=== PATIENT | female | born 1955 | race Caucasian/White ===

== ENCOUNTER 2020-04-08 16:00 | Outpatient (RCR) | payer OTHER, SELFPAY | END 2020-04-08 16:49 | disposition other institution (70) | LOC: HO.PT 16:00 | PROVIDERS: PCP Internal Medicine Medical Oncology; Visit Provider Neurological Surgery | DX: M54.2 Cervicalgia (principal) | CPT/HCPCS: 97110 ==

== ENCOUNTER 2020-05-18 08:42 | Outpatient (REF) | payer OTHER, SELFPAY ==
--- NOTE | 2020-05-18 | MR_ITS ---
EXAMINATION: MR CERVICAL SPINE WITHOUT CONTRAST CLINICAL INFORMATION: Neck pain. COMPARISON: MRI dated 03/03/2014. TECHNIQUE: MRI of the cervical spine was obtained using routine sequences without contrast. FINDINGS: VERTEBRAL BODIES AND PARASPINAL SOFT TISSUES: The patient is status post previous anterior cervical discectomy and fusion with hardware instrumentation at the C4-C5 level. An interbody prosthesis and solid arthrodesis are delineated at C5-C6. There is a mild anterior subluxation at C7-T1 with moderate to severe facet degeneration and mild edema in the articular processes. There is a mild rightward curvature of the cervical spine. The imaged portions of the lungs are grossly clear. CERVICOMEDULLARY JUNCTION AND VISUALIZED POSTERIOR FOSSA: The craniovertebral junction and imaged portions of the brain parenchyma appear normal. No cord signal abnormality or syrinx is seen. SPINAL LEVELS: C2-C3: Slightly increased mild posterior disc bulge without central canal stenosis. Patent foramina. C3-C4: Mildly worsened broad-based, shallow disc-osteophyte complex without central canal stenosis. Severe right-sided facet arthropathy, as on prior imaging with significant right foraminal encroachment. C4-C5: Solid anterior interbody fusion changes with hardware instrumentation. No central canal stenosis or foraminal narrowing. Ankylosis of the left articular pillar, new compared to the prior study. C5-C6: Prior anterior cervical fusion hardware now removed with bulky uncovertebral joint spurring on the right side and moderate right foraminal encroachment. No central canal stenosis. C6-C7: Prior anterior cervical fusion hardware removed with a solid arthrodesis. No central canal stenosis. Very mild right foraminal narrowing. C7-T1: Worsened mild anterolisthesis and unroofing of the disc without central canal stenosis. Mild annular bulge. Significantly progressed facet arthropathy, worse on the right side with mild marrow edema and mild edema in the deep posterior paraspinal soft tissues. Severe right foraminal encroachment and milder left foraminal narrowing. MR/MR cervical spine wo con IMPRESSION: Status post previous anterior cervical discectomy and fusion with hardware instrumentation at C4-C5. Prior fusion changes at C5-C6 with removal of hardware and moderate right foraminal narrowing. Solid arthrodesis at C6-C7. Mildly increased posterior disc bulges at C2-C3 and C3-C4. Stable severe right facet arthropathy and significant right foraminal encroachment at the C3-C4 level. Worsened mild anterolisthesis at C7-T1 with significantly progressed facet degeneration and severe right foraminal narrowing. Mild reactive edema in the articular processes and deep posterior paraspinal soft tissues.
== END 2020-05-18 08:43 | disposition home or self-care (01) ==
LOC: HO.MRI 08:42
PROVIDERS: PCP Internal Medicine Medical Oncology; Visit Provider Neurological Surgery
DX: M54.2 Cervicalgia (principal)
CPT/HCPCS: 72141

== ENCOUNTER 2020-09-02 11:31 | Outpatient (REF) | payer OTHER, SELFPAY | END 2020-09-02 11:32 | disposition home or self-care (01) | LOC: HO.LAB 11:31 | PROVIDERS: Visit Provider Internal Medicine | DX: Z20.822 Contact with and (suspected) exposure to COVID-19 (principal) | CPT/HCPCS: 36415; C9803; U0003; U0005 ==

== ENCOUNTER 2020-09-10 08:26 | Outpatient (REF) | payer OTHER, SELFPAY ==
[2020-09-10 08:56] LABS: MANUAL DIFF FLAG NO
[2020-09-10 09:04] LABS: Basophils Percent Auto 0.4 % (0-2); Eosinophils Absolute Auto 0.1 X10*3/uL (0.0-0.4); Hematocrit 34.8 % (37-47); Hemoglobin 11.2 g/dl (12.0-16.0); Imm Gran Abs Auto 0.03 X10*3/uL (0.00-0.03); Imm Gran Pct Auto 0.4 % (0.0-0.4); Lymphocytes Absolute Auto 1.7 X10*3/uL (1.2-4.9); Lymphocytes Percent Auto 23.2 % (20-40); Mean Corpuscular HGB Conc 32.2 g/dl (31.0-35.0); Mean Corpuscular Hemoglobin 30.7 pg (27.0-33.0); Mean Corpuscular Volume 95.3 fL (80-98); Mean Platelet Volume 10.3 fL (9.4-12.3); Monocytes Absolute Auto 0.4 X10*3/uL (0.1-1.2); Neutrophils Absolute Auto 4.9 X10*3/uL (2.0-8.3); Platelet Count 279 X10*3/uL (160-400); Red Blood Count 3.65 X10*6/uL (4.20-5.50); White Blood Count 7.2 X10*3/uL (4.8-10.8)
[2020-09-10 09:11] LABS: INTERNATIONAL NORM RATIO 1.1 (0.9-1.1); Prothrombin Time 12.8 SEC (10.8-13.0)
[2020-09-10 09:12] LABS: Partial Thromboplastin Time 33.7 SEC (24.1-38.0)
[2020-09-10 10:01] LABS: Alanine Aminotransferase 17 U/L (0-31); Albumin Level 3.9 g/dL (3.5-5.0); Alkaline Phosphatase 102 U/L (39-117); Anion Gap 12 (12-20); Aspartate Amino Transferase 18 U/L (5-31); Bilirubin Total 0.3 mg/dL (0.0-1.0); Blood Urea Nitrogen 10 mg/dL (9-16); Calcium 8.9 mg/dL (8.4-10.2); Carbon Dioxide 27 mmol/L (22-29); Chloride 105 mmol/L (96-108); Estimated Glomerular Filt Rate 59; Glucose Random 129 mg/dL (60-115); Potassium 4.3 mmol/L (3.3-5.1); Sodium 140 mmol/L (135-145); Total Protein 6.3 g/dL (6.5-8.0)
== END 2020-09-10 08:27 | disposition home or self-care (01) ==
LOC: HO.LAB 08:26
PROVIDERS: PCP Internal Medicine Medical Oncology; Visit Provider Internal Medicine Medical Oncology
DX: Z01.818 Encounter for other preprocedural examination (principal); M50.30 Other cervical disc degeneration, unspecified cervical region
CPT/HCPCS: 36415; 80053; 85025; 85610; 85730

== ENCOUNTER 2020-11-13 10:10 | Outpatient (REF) | payer OTHER, SELFPAY ==
[2020-11-13 10:46] LABS: MANUAL DIFF FLAG NO
[2020-11-13 10:51] LABS: Basophils Percent Auto 0.4 % (0-2); Eosinophils Absolute Auto 0.1 X10*3/uL (0.0-0.4); Eosinophils Percent Auto 1.8 % (0-4); Hemoglobin 12.9 g/dl (12.0-16.0); Imm Gran Abs Auto 0.01 X10*3/uL (0.00-0.03); Imm Gran Pct Auto 0.2 % (0.0-0.4); Lymphocytes Absolute Auto 1.6 X10*3/uL (1.2-4.9); Lymphocytes Percent Auto 32.1 % (20-40); Mean Corpuscular HGB Conc 32.3 g/dl (31.0-35.0); Mean Corpuscular Hemoglobin 29.6 pg (27.0-33.0); Mean Corpuscular Volume 91.7 fL (80-98); Mean Platelet Volume 10.3 fL (9.4-12.3); Monocytes Absolute Auto 0.3 X10*3/uL (0.1-1.2); Monocytes Percent Auto 6.7 % (2-11); Neutrophils Percent Auto 58.8 % (45-73); Platelet Count 311 X10*3/uL (160-400); Red Blood Count 4.36 X10*6/uL (4.20-5.50); Red Cell Distribution Width 12.8 % (11.0-16.0); White Blood Count 5.1 X10*3/uL (4.8-10.8)
[2020-11-13 11:13] LABS: Alanine Aminotransferase 12 U/L (0-31); Albumin Level 4.2 g/dL (3.5-5.0); Alkaline Phosphatase 121 U/L (39-117); Anion Gap 12 (12-20); Aspartate Amino Transferase 16 U/L (5-31); Bilirubin Total 0.4 mg/dL (0.0-1.0); Blood Urea Nitrogen 9 mg/dL (9-16); Calcium 9.6 mg/dL (8.4-10.2); Carbon Dioxide 27 mmol/L (22-29); Chloride 107 mmol/L (96-108); Cholesterol 175 mg/dL; Estimated Glomerular Filt Rate 57; Glucose Fasting 126 mg/dL (60-99); HDL Cholesterol 46 mg/dL; LDL Cholesterol Calculated 97 mg/dl; Potassium 4.1 mmol/L (3.3-5.1); Sodium 142 mmol/L (135-145); Total Protein 6.7 g/dL (6.5-8.0); Triglycerides 164 mg/dL
== END 2020-11-13 10:11 | disposition home or self-care (01) ==
LOC: HO.LAB 10:10
PROVIDERS: PCP Internal Medicine Medical Oncology; Visit Provider Internal Medicine Medical Oncology
DX: E78.2 Mixed hyperlipidemia (principal); F51.01 Primary insomnia; G25.0 Essential tremor; K21.9 Gastro-esophageal reflux disease without esophagitis
CPT/HCPCS: 36415; 80053; 80061; 85025

== ENCOUNTER 2021-09-21 14:52 | Outpatient (REF) | payer OTHER, SELFPAY ==
[2021-09-21 14:59] LABS: Appearance Urine CLEAR; Color Urine YELLOW; Glucose Urine UA NEG (NEG); Leukocyte Esterase Urine 1+ (NEG); Nitrite Urine NEG (NEG); Urine Blood 3+ (NEG); Urine Ketones NEG (NEG); Urine Protein NEG (NEG-TRACE)
[2021-09-21 15:14] LABS: Squamous Epithelial Cell Urine TRACE /LPF
[2021-09-21 15:15] LABS: Mucus Urine TRACE /LPF; Renal Epithelial Cells Urine TRACE /LPF; WBC Clumps Urine NOTED
== END 2021-09-21 14:53 | disposition home or self-care (01) ==
LOC: HO.LNP 14:52
PROVIDERS: Visit Provider Internal Medicine Medical Oncology
DX: R31.9 Hematuria, unspecified (principal)
CPT/HCPCS: 81001; 87086

== ENCOUNTER 2021-11-15 14:52 | Outpatient (REF) | payer OTHER, SELFPAY ==
[2021-11-15 15:07] LABS: MANUAL DIFF FLAG NO
[2021-11-15 16:11] LABS: Basophils Percent Auto 0.5 % (0-2); Eosinophils Absolute Auto 0.2 X10*3/uL (0.0-0.4); Eosinophils Percent Auto 2.3 % (0-4); Hematocrit 36.8 % (37.0-47.0); Hemoglobin 12.1 g/dl (12.0-16.0); Imm Gran Abs Auto 0.02 X10*3/uL (0.00-0.03); Imm Gran Pct Auto 0.3 % (0.0-0.4); Lymphocytes Absolute Auto 1.9 X10*3/uL (1.2-4.9); Lymphocytes Percent Auto 28.5 % (20-40); Mean Corpuscular HGB Conc 32.9 g/dl (31.0-35.0); Mean Corpuscular Hemoglobin 30.2 pg (27.0-33.0); Mean Corpuscular Volume 91.8 fL (80.0-98.0); Mean Platelet Volume 9.9 fL (9.4-12.3); Monocytes Absolute Auto 0.4 X10*3/uL (0.1-1.2); Monocytes Percent Auto 6.4 % (2-11); Platelet Count 317 X10*3/uL (160-400); Red Blood Count 4.01 X10*6/uL (4.20-5.50); Red Cell Distribution Width 13.3 % (11.0-16.0); White Blood Count 6.5 X10*3/uL (4.8-10.8)
[2021-11-15 16:32] LABS: Alanine Aminotransferase 13 U/L (0-31); Albumin Level 4.2 g/dL (3.5-5.0); Alkaline Phosphatase 100 U/L (39-117); Anion Gap 14 (12-20); Aspartate Amino Transferase 19 U/L (5-31); Bilirubin Total 0.3 mg/dL (0.0-1.0); Blood Urea Nitrogen 13 mg/dL (9-16); Calcium 9.4 mg/dL (8.4-10.2); Carbon Dioxide 24 mmol/L (22-29); Chloride 106 mmol/L (96-108); Cholesterol 206 mg/dL; Estimated Glomerular Filt Rate 57; Glucose Fasting 108 mg/dL (60-99); HDL Cholesterol 50 mg/dL; LDL Cholesterol Calculated 110 mg/dl; Potassium 4.8 mmol/L (3.3-5.1); Sodium 139 mmol/L (135-145); Total Protein 6.8 g/dL (6.5-8.0); Triglycerides 233 mg/dL
[2021-11-15 16:54] LABS: Free T4 (Free Thyroxine) 1.11 ng/dL (0.71-1.85); Thyroid Stimulating Hormone 0.76 uIU/mL (0.32-4.0)
== END 2021-11-15 14:53 | disposition home or self-care (01) ==
LOC: HO.LAB 14:52
PROVIDERS: PCP Internal Medicine Medical Oncology; Visit Provider Internal Medicine Medical Oncology
DX: E78.2 Mixed hyperlipidemia (principal); E66.9 Obesity, unspecified
CPT/HCPCS: 36415; 80053; 80061; 84439; 84443; 85025

== ENCOUNTER 2022-07-19 15:40 | Outpatient (REF) | payer OTHER, SELFPAY ==
[2022-07-19 15:50] LABS: MANUAL DIFF FLAG NO
[2022-07-19 16:03] LABS: Basophils Percent Auto 0.6 % (0-2); Eosinophils Absolute Auto 0.2 X10*3/uL (0.0-0.4); Eosinophils Percent Auto 2.5 % (0-4); Hematocrit 36.6 % (37.0-47.0); Hemoglobin 12.2 g/dl (12.0-16.0); Imm Gran Abs Auto 0.02 X10*3/uL (0.00-0.03); Imm Gran Pct Auto 0.3 % (0.0-0.4); Lymphocytes Absolute Auto 2.3 X10*3/uL (1.2-4.9); Lymphocytes Percent Auto 35.4 % (20-40); Mean Corpuscular HGB Conc 33.3 g/dl (31.0-35.0); Mean Corpuscular Volume 92.9 fL (80.0-98.0); Mean Platelet Volume 9.4 fL (9.4-12.3); Monocytes Absolute Auto 0.5 X10*3/uL (0.1-1.2); Monocytes Percent Auto 7.6 % (2-11); Neutrophils Absolute Auto 3.4 x10*3/uL (2.0-8.3); Neutrophils Percent Auto 53.6 % (45-73); Platelet Count 299 X10*3/uL (160-400); Red Blood Count 3.94 X10*6/uL (4.20-5.50); Red Cell Distribution Width 12.7 % (11.0-16.0); White Blood Count 6.4 X10*3/uL (4.8-10.8)
[2022-07-19 16:28] LABS: Alanine Aminotransferase 12 U/L (0-31); Alkaline Phosphatase 107 U/L (39-117); Anion Gap 15 (12-20); Aspartate Amino Transferase 12 U/L (5-31); Bilirubin Total 0.2 mg/dL (0.0-1.0); Blood Urea Nitrogen 9 mg/dL (9-16); Calcium 9.4 mg/dL (8.4-10.2); Carbon Dioxide 25 mmol/L (22-29); Chloride 107 mmol/L (96-108); Cholesterol 227 mg/dL; Estimated Glomerular Filt Rate 50; Glucose Random 102 mg/dL (60-115); HDL Cholesterol 50 mg/dL; LDL Cholesterol Calculated 142 mg/dl; Potassium 4.4 mmol/L (3.3-5.1); Sodium 143 mmol/L (135-145); Total Protein 6.6 g/dL (6.5-8.0); Triglycerides 175 mg/dL
[2022-07-19 16:50] LABS: T4 Thyroxine 9.6 ug/dL (4.5-12.0); Thyroid Stimulating Hormone 0.42 uIU/mL (0.32-4.0)
== END 2022-07-19 15:41 | disposition home or self-care (01) ==
LOC: HO.LAB 15:40
PROVIDERS: PCP Internal Medicine Medical Oncology; Visit Provider Internal Medicine Medical Oncology
DX: E78.2 Mixed hyperlipidemia (principal); E03.9 Hypothyroidism, unspecified; G25.0 Essential tremor; M50.30 Other cervical disc degeneration, unspecified cervical region; E66.9 Obesity, unspecified
CPT/HCPCS: 36415; 80053; 80061; 84436; 84443; 84550; 85025

== ENCOUNTER 2022-08-08 12:11 | Outpatient (REF) | payer OTHER, SELFPAY ==
[2022-08-08 13:42] LABS: Erythrocyte Sedimentation Rate 27 MM/HR (0-20)
[2022-08-08 13:45] LABS: Folate 8.2 ng/mL (> or = 4.0); Thyroid Stimulating Hormone 1.79 uIU/mL (0.32-4.0); Vitamin B12 203 pg/mL (200-900)
[2022-08-11 21:23] LABS: Aldolase 4.2 U/L (<=8.1)
== END 2022-08-08 12:12 | disposition home or self-care (01) ==
LOC: HO.LAB 12:11
PROVIDERS: PCP Internal Medicine Medical Oncology; Visit Provider Psychiatry & Neurology Neurology
DX: G72.9 Myopathy, unspecified (principal)
CPT/HCPCS: 36415; 82085; 82550; 82607; 82746; 84443; 85652

== ENCOUNTER 2022-08-31 07:16 | Outpatient (REF) | payer OTHER, SELFPAY ==
--- NOTE | ~2022-08-31 | MR_ITS ---
EXAMINATION: MRI OF THE BRAIN WITHOUT CONTRAST CLINICAL INFORMATION: Cerebellar ataxia. COMPARISON: MRI scan of the brain 02/13/2014. TECHNIQUE: MRI of the brain was obtained using routine sequences without contrast. FINDINGS: No diffusion abnormalities are identified to suggest an acute or subacute infarct. No mass effect or midline shift is seen. There is mild commensurate prominence of ventricles and sulci. There are sequelae of a lacunar infarct in the right caudate head with mild ex-vacuo dilatation of the anterior horn of the right lateral ventricle. There is also chronic infarct in the anterior right basal ganglia. These are new findings compared to prior imaging. There are a few scattered foci of hyperintense T2 and FLAIR signal in the periventricular and subcortical white matter, which are most consistent with mild chronic microvascular ischemic changes. No extra-axial fluid collections are seen. The brainstem and cerebellum are normal. No pathologic magnetic susceptibility artifact is identified on the gradient refocused acquisition. The craniovertebral junction, marrow signal, and midline structures are normal. There are now sequelae of an ACDF at C3-C4. The major intracranial flow-voids at the level of the [place] are preserved. The dural venous sinus flow-voids are maintained. There have been bilateral lens extractions. There is persistent fluid in the bilateral mastoid air cells, more prominent on the right. There is now polypoid mucoperiosteal thickening in the left maxillary sinus and there are mucoperiosteal changes in the bilateral ethmoid and right maxillary sinuses, new compared to prior imaging. MR/MR head/brain wo con IMPRESSION: 1. There are no acute bleeds or territorial infarcts. No masses are demonstrated. 2. There are chronic microvascular ischemic changes and there are chronic lacunar infarcts on the right. There is diffuse volume loss.
== END 2022-08-31 07:17 | disposition home or self-care (01) ==
LOC: HO.MRI 07:16
PROVIDERS: PCP Internal Medicine Medical Oncology; Visit Provider Psychiatry & Neurology Neurology
DX: G11.9 Hereditary ataxia, unspecified (principal)
CPT/HCPCS: 70551

== ENCOUNTER 2022-10-24 11:26 | Outpatient (REF) | payer OTHER, SELFPAY ==
[2022-10-24 13:01] LABS: Appearance Urine Cloudy; Color Urine Dark Yellow; Glucose Urine UA Negative (Negative); Leukocyte Esterase Urine Small (1+) (Negative); Nitrite Urine Negative (Negative); Specific Gravity - Urine >= 1.030 (1.005-1.025); UMIC TRIGGER UA YES; Urine Blood Negative (Negative); Urine Ketones Trace mg/dL (Negative); Urine Protein Trace mg/dL (Neg-Trace)
[2022-10-24 13:11] LABS: Bacteria Urine None Seen (None Seen); Calcium Oxalate Crystals Urine Present; WBC Urine 21-50 /HPF (0-5)
== END 2022-10-24 11:27 | disposition home or self-care (01) ==
LOC: HO.LAB 11:26
PROVIDERS: PCP Internal Medicine Medical Oncology; Visit Provider Internal Medicine Medical Oncology
DX: R31.9 Hematuria, unspecified (principal)
CPT/HCPCS: 81001; 81003; 87086

== ENCOUNTER 2023-07-24 17:06 | Outpatient (REF) | payer OTHER, SELFPAY | END 2023-07-24 17:07 | disposition home or self-care (01) | LOC: HO.LNP 17:06 | PROVIDERS: Visit Provider Internal Medicine Medical Oncology | DX: H66.90 Otitis media, unspecified, unspecified ear (principal) | CPT/HCPCS: 87070; 87205 ==

== ENCOUNTER 2023-08-08 10:14 | Outpatient (REF) | payer OTHER, SELFPAY ==
[2023-08-08 10:25] LABS: MANUAL DIFF FLAG NO
[2023-08-08 10:41] LABS: Basophils Percent Auto 0.4 % (0-2); Eosinophils Absolute Auto 0.2 X10*3/uL (0.0-0.4); Eosinophils Percent Auto 2.3 % (0-4); Hematocrit 38.4 % (37.0-47.0); Hemoglobin 12.4 g/dl (12.0-16.0); Imm Gran Abs Auto 0.02 X10*3/uL (0.00-0.03); Imm Gran Pct Auto 0.3 % (0.0-0.4); Mean Corpuscular HGB Conc 32.3 g/dl (31.0-35.0); Mean Corpuscular Hemoglobin 29.2 pg (27.0-33.0); Mean Corpuscular Volume 90.6 fL (80.0-98.0); Mean Platelet Volume 9.4 fL (9.4-12.3); Monocytes Absolute Auto 0.5 X10*3/uL (0.1-1.2); Monocytes Percent Auto 5.8 % (2-11); Neutrophils Absolute Auto 5.1 x10*3/uL (2.0-8.3); Neutrophils Percent Auto 65.2 % (45-73); Platelet Count 275 X10*3/uL (160-400); Red Blood Count 4.24 X10*6/uL (4.20-5.50); Red Cell Distribution Width 13.5 % (11.0-16.0); White Blood Count 7.7 X10*3/uL (4.8-10.8)
[2023-08-08 12:31] LABS: Alanine Aminotransferase 17 U/L (0-31); Albumin Level 3.9 g/dL (3.5-5.0); Alkaline Phosphatase 115 U/L (39-117); Anion Gap 12 (12-20); Aspartate Amino Transferase 18 U/L (5-31); Bilirubin Total 0.3 mg/dL (0.0-1.0); Blood Urea Nitrogen 9 mg/dL (9-16); Calcium 9.3 mg/dL (8.4-10.2); Carbon Dioxide 27 mmol/L (22-29); Chloride 106 mmol/L (96-108); Cholesterol 188 mg/dL (<200); Estimated Glomerular Filt Rate 57; Glucose Random 95 mg/dL (60-115); HDL Cholesterol 60 mg/dL (>40); LDL Cholesterol Calculated 90 mg/dL (<100); Potassium 3.9 mmol/L (3.3-5.1); Sodium 141 mmol/L (135-145); Total Protein 7.1 g/dL (6.5-8.0); Triglycerides 190 mg/dL (<150)
[2023-08-08 12:33] LABS: Free T4 (Free Thyroxine) 1.01 ng/dL (0.71-1.85); Thyroid Stimulating Hormone 0.51 uIU/mL (0.32-4.0)
== END 2023-08-08 10:15 | disposition home or self-care (01) ==
LOC: HO.LAB 10:14
PROVIDERS: PCP Internal Medicine Medical Oncology; Visit Provider Internal Medicine Medical Oncology
DX: Z00.00 Encounter for general adult medical examination without abnormal findings (principal); E78.2 Mixed hyperlipidemia; E03.9 Hypothyroidism, unspecified; K21.9 Gastro-esophageal reflux disease without esophagitis; E66.9 Obesity, unspecified
CPT/HCPCS: 36415; 80053; 80061; 84439; 84443; 85025

== ENCOUNTER 2023-12-21 12:44 | Day surgery (SDC) | payer MEDICARE, MEDICAID, SELFPAY ==
[2023-12-21 12:56] VITALS: BP 145/65; PULSE 78; RESP 18; TEMP 36.1; O2SAT 97; BMI 26.8
--- NOTE | 2023-12-21 13:29 | P.CONAN_ITS ---
HPI - Anesthesia Eval Consult details Narrative: 68 yo female patient for EGD [facility] Past Medical History Medical History Tardive dyskinesia SOB (shortness of breath) COPD (chronic obstructive pulmonary disease) Asthma Thoracic stomach hernia Hiatal hernia ADHD Hyperlipemia Anxiety Panic attack Bipolar 1 disorder Osteoarthritis Depression Hemorrhoid Tubular adenoma Brooks esophagus Diverticulosis Family History Family history of problems with anesthesia: No Surgical History Surgical History Total knee replacement status History of total right hip replacement H/O Spinal surgery Hx of colonoscopy Hx of esophagogastroduodenoscopy History of Problems with Anesthesia: No Social History Social History Patient Tobacco Use Status: Current someday Tobacco user Tobacco use type: Cigarette Date Education Initiated: 12/21/23 Use of substances other than those prescribed or required for medical reasons: No Are you DNR?: No Advance Directives: No Advance Directives Information Provided: Yes Meds Allergies Allergy/AdvReac Type Severity Reaction Status Date / Time NSAIDS (Non-Steroidal Allergy Intermediate BLOODY Verified 12/21/23 14:20 Anti-Inflamma STOOL [NSAIDS (NON-STEROIDAL ANTI-INFLAMMA] diclofenac [From VOLTAREN] Allergy Unknown GI BLEED Verified 12/21/23 14:20 anti- inflamatory medication Allergy Unknown Unknown Uncoded 12/21/23 14:20 Home Medications ?Medication ?Instructions ?Recorded ?Confirmed ?Last Taken ?Type aripiprazole 5 mg tablet 5 mg PO QAM 12/20/23 12/21/23 Unknown History atorvastatin 40 mg tablet 40 mg PO DAILY 12/20/23 12/21/23 Unknown History citalopram 40 mg tablet 40 mg PO DAILY 12/20/23 12/21/23 Unknown History dextroamphetamine-amphetamine ER 1 cap PO BID 12/20/23 12/21/23 Unknown History 30 mg 24hr capsule,extend release ergocalciferol (vitamin D2) 1,250 1,250 mcg PO QMONTH 12/20/23 12/21/23 Unknown History mcg (50,000 unit) capsule levothyroxine 75 mcg tablet 75 mcg PO DAILY 12/20/23 12/21/23 Unknown History umeclidinium 62.5 mcg-vilanterol 1 ea inhalation DAILY 12/20/23 12/21/23 Unknown History 25 mcg/actuation powdr for inhalation (Anoro Ellipta) zolpidem 10 mg tablet 10 mg PO BEDTIME PRN Sleep 12/20/23 12/21/23 Unknown History amantadine HCl 100 mg capsule 100 mg PO TID 12/21/23 12/21/23 Unknown History clonazepam 0.5 mg tablet 0.5 mg PO DAILY 12/21/23 12/21/23 Unknown History dextroamphetamine-amphetamine ER 1 cap PO QAM 12/21/23 12/21/23 Unknown History 30 mg 24hr capsule,extend release Exam Height,Weight and Vital Signs: Height 6 ft Weight 89.721 kg Last Vital Signs Temp 96.9 F 12/21/23 12:56 Pulse 78 12/21/23 12:56 Resp 18 12/21/23 12:56 BP 145/65 H 12/21/23 12:56 Pulse Ox 97 12/21/23 12:56 O2 Del Method Room Air 12/21/23 12:56 Airway Mallampati Class: II TM Dist: >3cm Neck ROM: Full Denture: Upper and Lower Heart: RRR Lungs: CTAB Assessment and Plan Assessment Anesthesia Assessment: Anesthesia Plan Discussed and Chart Reviewed Final Anesthetic Review Family History of Problems with Anesthesia: No History of Problems with Anesthesia: No NPO: Yes ASA Class: III Final Preanesthetic Review: No Changes in Pt Med Stat, Meds/Allgs Chart Reviewed, Consent Obtained/Reviewed and Anes Risks/Benef Reviewed Patient Risk: Intermediate Procedure Risk: Low Assessment/Block/Sedation in SS: Assess/Block/Sedation-SS Anesthetic Plan Anesthetic Plan: GA (While talking to PRODUCTION ENGINEER TRACK, patient mentions that Barium swallow 3 days ago had to be stopped because barium was going into her lungs. Results not available in chart but decision made to administer GA with intubation ) Disposition: Standard PACU
[2023-12-21] MEDS: Lactated Ringers 1,000 ML 100 ML IVCONT (13:30)
--- NOTE | 2023-12-21 14:33 | P.BOP_ITS ---
Brief Operative Note Date of Service: 12/21/23 Pre-op diagnosis: Hiatal hernia Post-op diagnosis: other (Same) Procedure: EGD Surgeon: Campos Hand MD Anesthesia: GETA Was an Correctional Program Specialist used for this Procedure?: No Estimated blood loss (mL): 0 Pathology: none sent Condition: stable Disposition: PACU
[2023-12-21 14:36] VITALS: BP 130/54; PULSE 62; RESP 16; TEMP 36.3; O2SAT 96
[2023-12-21 14:40] VITALS: BP 119/43; PULSE 64; RESP 16; O2SAT 96
[2023-12-21 14:45] VITALS: BP 116/54; PULSE 63; RESP 16; O2SAT 96
[2023-12-21 14:50] VITALS: BP 119/54; PULSE 62; RESP 16; O2SAT 95
[2023-12-21 15:04] VITALS: BP 109/53; PULSE 63; RESP 16; TEMP 36.1; O2SAT 97
--- NOTE | 2023-12-21 16:53 | OP_ITS ---
DATE OF SERVICE: 12/21/2023 SURGEON: Campos Hand MD INDICATIONS: The patient presents for evaluation of a paraesophageal hiatal hernia and gastroesophageal reflux. Full consent has been obtained from her for this, including risks of bleeding and perforation. PREOPERATIVE DIAGNOSIS: Hiatal hernia with paraesophageal component. POSTOPERATIVE DIAGNOSIS: Hiatal hernia with paraesophageal component. PROCEDURE PERFORMED: Esophagogastroduodenoscopy. ESTIMATED BLOOD LOSS: COMPLICATIONS: ANESTHESIA: General anesthesia was used rather than monitored anesthesia care as the anesthesiologist were concerned about aspiration given the patient's report of a recent barium swallow describing that during her x-ray. ASSISTANTS: SPECIMENS: DESCRIPTION OF PROCEDURE: The patient was kept in the supine position. The Olympus video gastroscope was passed in the posterior oropharynx and upper esophagus under direct vision. The scope was passed slowly to the distal esophagus. The gastroesophageal junction was seen at between 30 and 32 cm. There was some evidence of minimal fibrosis and scarring in relation to a previous reflux and stricture, but there was no sign of any obstruction and the scope easily entered the stomach. There was a large hiatal hernia pouch. The mucosa in all of this area appeared very normal. The scope was advanced to the pylorus, although advancement was somewhat difficult due to looping of the scope in relation to the large hernia. However, I was able to cannulate the duodenum to the descending portion. The duodenum including the bulb appeared normal without mass or ulceration. The scope was withdrawn back in the stomach. The antrum and body appeared normal. There was good peristalsis. The scope was retroflexed, visualizing the proximal stomach carefully, which appeared normal, without any sign of mass or ulceration. The scope was straightened. Again, the gastric mucosa within the large hiatal hernia appeared normal. The scope was withdrawn back to the esophagus. There was no evidence of any inflammation, Brooks's esophagus, nor stricture. The scope was withdrawn through the remainder of the esophagus, which appeared normal. The scope was withdrawn from the patient. She tolerated the procedure well and was returned to the recovery area in stable condition. IMPRESSION: Large hiatal hernia with paraesophageal component. PLAN: The patient will continue her regimen of omeprazole. She reports that she has been swallowing without difficulty, although does get full early in the meal. She will follow up with Dr. Moon in regard to the upcoming repair of the paraesophageal hernia. I did review with her that she will be due for her next screening colonoscopy in 2024 presuming things are stable from a medical standpoint. I did advise her to keep in touch with me as needed otherwise. This has been discussed with her . MD ARIANNE Brito/RASHEL / [phone] MTDD
--- NOTE | 2023-12-22 07:41 | PC.NURSE ---
24hr update documented on paper.
== END 2023-12-21 15:39 | disposition home or self-care (01) ==
PROVIDERS: PCP Internal Medicine Medical Oncology; Visit Provider Internal Medicine
PROC: 0DJ08ZZ Inspection of Upper Intestinal Tract, Via Natural or Artificial Opening Endoscopic (ICD-10-PCS; CPT 43235; principal; 2023-12-21 13:50)
DX: K22.2 Esophageal obstruction (principal); K44.9 Diaphragmatic hernia without obstruction or gangrene; K21.9 Gastro-esophageal reflux disease without esophagitis; Z87.19 Personal history of other diseases of the digestive system; J45.909 Unspecified asthma, uncomplicated; E78.5 Hyperlipidemia, unspecified; F17.210 Nicotine dependence, cigarettes, uncomplicated
CPT/HCPCS: 43235; J0330; J2704; J3010

== ENCOUNTER 2024-03-04 11:50 | Outpatient (REF) | payer MEDICARE, MEDICAID, SELFPAY ==
[2024-03-04 14:03] LABS: Leukocytes Stool Qualitative NEGATIVE (NEGATIVE)
== END 2024-03-04 11:51 | disposition home or self-care (01) ==
LOC: HO.LNP 11:50
PROVIDERS: Visit Provider Internal Medicine
DX: K52.9 Noninfective gastroenteritis and colitis, unspecified (principal)
CPT/HCPCS: 87177; 87209; 87329; 89055

== ENCOUNTER 2024-03-08 12:17 | Outpatient (REF) | payer MEDICARE, MEDICAID, SELFPAY | END 2024-03-08 12:18 | disposition home or self-care (01) | LOC: HO.LNP 12:17 | PROVIDERS: Visit Provider Internal Medicine | DX: Z13.89 Encounter for screening for other disorder (principal) ==

== ENCOUNTER 2024-03-12 11:39 | Outpatient (REF) | payer MEDICARE, MEDICAID, SELFPAY | END 2024-03-12 11:40 | disposition home or self-care (01) | LOC: HO.LAB 11:39 | PROVIDERS: PCP Internal Medicine Medical Oncology; Visit Provider Internal Medicine Medical Oncology | DX: Z13.89 Encounter for screening for other disorder (principal) ==

== ENCOUNTER 2024-03-14 09:10 | Outpatient (REF) | payer MEDICARE, MEDICAID, SELFPAY ==
[2024-03-14 10:06] LABS: CDiff Gene PCR NEGATIVE (Negative)
[2024-03-14 11:28] LABS: Adenovirus F 40/41 Not Detected (Not Detect.); Astrovirus Not Detected (Not Detect.); Campylobacter Not Detected (Not Detect.); Cryptosporidium Not Detected (Not Detect.); Cyclospora cayetanensis Not Detected (Not Detect.); E. coli EAEC Not Detected (Not Detect.); E. coli EPEC Not Detected (Not Detect.); E. coli ETEC Not Detected (Not Detect.); E. coli STEC Not Detected (Not Detect.); Entamoeba histolytica Not Detected (Not Detect.); Giardia lamblia Not Detected (Not Detect.); Norovirus GI/GII Not Detected (Not Detect.); Plesiomonas shigelloides Not Detected (Not Detect.); Rotavirus A Not Detected (Not Detect.); Salmonella Not Detected (Not Detect.); Sapovirus Not Detected (Not Detect.); Shigella sp./EIEC Not Detected (Not Detect.); Vibrio Not Detected (Not Detect.); Vibrio Cholerae Not Detected (Not Detect.); Yersinia enterocolitica Not Detected (Not Detect.)
== END 2024-03-14 09:11 | disposition home or self-care (01) ==
LOC: HO.LNP 09:10
PROVIDERS: Visit Provider Internal Medicine Medical Oncology
DX: Z13.89 Encounter for screening for other disorder (principal)
CPT/HCPCS: 87493; 87507

== ENCOUNTER 2024-03-14 16:10 | Emergency (ER) | payer OTHER, MEDICARE, MEDICAID, SELFPAY ==
--- NOTE | ~2024-03-14 | CT_ITS ---
EXAMINATION: CT brain and CT cervical spine without IV contrast. CLINICAL INDICATION: Neck pain. History of multiple spinal fusions. COMPARISON: MRI brain 08/31/2022. MRI cervical spine 05/19/2020. TECHNIQUE: 5 mm thin axial and reformatted 2 mm thin sagittal and coronal images of brain were obtained. Subsequently axial 3 mm thin and reformatted 2 mm thin sagittal and coronal images of cervical spine were obtained. DLP 1132. This CT examination was performed using dose optimization technique as appropriate, variously including the following: Automated exposure control Adjustment of MA and/or KV according to patient size(this includes techniques or standardized protocols for targeted exams where dose is matched to indication/reason for exam; extremities or head. Use of iterative reconstruction techniques. FINDINGS: There is no acute intra-axial, extra-axial bleed, masses or midline shift. There is no acute infarction in evolution. There is no edema. The horan to white matter differentiation is maintained normal. The lateral ventricles are symmetrical in size and configuration without enlargement. Bone windows reveal no calvarial abnormality. There is no scalp soft tissue abnormality. Bilateral paranasal sinuses are well-aerated. There is mild mucoperiosteal thickening right inferior mastoid sinus. The left mastoid sinuses clear. Cervical spine: There is maintained cervical lordosis. There is grade 1 anterolisthesis C7 over T1 with degenerative disc changes C7-T1 disc level. There is anterior C3 and C4 disc fusion with bone graft stabilizing ventral plate and screws. Also visualizes bone grafts at C4-5, C5-6 and C6-7 disc level for fusion. There is diffuse anterior longitudinal ligament ossification. The craniovertebral junction and the C1-C2 alignment is normal. Mild degenerative spurring is seen at the C1-C2 disc level. Mild facet joint arthropathy seen in the right at C2-3, C3-4 and left C4-5. The prevertebral soft tissues are normal. CT/CT cervical spine wo IV con IMPRESSION: No acute intracranial process seen Multilevel disc fusion from C3-4 through C6 S1 disc levels as described above. There is grade 1 anterolisthesis C7 over T1 with degenerative disc changes at the C7-T1 disc level and minimal ventral spondylosis. No acute fracture, dislocation or lytic process seen. Electronically signed by: Cristiano Desir MD 03/14/2024 05:51 PM EDT
[2024-03-14 16:28] VITALS: BP 160/84; PULSE 71; O2SAT 97
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
[2024-03-14 18:15] VITALS: BP 151/55; PULSE 74; RESP 18; TEMP 36.9; O2SAT 96; BMI 27.2
[2024-03-14] MEDS: Diphenoxylate/Atrop 2.5/0.025 TABLET 1 TAB PO (18:27)
[2024-03-14] MEDS: Acetaminophen 325 MG TABLET 975 MG PO (18:27)
--- NOTE | 2024-03-14 18:35 | PC.NURSE ---
Sen Robb MD removed pt.'s c-collar for pt. to ambulate to the restroom.
[2024-03-14 19:22] VITALS: BP 151/55; PULSE 74; RESP 18; TEMP 36.9; O2SAT 96
== END 2024-03-14 19:22 | disposition home or self-care (01) ==
PROVIDERS: Emergency Provider Emergency Medicine; PCP Internal Medicine Medical Oncology
DX: S13.4XXA Sprain of ligaments of cervical spine, initial encounter (principal); M54.2 Cervicalgia; R51.9 Headache, unspecified; R19.7 Diarrhea, unspecified; V44.5XXA Car driver injured in collision with heavy transport vehicle or bus in traffic accident, initial encounter; Y93.89 Activity, other specified; Y92.481 Parking lot as the place of occurrence of the external cause; Y99.8 Other external cause status; Z79.899 Other long term (current) drug therapy
CPT/HCPCS: 70450; 72125; 87493; 87507; 99284

== ENCOUNTER 2024-03-20 09:36 | Outpatient (REF) | payer MEDICARE, MEDICAID, SELFPAY ==
[2024-03-20 10:37] LABS: Basophils Percent Auto 0.7 % (0-2); Eosinophils Absolute Auto 0.1 X10*3/uL (0.0-0.4); Eosinophils Percent Auto 2.4 % (0-4); Hemoglobin 12.2 g/dl (12.0-16.0); Imm Gran Abs Auto 0.02 X10*3/uL (0.00-0.03); Imm Gran Pct Auto 0.4 % (0.0-0.4); Lymphocytes Absolute Auto 1.5 X10*3/uL (1.2-4.9); Lymphocytes Percent Auto 26.8 % (20-40); MANUAL DIFF FLAG NO; Mean Corpuscular HGB Conc 32.1 g/dl (31.0-35.0); Mean Corpuscular Hemoglobin 30.1 pg (27.0-33.0); Mean Corpuscular Volume 93.8 fL (80.0-98.0); Mean Platelet Volume 9.9 fL (9.4-12.3); Monocytes Absolute Auto 0.4 X10*3/uL (0.1-1.2); Monocytes Percent Auto 7.3 % (2-11); Neutrophils Absolute Auto 3.4 x10*3/uL (2.0-8.3); Neutrophils Percent Auto 62.4 % (45-73); Platelet Count 313 X10*3/uL (160-400); Red Blood Count 4.05 X10*6/uL (4.20-5.50); Red Cell Distribution Width 13.4 % (11.0-16.0); White Blood Count 5.5 X10*3/uL (4.8-10.8)
[2024-03-20 11:17] LABS: Alanine Aminotransferase 9 U/L (0-31); Alkaline Phosphatase 108 U/L (39-117); Anion Gap 10 (12-20); Aspartate Amino Transferase 14 U/L (5-31); Bilirubin Direct 0.1 mg/dL (0.0-0.5); Bilirubin Total 0.3 mg/dL (0.0-1.0); Blood Urea Nitrogen 11 mg/dL (9-16); C Reactive Protein 0.12 mg/dL (< or = 0.50); Calcium 9.6 mg/dL (8.4-10.2); Carbon Dioxide 29 mmol/L (22-29); Chloride 107 mmol/L (96-108); Estimated Glomerular Filt Rate 50; Glucose Random 97 mg/dL (60-115); Potassium 4.4 mmol/L (3.3-5.1); Sodium 142 mmol/L (135-145); Total Protein 6.8 g/dL (6.5-8.0)
[2024-03-20 11:33] LABS: TSH reflex Free T4 0.82 uIU/mL (0.32-4.0)
[2024-03-20 11:38] LABS: Erythrocyte Sedimentation Rate 17 MM/HR (0-20)
== END 2024-03-20 09:37 | disposition home or self-care (01) ==
LOC: HO.LAB 09:36
PROVIDERS: PCP Internal Medicine Medical Oncology; Visit Provider Internal Medicine
DX: K52.9 Noninfective gastroenteritis and colitis, unspecified (principal)
CPT/HCPCS: 36415; 80048; 80076; 84443; 85025; 85652; 86140

== ENCOUNTER 2024-03-21 09:30 | Outpatient (REF) | payer MEDICARE, MEDICAID, SELFPAY ==
[2024-03-21 10:30] LABS: CDiff Gene PCR NEGATIVE (Negative)
[2024-03-21 11:40] LABS: Leukocytes Stool Qualitative NEGATIVE (NEGATIVE)
[2024-03-21 12:37] LABS: Adenovirus F 40/41 Not Detected (Not Detect.); Astrovirus Not Detected (Not Detect.); Campylobacter Not Detected (Not Detect.); Cryptosporidium Not Detected (Not Detect.); Cyclospora cayetanensis Not Detected (Not Detect.); E. coli EAEC Not Detected (Not Detect.); E. coli EPEC Not Detected (Not Detect.); E. coli ETEC Not Detected (Not Detect.); E. coli STEC Not Detected (Not Detect.); Entamoeba histolytica Not Detected (Not Detect.); Giardia lamblia Not Detected (Not Detect.); Norovirus GI/GII Not Detected (Not Detect.); Plesiomonas shigelloides Not Detected (Not Detect.); Rotavirus A Not Detected (Not Detect.); Salmonella Not Detected (Not Detect.); Sapovirus Not Detected (Not Detect.); Shigella sp./EIEC Not Detected (Not Detect.); Vibrio Not Detected (Not Detect.); Vibrio Cholerae Not Detected (Not Detect.); Yersinia enterocolitica Not Detected (Not Detect.)
[2024-03-28 21:52] LABS: Calprotectin, Fecal 52 mcg/g
== END 2024-03-21 09:31 | disposition home or self-care (01) ==
LOC: HO.LNP 09:30
PROVIDERS: Visit Provider Internal Medicine
DX: K52.9 Noninfective gastroenteritis and colitis, unspecified (principal)
CPT/HCPCS: 83993; 87493; 87507; 89055

== ENCOUNTER 2024-04-04 08:25 | Outpatient (REF) | payer MEDICARE, MEDICAID, SELFPAY ==
[2024-04-05 10:29] LABS: Immunoglobulin A 148 mg/dL (70-320)
[2024-04-05 20:03] LABS: Gliadin Deamidated IgA Ab 15.4 U/mL; Gliadin Deamidated IgG Ab <1.0 U/mL; Transglutaminase Ab IgG <1.0 U/mL; Transglutaminase IgA <1.0 U/mL
[2024-04-09 22:33] LABS: Endomysial IgA Antibody Negative (Negative)
== END 2024-04-04 08:26 | disposition home or self-care (01) ==
LOC: HO.LAB 08:25
PROVIDERS: Internal Medicine; PCP Internal Medicine Medical Oncology; Visit Provider Internal Medicine Medical Oncology
DX: K52.9 Noninfective gastroenteritis and colitis, unspecified (principal)
CPT/HCPCS: 36415; 82784; 86231; 86258; 86364

== ENCOUNTER 2024-04-29 10:34 | Day surgery (SDC) | payer MEDICARE, MEDICAID, SELFPAY ==
[2024-04-25 14:24] VITALS: BMI 25.4
--- NOTE | 2024-04-26 08:58 | HO.ANESPROP2 ---
Documented by User: Monica Ordoñez NP 04/26/24 13:28 HPI - Anesthesia Eval Consult details Narrative: 68yo F for Colonoscopy s/p EGD 12/2023 with GA-ETT 7 (Barium swallow 3 days prior had to be stopped because barium was going into her lungs. Results not available in chart but decision made to administer GA with intubation) s/p paraesophageal hernia repair 12/2023 at [facility] Active Problems Active Problems: All Active Problems Mucoid diarrhea (Acute) Past Medical History Medical History Tardive dyskinesia SOB (shortness of breath) COPD (chronic obstructive pulmonary disease) Asthma Thoracic stomach hernia Hiatal hernia ADHD Hyperlipemia Anxiety Panic attack Bipolar 1 disorder Osteoarthritis Depression Hemorrhoid Tubular adenoma Brooks esophagus Diverticulosis Family History Family history of problems with anesthesia: No Surgical History Surgical History Total knee replacement status History of total right hip replacement H/O Spinal surgery Hx of colonoscopy Hx of esophagogastroduodenoscopy History of Problems with Anesthesia: No Social History Social History (Updated 04/25/24 @ 14:25 by Amberly Mejia RN) Household Members: Spouse Are you a primary managed care analyst to a significant other at home: No Do you presently have visiting nurse or other home services: No Patient Tobacco Use Status: Current everyday Tobacco user Tobacco use type: Cigarette Smoked in Last 30 Days: Yes Patient Interested in Nicotine Replacement: No Substance Use Frequency: Occasionally Have you been hit, kicked, punched, or otherwise hurt by someone within the past year? If so, by whom?: No Are you DNR?: No Advance Directives: No Advance Directives Information Provided: Yes Recently lost weight without trying: No Nutrition Risks: No Nutritional Risk Meds Allergies Allergy/AdvReac Type Severity Reaction Status Date / Time diclofenac [From VOLTAREN] Allergy Intermediate GI BLEED Verified 04/29/24 11:54 NSAIDS (Non-Steroidal Allergy Intermediate BLOODY Verified 04/29/24 11:54 Anti-Inflamma STOOL [NSAIDS (NON-STEROIDAL ANTI-INFLAMMA] Home Medications ?Medication ?Instructions ?Recorded ?Confirmed ?Last Taken ?Type aripiprazole 5 mg tablet 5 mg PO QAM 12/20/23 04/25/24 Unknown History atorvastatin 40 mg tablet 40 mg PO DAILY 12/20/23 04/25/24 Unknown History citalopram 40 mg tablet 40 mg PO DAILY 12/20/23 04/25/24 Unknown History dextroamphetamine-amphetamine ER 1 cap PO BID 12/20/23 04/25/24 Unknown History 30 mg 24hr capsule,extend release ergocalciferol (vitamin D2) 1,250 1,250 mcg PO QMONTH 12/20/23 04/25/24 Unknown History mcg (50,000 unit) capsule levothyroxine 75 mcg tablet 75 mcg PO DAILY 12/20/23 04/25/24 Unknown History umeclidinium 62.5 mcg-vilanterol 1 ea inhalation DAILY 12/20/23 04/25/24 Unknown History 25 mcg/actuation powdr for inhalation (Anoro Ellipta) zolpidem 10 mg tablet 10 mg PO BEDTIME PRN Sleep 12/20/23 04/25/24 Unknown History amantadine HCl 100 mg capsule 100 mg PO TID 12/21/23 04/25/24 Unknown History clonazepam 0.5 mg tablet 0.5 mg PO DAILY 12/21/23 04/25/24 Unknown History dextroamphetamine-amphetamine ER 1 cap PO QAM 12/21/23 04/25/24 Unknown History 30 mg 24hr capsule,extend release Exam Height,Weight and Vital Signs: Height 6 ft 1 in Weight 87.317 kg Pertinent Lab Results Pertinent Lab Results: Laboratory Tests 03/20/24 03/20/24 09:46 09:56 WBC 5.5 Hgb 12.2 Hct 38.0 Plt Count 313 Sodium 142 Potassium 4.4 Chloride 107 Carbon Dioxide 29 BUN 11 Creatinine 1.10 Assessment and Plan Assessment Anesthesia Assessment: Chart Reviewed Final Anesthetic Review Family History of Problems with Anesthesia: No History of Problems with Anesthesia: No Documented by User: Patel Cloud MD 04/29/24 13:20 HPI - Anesthesia Eval Consult details Narrative: 68yo F for Colonoscopy and EGD. s/p EGD 12/2023 with GA-ETT 7 (Barium swallow 3 days prior had to be stopped because barium was going into her lungs. Results not available in chart but decision made to administer GA with intubation) s/p paraesophageal hernia repair 12/2023 at [facility] Past Medical History Medical History Tardive dyskinesia SOB (shortness of breath) COPD (chronic obstructive pulmonary disease) Asthma Thoracic stomach hernia Hiatal hernia ADHD Hyperlipemia Anxiety Panic attack Bipolar 1 disorder Osteoarthritis Depression Hemorrhoid Tubular adenoma Brooks esophagus Diverticulosis Surgical History Surgical History Total knee replacement status History of total right hip replacement H/O Spinal surgery Hx of colonoscopy Hx of esophagogastroduodenoscopy Social History Social History (Updated 04/25/24 @ 14:25 by Amberly Mejia RN) Household Members: Spouse Are you a primary managed care analyst to a significant other at home: No Do you presently have visiting nurse or other home services: No Patient Tobacco Use Status: Current everyday Tobacco user Tobacco use type: Cigarette Smoked in Last 30 Days: Yes Patient Interested in Nicotine Replacement: No Substance Use Frequency: Occasionally Have you been hit, kicked, punched, or otherwise hurt by someone within the past year? If so, by whom?: No Are you DNR?: No Advance Directives: No Advance Directives Information Provided: Yes Recently lost weight without trying: No Nutrition Risks: No Nutritional Risk Meds Allergies Allergy/AdvReac Type Severity Reaction Status Date / Time diclofenac [From VOLTAREN] Allergy Intermediate GI BLEED Verified 04/29/24 11:54 NSAIDS (Non-Steroidal Allergy Intermediate BLOODY Verified 04/29/24 11:54 Anti-Inflamma STOOL [NSAIDS (NON-STEROIDAL ANTI-INFLAMMA] Home Medications ?Medication ?Instructions ?Recorded ?Confirmed ?Last Taken ?Type aripiprazole 5 mg tablet 5 mg PO QAM 12/20/23 04/25/24 Unknown History atorvastatin 40 mg tablet 40 mg PO DAILY 12/20/23 04/25/24 Unknown History citalopram 40 mg tablet 40 mg PO DAILY 12/20/23 04/25/24 Unknown History dextroamphetamine-amphetamine ER 1 cap PO BID 12/20/23 04/25/24 Unknown History 30 mg 24hr capsule,extend release ergocalciferol (vitamin D2) 1,250 1,250 mcg PO QMONTH 12/20/23 04/25/24 Unknown History mcg (50,000 unit) capsule levothyroxine 75 mcg tablet 75 mcg PO DAILY 12/20/23 04/25/24 Unknown History umeclidinium 62.5 mcg-vilanterol 1 ea inhalation DAILY 12/20/23 04/25/24 Unknown History 25 mcg/actuation powdr for inhalation (Anoro Ellipta) zolpidem 10 mg tablet 10 mg PO BEDTIME PRN Sleep 12/20/23 04/25/24 Unknown History amantadine HCl 100 mg capsule 100 mg PO TID 12/21/23 04/25/24 Unknown History clonazepam 0.5 mg tablet 0.5 mg PO DAILY 12/21/23 04/25/24 Unknown History dextroamphetamine-amphetamine ER 1 cap PO QAM 12/21/23 04/25/24 Unknown History 30 mg 24hr capsule,extend release Exam Airway Mallampati Class: II TM Dist: <=3cm Neck ROM: Full Denture: Upper and Lower Heart: ok Lungs: ok Assessment and Plan Assessment Anesthesia Assessment: Anesthesia Plan Discussed Final Anesthetic Review NPO: Yes ASA Class: III Final Preanesthetic Review: No Changes in Pt Med Stat, Meds/Allgs Chart Reviewed, Consent Obtained/Reviewed and Anes Risks/Benef Reviewed Patient Risk: High Procedure Risk: Intermediate Anesthetic Plan Anesthetic Plan: Agree w/ Assess. and Plan and TIVA Disposition: Standard PACU
[2024-04-29 11:50] VITALS: BMI 25.1
[2024-04-29] MEDS: Lactated Ringers 1,000 ML 100 ML IVCONT (11:55)
[2024-04-29 12:24] VITALS: BP 113/64; PULSE 66; RESP 18; TEMP 36.7; O2SAT 97
--- NOTE | 2024-04-29 14:27 | P.BOP_ITS ---
Brief Operative Note Date of Service: 04/29/24 Pre-op diagnosis: Diarrhea Post-op diagnosis: other (Gastric retention, Colon polyps, R/O celiac disease, R/O microscopic colitis) Procedure: EGD with bx, Colonoscopy to the cecum and TI with bx, and hot snare polypectomy x 3 Surgeon: Campos Hand MD Anesthesia: MAC Was an Mobile Paint Specialist used for this Procedure?: No Estimated blood loss (mL): 2.0 Pathology: other (A. Descending duodenum B. Polyp at 30cm C. Cecal polyp D. Terminal ileum E. Ascending colon F. Ascending colon polyp G. Descending colon) Condition: stable Disposition: PACU
[2024-04-29 14:29] VITALS: BP 149/61; PULSE 62; RESP 16; TEMP 36.1; O2SAT 98
[2024-04-29 14:34] VITALS: BP 146/56; PULSE 59; RESP 17; O2SAT 98
[2024-04-29 14:39] VITALS: BP 143/57; PULSE 58; RESP 17; O2SAT 99
[2024-04-29 14:44] VITALS: BP 143/52; PULSE 63; RESP 16; O2SAT 100
[2024-04-29 15:00] VITALS: BP 150/54; PULSE 66; RESP 17; TEMP 36.1; O2SAT 97
--- NOTE | 2024-04-30 08:58 | OP_ITS ---
DATE OF SERVICE: 04/29/2024 SURGEON: Campos Hand MD INDICATIONS: The patient presents for evaluation of diarrhea and abnormal laboratories regarding celiac disease. Full consent has been obtained from her for both procedures, including risks of bleeding and perforation. PREOPERATIVE DIAGNOSIS: POSTOPERATIVE DIAGNOSIS: PROCEDURE PERFORMED: Esophagogastroduodenoscopy with biopsies, and colonoscopy to cecum and terminal ileum with biopsies and hot snare polypectomy x 3. ESTIMATED BLOOD LOSS: COMPLICATIONS: ANESTHESIA: Monitored anesthesia care initially, but then converted to general anesthesia due to thefinding of gastric retention with old food ASSISTANTS: SPECIMENS: PREOPERATIVE DIAGNOSES: Diarrhea and abnormal laboratories for celiac disease. POSTOPERATIVE DIAGNOSES: Diarrhea, abnormal laboratories for celiac disease, gastric retention, rule out celiac disease, gastroesophageal reflux, colon polyps, rule out microscopic colitis, diverticulosis, and internal hemorrhoids. DESCRIPTION OF PROCEDURE: The patient was placed in the left lateral decubitus position. The Olympus video gastroscope was passed in the posterior oropharynx and upper esophagus under direct vision. The gastroesophageal junction appeared at 39 cm. There was some irregularity and some small erosions consistent with reflux. There was no stricture, ulceration, nor mass. The scope entered the stomach. At that point, there was a large amount of retained gastric contents noted. The scope was removed from the patient and the procedure was converted to General Anesthesia with ET intubation. The scope was then rentered into the patient and advanced into the stomach. The scope easily passed the retained food to the pylorus. It was much easier to navigate to the pylorus this time than prior to her recent surgery as there was no looping of the scope. The duodenum was cannulated to the descending portion. The duodenum including the bulb appeared normal without mass or ulceration. Biopsies were obtained from the 2nd and 3rd portions of duodenum. The scope was withdrawn back to the stomach. The gastric antrum appeared normal, but peristalsis was subjectively diminished. The scope was retroflexed, but I could not really see much in the proximal stomach due to the retained old food. There was no mass. The scope was straightened and withdrawn back to the esophagus. The esophageal mucosa proximal to the EG junction appeared normal. The scope was withdrawn from the patient. She was turned around for the colonoscopy. The digital rectal exam revealed no abnormalities. The Olympus video pediatric colonoscope was then entered into the rectum and advanced to the cecum. Advancement to the cecum was somewhat difficult due to the prep and probably some adhesions. Once in the cecum, however, I did identify cecal pouch with appendiceal orifice and a normal-appearing ileocecal valve. The terminal ileum was cannulated and appeared normal. Biopsies were obtained. The scope was withdrawn back in the colon. In the cecal pouch, was an approximately 12 mm polyp, which was removed by hot snare polypectomy and recovered by suction. The polypectomy site appeared clean, without any sign of residual polyp nor bleeding. The scope was then slowly withdrawn assessing all mucosal surfaces carefully. Preparation was somewhat limited with some residual stool, but the great majority was irrigated and suctioned away allowing for a good prep. The ascending colon had an approximately 8 mm polyp, which was removed by hot snare polypectomy and recovered by suction. The polypectomy site appeared clean, without any sign of residual polyp nor bleeding. At 30 cm, was an approximately 1.2 cm polyp, which was removed by hot snare polypectomy and then recovered by withdrawing it on the tip of the scope. The scope was advanced back to the polypectomy site, which appeared clean, without any sign of residual polyp nor bleeding. I did not visualize any other polyps, colitis, nor angiodysplasias. I did obtain biopsies in the ascending and descending colon to rule out microscopic colitis. There was a mild amount of sigmoid diverticulosis. In the rectum, scope was retroflexed, visualizing internal hemorrhoids, but no other pathology. The rectal mucosa appeared normal. The scope was straightened and withdrawn from the patient. She tolerated both procedures well and was returned to the recovery area in stable condition. IMPRESSION: 1. Colon polyps. 2. Rule out microscopic colitis. 3. Diverticulosis. 4. Internal hemorrhoids. 5. Gastric retention. 6. Rule out celiac disease. 7. Gastroesophageal reflux. PLAN: The results of all the biopsies will be checked. I would recommend a repeat colonoscopy within 3 years. She was advised not to use any aspirin and NSAIDs for at least 2 weeks. She was advised to continue daily omeprazole. She was advised to continue Imodium at least once or twice a day for the diarrhea, which has been helping her. I shall schedule her for an outpatient nuclear medicine gastric emptying study given the findings of the gastric retention. Of note, she has not had solid food for about 48 hours as she did a liquid diet yesterday. She was advised to try to not eat for at least several hours before bedtime and be sure to try to elevate the head of her bed to prevent nighttime vomiting or aspiration of stomach contents. I will be in touch with her to set up an appointment, but she was advised to call me sooner as needed. MD ARIANNE Brito/RASHEL / [phone] MTDD
== END 2024-04-29 15:10 | disposition home or self-care (01) ==
PROVIDERS: PCP Internal Medicine Medical Oncology; Visit Provider Internal Medicine
PROC: 0DJD8ZZ Inspection of Lower Intestinal Tract, Via Natural or Artificial Opening Endoscopic (ICD-10-PCS; CPT 45378; principal; 2024-04-29 12:30)
DX: Z12.11 Encounter for screening for malignant neoplasm of colon (principal); Z86.0101 Personal history of adenomatous and serrated colon polyps; D12.0 Benign neoplasm of cecum; D12.2 Benign neoplasm of ascending colon; D12.5 Benign neoplasm of sigmoid colon; K57.30 Diverticulosis of large intestine without perforation or abscess without bleeding; K64.8 Other hemorrhoids; K21.9 Gastro-esophageal reflux disease without esophagitis; K52.9 Noninfective gastroenteritis and colitis, unspecified; K31.84 Gastroparesis; J45.909 Unspecified asthma, uncomplicated; E78.5 Hyperlipidemia, unspecified; E03.9 Hypothyroidism, unspecified; F31.9 Bipolar disorder, unspecified; F41.9 Anxiety disorder, unspecified; Z79.51 Long term (current) use of inhaled steroids; Z79.899 Other long term (current) drug therapy; Z87.891 Personal history of nicotine dependence; Z98.890 Other specified postprocedural states
CPT/HCPCS: 45385; 45380; 43239; 88305; 88313; J1596; J2003; J2405; J2704; J3010

== ENCOUNTER 2024-06-03 07:37 | Outpatient (RCR) | payer OTHER, MEDICARE, MEDICAID, SELFPAY | END 2024-07-05 15:46 | disposition home or self-care (01) | LOC: HO.PT 07:37 | PROVIDERS: PCP Internal Medicine Medical Oncology; Visit Provider Internal Medicine Medical Oncology | DX: M54.2 Cervicalgia (principal) | CPT/HCPCS: 97110; 97140; 97161 ==

== ENCOUNTER → 2024-06-19 08:00 | Outpatient (BNV) | payer OTHER, MEDICARE, MEDICAID, SELFPAY | PROVIDERS: PCP Internal Medicine Medical Oncology; Visit Provider Radiology Diagnostic Radiology | DX: R14.0 Abdominal distension (gaseous) (principal) | CPT/HCPCS: 78264 ==

== ENCOUNTER → 2024-06-19 08:07 | Outpatient (REF) | payer OTHER, MEDICARE, MEDICAID, SELFPAY ==
--- NOTE | ~2024-06-19 | NM_ITS ---
EXAMINATION: VT RADIONUCLIDE SOLID FOOD GASTRIC EMPTYING 4-HOUR STUDY CLINICAL INFORMATION: Bloated stomach to 6 months getting worse. Thoracic stomach hernia. COMPARISON: None TECHNIQUE: A standard meal consisting of 4 oz of Egg Beaters brand tagged with 0.918 microcuries Tc-99m Sulfur Colloid, 8 oz water and 2 slices of toast with jelly was administered orally to the patient. Images were obtained using a dual head gamma camera in the anterior and posterior projections over of the stomach immediately post ingestion and at hourly intervals up to 4 hours post ingestion. The anterior and posterior counts at each time interval were averaged using the geometric mean and expressed as percentage of the immediate post ingestion counts. FINDINGS: There is good visualization of activity in the stomach immediately post ingestion. As the study progresses, there is good clearance of activity from the stomach and visualization of progressively increasing small bowel activity. By the end of the study, there is almost no retention noted in the stomach. Retention in the stomach at each time interval was: 1 hour 93% (normal 37%-90%) 2 hours 80% (normal 30%-60%) 3 hours 72% 4 hours 42% (normal 0%-10%) VT/VT gastric emptying study IMPRESSION: Abnormal 4-hour solid food gastric emptying study with approximately 40% of food retained by 220 minutes. For solid meal, rapid gastric emptying is less than 30% at 60 minutes. Delayed gastric emptying criteria is more than 60% remaining at 120 minutes or more than 10% at 240 minutes. The 4-hour value is the best discriminator of a normal or abnormal result). Gastric emptying study grading per JNMT Consensus Recommendations in 2008 (https://tech.snmjournals.org/content/36/1/44) Grade 1 (mild retention): 11-20% at 4h Grade 2 (moderate retention): 21-35% at 4h Grade 3 (severe retention): 36-50% at 4h Grade 4 (very severe retention): >50% retention at 4h Electronically signed by: Cristiano Desir MD 06/20/2024 07:18 AM [facility]
--- OUTSIDE RECORDS SUMMARY | 2024-06-19 08:14 | XMS_ITS ---
Author Organization Campos Quezada III, MD Address [address] [place] [address] Care Team Providers Care Hunter Trapper Name Role Phone Campos Quezada Primary Care Provider Allergies Allergen (clinical drug ingredient) Drug/Non Drug [...] day Active Vitamin D (Ergocalciferol) 1.25 MG (01003 UT) TAKE 1 CAPSULE BY MOUTH ONCE [...] Date Provider Diagnosis Campos Quezada III, MD [address] [place] [address] [place] [address] 05/13/2024 Campos Quezada Chronic diarrhea of unknown [...] She continues under the care of a timber poisoner whohas done a colonoscopy in the near [...] day Vitamin D (Ergocalciferol) 1 .25 MG (55926 UT) TAKE 1 CAPSULE BY MOUTH ONCE [...] Follow up on chronic diarrhea Provider Name:Campos Quezada, 07/15/2024 11:00:00 AM, [address] [place] [address] [address], [place], [address], Provider Name:Campos Quezada, 05/14/2025 11:00:00 AM, [address] [place] [address] [address], [facility], [address], Progress Notes * [place] RIBERAOB:1955 (68 yo F)Acc No.[id number]:05/13/2024 Progress Notes Patient:?Sally RIBERA Provider:?Campos Quezada MD :1955???Age:68 Y???Sex:Female D ate:05/13/2024 Address: [id number] Subjective: * Chief Complaints: * ???Annual Exam * HPI: ???Depression Screening:?PHQ-9?Little interest or pleasure in doing things?Not at all ?Feeling down, depressed, or hopeless?Not at all ?Trouble falling or staying asleep, or sleeping too much?Not at all ?Feeling tired or having little energy?More than half the days ?Poor appetite or overeating?Not at all ?Feeling bad about yourself or that you are a failure, or have let yourself or your family down?Not at all ?Trouble concentrating on things, such as reading the newspaper or watching television?Not at all ?Moving or speaking so slowly that other people could have noticed; or the opposite, being so fidgety or restless that you have been moving around a lot more than usual?Not at all ?Thoughts that you would be better off or of hurting yourself in some way?Not at all ?Total Score?2 ?Interpretation?Minimal Depression ???COVID-19 Screening:?Questions?Have you experienced fever, chills, cough, sore throat, shortness of breath, difficulty breathing, muscle aches, loss of taste or smell??No ?Have you been exposed to the virus within the last 10 days??No ?Have you travelled internationally in the last 10 days??No ?Have you been exposed to COVID-19 in the past??Yes ???Fall Risk Screening:?Fall History?Have you had any falls with injury in the past year??No ?Have you had two or more falls in the past year??No ?Fall Risk Assessment:?No falls in the past year ???SDOH Questions:?SDOH Questions?In the past year have you been worried about losing your housing??No ?In the past year have you or any family members you live with been unable to get any of the following when it was really needed? Check all that apply:?Decline to answer ???:?The patient, a 68-year-old female, has been dealing with chronic diarrhea. She has been taking Ammonium and eliceo to manage the symptoms. She had a colonoscopy done, which revealed a couple of polyps but no cancer. However, the timber poisoner found old food in her system, which [...] mother, who is almost 98 years old. * ROS:?General/Constitutional:?pain?Neck, left shoulder, lumbar spine.?Chills?denies.?Fatigue?admits.?Fever?denies.?ENT:?Decreased hearing?denies.?Respiratory:?Cough?non-productive.?Cardiovascular:?Chest pain with exertion?denies.?Dyspnea on exertion?denies.?Shortness of breath?denies.?Gastrointestinal:?Constipation?denies.?Decreased appetite?denies.?Diarrhea?chronic several times a day.?Heartburn?denies.?Nausea?denies.?Rectal bleeding?denies.?Vomiting?denies.?Hematology:?bruising?denies.?petechiae?denies.?Swollen glands?none have been noted.?Genitourinary:?Frequent urination?at night.?Musculoskeletal:?Muscle aches?denies.?Painful joints?denies.?Sciatica?denies.?Weakness?denies.?Skin:?Itching?denies.?Rash?denies.?Skin lesion(s)?denies.?Neurologic:?Difficulty speaking?denies.?Dizziness?denies.?Headache?denies.?Low back pain?denies.?Psychiatric:?Depressed mood?denies.? * Medical History:? * Surgical History:?Hysterecto my, Total with bilateral salpingo-oophorectomy, , dysfunctional uterine bleeding [id number] and C6-C7 anterior disectomy and fusion by Dr. Michael lEliott 07/2004right hip arthroplasty 02/2012colonoscopy, [facility], tubular adenoma of sigmoid 2002colonoscopy, [facility], Dr. Hand, tubular adenoma at 30 cm 2006EGD, Dr. Hand, gastritis 2009colonoscopy, Dr. Hand, tubular adenomatous (3) 2014neck fusion 05/2018Neck Fusion [facility] nterior Cervical Discectomy Anterior Arthrodesis C3-4 [id number] knee replacement 2023-02No history * Hospitalization/Major Diagno stic Procedure:?neck fusion 05/2018No history * Family History:?Father: dece ased, Cancer, diagnosed with Cancer.?Mother: alive.? She is an adopted child. Melanoma. * Social History:?Tobacco Use:?Tobacco Control (Standard)?Tobacco use:?Current every day smoker ?Additional Findings: Tobacco user?Light cigarette smoker (1-9 cigs/day) ???Drugs/Alcohol:?Drugs?Have you used drugs other than those for medical reasons in the past 12 months??No ???Drug/Alcohol:?AUDIT-C (Standard)?Did you have a drink containing alcohol in the past year??No ?Points?0 ?Interpretation?Negative ???She is on SSI disability. Her mental health's through Dr. Ramachandran at [facility]. Smoking - The patient reported smoking about 3 cigarettes a day. * Medications:?TakingDiphenoxy late-Atropine 2.5-0.025 MG Tablet 1 tablet as needed [...] a day Vitamin D (Ergocalciferol) 1.25 MG (56315 UT) Capsule TAKE 1 CAPSULE BY MOUTH [...] day Taking Vitamin D (Ergocalciferol) 1.25 MG (67409 UT) Capsule TAKE 1 CAPSULE BY MOUTH [...] reviewed and reconciled with the patient * Allergies:?Voltaren: stomach upset - Side EffectsCorticosteroidsno[Allergies Verified] Objective: * Vitals:?Ht: 72, Wt:191, BMI: 25.9, BP:139/82, HR:73, Temp:96.9, Wt-k.64. * ???Past Orders: ???Lab:Pathology (Order Date - 04/29/2024) (Collection Date & [...] & Time - 04/04/2024 08:39 AM)?ValueReference Range?Immunoglobulin [id number] - mg/dL ???Lab:Transglutaminase Ab IgG (Order [...] ?E. coli STECNot DetectedNot Detect. -?E. coli B069Ouq applicable Not Detect. -?Shigella sp./EIECNot DetectedNot Detect. - ?CryptosporidiumNot DetectedNot Detect. -?Cyclospora cayetanensis Not DetectedNot Detect. -?Entamoeba histolyticaNot DetectedNot Detect. - ?Giardia lambliaNot DetectedNot Detect. -?Adenovirus F 40/41Not DetectedNot Detect. -?AstrovirusNot DetectedNot Detect. - ?Norovirus GI/GIINot DetectedNot Detect. -?Rotavirus ANot Detected Not Detect. -?SapovirusNot DetectedNot Detect. - ???Lab:Leukocytes Stool Qualitative (Order Date - 03/04/2024) (Collection Date & Time - 1:00 AM)?ValueReference Range?Leukocytes Stool QualitativeNEGATIVENEGATIVE - ???Lab:Giardia Ag Stool EIA (Order Date - 03/04/2024) (Collection Date & Time - 03/04/2024 11:00 AM)?ValueReference Range?Giardia Ag Stool EIASEE NOTE- ???Lab:Ova and Parasite (Order Date - 03/04/2024) (Collection Date & Time - 03/04/2024 11:00 AM)?ValueReference Range?Ova and ParasiteSEE NOTE - * Examination: ???General Examination: ?GENERAL APPEARANCE:?pleasant, well nourished, well developed, in no acute distress, calm and relaxed, overweight, woman.?HEAD:?atraumatic, normocephalic.?EYES:?eomi, perrla, anicteric, conjugate.?EARS:?normal.?NOSE:?septum intact.?ORAL CAVITY:?normal, unremarkable.?NECK/THYROID:?no jugular venous distention, no carotid bruit, thyroid normal.?LYMPH NODES:?no enlarged lymph nodes,spleen normal.?SKIN:?no suspicious lesions, anicteric.?HEART:?no clicks, gallops, murmurs, or rubs, regular rhythm, S1, S2 normal, no s3, or vascular bruits.?LUNGS:?, diminished breath sounds throughout, no wheezes, rales, rhonchi, good air movement.?BREASTS:?, no dimpling, no discharge, no drainage, no masses palpable bilaterally, nontender, symmetrical.?ABDOMEN:?bowel sounds normal, no ascites, no organomegaly, no mass.?RECTAL EXAM:?not examined.?MUSCULOSKELETAL:?Diminished range of? motion left shoulder and neck and lumbar spine,.?PERIPHERAL PULSES:?normal.?NEUROLOGIC:?alert and oriented, cranial nerves 2-12 grossly intact, deep tendon reflexes 2+ symmetrical, motor strength normal upper and lower extremities, sensory exam intact.?PSYCH:?alert, oriented.? Assessment: * Assessment: 1.?Chronic diarrhea of unkno wn origin - K52.9 (Primary)???Notes :Her gliaden T body level was 15. A reflex test was negative. She continues under the care of a timber poisoner whohas done a colonoscopy in the near future.Because of the diarrhea is still unclear.? An infectious and today he has not been found.? She admits to 3 loose stools a day.? This is controlled with Imodium.???2.?Mixed hyperlipidemia - E78.2???Notes :The lipids are currently stable. No change in her medications was made. I recommended aggressive weight loss and healthy low animal fat diet.???3.?Acquired hypothyroidism - E03.9???Notes :Her thyroid function tests are stable. She was continued on the current dose.???4.?Former smoker - Z87.891???Notes :We discussed a plan to prevent relapse in times of stress or illness.???5.?Primary insomnia - F51.01???Notes :We discussed sleep hygiene today. She will continue her current therapy and no additional medication was given.???6.?Idiopathic chronic gout 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 tophus - M1A.0710???Notes :There is no pain today from gout in any location. She will be observed carefully for this problem and call me once if it recurs.???7.?Unspecified rotator cuff tear or rupture of left shoulder, not specified as traumatic - M75.102???Notes :She continues to have pain with range of motion and sees Dr. Hamilton for this problem. He received physical therapy and a sling.???8.?Degenerative disc disease, cervical - M50.30???Notes :She is going to have another injection and see the neurosurgeon in the near future.???9.?Essential tremor - G25.0???Notes :She will call the office with the name of the new medication given to her for her tremor by her psychiatrist.???10.?GERD without esophagitis - K21.9???Notes :Her esophageall reflux symptoms are well controlled medication. No change in her regimentoday.???11.?Overweight - E66.3???Notes :Her body mass index is 25.9.? She is slightly overweight.? We discussed ways of avoiding weight gain during the winter holidays.??? Plan: * Treatment: 2.?Others? Continue Levothyroxine Sodium Tablet, 75 MCG, 1 tablet in the morning on an empty stomach, Orally, Once a day;?Continue Diphenoxylate-Atropine Tablet, 2.5-0.025 MG, 1 tablet as needed, Orally, Four times a day if needed for diarrhea;?Continue Atorvastatin Calcium Tablet, 40 MG, TAKE 1 TABLET BY MOUTH EVERY DAY FOR 90 DAYS, Orally, Once a day;?Continue Adderall XR Capsule Extended Release 24 Hour, 30 MG, 1 capsule in the morning, Orally, Once a day;?Continue Abilify Tablet, 5 MG, 1 tablet, Orally, Once a day;?Continue Zolpidem Tartrate Tablet, 10 MG, 1 tablet at bedtime, Orally, Once a day;?Continue Citalopram Hydrobromide Tablet, 40 MG, 1 tablet, Orally, Once a day;?Continue Vitamin D (Ergocalciferol) Capsule, 1.25 MG (52377 UT), TAKE 1 CAPSULE BY MOUTH ONCE A MONTH, Orally, once a month;?Continue Benztropine Mesylate Tablet, 0.5 MG, Oral;?Continue hydrOXYzine Pamoate Capsule, 25 MG, Oral;?Continue Trelegy Ellipta Aerosol Powder Breath Activated, 100-62.5-25 MCG/ACT, Inhalation.?? * Labs:? * ?Lab: URINE DIP STICK (C ollection Date & Time - 05/13/2024) ? Value Reference Range ?SG 1.025 1.005 - 1.025 * ?pH 5.0 5.0 - 9.0 * ?JOAQUIN Negative Negative - * ?NIT Negative Negative - * ?PRO 15 Negative - Trac e * ?GLU Negative Negative - * ?KET Negative Negative - * ?UBG 0.2 0.1 - 1.8 * ?MIKO Negative 0.2 - 1.3 * ?BLD Negative Negative - * ?Menstrating No * Procedure Codes:?27685 URINE -NO MICRO * Preventive Medicine:? ??Counseling:?Care goal follow-up plan:?Counseling for abnormal BMI given?Yes ?Above Normal BMI Follow-up?Dietary management education, guidance, and counseling, Dietary needs education ?Smoking/Tobacco Use?Patient counseled on the dangers of tobacco use and urged to quit.?05/13/2024 ?Patient Lifestyle Goals?Patient wants to quit ?Treatment Goals?Cut down by 1 cigarette a week, Set a quit date ?Barriers?Stress ?Self-Management Plan?Make a plan to cut down number of cigarettes over time and set a date to work towards quitting * Follow Up:?September 05 (Reaso n: Follow up on chronic diarrhea) * Images: * Sign off status: Completed true * Provider:?Campos Quezada MD Date:?07/2023 Generated for Mariposa reynolds/Aron/Charlinesmitting on:?06/19/2024 08:14 AM EST History and Physical Notes * HPI [...] Fall Risk Assessment:: No falls in the COVID-19 Screening Questions Have you had any new onset fever, chills, cough, congestion, sore throat, shortness of breath, muscle aches?: No Have you been exposed to the virus with n the last 10 days?: No Have you travelled internationally in last 10 days?: No Have you been [...]
--- OUTSIDE RECORDS SUMMARY | 2024-06-19 08:14 | XMS_ITS ---
Author Organization Campos Quezada III, MD Address [address] [place] [address] Care Team Providers Care Frozen Pie Maker Name Role Phone Campos Quezada Primary Care Provider Medications Medication SIG (Take, Route, Frequency, Duration) Notes Start Date End Date Status Levothyroxine Sodium 75 MCG 1 tablet in the morning on an empty stomach Orally Once a day for 90 days 04/18/2024 Active Social History Sex Assigned At : Social History Observation Description Sex Assigned At Female Encounters Encounter Location Date Provider Diagnosis Campos Quezada III, MD [address] [place] [address] [place] [address] 04/18/2024 Campos Quezada Plan Of Treatment Medication Medication Name Sig Start Date Stop Date Notes Levothyroxine Sodium 75 MCG 1 tablet in the morning on an empty stomach Orally Once a day for 90 days 04/18/2024 Next Appt Details Provider Name:Campos Quezada, 07/15/2024 11:00:00 AM, [address] [place] [address] [place], [address], Provider Name:Campos Quezada, 05/14/2025 11:00:00 AM, [address] [place] [address] [place], [address], Progress Notes * [place] RIBERAOB:1955 (68 yo F)Acc No.[id number]:04/18/2024 Patient:?TOUGAS, Sally :1955???Age:68 Y???Sex:Female Address:[address] [place], [place] [address], [place], [address] * Refills? Start Levothyroxine Sodium Tablet, 75 MCG, Orally, 90 Tablet, 1 tablet in the morning on an empty stomach, Once a day, 90 days, Refills=3 * true * Date:? Generated for Mariposa reynolds/Aron/eTransmitting on:?06/19/2024 08:14 AM EST
--- OUTSIDE RECORDS SUMMARY | 2024-06-19 08:15 | XMS_ITS ---
Author Organization [facility] Address [address] [place] [address] Care Team Providers Care Hand Method Lasting Machine Operator Name Role Phone Pilar MCDERMOTT, Campos Primary Care Provider Unavailab Campos Navarro Unavailable [phone] REASON FOR VISIT Needs gastric emptying study PROBLEMS Problem Type ICD Code Onset Dates Problem Status W/U Status Risk SNOMED Code Notes Problem Retained food in stomach (K31.89) Active confirmed Encounters Encounter Location Date Provider Diagnosis [facility] [address] [place] [address] 05/01/2024 Campos Hand Retained food in stomach K31.89 ASSESSMENTS Encounter Date Diagnosis Assessment Notes Treatment Notes Treatment Clinical Notes 05/01/2024 Retained food in stomach (ICD-10 - K31.89) PLAN OF TREATMENT Pending Test Test Name Order Date NUC GASTRIC ANTRUM EMPTYING 05/01/2024 Next Appt Details Provider Name:Campos Hand , 09/05/2024 10:00:00 AM, [address], [address], [place], [address],
--- OUTSIDE RECORDS SUMMARY | 2024-06-19 08:15 | XMS_ITS | Patient Health Record ---
Author Organization Campos Quezada III, MD Address [address] [place] [address] Care Team Providers [place] [employer] Name Role Phone Campos Quezada Primary Care Provider Allergies Allergen (clinical drug ingredient) Drug/Non Drug Allergy documented on EMR Reaction Allergy Type Onset Date Status corticosteroid and/or corticosteroid derivative (FN) Corticosteroids Unknown Drug Allergy Active Voltaren stomach upset Drug Allergy Act angela Results Component Value Reference Range Notes Ear Culture Reviewed date:08/09/2023 01:56:36 PM Interpretation: Performing Lab:[facility], [address] [place] [phone] Notes/Report: Ear Culture Report - external Previously reported gram negative paco was found to be part of mixed skin raisa. Consult microbiology within 7 days if more definitive studies are clinically indicated. Ear Culture 1+ Mixed skin raisa Previously reported gram negative paco was found to be part of mixed skin raisa. Consult microbiology within 7 days if more definitive studies are clinically indicated. O:GNR Gram negative paco Ear Culture Quant Previously reported gram negative paco was found to be part of mixed skin raisa. Consult microbiology within 7 days if more definitive studies are clinically indicated. Ear Culture 1+ Previously reported gram negative paco was found to be part of mixed skin raisa. Consult microbiology within 7 days if more definitive studies are clinically indicated. URINE DIP STICK Reviewed date:05/13/2024 10:33:04 AM Interpretation: Performing Lab: Notes/Report: SG 1.025 1.005 - 1.025 pH 5.0 5.0 - 9.0 JOAQUIN Negative Negative - NIT Negative Negative - PRO 15 Negative - Trace GLU Negative Negative - KET Negative Negative - UBG 0.2 0.1 - 1.8 MIKO Negative 0.2 - 1.3 BLD Negative Negative - Menstrating No Gram stain Reviewed date:08/09/2023 01:56:36 PM Interpretation: Performing Lab:[facility], [address] [place] [phone] Notes/Report: Gram stain Gram stain results: Gram stain 1+ polys Gram stain 2+ epithelial cells Gram stain No organisms seen Complete Blood Count Auto Di ff Reviewed date:08/09/2023 01:56:36 PM Interpretation: Performing Lab:[facility], [address] [place] [phone] Notes/Report: White Blood Count 7.7 4.8-10.8 X10*3/uL Red Blood Count 4.24 4.20-5.50 X10*6/uL Hemoglobin 12.4 12.0-16.0 g/dl Hematocrit 38.4 37.0-47.0 % Mean Corpuscular Volume 90.6 80.0-98.0 fL Mean Corpuscular Hemoglobin 29.2 27.0-33.0 pg Mean Corpuscular HGB Conc 32.3 31.0-35.0 g/dl Red Cell Distribution Width 13.5 11.0-16.0 % Platelet Count 275 160-400 X10*3/uL Mean Platelet Volume 9.4 9.4-12.3 fL Neutrophils Percent Auto 65.2 45-73 % Imm Gran Pct Auto 0.3 0.0-0.4 % Lymphocytes Percent Auto 26.0 20-40 % Monocytes Percent Auto 5.8 2-11 % Eosinophils Percent Auto 2.3 0-4 % Basophils Percent Auto 0.4 0-2 % NRBC Pct Auto 0.0 0.0-0.2 /100WBC Neutrophils Absolute Auto 5.1 2.0-8.3 x10*3/u L Imm Gran Abs Auto 0.02 0.00-0.03 X10*3/uL Lymphocytes Absolute Auto 2.0 1.2-4.9 X10*3/u L Monocytes Absolute Auto 0.5 0.1-1.2 X10*3/uL Eosinophils Absolute Auto 0.2 0.0-0.4 X10*3/u L Basophils Absolute Auto 0.0 0.0-0.2 X10*3/uL NRBC Abs Auto 0.000 0.0-0.012 X10*3/uL Comprehensive Met. Panel Reviewed date:08/09/2023 01:56:36 PM Interpretation: Performing Lab:[facility], [address] [place] [phone] Notes/Report: Sodium 141 135-145 mmol/L Potassium 3.9 3.3-5.1 mmol/L Chloride 106 96-108 mmol/L Carbon Dioxide 27 22-29 mmol/L Anion Gap 12 12-20 Blood Urea Nitrogen 9 9-16 mg/dL Creatinine 0.98 0.5-1.4 mg/dL Estimated Glomerular Filt Rate 57 NOTE: For -[place] individuals, multiply the result by 1.210. Chronic Kidney Disease: Estimated GFR < 60 mL/min/1.73m2 Severe Kidney Disease: Estimated GFR < 15 mL/min/1.73m2 Glucose Random 95 60-115 mg/dL Calcium 9.3 8.4-10.2 mg/dL Bilirubin Total 0.3 0.0-1.0 mg/dL Aspartate Amino Transferase 18 5-31 U/L Alanine Aminotransferase 17 0-31 U/L Total Protein 7.1 6.5-8.0 g/dL Albumin Level 3.9 3.5-5.0 g/dL Alkaline Phosphatase 115 39-117 U/L Lipid Panel Reviewed date:08/09/2023 01:56:36 PM Interpretation: Performing Lab:[facility], [address] [place] [phone] Notes/Report: Triglycerides 190 <150 mg/dL Desirable Triglyceride: less than 150 mg/dL Borderline High Triglyceride 150-199 mg/dL High Triglyceride: 200-499 mg/dL Very High Triglyceride: greater than or equal to 5OO mg/dL Cholesterol 188 <200 mg/dL Desirable Cholesterol: less than 200 mg/dL Borderline High Cholesterol: 200-239 mg/dL High Cholesterol: greater than 239 mg/dL LDL Cholesterol Calculated 90 <100 mg/dL Desirable LDL: less than 100 mg/dL Near Optimal/Above Optimal LDL: 110-129 mg/dL Borderline High LDL: 130-159 mg/dL High LDL: 160-189 mg/dL Very High LDL: greater than or equal to 190 mg/dL HDL Cholesterol 60 >40 mg/dL Desirable HDL: greater than 40 mg/dL Note: This HDL assay may give artificially low results in patients with liver disease. Free T4 (Free Thyroxine) Reviewed date:08/09/2023 01:56:36 PM Interpretation: Performing Lab:[address] [phone] Notes/Report: Free T4 (Free Thyroxine) 1.01 0.71-1.85 ng/dL Thyroid Stimulating Hormone Reviewed date:08/09/2023 01:56:36 PM Interpretation: Performing Lab:[facility], [address] [place] [phone] Notes/Report: Thyroid Stimulating Hormone 0.51 0.32-4.0 uIU/mL TSH 3rd Generation ([facility]) Leukocytes Stool Qualitative Reviewed date:03/06/2024 06:30:35 AM Interpretation: Performing Lab:[address] [address] Notes/Report: Leukocytes Stool Qualitative NEGATIVE NEGATIVE Giardia Ag Stool EIA Reviewed date:03/21/2024 05:52:08 AM Interpretation: Performing Lab:[facility], [address] [place] [phone] Notes/Report: Giardia Ag Stool EIA SEE NOTE GIARDIA AG, EIA, STOOL Micro Number: [id number] Test Status: Final Specimen Source: Stool Specimen Quality: Adequate Giardia Result 1: Not Detected Reference Range: Not Detected NOTE: Due to intermittent shedding, one negative sample does not necessarily rule out the presence of a parasitic infection. THIS TEST WAS PERFORMED AT: [facility] [address] [address] MATTHEW RUSSELL MD Ova and Parasite Reviewed date:03/21/2024 05:52:08 AM Interpretation: Performing Lab:[address] [phone] Notes/Report: Ova and Parasite SEE NOTE OVA AND PARASITES, CONC AND PERM SMEAR Micro Number: [id number] Test Status: Final Specimen Source: Stool Specimen Quality: Adequate CONCENTRATION 1: No ova or parasites seen TRICHROME 1: No ova or parasites seen Routine Ova and Parasite exam may not detect some parasites that occasionally cause diarrheal illness. Cryptosporidium Antigen and/or Cyclospora Isospora Exam may be ordered to detect these parasites. For additional information, please refer to https://education.WangYou/faq/FAQ 203 (This link is being provided for informational/ educational purposes only.) THIS TEST WAS PERFORMED AT: [facility] [address] [place] [phone] MATTHEW RUSSELL MD CDiff Gene PCR Reviewed date:03/21/2024 05:52:08 AM Interpretation: Performing Lab:[facility], [address] [place] [phone] Notes/Report: CDiff Gene PCR NEGATIVE Negative If C. difficile strongly suspected despite one negative test, a second test may be sent vs. empiric treatment for C. difficile infection. GI Panel Reviewed date:03/21/2024 05:52:08 AM Interpretation: Performing Lab:[facility], [address] [place] [phone] Notes/Report: Campylobacter Not Detected Not Detect. Plesiomonas shigelloides Not Detected Not Detect. Salmonella Not Detected Not Detect. Vibrio Not Detected Not Detect. Vibrio Cholerae Not Detected Not Detect. Yersinia enterocolitica Not Detected Not Detect. E. coli EAEC Not Detected Not Detect. E. coli EPEC Not Detected Not Detect. E. coli ETEC Not Detected Not Detect. E. coli STEC Not Detected Not Detect. E. coli O157 Not applicable Not Detect. E. coli containing the O157 antigen are a subset of Shiga-like toxin-producing E. coli (STEC). Shigella sp./EIEC Not Detected Not Detect. Cryptosporidium Not Detected Not Detect. Cyclospora cayetanensis Not Detected Not Detect. Entamoeba histolytica Not Detected Not Detect. Giardia lamblia Not Detected Not Detect. Adenovirus F 40/41 Not Detected Not Detect. Astrovirus Not Detected Not Detect. Norovirus GI/GII Not Detected Not Detect. Rotavirus A Not Detected Not Detect. Sapovirus Not Detected Not Detect. All results must be correlated with clinical findings. Negative results do not exclude the possibility of gastrointestinal infection and should not be used as the sole basis for diagnosis, treatment, or other management decisions. Virus, bacteria, and parasite nucleic acid may persist in vivo independently of organism viability. Additionally, some organisms may be carried symptomatically. Detection of organism targets does not imply that the corresponding organisms are infectious or are the causative agents for clinical symptoms. There is a risk of false negative values due to the presence of sequence variants in the gene targets of the assay, amplification inhibitors in specimens, or inadequate numbers of organisms for amplification. The identification of several diarrheagenic E. coli pathotypes has historically relied upon phenotypic characteristics. This panel targets genetic determinants characteristic of most pathogenic strains, but may not detect all strains having phenotypic characteristics of a pathotype. The performance of this test has not been established for monitoring treatment of infection with any of the panel organisms. This assay is performed by Multiplexed PCR, utilizing the Play4test Array. Immunoglobulin A Reviewed date:04/15/2024 05:39:45 AM Interpretation: Performing Lab:[address] [phone] Notes/Report: Immunoglobulin A 148 70-320 mg/dL THIS TEST WAS PERFORMED AT: [facility] [address] [place] [phone] MATTHEW RUSSELL MD Transglutaminase Ab IgG Reviewed date:04/15/2024 05:39:45 AM Interpretation: Performing Lab:[address] [phone] Notes/Report: Transglutaminase Ab IgG <1.0 Value Interpretation ----- <15.0 Antibody not detected > or = 15.0 Antibody detected THIS TEST WAS PERFORMED AT: [facility] [address] [place] [phone] MATTHEW RUSSELL MD Transglutaminase IgA Reviewed date:04/15/2024 05:39:45 AM Interpretation: Performing Lab:[address] [phone] Notes/Report: Transglutaminase IgA <1.0 Value Interpretation ----- <15.0 Antibody not detected > or = 15.0 Antibody detected THIS TEST WAS PERFORMED AT: [facility] [address] [place] [phone] MATTHEW RUSSELL MD Gliadin Ab Panel Reviewed date:04/15/2024 05:39:45 AM Interpretation: Performing Lab:[facility], [address] [place] [phone] Notes/Report: Gliadin Deamidated IgA Ab 15.4 Value Interpretation ----- <15.0 Antibody not detected > or = 15.0 Antibody detected Gliadin Deamidated IgG Ab <1.0 Value Interpretation ----- <15.0 Antibody not detected > or = 15.0 Antibody detected THIS TEST WAS PERFORMED AT: [facility] [address] [place] [phone] MATTHEW RUSSELL MD Endomysial IgA rflx Titer Reviewed date:04/15/2024 05:39:45 AM Interpretation: Performing Lab:[facility], [address] [place] [phone] Notes/Report: Endomysial IgA Antibody Negative Negative THIS TEST WAS PERFORMED AT: [facility]/[address] [address] JIMMIE YEAGER MD,PHD Endomysial Titer TNP Pathology Reviewed date:05/06/2024 07:50:01 AM Interpretation: Performing Lab:[facility], [address] [place] [phone] Notes/Report: Name: YariSally Age/Sex: 68/F : 1955 Unit#: [id number] Attend Dr: Campos Hand MD Re04/29/24 Status: [facility] Location: [facility] Disch: SPEC : [id number] RECD: 04/29/24 STATUS: TAE FONSECA NUM: [id number] WINNIE: 04/29/24-[address] [facility] [address]: Campos Hand MD ENTERED: 04/29/24 SP TYPE: Surgical OTHR DR: Campos Quezada MD ORDERED: HE Stain/, Gross Micro L4/7, Special st. 2, AB/PAS Diagnosis A. Duodenum, descending, biopsy: Duodenal mucosa within normal limits; negative for celiac disease. B. Colon, 30 cm, polypectomy: Tubular adenoma; negative for high-grade dysplasia or carcinoma. C. Cecum, polypectomy: Tubular adenoma; negative for high-grade dysplasia or carcinoma. D. Terminal ileum, biopsy: Terminal ileal mucosa within normal limits. E. Colon, ascending, biopsy: Colonic mucosa within normal limits; negative for microscopic colitis. F. Colon, ascending, polypectomies: Fragments of sessile serrated lesion/polyp with thermal artifact. G. Colon, descending, biopsy: Colonic mucosa within normal limits; negative for microscopic colitis. Clinical History Pre-Op Dx: Diarrhea Post-Op Dx: Gastric retention, diverticulosis, hemorrhoids, colon polyps Microscopic Description A-G. Microscopic sections examined. No metaplastic changes are seen, supported by AB/PAS stains (A) Material Received A. Descending duodenum, r/o celiac disease B. Polyp at 30 cm C. Cecal polyp D. Terminal ileum bx's E. Ascending colon bx's, r/o microscopic colitis F. Ascending colon polyps G. Descending colon bx's, r/o microscopic colitis CONTINUED ON NEXT PAGE Name: Sally Greenberg Age/Sex: 68/F : 1955 Unit#: [id number] Attend Dr: Campos Hand MD Re04/29/24 Status: [facility] Location: [facility] Disch: SPEC : [id number] RECD: 04/29/24-1447 STATUS: TAE FONSECA NUM: [id number] WINNIE: 04/29/24-[address] [facility] [address]: Campos Hand MD ENTERED: 04/29/24-7463 SP TYPE: Surgical OTHR DR: Campos Quezada MD ORDERED: HE Stain/, Gross Micro L4/7, Special st. 2, AB/PAS Gross Description Received in seven parts. Part A: Received in formalin labeled ?descending duodenum? are multiple hung and hung-pink irregular tissue fragments ranging from minute to 0.25 cm, submitted in toto in a cassette labeled A. Part B: Received in formalin labeled ?polyp at 30 cm? is a 0.7 x 0.6 x 0.5 cm velvety, congested and hemorrhagic hung-red polypoid portion of tissue, bisected and entirely submitted in a cassette labeled B. Part C: Received in formalin labeled ?cecal polyp? are 2 hung and hung-pink irregular and papular tissue fragments measuring 0.15 and 0.4 cm, submitted in toto in a cassette labeled C. Part D: Received in formalin labeled ?terminal ileum biopsies? are 2 hung-pink irregular tissue fragments each measuring 0.25 cm, submitted in toto in a cassette labeled D. Part E: Received in formalin labeled ?ascending colon bx's, rule out microscopic colitis? are 5 pale, hung and hung-pink irregular tissue fragments ranging from minute to 0.2 cm, submitted in toto in a cassette labeled E. Part F: Received in formalin labeled ?ascending colon polyps are 5 hung-white irregular tissue fragments ranging from minute to 0.15 cm, submitted in toto a cassette labeled F. Part G: Received in formalin labeled ?descending colon bx's, rule out microscopic colitis? are 4 hung irregular tissue fragments ranging from 0.15-0.25 cm, submitted in toto in a cassette labeled G. CEDS Special studies ordered and performed: AB/PAS stains on A Copies To: Campos Quezada MD [address] [place] [address], [address] [place] [address] Campos Hand MD [facility] [address] [place] [address] [address] [place] [address] CONTINUED ON NEXT PAGE Name: Sally Greenberg Age/Sex: 68/F : 1955 Unit#: [id number] Attend Dr: Campos Hand MD Re04/29/24 Status: [facility] Location: [facility] Disch: SPEC : [id number] RECD: 04/29/24-3224 STATUS: TAE FONSECA NUM: [id number] WINNIE: 04/29/24-[address] [facility] [address]: Campos Hand MD ENTERED: 04/29/24-8472 SP TYPE: Surgical OTHR DR: Campos Quezada MD ORDERED: HE Stain/21, Gross Micro L4/7, Special st. 2, AB/PAS Signed (signature on file) Knedall Grajeda MD 05/01/24 1644 END OF REPORT Reason For Referral Reason Evaluate and Treat Diagnosis 1 Ear infection (H66.9 0) Diagnosis 2 Ear pain, left (H92. 02) Diagnosis 3 Hearing loss in left ear (H91.92) Referral Organization Campos Quezada III, MD Referring Provider First Name Campos Referring Provider Last Name Pilar Referring Provider Speciality Internal M edicine Referred Provider LIEN CHANG Referred Provider Specialty Otolaryngolo gy Referral Priority Routine Referral Appointment Date 08/02/2023 Medications Medication SIG (Take, Route, Frequency, Duration) Notes Start Date End Date Status Citalopram Hydrobromide 40 MG 1 tablet Orally Once a day Active Vitamin D (Ergocalciferol) 1.25 MG (25609 UT) TAKE 1 CAPSULE BY MOUTH ONCE A MONTH Orally once a month Active Benztropine Mesylate 0.5 MG Oral Active hydrOXYzine Pamoate 25 MG Oral Active Levothyroxine Sodium 75 MCG 1 tablet in the morning on an empty stomach Orally Once a day 04/18/2024 Active Trelegy Ellipta 100-62.5-25 MCG/ACT Inhalation Active Diphenoxylate-Atropine 2.5-0.025 MG 1 tablet as [...] mor akilah Orally Once a day Active Abilify 5 MG 1 tablet Orally Once a day Active Zolpidem Tartrate 10 MG 1 tablet at bedt gustavo Orally Once a day Active Immunizations Vaccine Route Administration Date Status Comme nts COVID PFIZER Unknown 10/02/2020 Administered COVID PFIZER Unknown 09/09/2020 Administered COVID PFIZER Unknown 03/05/2021 Administered SHINGRIX Unknown 03/02/2018 Administered Influenza, quad Unknown 03/05/2021 Administered Influenza no Preserv 3 and > Unknown 02/28/2017 Administered Influenza no Preserv 3 and > Unknown 03/11/2016 Administered PCV20 Unknown 05/08/2022 Administered Influenza, quad Unknown 04/03/2023 Administered Influenza no Preserv 3 and > IM Intramuscular 04/15/2024 Administered Social History Tobacco Use: Social History Observation [...] ast year? No Points 0 Interpretation Negative Problems Problem Type SNOMED Code ICD Code Onset Dates Problem Status W/U Status Risk Notes Problem 9469065 Former smoker (Z87.891) Active confirmed We discussed a plan to prevent relapse in times of stress or illness. Problem 037118855 Overweight (E66.3) Active confirmed Her body mass index is 25.9. She is slightly overweight. We discussed ways of avoiding weight gain during the winter holidays. Problem 046897956218869 Obesity (BMI 30.0-34.9) (E66.9) Active confirmed Her weight has been stable. We made a plan to lose weight at a rate of 1/2 pound per week through a diet restricted in fat calories and ssodium combined with regular physical activity. Problem 255163722 Mixed hyperlipidemia (E78.2) Active confirmed The lipids are currently stable. No change in her medications was made. I recommended aggressive weight loss and healthy low animal fat diet. Problem 2405335 Primary insomnia (F51.01) Active confirmed We discussed sleep hygiene today. She will continue her current therapy and no additional medication was given. Problem 439205610 Essential tremor (G25.0) Active confirmed She will call the office with the name of the new medication given to her for her tremor by her psychiatrist. Problem [id number] Unspecified rotator cuff tear or rupture of left shoulder, not specified as traumatic (M75.102) Active confirmed She continues t o have pain with range of motion and sees Dr. Hamilton for this problem. He received physical therapy and a sling. Problem 943205836 GERD without esophagitis (K21.9) Active confirmed Her esophageall reflux symptoms are well controlled medication. No change in her regimentoday. Problem 607550499 Acquired hypothyroidism (E03.9) Active confirmed Her thyroid function tests are stable. She was continued on the current dose. Problem 17078492 Degenerative disc disease, cervical (M50.30) Active confirmed She is going to have another injection and see the neurosurgeon in the near future. Problem 92286629 Tobacco dependence (F17.200) Active confirmed She smokes only 2 cigarettes a day. We discussed smoking cessationn in detail today. Problem 37191036 Hiatal hernia (K44.9) Active confirmed She has occasional symptoms of esophageal reflux and epigastric discomfort, some of which may be due to this. She will continue on her current regimen. Problem Transient ischemic attack (649122497) TIA (transient ischemic attack) (G45.9) Active confirmed She has had no neurological symptoms lately. Problem 189799261 Adenomatous polyp of colon, unspecified part of colon (D12.6) Active confirmed She will be due for her next colonoscopy in 2020. She sees Dr. Campos Hand at [facility], gastroenterology , for this problem. Problem 030951625 Attention deficit disorder (ADD) in adult (F98.8) Active confirmed She is doing very well with the Adderall and is conducting all of the activities of daily life without impairment. No change in her regimen seems indicated. Problem 37191371 Degenerative disc disease, lumbar (M51.36) Active confirmed Her pain tod ay is mild and controlled with npat-eec-[id number] medication. She was advised to lose weight and avoid heavy lifting. 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 She will be observed carefully for this problem and call me once if it recurs. Problem 793527908584503 Primary osteoarthritis of left knee (M17.12) Active confirmed She has a history of meniscus surgery in this day and it has improved. She has a history of hip replacement as well. Problem 084684875 Adopted person (Z02.82) Active confirmed She gives a history of being adopted as a child and her family history is unknown. She does not believe she has a twin. Problem 48622002 Chronic diarrhea of unknown origin (K52.9) Active confirmed Her gliaden T body level was 15. A reflex test was negative. She continues under the care of a gastroenterologi st rosenberg done a colonoscopy in the near future.Because of the diarrhea is still unclear. An infectious and today he has not been found. She admits to 3 loose stools a day. This is controlled with Imodium. Vital Signs Heart Rate 73 /min 05/13/2024 Temperature 96.9 degrees Fahrenheit 05/13/2024 Blood pressure diastolic 82 mm Hg 05/13/2024 Height 72 in 05/13/2024 Blood pressure systolic 139 mm Hg 05/13/2024 Weight 191 lbs 05/13/2024 BMI 25.9 kg/m2 05/13/2024 Encounters Encounter Location Date Provider Diagnosis Campos Quezada III, MD [address] [place] [address] [place] [address] 07/24/2023 Campos Quezada Ear infection H66.90 ; Impacted cerumen of left ear H61.22 ; Attention deficit disorder (ADD) in adult F98.8 ; Idiopathic chronic gout 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 tophus M1A.0710 ; Unspecified rotator cuff tear or rupture of left shoulder, not specified as traumatic M75.102 ; Mixed hyperlipidemia E78.2 ; Essential tremor G25.0 ; Primary insomnia F51.01 ; Acquired hypothyroidism E03.9 ; Primary osteoarthritis of left knee M17.12 and Tobacco dependence F17.200 Campos Quezada III, MD [address] [place] [address] [place] [address] 08/01/2023 Campos Quezada Former smoker Z87.89 1 ; Ear infection H66.90 ; Obesity (BMI 30.0-34.9) E66.9 ; Acquired hypothyroidism E03.9 ; Primary insomnia F51.01 and Essential tremor G25.0 Campos Quezada III, MD [address] [place] [address] [place] [address] 08/09/2023 Campos Quezada Mixed hyperlipidemia E78.2 ; Acquired hypothyroidism E03.9 ; Obesity (BMI 30.0-34.9) E66.9 ; Attention deficit disorder (ADD) in adult F98.8 ; Idiopathic chronic gout 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 tophus M1A.0710 ; Adenomatous polyp of colon, unspecified part of colon D12.6 ; Essential tremor G25.0 and Primary insomnia F51.01 Campos Quezada III, MD [address] [place] [address] [place] [address] 03/05/2024 Campos Quezada Chronic diarrhea of unknown origin K52.9 ; Idiopathic chronic gout 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 tophus M1A.0710 ; Unspecified rotator cuff tear or rupture of left shoulder, not specified as traumatic M75.102 ; Mixed hyperlipidemia E78.2 ; GERD without esophagitis K21.9 ; Primary osteoarthritis of left knee M17.12 ; Essential tremor G25.0 ; Tobacco dependence F17.200 and Overweight E66.3 Campos Quezada III, MD [address] [place] [address] [place] [address] 04/15/2024 Campos Quezada Encounter for immunization Z23 ; Acquired hypothyroidism E03.9 ; Chronic diarrhea of unknown origin K52.9 ; Mixed hyperlipidemia E78.2 ; Former smoker Z87.891 ; Idiopathic chronic gout 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 tophus M1A.0710 ; Attention deficit disorder (ADD) in adult F98.8 ; Unspecified rotator cuff tear or rupture of left shoulder, not specified as traumatic M75.102 ; Degenerative disc disease, cervical M50.30 and Overweight E66.3 Campos Quezada III, MD [address] [place] [address] [place] [address] 05/13/2024 Campos Quezada Chronic diarrhea of unknown [...] GERD without esophagitis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
--- OUTSIDE RECORDS SUMMARY | 2024-06-19 08:15 | XMS_ITS ---
Author Organization Campos Quezada III, MD Address [address] [facility] [place] [address] Care Team Providers Care Instructional Aide Name Role Phone Campos Quezada Primary Care Provider [phone] REASON FOR VISIT Rx Refill Social History Sex Assigned At : Social History Observation Description Sex Assigned At Female Encounters Encounter Location Date Provider Diagnosis Campos Quezada III, MD [address] [place] [address] [place] [address] 04/18/2024 Campos Quezada Plan Of Treatment Next Appt Details Provider Name:Campos Quezada, 07/15/2024 11:00:00 AM, [address] [place] [address] [place], [address], Provider Name:Campos Quezada, 05/14/2025 11:00:00 AM, [address] [place] [address] [place], [address], Progress Notes * Anum RIBERAeDOB:1955 (68 yo F)Acc No.[id number]:04/18/2024 Patient:?CORYTIMOTHYSally :1955???Age:68 Y???Sex:Female Address:[address] [place], [address] * true * Date:? Generated for Printi ng/Fajovanyg/eTransmitting on:?06/19/2024 08:14 AM EST
--- OUTSIDE RECORDS SUMMARY | 2024-06-19 08:15 | XMS_ITS ---
Author Organization [facility] Address [address] [place] [address] Care Team Providers Care Paper Cutter Name Role Phone Pilar MCDERMOTT, Campos Primary Care Provider Unavailab Campos Navarro Unavailable [phone] REASON FOR VISIT bloating and Encounters Encounter Location Date Provider Diagnosis [facility] [address] [place] [address] Drive [address] [place] [address] 06/06/2024 Campos Hand PLAN OF TREATMENT Next Appt Details Provider Name:Campos Hand , 09/05/2024 10:00:00 AM, [address] [facility], [address], [place], [address],
--- OUTSIDE RECORDS SUMMARY | 2024-06-19 08:15 | XMS_ITS | Patient Health Record ---
Author Organization [facility] Address [address] [place] [address] Care Team Providers Care Director Name Role Phone Campos Quezada MD Primary Care Provider Unavailab Imelda Gonzalez Unavailable [phone] Reason For Referral No Information Medications Medication SIG (Take, Route, Fr equency, Duration) Notes Start Date End Date Status Adderall Active Abilify 5 MG 1 tablet Orally Once a day for 30 day(s) Active Atorvastatin Calcium Active Adderall 30 MG 1 tablet Orally Once a day Active Adderall 10 MG 1 tablet Orally Twice a day Active Ambien Active Levothyroxine Sodium Active Atorvastatin Calcium Active CeleXA Active Abilify 5 MG 1 tablet Orally Once a day for 30 day(s) Active Ambien 10 MG 1 tablet at bedtime as needed Orally Once a day Active CeleXA Active Levothyroxine Sodium Active Social History Tobacco Use: Social History Observation Description Date Details (start date - stop date) Former Smoker NA - NA Tobacco Use/Smoking Question Answer Notes Are you a: former smoker Additional Findings: Tobacco Non-User Current no n-smoker Alcohol Screen Question Answer Notes Did you have a drink containing alcohol in the p ast year? No Points 0 Interpretation Negative Tobacco use other than smoking: Question Answer Notes Are you an other tobacco user? No Problems Problem Type SNOMED Code ICD Code Onset Dates Problem Status W/U Status Risk Notes Problem Acquired hammer toe of right foot (9517595828767 105) Other hammer toe(s) (acquired), right foot (M20.41) Active confirmed Problem Acquired hammer toe of left foot (0289557097482 103) Other hammer toe(s) (acquired), left foot (M20.42) Active confirmed Plan Of Treatment No Information Insurance Providers Payer Name Payer Address Payer Phone Subscriber Number Group Number Insured Name Patient Relationship to Insured Coverage Start Date Coverage End Date [facility] [employer] Claims [address] [place] [id number] Sally Greenberg Self - patient is the insured Medical (General) History Medical History History ICD Code Anxiety Back,Hip,and Knee pain Depression Lung disease Measles Mumps Chicken pox Bone implants/screws Surgical History Surgery Date(Month/Year) right hip replacement Fusion- neck
--- OUTSIDE RECORDS SUMMARY | 2024-06-19 08:15 | XMS_ITS ---
Author Organization [facility] Address [address] [place] [address] Care Team Providers Care Heel Caser Name Role Phone Pilar MCDERMOTT, Campos Primary Care Provider Unavailab Campos Navarro Unavailable [phone] REASON FOR VISIT diarrhea PROBLEMS Problem Type ICD Code Onset Dates Problem Status W/U Status Risk SNOMED Code Notes Problem Diverticulosis of large intestine without perforation or abscess without bleeding (K57.30) Active confirmed Diverticul ar disease of colon (127617974) Problem Gastroesophageal reflux disease (K21.9) Active confirmed Gastroesophagea l reflux disease (035186188) Problem Gastroparesis (K31.84) Active confirmed Gastroparesis (491037846) Encounters Encounter Location Date Provider Diagnosis [facility] Outpatient [address] [place] [phone] 04/29/2024 Campos Hand Colon polyps K63.5 ; Diarrhea R19.7 ; Diverticulosis of large intestine without perforation or abscess without bleeding K57.30 ; Other hemorrhoids K64.8 ; Gastroesophageal reflux disease K21.9 ; Gastroparesis K31.84 and Other specified abnormal immunological findings in serum R76.8 ASSESSMENTS Encounter Date Diagnosis Assessment Notes Treatment Notes Treatment Clinical Notes 04/29/2024 Colon polyps (ICD-10 - K63.5) 04/29/2024 Diarrhea (ICD-10 - R19.7) 04/29/2024 Diverticulosis of la rge intestine without perforation or abscess without bleeding (ICD-10 - K57.30) 04/29/2024 Other hemorrhoids (ICD-10 - K64.8) 04/29/2024 Gastroesophageal ref lux disease (ICD-10 - K21.9) 04/29/2024 Gastroparesis (ICD-1 0 - K31.84) 04/29/2024 Other specified abnormal immunological findings in serum (ICD-10 - R76.8) PLAN OF TREATMENT Next Appt Details Provider Name:Campos Hand , 09/05/2024 10:00:00 AM, [address] [place] [address], [address], [place], [address],
--- OUTSIDE RECORDS SUMMARY | 2024-06-19 08:16 | XMS_ITS | Patient Health Record ---
Author Organization [facility] Address [address] [place] [address] Care Team Providers Care Box Cutter Name Role Phone Campos Quezada MD Primary Care Provider Campos Monaco Unavailable [phone] ALLERGIES Allergen (clinical drug ingredient) Drug/Non Drug Allergy documented on EMR Reaction Allergy Type Onset Date Status Anti-Inflammatory Enzyme Unknown Drug Allergy Active RESULTS Component Value Reference Range Notes TSH reflex Free T4 Reviewed date:03/20/2024 07:38:33 PM Interpretation: Performing Lab:[facility], [address] [place] [address] Notes/Report: TSH reflex Free T4 0.82 0.32-4.0 uIU/mL Calprotectin, Fecal Reviewed date:03/31/2024 11:48:42 PM Interpretation: Performing Lab:[facility], [address] [place] [phone] Notes/Report: Calprotectin, Fecal 52 Reference Range: <50 Normal 50-120 Borderline >120 Elevated Calprotectin in Crohn's disease and ulcerative colitis can be five to several thousand times above the reference population (50 mcg/g or less). Levels are usually 50 mcg/g or less in healthy patients and with irritable bowel syndrome. Repeat testing in 4-6 weeks is suggested for borderline values. THIS TEST WAS PERFORMED AT: [facility] [address] [place] [address] GILLIAN ANDREWS MD,PHD,NAOMI GI PANEL Reviewed date:04/01/2024 11:52:21 PM Interpretation: Performing Lab:[facility], [address] [place] [phone] Notes/Report: Campylobacter Not Detected Not Detect. Plesiomonas [...] is performed by Multiplexed PCR, utilizing the Team Everest Array. Complete Blood Count Auto Di ff Reviewed date:04/01/2024 11:51:19 PM Interpretation: Performing Lab:[facility], [address] [place] [phone] Notes/Report: White Blood Count 5.5 4.8-10.8 X10*3/uL Red Blood Count 4.05 4.20-5.50 X10*6/uL Hemoglobin 12.2 12.0-16.0 g/dl Hematocrit 38.0 37.0-47.0 % Mean Corpuscular Volume 93.8 80.0-98.0 fL Mean Corpuscular Hemoglobin 30.1 27.0-33.0 pg Mean Corpuscular HGB Conc 32.1 31.0-35.0 g/dl Red Cell Distribution Width 13.4 11.0-16.0 % Platelet Count 313 160-400 X10*3/uL Mean Platelet Volume 9.9 9.4-12.3 fL Neutrophils Percent Auto 62.4 45-73 % Imm Gran Pct Auto 0.4 0.0-0.4 % Lymphocytes Percent Auto 26.8 20-40 % Monocytes Percent Auto 7.3 2-11 % Eosinophils Percent Auto 2.4 0-4 % Basophils Percent Auto 0.7 0-2 % NRBC Pct Auto 0.0 0.0-0.2 /100WBC Neutrophils Absolute Auto 3.4 2.0-8.3 x10*3/u L Imm Gran Abs Auto 0.02 0.00-0.03 X10*3/uL Lymphocytes Absolute Auto 1.5 1.2-4.9 X10*3/u L Monocytes Absolute Auto 0.4 0.1-1.2 X10*3/uL Eosinophils Absolute Auto 0.1 0.0-0.4 X10*3/u L Basophils Absolute Auto 0.0 0.0-0.2 X10*3/uL NRBC Abs Auto 0.000 0.0-0.012 X10*3/uL Erythrocyte Sedimentation Ra te Reviewed date:03/20/2024 07:38:24 PM Interpretation: Performing Lab:[address] [address] Notes/Report: Erythrocyte Sedimentation Rate 17 0-20 MM/HR Patients with polycythemia and many hemoglobin abnormalities may have depressed sed rates whereas patients with anemia may have elevated sed rates. Liver Panel Reviewed date:03/20/2024 07:37:46 PM Interpretation: Performing Lab:[address] [address] Notes/Report: Bilirubin Total 0.3 0.0-1.0 mg/dL Bilirubin Direct 0.1 0.0-0.5 mg/dL Aspartate Amino Transferase 14 5-31 U/L Alanine Aminotransferase 9 0-31 U/L Total Protein 6.8 6.5-8.0 g/dL Albumin Level 4.0 3.5-5.0 g/dL Alkaline Phosphatase 108 39-117 U/L Basic Metabolic Panel Reviewed date:03/20/2024 07:38:10 PM Interpretation: Performing Lab:[address] [address] Notes/Report: Sodium 142 135-145 mmol/L Potassium 4.4 3.3-5.1 mmol/L Chloride 107 96-108 mmol/L Carbon Dioxide 29 22-29 mmol/L Anion Gap 10 12-20 Blood Urea Nitrogen 11 9-16 mg/dL Creatinine 1.10 0.5-1.4 mg/dL Estimated Glomerular Filt Rate 50 NOTE: For -[place] individuals, multiply the result by 1.210. Chronic Kidney Disease: Estimated GFR < 60 mL/min/1.73m2 Severe Kidney Disease: Estimated GFR < 15 mL/min/1.73m2 Glucose Random 97 60-115 mg/dL Calcium 9.6 8.4-10.2 mg/dL C Reactive Protein Reviewed date:03/20/2024 07:38:17 PM Interpretation: Performing Lab:[address] [address] Notes/Report: C Reactive Protein 0.12 < or = 0.50 mg/dL Leukocytes Stool Qualitative Reviewed date:03/21/2024 12:27:08 PM Interpretation: Performing Lab:[address] [address] Notes/Report: Leukocytes Stool Qualitative NEGATIVE NEGATIVE CDiff Gene PCR Reviewed date:03/21/2024 07:48:52 PM Interpretation: Performing Lab:[facility], [address] [place] [address] Notes/Report: CDiff Gene PCR NEGATIVE Negative If C. difficile strongly suspected despite one negative test, a second test may be sent vs. empiric treatment for C. difficile infection. Immunoglobulin A Reviewed date:04/12/2024 04:55:19 PM Interpretation: Performing Lab:[facility], [address] [place] [address] Notes/Report: Immunoglobulin A 148 70-320 mg/dL THIS TEST WAS PERFORMED AT: [facility] [address] [place] [phone] MATTHEW RUSSELL MD Transglutaminase Ab IgG Reviewed date:04/28/2024 12:37:50 PM Interpretation: Performing Lab:[facility], [address] [place] [phone] Notes/Report: Transglutaminase Ab IgG <1.0 Value Interpretation ----- <15.0 Antibody not detected > or = 15.0 Antibody detected THIS TEST WAS PERFORMED AT: [facility] [address] [place] [phone] MATTHEW RUSSELL MD Transglutaminase IgA Reviewed date:04/28/2024 12:37:58 PM Interpretation: Performing Lab:[facility], [address] [place] [phone] Notes/Report: Transglutaminase IgA <1.0 Value Interpretation ----- <15.0 Antibody not detected > or = 15.0 Antibody detected THIS TEST WAS PERFORMED AT: [facility] [address] [place] [phone] MATTHEW RUSSELL MD Gliadin Ab Panel Reviewed date:04/28/2024 12:38:14 PM Interpretation: Performing Lab:[facility], [address] [place] [address] Notes/Report: Gliadin Deamidated IgA Ab 15.4 Value Interpretation ----- <15.0 Antibody not detected > or = 15.0 Antibody detected Gliadin Deamidated IgG Ab <1.0 Value Interpretation ----- <15.0 Antibody not detected > or = 15.0 Antibody detected THIS TEST WAS PERFORMED AT: [facility] [address] [address] MATTHEW RUSSELL MD Endomysial IgA rflx Titer Reviewed date:04/28/2024 12:38:24 PM Interpretation: Performing Lab:[facility], [address] [place] [address] Notes/Report: Endomysial IgA Antibody Negative Negative THIS TEST WAS PERFORMED AT: [facility] [address] JIMMIE YEAGER MD,PHD Endomysial Titer TNP Pathology Reviewed date:05/19/2024 12:22:16 AM Interpretation: Performing Lab:[facility], [address] [place] [phone] Notes/Report: REASON FOR REFERRAL No Information MEDICATIONS Medication SIG (Take, Route, Frequency, Duration) Notes Start Date End Date Status Ambien Active Abilify Active Levothyroxine Sodium 75 MCG 1 tablet Orally Once a day Active Amantadine HCl 100 MG TAKE 1 CAPSULE BY MOUTH THREE TIMES DAILY Oral for 90 Active Ergocalciferol 09651 UNIT 1 capsule Orally Active Simvastatin 40 MG 1 tablet in the evening Orally Once a day Active Atorvastatin Calcium 40 MG TAKE 1 TABLET BY MOUTH EVERY DAY Oral for 90 Active Citalopram Hydrobromide 40 MG 0.5 tablet Orally Once a day Active Trelegy Ellipta 100-62.5-25 MCG/ACT INHALE 1 PUFF INTO THE LUNGS DAILY Inhalation for 90 Active Adderall XR 20 MG 1 capsule in the morning Orally Once a day Active hydrOXYzine Pamoate 25 MG Oral for 30 Active LORazepam 0.5 MG 1 tablet as needed Orally Twice a day Active clonazePAM 0.5 MG TAKE 1 TABLET BY MOUTH ONCE A DAY NEEDED Oral for 30 F411,Unavailab le Active Zolpidem Tartrate 10 MG Oral for 30 Active Omeprazole 20 MG TAKE 1 CAPSULE BY MOUTH EVERY MORNING for 90 Active Amphetamine-Dextroamphet amine 10 MG Oral for 30 Active IMMUNIZATIONS Vaccine Route Administration Date Status Comme nts Influenza Unknown 07/13/2019 Administered Influenza Unknown 04/03/2024 Refused SOCIAL HISTORY Sex Assigned At : Social History Observation Description Sex Assigned At Unknown PROBLEMS Problem Type ICD Code Onset Dates Problem Status W/U Status Risk SNOMED Code Notes Problem Encounter for screening for malignant neoplasm of colon (Z12.11) Active confirmed 500064774 Problem History of adenomatous polyp of colon (Z86.010) Active confirmed 136030582 Problem Gastroparesis (K31.84) Active confirmed Gastroparesis (884481472) Problem Diverticulosis of large intestine without perforation or abscess without bleeding (K57.30) Active confirmed Diverticul ar disease of colon (702671584) Problem Gastroesophageal reflux disease (K21.9) Active confirmed Gastroesophagea l reflux disease (564174133) Problem Hiatal hernia (K44.9) Active confirmed 92016057 Problem 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) Active confirmed Paraesophagea l hernia (6776778) Problem Chronic diarrhea (K52.9) Active confirmed Chronic diarrhe a (335498296) Problem Esophageal reflux disease (K21.9) Active confirmed Gastroesopha geal reflux disease (320301384) Problem Esophageal dysphagia (R13.10) Active confirmed 73848055 Problem Benign esophageal stricture (K22.2) Active confirmed Benign eso phageal stricture (578704948) Problem Retained food in stomach (K31.89) Active confirmed Problem Chronic GERD (K21.9) Active confirmed Gastroesophagea l reflux disease (615206659) VITAL SIGNS Temperature 96.6 degrees Fahrenheit 04/03/2024 Blood pressure diastolic 00 mm Hg 04/03/2024 Height 73 in 04/03/2024 Blood pressure systolic 000 mm Hg 04/03/2024 Weight 192 lb 8 oz lbs 04/03/2024 BMI 25.39 kg/m2 04/03/2024 Encounters Encounter Location Date Provider Diagnosis [facility] Outpatient [address] [place] [phone] 04/29/2024 Campos Hand Colon polyps K63.5 ; Diarrhea R19.7 ; Diverticulosis of large intestine without perforation or abscess without bleeding K57.30 ; Other hemorrhoids K64.8 ; Gastroesophageal reflux disease K21.9 ; Gastroparesis K31.84 and Other specified abnormal immunological findings in serum R76.8 [facility] Outpatient [address] [place] [address] [id number] 12/21/2023 Campos Hand Hiatal hernia K44.9 and Esophageal reflux disease K21.9 [facility] [address] [facility] [address] [place] [phone] 04/03/2024 Campos Hand Chronic diarrhea K52 .9 ; Encounter for screening for malignant neoplasm of colon Z12.11 and History of adenomatous polyp of colon Z86.010 [facility] [address] [place] [phone] 12/13/2023 Campos Hand Chronic GERD K21.9 a nd Paraesophageal hernia K44.9 [facility] [address] [place] [phone] 12/22/2023 Campos Hand [facility] [address] [place] [phone] 03/19/2024 Campos Hand Chronic diarrhea K52 .9 [facility] [address] [place] [phone] 04/03/2024 Campos Hand [facility] [address] [place] [phone] 05/01/2024 Campos Hand Retained food in sto mach K31.89 [facility] [address] [place] [phone] 06/06/2024 Campos Hand ASSESSMENTS Encounter Date Diagnosis Assessment Notes Treatment Notes Treatment Clinical Notes 04/29/2024 Diarrhea (ICD-10 - R19.7) 04/29/2024 Colon polyps (ICD-10 - K63.5) 12/21/2023 Hiatal hernia (ICD-1 0 - K44.9) 12/21/2023 Esophageal reflux disease (ICD-10 - K21.9) 04/03/2024 Encounter for screen ing for malignant neoplasm of colon (ICD-10 - Z12.11) 04/03/2024 Chronic diarrhea (ICD-10 - K52.9) Continue the Imodium for the diarrhea Coffee/Caffeine can make diarrhea worse 12/13/2023 Paraesophageal herni a (ICD-10 - K44.9) 12/13/2023 Chronic GERD (ICD-10 - K21.9) 03/19/2024 Chronic diarrhea (ICD-10 - K52.9) 05/01/2024 Retained food in stomach (ICD-10 - K31.89) 04/29/2024 Diverticulosis of la rge intestine without perforation or abscess without bleeding (ICD-10 - K57.30) 04/03/2024 History of adenomato us polyp of colon (ICD-10 - Z86.010) 04/29/2024 Other hemorrhoids (ICD-10 - K64.8) 04/29/2024 Gastroesophageal ref lux disease (ICD-10 - K21.9) 04/29/2024 Gastroparesis (ICD-1 0 - K31.84) 04/29/2024 Other specified abnormal immunological findings in serum (ICD-10 - R76.8) PLAN OF TREATMENT Pending Test Test Name Order Date CHEM 7 PROFILE 03/19/2024 LIVER PROFILE 03/19/2024 CRP 03/19/2024 CBC w DIFF 03/19/2024 SED RATE (ESR) 03/19/2024 CELIAC PANEL #10 04/03/2024 NUC GASTRIC ANTRUM EMPTYING 05/01/2024 STOOL WBC 03/19/2024 C DIFFICILE RFLX PCR 03/19/2024 Future Test Test Name Order Date COLONOSCOPY 09/12/2014 UPPER GI ENDOSCOPY BALLOOON DILATION OF ESOPH 11/05/2019 COLONOSCOPY 11/05/2019 UPPER GI ENDOSCOPY 12/15/2023 COLONOSCOPY 04/03/2024 Next Appt Details Provider Name:Campos Dimas Yazan , 09/05/2024 10:00:00 AM, [address] [facility], [address], [place], [address], Insurance Providers Payer Name Payer Address Payer Phone Subscriber Number Group Number Insured Name Patient Relationship to Insured Coverage Start Date Coverage End Date MEDICARE OF [place] [address] [place] [id number] BROOKE RIBERA Self - patient is the insured MEDICAID OF [facility] [address] [place] [address] [id number] BROOKE RIBERA Self - patient is the insured MEDICAL (GENERAL) HISTORY Medical History History ICD Code GERD--09/04/2009 EGD-moderat e size hiatal hernia, but no evidence of any significant esophagitis nor Brooks's esophagus Tubular adenomas removed in 2002 and 2006--- her colonoscopy in August of 2009 was negative other than some diverticulosis and small internal hemorrhoids; screening colonoscopy in December of 2019 revealed 3 small tubular adenomas that were removed Depression Osteoarthritis Bipolar disorder Hypothyroidism Anxiety Panic attacks Hyperlipidemia ADHD Denies VA,DM,CVA,Lung disease,renal dise ase Colonoscopy in 10/2014 with 3 small tubul ar adenomas removed Esophageal stricture and lar ge hiatal hernia seen on upper endoscopy in December of 2019--there was no esophagitis or Brooks's esophagus--the stricture was dilated up to an 18 mm balloon. She was started on omeprazole at that time. Screening colonoscopy in Dec revealed tubular adenomas that were removed. There was no evidence of any inflammatory bowel disease. Preoperative Upper endoscopy in December of 2023 at the request of Dr. Moon prior to her paraesophageal hiatal hernia surgery revealed her known large hiatal hernia, but no evidence of any other significant pathology such as esophagitis or an esophageal stricture Surgical History Surgery Date(Month/Year) Cervical spine disc surgery x 2 Right hip replacement in 2012 Paraesophageal hiatal hernia repair by Dr. Moon at [facility] 12/13/2023
== END ==
LOC: HO.NUCMED 08:07
PROVIDERS: PCP Internal Medicine Medical Oncology; Visit Provider Internal Medicine
DX: K31.89 Other diseases of stomach and duodenum (principal)
CPT/HCPCS: 78264; A9541

== ENCOUNTER 2025-02-25 06:44 | Outpatient (REF) | payer MEDICARE, MEDICAID, SELFPAY ==
--- OUTSIDE RECORDS SUMMARY | 2024-04-29 09:30 | XMS_ITS ---
Author Organization [facility] Address [address] [place] [address] Care Team Providers Care Data Collection Technician Name Role Phone Campos Quezada MD Primary Care Provider Unavailab Campos Navarro Unavailable [phone] REASON FOR VISIT diarrhea Problems Problem Type SNOMED Code ICD Code Onset Dates Problem Status W/U Status Risk Notes Problem Diverticular disease of colon (270431982) Diverticulosis of large intestine without perforation or abscess without bleeding (K57.30) Active confirmed Problem Gastroesophageal reflux disease (401727053) Gastroesophageal reflux disease (K21.9) Active confirmed Problem Gastroparesis (554347637) Gastroparesis (K31.84) Active confirmed Encounters Encounter Location Date Provider Diagnosis [facility] [place] [address] [place] [phone] 04/29/2024 Campos Hand Colon polyps K63.5 ; [...] Notes * LESTER RIBERAEDOB:1955 (69 yo F)Acc No.[id number]:04/29/2024 COLON WITH MAC Patient: BROOKE VASQUEZ Provider: Zahraa Hand MD :1955 A ge:68 Y S ex:Female Date:04/29/2024 [id number] Pcp:Campos Quezada MD Subjective: * Chief Complaints: * 1 . Diarrhea. * Medical History: Objective: * Vitals: Assessment: * Assessment: 1. C olon polyps [...] findings in serum - R76.8 Plan: * Treatment: * Procedure Codes: 4 5385 LESION REMOVAL COLONOSCOPY, 51392 COLONOSCOPY AND BIOPSY, Modifiers: 61 , 0529F INTRVL 3+YRS PTS CLNSCP DOCD, 0528F RCMND FLW-UP 10 YRS DOCD, Modifiers: 1P , 83599 UPPER GI ENDOSCOPY, BIOPSY * * The named appointment provid er may or may not be the originator of this progress note, and it is not deemed complete until electronically signed by the appointment provider. Sign off status: Pending * Provider: Zahraa Hand MD Date: 06/29/2023 Generated for Mariposa reynolds/Aron/Ismaelitting on: 0 02/25/2025 06:48 AM EDT
--- OUTSIDE RECORDS SUMMARY | 2024-07-26 10:27 | XMS_ITS ---
Author Organization aCmpos Quezada III, MD Address [address] [place] [address] Care Team Providers Care Appeals Representative Name Role Phone Campos Quezada Primary Care Provider [phone] Pilar LUCERO MD, Campos Unavailable REASON FOR VISIT Message Social History Sex Assigned At : Social History Observation Description Sex Assigned At Female Encounters Encounter Location Date Provider Diagnosis Campos Quezada III, MD [address] [place] [address] [place] [address] 07/26/2024 Campos Quezada Plan Of Treatment Next Appt Details Provider Name:Campos Quezada, 03/07/2025 10:15:00 AM, [address] [place] [address] [place], [address], Provider Name:Campos Quezada, 05/14/2025 11:00:00 AM, [address] [place] [address] [place], [address], Progress Notes * [place] RIBERAOB:1955 (69 yo F)Acc No.[id number]:07/26/2024 Patient: Sondra LOPEZ Sally :1955 A ge:69 Y S ex:Female Address[address] [place] [place], [address] * true * Date: Generated for Printi ng/Faxing/eTransmitting on: 0 02/25/2025 06:48 AM EDT
--- OUTSIDE RECORDS SUMMARY | 2024-07-26 12:21 | XMS_ITS ---
Author Organization Campos Quezada III, MD Address [address] [place] [address] Care Team Providers Care Custom Ski Maker Name Role Phone Campos Quezada Primary Care Provider Pilar LUCERO MD, Campos [facility] Medications Medication SIG (Take, Route, Frequency, Duration) Notes Start Date End Date Status diazePAM 5 MG 1 tablet Orally twice a day for 7 days 07/26/2024 Active Social History Sex Assigned At : Social History Observation Description Sex Assigned At Female Encounters Encounter Location Date Provider Diagnosis Campos Quezada III, MD [address] [place] [address] [place] [address] 07/26/2024 Campos Quezada Plan Of Treatment Medication Medication Name Sig Start Date Stop Date Notes diazePAM 5 MG 1 tablet Orally twice a day for 7 days 07/26 Next Appt Details Provider Name:Campos Quezada, 03/07/2025 10:15:00 AM, [address] [place] [address] [place], [address], Provider Name:Campos Quezada, 05/14/2025 11:00:00 AM, [address] [place] [address] [place], [address], Progress Notes * [place] RIBERAOB:1955 (69 yo F)Acc No.[id number]:07/26/2024 Patient: Sally VASQUEZ :1955 A ge:69 Y S ex:Female Address:[address] [place] [address] [address], [place], [address] * Refills Start diazePAM Tablet, 5 MG, Orally, 14 Tablet, 1 tablet, twice a day, 7 days, Refills=0 * true * Date: Generated for Mariposa reynolds/Aron/Ismaelitting on: 0 02/25/2025 06:49 AM EDT
--- OUTSIDE RECORDS SUMMARY | 2024-08-29 05:45 | XMS_ITS ---
Author Organization Campos Quezada III, MD Address [address] [place] [address] Care Team Providers Care National Account Representative Name Role Phone Campos Quezada Primary Care Provider [phone] Campos Quezada III, MD Allergies Allergen (clinical [...] Oral Active Vitamin D (Ergocalciferol) 1.25 MG (30168 UT) TAKE 1 CAPSULE BY MOUTH ONCE [...] Date Provider Diagnosis Campos Quezada III, MD [address] [place] [address] [place] [address] 08/29/2024 Campos Quezada Idiopathic chronic g out [...] She continues under the care of a chief customer officer whohas done a colonoscopy in the near [...] Oral Vitamin D (Ergocalciferol) 1 .25 MG (30195 UT) TAKE 1 CAPSULE BY MOUTH ONCE [...] 1 Week, Reason: o v Provider Name:Campos Quezada, 03/07/2025 10:15:00 AM, [address] [place] [address] [address], [place], [address], Provider Name:Campos Quezada, 05/14/2025 11:00:00 AM, [address] [place] [address] [address], [place], [address], Progress Notes * [place] RIBERAOB:1955 (69 yo F)Acc No.[id number]:08/29/2024 Patient: Sondra DENISPALShweta GarlandSally Provider: Zahraa Quezada MD :1955 A ge:69 Y S ex:Female Date:08/29/2024 Address:[address] [place] [address] [place], [id number] Subjective: * Chief Complaints: * U RI [...] of provider rendering services: { ...} [address] [facility] [address] L ocation of patient: chano marley listed [...] generalized. S kin: Itching d enies. R bradnyn d enies. S kin lesion(s)?denies. N eurologic: Difficulty speaking d enies. D izziness d enies.?Headache d enies. L ow back pain d enies. P sychiatric: Depressed mood d enies. * Medical History: * Surgical History: H ysterectomy, Total with bilateral salpingo-oophorectomy, , dysfunctional uterine bleeding [id number] and C6-C7 anterior disectomy and fusion by Dr. Michael Elliott 07/2004right hip arthroplasty 02/2012colonoscopy, [facility], tubular adenoma of sigmoid 2002colonoscopy, [facility], Dr. Hand, tubular adenoma at 30 cm 2006EGD, Dr. Hand, gastritis 2009colonoscopy, Dr. Hand, tubular adenomatous (3) 2014neck fusion 05/2018Ne Fusion [facility] nterior Cervical Discectomy Anterior Arthrodesis C3-4 [id number] knee replacement 2023-02No history * Hospitalization/Major Diagno [...] Her mental health's through [facility]. [facility]ach[facility]ran at [facility]. Smoking - The patient reported [...] a day Vitamin D (Ergocalciferol) 1.25 MG (94161 UT) Capsule TAKE 1 CAPSULE BY MOUTH [...] day Taking Vitamin D (Ergocalciferol) 1.25 MG (45437 UT) Capsule TAKE 1 CAPSULE BY MOUTH [...] She continues under the care of a chief customer officer whohas done a colonoscopy in the near [...] ontinue Vitamin D (Ergocalciferol) Capsule, 1.25 MG (56724 UT), TAKE 1 CAPSULE BY MOUTH ONCE [...] 0 08/29/2024 Generated for Mariposa reynolds/Aron/Sofia on: 0 02/25/2025 06:48 AM EDT History and Physical Notes * HPI (History of Present Illness) Category Sub-Category Detail Notes Telehealth Location of [facility] rendering services:: {...} [address] [place] [address] [place] [address] Location of patient:: address listed in demographics [...]
--- OUTSIDE RECORDS SUMMARY | 2024-09-05 06:00 | XMS_ITS ---
Author Organization [facility] Address [address] [place] [address], [place] [address] Care Team Providers Care Control System Manager Name Role Phone Pilar MCDERMOTT, Campos Primary Care Provider Campos [facility] [phone] REASON FOR VISIT Patient presents today for abnormal celiac labs, diarrhea Encounters Encounter Location Date Provider Diagnosis [facility] [address] [place] [address] 09/05/2024 Campos Hand Plan Of Treatment No Information Progress Notes * LESTER RIBERAFABIOOB:1955 (69 yo F)Acc No.[id number]:09/05/2024 Progress Notes Patient: BROOKE VASQUEZ Provider: Zahraa Hand MD :1955 A ge:69 Y S ex:Female Date:09/05/2024 Address: [address] [facility] Pcp:Campos Quezada MD Subjective: * Chief Complaints: * 1 . Patient presents today for abnormal celiac labs, diarrhea. * Medical History: Objective: * Vitals: Assessment: Plan: * Treatment: * * The named appointment provid er may or may not be the originator of this progress note, and it is not deemed complete until electronically signed by the appointment provider. Sign off status: Pending * Provider: Zahraa Hand MD Date: 0 09/05/2024 Generated for Printi ng/Faxing/eTransmitting on: 0 02/25/2025 06:49 AM EDT
--- OUTSIDE RECORDS SUMMARY | 2024-09-13 05:04 | XMS_ITS ---
Author Organization Campos Quezada III, MD Address [address] [place] [address] Care Team Providers Care Zanjero Name Role Phone Campos Quezada Primary Care Provider Pilar LUCERO MD, Campos Unavailable [phone] Reason For Referral Reason Consult and Treat Second Opinion Diagnosis 1 Gastroparesis (K31.8 4) Diagnosis 2 Chronic diarrhea of unknown origin (K52.9) Diagnosis 3 GERD without esophag itis (K21.9) Referral Organization Campos Quezada III, MD Referring Provider First Name Campos Referring Provider Last Name Pilar Referring Provider Speciality Internal M edicine Referred Provider [facility], Gastro enterology Referred Provider Specialty Gastroentero logy General Notes DAlmaz 10/10/2024 03:58:02 PM > referral was faxed on 09/13/24 Referral Priority Routine Referral Appointment Date 01/08/2025 REASON FOR VISIT Referral Social History Sex Assigned At : Social History Observation Description Sex Assigned At Female Encounters Encounter Location Date Provider Diagnosis Campos Quezada III, MD [address] [place] [address] [place] [address] 09/13/2024 Campos Quezada Plan Of Treatment Referrals Referral Date Details 09/13/2024 09/13/2024, Consult and Treat Second Opinion, Gastroenterology [facility] Next Appt Details Provider Name:Campos Queazda, 03/07/2025 10:15:00 AM, [address] [place] [address] [place], [address], Provider Name:Campos Quezada, 05/14/2025 11:00:00 AM, [address] [place] [address] [place], [address], Progress Notes * Anum RIBERACasperOB:1955 (69 yo F)Acc No.[id number]:09/13/2024 Patient: Sally VASQUEZ :1955 A ge:69 Y S ex:Female Address:[address] [place], [place] [address], [address] Subjective: * Chief Complaints: * R eferral * Medical History: * Surgical History: * Hospitalization/Major Diagno stic Procedure: * Medications: Objective: * Vitals: * Physical Examination: Assessment: Plan: * Treatment: * Procedure Codes: * true * Date: Generated for Printi gail/Aron/eTransmitting on: 0 02/25/2025 06:49 AM EDT Consultation Request Notes Referral Date Referring Provider Referred Provider Not es 09/13/2024 [facility], Gastroenterol [facility]gy Consult and Treat Second Opinion
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
--- OUTSIDE RECORDS SUMMARY | 2025-02-25 06:48 | XMS_ITS | Patient Health Record ---
Author Organization [facility] Address [address] [place] [address] Care Team Providers Care Remote Sensing Technician Name Role Phone Campos Quezada MD Primary Care Provider Campos Monaco Unavailable [phone] Allergies Allergen (clinical drug ingredient) Drug/Non Drug Allergy documented on EMR Reaction Allergy Type Onset Date Status Anti-Inflammatory Enzyme Unknown Drug Allergy Active Results Component Value Reference Range Notes TSH reflex Free T4 Reviewed date:03/20/2024 07:38:33 PM Interpretation: Performing Lab:[facility], [address] [place] [phone] Notes/Report: TSH reflex Free T4 0.82 0.32-4.0 uIU/mL Calprotectin, Fecal Reviewed date:03/31/2024 11:48:42 PM Interpretation: Performing Lab:[facility], [address] [place] [phone] Notes/Report: Calprotectin, Fecal 52 Reference Range: <50 [...] borderline values. THIS TEST WAS PERFORMED AT: [facility] [address] [place] [address] GILLIAN ANDREWS MD,PHD,NAOMI GI PANEL Reviewed date:04/01/2024 11:52:21 PM Interpretation: Performing Lab:[facility], [address] [place] [phone] Notes/Report: Campylobacter Not Detected Not Detect. Plesiomonas [...] is performed by Multiplexed PCR, utilizing the SputnikBot Array. Complete Blood Count Auto Di ff Reviewed date:04/01/2024 11:51:19 PM Interpretation: Performing Lab:[facility], [address] [place] [phone] Notes/Report: White Blood Count 5.5 4.8-10.8 X10*3/uL [...] te Reviewed date:03/20/2024 07:38:24 PM Interpretation: Performing Lab:[address] [phone] Notes/Report: Erythrocyte Sedimentation Rate 17 0-20 MM/HR Patients with polycythemia and many hemoglobin abnormalities may have depressed sed rates whereas patients with anemia may have elevated sed rates. Liver Panel Reviewed date:03/20/2024 07:37:46 PM Interpretation: Performing Lab:[address] [phone] Notes/Report: Bilirubin Total 0.3 0.0-1.0 mg/dL Bilirubin Direct 0.1 0.0-0.5 mg/dL Aspartate Amino Transferase 14 5-31 U/L Alanine Aminotransferase 9 0-31 U/L Total Protein 6.8 6.5-8.0 g/dL Albumin Level 4.0 3.5-5.0 g/dL Alkaline Phosphatase 108 39-117 U/L Basic Metabolic Panel Reviewed date:03/20/2024 07:38:10 PM Interpretation: Performing Lab:[address] [address] Notes/Report: Sodium 142 135-145 mmol/L Potassium 4.4 3.3-5.1 mmol/L Chloride 107 96-108 mmol/L Carbon Dioxide 29 22-29 mmol/L Anion Gap 10 12-20 Blood Urea Nitrogen 11 9-16 mg/dL Creatinine 1.10 0.5-1.4 mg/dL Estimated Glomerular Filt Rate 50 NOTE: For -Martiniquais individuals, multiply the result by 1.210. Chronic Kidney Disease: Estimated GFR < 60 mL/min/1.73m2 Severe Kidney Disease: Estimated GFR < 15 mL/min/1.73m2 Glucose Random 97 60-115 mg/dL Calcium 9.6 8.4-10.2 mg/dL C Reactive Protein Reviewed date:03/20/2024 07:38:17 PM Interpretation: Performing Lab:[address] [phone] Notes/Report: C Reactive Protein 0.12 < or = 0.50 mg/dL Leukocytes Stool Qualitative Reviewed date:03/21/2024 12:27:08 PM Interpretation: Performing Lab:[address] [phone] Notes/Report: Leukocytes Stool Qualitative NEGATIVE NEGATIVE CDiff Gene PCR Reviewed date:03/21/2024 07:48:52 PM Interpretation: Performing Lab:[facility], [address] [place] [phone] Notes/Report: CDiff Gene PCR NEGATIVE Negative If C. difficile strongly suspected despite one negative test, a second test may be sent vs. empiric treatment for C. difficile infection. Immunoglobulin A Reviewed date:04/12/2024 04:55:19 PM Interpretation: Performing Lab:[facility], [address] [place] [phone] Notes/Report: Immunoglobulin A 148 70-320 mg/dL THIS TEST WAS PERFORMED AT: [facility] [address] [place] [phone] MATTHEW RUSSELL MD Transglutaminase Ab IgG Reviewed date:04/28/2024 12:37:50 PM Interpretation: Performing Lab:[facility], [address] [place] [phone] Notes/Report: Transglutaminase Ab IgG <1.0 Value Interpretation ----- <15.0 Antibody not detected > or = 15.0 Antibody detected THIS TEST WAS PERFORMED AT: [facility] [address] [place] [phone] MATTHEW RUSSELL MD Transglutaminase IgA Reviewed date:04/28/2024 12:37:58 PM Interpretation: Performing Lab:[facility], [address] [place] [phone] Notes/Report: Transglutaminase IgA <1.0 Value Interpretation ----- <15.0 Antibody not detected > or = 15.0 Antibody detected THIS TEST WAS PERFORMED AT: [facility] [address] [place] [phone] MATTHEW RUSSELL MD Gliadin Ab Panel Reviewed date:04/28/2024 12:38:14 PM Interpretation: Performing Lab:[facility], [address] [place] [phone] Notes/Report: Gliadin Deamidated IgA Ab 15.4 Value Interpretation ----- <15.0 Antibody not detected > or = 15.0 Antibody detected Gliadin Deamidated IgG Ab <1.0 Value Interpretation ----- <15.0 Antibody not detected > or = 15.0 Antibody detected THIS TEST WAS PERFORMED AT: [facility] [address] [place] [phone] MATTHEW RUSSELL MD Endomysial IgA rflx Titer Reviewed date:04/28/2024 12:38:24 PM Interpretation: Performing Lab:[facility], [address] [place] [phone] Notes/Report: Endomysial IgA Antibody Negative Negative THIS TEST WAS PERFORMED AT: [facility]/[address] [phone] JIMMIE YEAGER MD,PHD Endomysial Titer TNP Pathology Reviewed date:05/19/2024 12:22:16 AM Interpretation: Performing Lab:[facility], [address] [place] [phone] Notes/Report: NM gastric emptying study (N ot yet reviewed by provider) Interpretation: Performing Lab: Notes/Report: [address] [place] [address] Nuclear Medicine Report Signed Patient: Brooke Ribera MR#: [id number] : 1955 Acct:[id number] Age/Sex: 68 / F ADM Date: 06/19/24 Loc: [facility] Attending Dr: Campos Hand MD Ordering Physician: Campos Hand MD Date of Service: 06/19/24 Procedure(s): NM gastric emptying study Accession Number(s): [id number] cc: Campos Quezada MD; Campos Hand MD EXAMINATION: NM RADIONUCLIDE SOLID FOOD GASTRIC EMPTYING 4-HOUR STUDY CLINICAL INFORMATION: Bloated stomach to 6 months getting worse. Thoracic stomach hernia. COMPARISON: None TECHNIQUE: A standard meal consisting of 4 oz of Egg Beaters brand tagged with 0.918 microcuries Tc-99m Sulfur Colloid, 8 oz water and 2 slices of toast with jelly was administered orally to the patient. Images were obtained using a dual head gamma camera in the anterior and posterior projections over of the stomach immediately post ingestion and at hourly intervals up to 4 hours post ingestion. The anterior and posterior counts at each time interval were averaged using the geometric mean and expressed as percentage of the immediate post ingestion counts. FINDINGS: There is good visualization of activity in the stomach immediately post ingestion. As the study progresses, there is good clearance of activity from the stomach and visualization of progressively increasing small bowel activity. By the end of the study, there is almost no retention noted in the stomach. Retention in the stomach at each time interval was: 1 hour 93% (normal 37%-90%) 2 hours 80% (normal 30%-60%) 3 hours 72% 4 hours 42% (normal 0%-10%) NM/NM gastric emptying study IMPRESSION: Abnormal 4-hour solid food gastric emptying study with approximately 40% of food retained by 220 minutes. For solid meal, rapid gastric emptying is less than 30% at 60 minutes. Delayed gastric emptying criteria is more than 60% remaining at 120 minutes or more than 10% at 240 minutes. The 4-hour value is the best discriminator of a normal or abnormal result). Gastric emptying study grading per JNMT Consensus Recommendations in 2008 (https://tech.snmjournals.org/content/36/44) Grade 1 (mild retention): 11-20% at 4h Grade 2 (moderate retention): 21-35% at 4h Grade 3 (severe retention): 36-50% at 4h Grade 4 (very severe retention): >50% retention at 4h Electronically signed by: Cristiano Desir MD 06/20/2024 07:18 AM [facility] Dictated By: Cristiano Desir MD Signed By: <Electronically signed by Cristiano Desir MD in OV> 06/20/24 0718 DD/ 0800 TD/TT: 06/19/24 1215 Project Developer: [facility] [place] Reason For Referral No Information Medications Medication SIG (Take, Route, Frequency, Duration) Notes Start Date End Date Status Zolpidem Tartrate 10 MG Oral for 30 Active Amphetamine-Dextroamphet amine 10 MG Oral for 30 Active LORazepam 0.5 MG 1 tablet as needed Orally Twice a day Active clonazePAM 0.5 MG TAKE 1 TABLET BY MOUTH ONCE A DAY NEEDED Oral for 30 F411,Unavailab le Active Omeprazole 20 MG TAKE 1 CAPSULE BY MOUTH EVERY MORNING for 90 Active Adderall XR 20 MG 1 capsule in the morning Orally Once a day Active hydrOXYzine Pamoate 25 MG Oral for 30 Active Citalopram Hydrobromide 40 MG 0.5 tablet Orally Once a day Active Simvastatin 40 MG 1 tablet in the evening Orally Once a day Active Atorvastatin Calcium 40 MG TAKE 1 TABLET BY MOUTH EVERY DAY Oral for 90 Active Levothyroxine Sodium 75 MCG 1 tablet Orally Once a day Active Amantadine HCl 100 MG TAKE 1 CAPSULE BY MOUTH THREE TIMES DAILY Oral for 90 Active Trelegy Ellipta 100-62.5-25 MCG/ACT INHALE 1 PUFF INTO THE LUNGS DAILY Inhalation for 90 Active Ambien Active Ergocalciferol 43566 UNIT 1 capsule Orally Active Abilify Active Immunizations Vaccine Route Administration Date Status Comme nts Influenza Unknown 07/13/2019 Administered Influenza Unknown 04/03/2024 Refused Social History Tobacco Use: Social History Observation Description Date Details (start date - stop date) Current Smoker NA - NA Tobacco Control (Standard) Question Answer Notes Tobacco use: Current smoker How often do you smoke cigarettes? Every day How many cigarettes a day do you smoke? 5 or les s Section Notes: Nonsmoker since 2011; no sig alcohol Nonsmoker since 2011; no sig alcohol Nonsmoker-since 12/2019; no s ig alcohol Nonsmoker-since 12/2019; no s ig alcohol Nonsmoker-since 12/2019; no s ig alcohol Problems Problem Type SNOMED Code ICD Code Onset Dates Problem Status W/U Status Risk Notes Problem 033031936 Encounter for screening for malignant neoplasm of colon (Z12.11) Active confirmed Problem 805632444 History of adenomatous polyp of colon (Z86.010) Active confirmed Problem Gastroparesis (321630568) Gastroparesis (K31.84) Active confirmed Problem Diverticular disease of colon (294187936) Diverticulosis of large intestine without perforation or abscess without bleeding (K57.30) Active confirmed Problem Gastroesophageal reflux disease (225326863) Gastroesophageal reflux disease (K21.9) Active confirmed Problem 90382922 Hiatal hernia (K44.9) Active confirmed Problem Paraesophageal hernia (7260539) 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) Active confirmed Problem Gastroesophageal reflux disease (187582123) GERD (gastroesophageal reflux disease) (K21.9) Active confirmed Problem Irritable bowel (09342254) Irritable bowel (K58.9) Active confirmed Problem Chronic diarrhea (119200854) Chronic diarrhea (K52.9) Active confirmed Problem Gastroesophageal reflux disease (306048109) Esophageal reflux disease (K21.9) Active confirmed Problem 69173112 Esophageal dysphagia (R13.10) Active confirmed Problem Benign esophageal stricture (924408465) Benign esophageal stricture (K22.2) Active confirmed Problem Retained food in stomach (K31.89) Active confirmed Problem Gastroesophageal reflux disease (099078810) Chronic GERD (K21.9) Active confirmed Vital Signs Temperature 96.6 degrees Fahrenheit 04/03/2024 Blood pressure diastolic 11 mm Hg 09/10/2024 Height 73 in 09/10/2024 Blood pressure systolic 111 mm Hg 09/10/2024 Weight 194 lbs 09/10/2024 BMI 25.59 kg/m2 09/10/2024 Encounters Encounter Location Date Provider Diagnosis [facility] [address] [place] [id number] 04/29/2024 Campos Hand Colon polyps K63.5 ; Diarrhea R19.7 ; Diverticulosis of large intestine without perforation or abscess without bleeding K57.30 ; Other hemorrhoids K64.8 ; Gastroesophageal reflux disease K21.9 ; Gastroparesis K31.84 and Other specified abnormal immunological findings in serum R76.8 [facility] [address] [place] [phone] 04/03/2024 Campos Hand Chronic diarrhea K52 .9 ; Encounter for screening for malignant neoplasm of colon Z12.11 and History of adenomatous polyp of colon Z86.010 [facility] [address] [place] [phone] 09/10/2024 Campos Hand History of adenomato us polyp of colon Z86.010 ; Gastroparesis K31.84 ; Irritable bowel K58.9 and GERD (gastroesophageal reflux disease) K21.9 [facility] [address] [place] [phone] 03/19/2024 Campos Hand Chronic diarrhea K52 .9 [facility] [address] [place] [phone] 04/03/2024 Campos Hand [facility] [address] [place] [phone] 05/01/2024 Campos Hand Retained food in sto mach K31.89 [facility] [address] [place] [phone] 06/06/2024 Campos Hnad [facility] [address] [place] [address] 07/02/2024 Campos Hand [facility] [address] [place] [address] 09/17/2024 Campos Hand Assessments Encounter Date Diagnosis (ICD Code) Assessment Notes Treatment Notes Treatment Clinical Notes Section Notes 04/29/2024 Diarrhea (ICD-10 - R19.7) 04/29/2024 Colon polyps (ICD-10 - K63.5) 04/03/2024 Encounter for screening for malignant neoplasm of colon (ICD-10 - Z12.11) Given Brooke's persistent and refractory symptoms of unclear etiology in relation to her diarrhea, I did recommend a colonoscopy in the near future for further evaluation to rule out anything such as the onset of inflammatory bowel disease or microscopic colitis. This does not appear to be related to any type of infectious process given the multiple stool specimens that have been negative in that regard. Even though her diarrhea is temporally related to her surgery, I don't think there is an actual relationship between the repair of the paraesophageal hernia and the onset of worsening diarrhea. Full consent was obtained from her for the colonoscopy, including risks of bleeding and perforation. The procedure will be done with monitored anesthesia care. In the meantime, I shall check laboratories for celiac disease and advised her to use Imodium liberally throughout the day. I also advised her to try to eliminate any caffeine products and minimize dairy products to see if that might give her some symptomatic relief as well. I did advise Brooke to contact me prior to colonoscopy if she has any problems or questions I can be of assistance with. Brooke was comfortable with this plan. Thank you again for allowing me to participate in Brooke's care. I shall continue to keep you advised of her progress. 04/03/2024 Chronic diarrhea (ICD-10 - K52.9) Continue the Imodium for the diarrhea Coffee/Caffei ne can make diarrhea worse Given Brooke's persistent and refractory symptoms of unclear etiology in relation to her diarrhea, I did recommend a colonoscopy in the near future for further evaluation to rule out anything such as the onset of inflammatory bowel disease or microscopic colitis. This does not appear to be related to any type of infectious process given the multiple stool specimens that have been negative in that regard. Even though her diarrhea is temporally related to her surgery, I don't think there is an actual relationship between the repair of the paraesophageal hernia and the onset of worsening diarrhea. Full consent was obtained from her for the colonoscopy, including risks of bleeding and perforation. The procedure will be done with monitored anesthesia care. In the meantime, I shall check laboratories for celiac disease and advised her to use Imodium liberally throughout the day. I also advised her to try to eliminate any caffeine products and minimize dairy products to see if that might give her some symptomatic relief as well. I did advise Brooke to contact me prior to colonoscopy if she has any problems or questions I can be of assistance with. Brooke was comfortable with this plan. Thank you again for allowing me to participate in Brooke's care. I shall continue to keep you advised of her progress. 09/10/2024 History of adenomatous polyp of colon (ICD-10 - Z86.010) Repeat colonoscopy in 2026 .Overall, Brooke appears well from a clinical standpoint. Her previous significant diarrhea that she had been having postoperatively has seemingly resolved and things seem to be back to their baseline of her irritable bowel syndrome. She is no longer needing any antidiarrheal agents. We did review that the occasional mucus she has from the rectum is consistent with some possible diminished sphincter tone and difficulty holding the mucus in. We did review the findings of the colonoscopy and that there was no sign of any type of colitis or proctitis. I did advise her to keep an eye on things but at this point I do not think she needs any other intervention in regard to her bowel movements as things seem to be much better than they were and she is functioning quite well otherwise. She is also very comfortable the way things are at the present time. In regard to the delayed gastric emptying we did review that this may be related to her longstanding paraesophageal hernia she had prior to surgical correction. That may or may not improve with time but at this point she is doing well from a symptomatic standpoint and I do not think she needs any particular treatment for this such as erythromycin or metoclopramide. I did advise her to let me know if she develops any symptoms of the gastroparesis such as difficulty eating, regurgitation, or vomiting. We did review her need for a follow-up colonoscopy in 2026 given the history of tubular adenomas and the findings on last year's colonoscopy. If things remain well she will see me in the interim on a PRN basis. Brooke was very comfortable with this plan. Thank you again for allowing me to participate in Brooke's care. I shall continue to keep you advised of her progress as needed. 09/10/2024 Gastroparesis (ICD-10 - K31.84) Keep grazing in regard to the delayed stomach emptying .Overall, Brooke appears well from a clinical standpoint. Her previous significant diarrhea that she had been having postoperatively has seemingly resolved and things seem to be back to their baseline of her irritable bowel syndrome. She is no longer needing any antidiarrheal agents. We did review that the occasional mucus she has from the rectum is consistent with some possible diminished sphincter tone and difficulty holding the mucus in. We did review the findings of the colonoscopy and that there was no sign of any type of colitis or proctitis. I did advise her to keep an eye on things but at this point I do not think she needs any other intervention in regard to her bowel movements as things seem to be much better than they were and she is functioning quite well otherwise. She is also very comfortable the way things are at the present time. In regard to the delayed gastric emptying we did review that this may be related to her longstanding paraesophageal hernia she had prior to surgical correction. That may or may not improve with time but at this point she is doing well from a symptomatic standpoint and I do not think she needs any particular treatment for this such as erythromycin or metoclopramide. I did advise her to let me know if she develops any symptoms of the gastroparesis such as difficulty eating, regurgitation, or vomiting. We did review her need for a follow-up colonoscopy in 2026 given the history of tubular adenomas and the findings on last year's colonoscopy. If things remain well she will see me in the interim on a PRN basis. Brooke was very comfortable with this plan. Thank you again for allowing me to participate in Brooke's care. I shall continue to keep you advised of her progress as needed. 03/19/2024 Chronic diarrhea (ICD-10 - K52.9) 05/01/2024 Retained food in stomach (ICD-10 - K31.89) 04/29/2024 Diverticulosis of large intestine without perforation or abscess without bleeding (ICD-10 - K57.30) 04/03/2024 History of adenomatous polyp of colon (ICD-10 - Z86.010) Given Brooke's persistent and refractory symptoms of unclear etiology in relation to her diarrhea, I did recommend a colonoscopy in the near future for further evaluation to rule out anything such as the onset of inflammatory bowel disease or microscopic colitis. This does not appear to be related to any type of infectious process given the multiple stool specimens that have been negative in that regard. Even though her diarrhea is temporally related to her surgery, I don't think there is an actual relationship between the repair of the paraesophageal hernia and the onset of worsening diarrhea. Full consent was obtained from her for the colonoscopy, including risks of bleeding and perforation. The procedure will be done with monitored anesthesia care. In the meantime, I shall check laboratories for celiac disease and advised her to use Imodium liberally throughout the day. I also advised her to try to eliminate any caffeine products and minimize dairy products to see if that might give her some symptomatic relief as well. I did advise Brooke to contact me prior to colonoscopy if she has any problems or questions I can be of assistance with. Brooke was comfortable with this plan. Thank you again for allowing me to participate in Brooke's care. I shall continue to keep you advised of her progress. 09/10/2024 Irritable bowel (ICD-10 - K58.9) Use Imodium for any diarrhea .Overall, Brooke appears well from a clinical standpoint. Her previous significant diarrhea that she had been having postoperatively has seemingly resolved and things seem to be back to their baseline of her irritable bowel syndrome. She is no longer needing any antidiarrheal agents. We did review that the occasional mucus she has from the rectum is consistent with some possible diminished sphincter tone and difficulty holding the mucus in. We did review the findings of the colonoscopy and that there was no sign of any type of colitis or proctitis. I did advise her to keep an eye on things but at this point I do not think she needs any other intervention in regard to her bowel movements as things seem to be much better than they were and she is functioning quite well otherwise. She is also very comfortable the way things are at the present time. In regard to the delayed gastric emptying we did review that this may be related to her longstanding paraesophageal hernia she had prior to surgical correction. That may or may not improve with time but at this point she is doing well from a symptomatic standpoint and I do not think she needs any particular treatment for this such as erythromycin or metoclopramide. I did advise her to let me know if she develops any symptoms of the gastroparesis such as difficulty eating, regurgitation, or vomiting. We did review her need for a follow-up colonoscopy in 2026 given the history of tubular adenomas and the findings on last year's colonoscopy. If things remain well she will see me in the interim on a PRN basis. Brooke was very comfortable with this plan. Thank you again for allowing me to participate in Brooke's care. I shall continue to keep you advised of her progress as needed. 04/29/2024 Other hemorrhoids (ICD-10 - K64.8) 09/10/2024 GERD (gastroesophageal reflux disease) (ICD-10 - K21.9) Keep using omeprazole for the reflux .Overall, Brooke appears well from a clinical standpoint. Her previous significant diarrhea that she had been having postoperatively has seemingly resolved and things seem to be back to their baseline of her irritable bowel syndrome. She is no longer needing any antidiarrheal agents. We did review that the occasional mucus she has from the rectum is consistent with some possible diminished sphincter tone and difficulty holding the mucus in. We did review the findings of the colonoscopy and that there was no sign of any type of colitis or proctitis. I did advise her to keep an eye on things but at this point I do not think she needs any other intervention in regard to her bowel movements as things seem to be much better than they were and she is functioning quite well otherwise. She is also very comfortable the way things are at the present time. In regard to the delayed gastric emptying we did review that this may be related to her longstanding paraesophageal hernia she had prior to surgical correction. That may or may not improve with time but at this point she is doing well from a symptomatic standpoint and I do not think she needs any particular treatment for this such as erythromycin or metoclopramide. I did advise her to let me know if she develops any symptoms of the gastroparesis such as difficulty eating, regurgitation, or vomiting. We did review her need for a follow-up colonoscopy in 2026 given the history of tubular adenomas and the findings on last year's colonoscopy. If things remain well she will see me in the interim on a PRN basis. Brooke was very comfortable with this plan. Thank you again for allowing me to participate in Brooke's care. I shall continue to keep you advised of her progress as needed. 04/29/2024 Gastroesophageal reflux disease (ICD-10 - K21.9) 04/29/2024 Gastroparesis (ICD-10 - K31.84) 04/29/2024 Other specified abnormal immunological findings in serum (ICD-10 - R76.8) Plan Of Treatment Pending Test Test Name Order Date CHEM 7 PROFILE 03/19/2024 LIVER PROFILE 03/19/2024 CRP 03/19/2024 CBC w DIFF 03/19/2024 SED RATE (ESR) 03/19/2024 CELIAC PANEL #10 04/03/2024 NUC GASTRIC ANTRUM EMPTYING 05/01/2024 STOOL WBC 03/19/2024 C DIFFICILE RFLX PCR 03/19/2024 NM gastric emptying study 06/19/2024 Future Test Test Name Order Date COLONOSCOPY 09/12/2014 UPPER GI ENDOSCOPY [place] DILATION OF ESOPH 11/05/2019 COLONOSCOPY 11/05/2019 UPPER GI ENDOSCOPY 12/15/2023 COLONOSCOPY 04/03/2024 Insurance Providers Payer Name Payer Address Payer Phone Subscriber Number Group Number Insured Name Patient Relationship to Insured Coverage Start Date Coverage End Date MEDICARE OF [place] [address] [place] [id number] BROOKE RIBERA Self - patient is the insured MEDICAID OF [facility] [address] [place] [phone] [id number] BROOKE RIBERA Self - patient is the insured Medical (General) History Medical History History ICD Code GERD--09/04/2009 EGD-moderat [...] Hypothyroidism Anxiety Panic attacks Hyperlipidemia ADHD Denies CT,DM,CVA,Lung disease,renal dise ase Colonoscopy in 10/2014 with [...] such as esophagitis or an esophageal stricture Upper endoscopy in April 2024 revealed evidence of gastric retention, and negative duodenal biopsies for celiac disease. There was no evidence of any residual significant hiatal hernia and no esophagitis. Colonoscopy in April 2024 revealed tubular adenomas that were removed, but no evidence of any inflammatory bowel disease or microscopic colitis. Nuclear medicine gastric emp tying study after the above upper endoscopy was consistent with delayed gastric emptying as well Surgical History Surgery Date(Month/Year) Paraesophageal hiatal hernia repair by Dr. Moon at [facility] 12/13/2023 Right hip replacement in 2012 Cervical spine disc surgery x 2
--- OUTSIDE RECORDS SUMMARY | 2025-02-25 06:48 | XMS_ITS | Clinical Summary ---
Author Organization [facility] [address] [facility] Address [address] [place] [address] Phone Care Team Providers Care Scratch Finisher Name Role Phone Alberto Quezada MD Primary Care Provider [phone] Allergies Active Allergy Reactions Criticality Noted Date Comments Diclofenac Sodium 10/24/2018 Stomach upset, rectal bleeding Medications fluticasone-ume clidinium-vilan terol (Trelegy Ellipta) 100-62.5-25 mcg inhaler INHALE 1 PUFF INTO THE LUNGS DAILY 1 each 05/13/2024 Active amantadine (SYMMETREL) 100 mg capsule TAKE 1 CAPSULE BY MOUTH THREE TIMES DAILY. 11/08/2023 Active ARIPiprazole (ABILIFY) 5 mg tablet Take 5 mg by mouth daily. Active atorvastatin (LIPITOR) 40 mg tablet Take 40 mg by mouth daily. Active clonazePAM (KlonoPIN) 0.5 mg tablet TAKE 1 TABLET BY MOUTH EVERY DAY NEEDED. 11/15/2023 Active amphetamine-dex troamphetamine (ADDERALL) 30 mg tablet Take 30 mg by mouth daily. Active diphenhydrAMINE (BENADRYL) 25 mg capsule Take 1 Capsule by mouth every 6 hours as needed. Active hydrOXYzine pamoate (VISTARIL) 25 mg capsule TAKE 1 CAPSULE BY MOUTH TWICE DAILY NEEDED. 11/08/2023 Active levothyroxine sodium (TIROSINT) 75 mcg capsule Take by mouth. Active omeprazole (PriLOSEC) [address] capsule Take 20 mg by mouth daily. 10/21/2021 Active umeclidinium-vi lanteroL (Anoro Ellipta) 62.5-25 mcg/actuation inhaler INHALE 1 PUFF BY MOUTH EVERY DAY. 02/24/2023 Active zolpidem (AMBIEN) 5 mg tablet Take by mouth at bedtime as needed. Pt taking 10mg daily Active loperamide (IMODIUM) 1 mg/7.5 mL solution Take by mouth. Take by mouth. - Oral Active citalopram (CeleXA) 40 mg tablet Take 40 mg by mouth daily. - Oral Active Active Problems Problem Noted Date Diagnosed Date Incarcerated paraesophageal hernia 11/28/2023 Overview (07/10/2024): Last Assessment & Plan: Ms. Ribera is a 68 yr. female presenting for their 4 week follow-up status post da Salome laparoscopic paraesophageal hernia repair with hybrid mesh and gastropexy. This operation was performed at [facility] on 01/02/[address] Dhiraj Moon. She has been recovering from her surgery and tolerating a soft mechanical diet which she has been tolerating well and enjoying a full liquid diet with no nausea, vomiting, regurgitation or dysphagia. She has been continuing to crush her home p.o. medications and has not used any narcotic medication since discharge other than Tylenol. Prior to her visit today she did have a barium swallow study performed which shows no evidence of extravasation or leakage with some postop edema which has shown improvement since her previous study. There is also esophageal dysmotility noted as well. Instructed to resume a regular diet and educated to continue with small frequent meals throughout the day ensuring that she chews her food completely and was advised to continue to abstain from carbonated beverages in order to prevent recurrence. Also advised to continue to abstain from lifting anything greater than 10 pounds for an additional 2 weeks. Instructed to contact the thoracic surgery department moving forward on a as needed basis with any questions or concerns. Interstitial lung disease (CMS/HCC V24, CMS/HCC V28) 11/28/2023 Chronic midline low back pain without sciatica 0 11/18/2020 ADHD 11/02/2018 DDD (degenerative disc disease), lumbar 11/03/19 19 Overview (07/10/2024): Cervical as well Depression 11/02/2018 Essential tremor 11/02/2018 GERD (gastroesophageal reflux disease) 9 Hiatal hernia 11/02/2018 Gout 11/02/2018 History of substance abuse ([facility] V24, [facility] V28) 11/02/2018 Overview (07/10/2024): 04/2018 was on a tapering process prior to neck surgery; Opioid dependence Hyperlipidemia 11/02/2018 Hypothyroidism (acquired) 11/02/2018 Insomnia 11/02/2018 Internal hemorrhoids 11/02/2018 Panic disorder 11/02/2018 Right knee DJD 11/02/2018 Tubular adenoma of colon 11/02/2018 Overview (07/10/2024): Multiple; last Colonsocopy 2014, Dr. Hand Venous insufficiency of leg 11/02/2018 Shortness of breath 10/25/2018 Cervical spondylosis 05/24/2018 Overview (07/10/2024): Last Assessment & Plan: Patient has history of 3 cervical surgeries with fusions at C3-4, C4-5, C5-6, C6-7, at that time she recalls having neck pain and numbness tingling in the arms prior to each surgery. She states that her last surgery September 2020, did help her neck pain initially. Over the last year she has had progressive increasing left-sided neck pain, states she hears popping sounds in her neck. Occasionally she will have numbness tingling in the arms, which sounds chronic. She states if she has to drive for a period of time, she gets increased neck and back pain. If she is walking or sitting for any length she has increased neck pain. She rates her average daily neck pain 6-7, can get up to a 9/10. She has progressive essential tremors at rest >2 years, otherwise does not note any UEs weakness, dropping things, dexterity issues. She has history of chronic fentanyl use x15 years, was weaned off. She went to physical therapy 1 year ago, states it bothered her neck and back pain, hip, knee, shoulder pain. She has had many cortisone injections over the years, she thinks her last one was 1 year ago before her most recent cervical surgery. Patient had C-spine MRI 12/23/21 At [facility], that showed ACDF with plate and screws at C3-4, osseous fusion C4-5, C5-6, C6-7. She has C7-T1 grade 1 anterior listhesis, radiology report states this is progressive from previous MRI 2018. No cord compression or signal change noted in the spinal cord. I reviewed MRI images with the patient in detail. Ms. Ribera has C7-T1 anterior listhesis, left-sided neck pain, I reviewed her MRI with Dr. Perez today. Dr. Perez recommends checking cervical flexion-extension x-rays to rule out any instability. If there is instability, she recommends a posterior approach with a spire plate. We talked about trying conservative treatment, patient does not want to try physical therapy again. We talked about acupuncture, a few names provided to the patient that she can try. All questions answered on today's visit. She will call with any concerns or questions. I will call the patient with an update after reviewing her x-rays. ADDENDUM: Report from [place] found for cervical flexion-extension x-rays 11/02/2021 that showed no instability. I will review this with Dr. Perez, patient likely will not require surgical intervention. Immunizations Name Administration Dates Next Due Influenza Quadravalent, MDCK , 0.5ml, preservative free (Flucelvax) 6mo and older 03/02/2018 Influenza trivalent, 0.5mL, preservative free (Fluarix; FluLaval; Fluzone) ages 6mo and older (Afluria) 3 years and older 03/05/2021,02/28/2017,03/11/2016 Zoster recombinant (Shingrix ) 19yo and older 03/02/2018 Surgical History Surgery Date Site/Laterality Comments HYSTERECTOMY 2003 PROCEDURE: HISTORICAL TOTAL HYSTERECTOMY WITH BSO OTHER SURGICAL HISTORY 05/24/2018 PROCEDURE: [place] ARTHRD ANT INTERBODY MIN DSC CRV BELOW C2; COMMENT: C4-5 ACDF and removal C6-7 plate, Dr. Elliott HIP ARTHROPLASTY 02/2012 Right PROCEDURE: HISTORICAL HIP REPLACEMENT COLONOSCOPY 2014 PROCEDURE: HISTORICAL COLONOSCOPY; COMMENT: tubular adenoma (3); no report COLONOSCOPY 2002 PROCEDURE: HISTORICAL COLONOSCOPY; COMMENT: tubular adenoma; no report COLONOSCOPY 2006 PROCEDURE: HISTORICAL COLONOSCOPY; COMMENT: tubular adenoma;no report ESOPHAGOGASTRODUODENOSCOPY 2009 PROCEDURE: WV ESOPHAGOGASTRODUODENOSCOPY TRANSORAL DIAGNOSTIC; COMMENT: gastritis; no report OTHER SURGICAL HISTORY 10/05/2020 PROCEDURE: [place] ARTHRD ANT INTERBODY MIN DSC CRV BELOW C2; COMMENT: C3-4 ACDF [facility]5 [facility] 07/2004 PROCEDURE: [place] ARTHRD ANT INTERBODY MIN DSC CRV BELOW C2; COMMENT: C5-6, C6-7 ACDF, Dr. Elliott CATARACT EXTRACTION PROCEDURE: HISTORICAL CATARACT REMOVAL OTHER SURGICAL HISTORY 01/02/2024 N/A PROCEDURE: [place] LAPS RPR PARAESPHGL HRNA INCL FUNDPLSTY W/MESH KNEE SURGERY PROCEDURE: HISTORICAL KNEE SURGERY; COMMENT: hx of 2 knee replacements Medical History Medical History Date Comments Gout 11/02/2018 DX:Gout Adhd 11/02/2018 DX:ADHD Depression 11/02/2018 DX:Depression DDD (degenerative disc disea se), lumbar 11/02/2018 DX:DDD (degenerative disc di sease), lumbar; COMMENT: Cervical as well Hyperlipidemia 11/02/2018 DX:Hyperlipidemi a Tubular adenoma of colon 11/02/2018 DX:Tubu lar adenoma of colon; COMMENT: Multiple; last Colonsocopy 2014, Dr. Hand History of right hip replacement 11/02/2018 DX:History of right hip replacement Hypothyroidism (acquired) 11/02/2018 DX:Hyp othyroidism (acquired) GERD (gastroesophageal reflux disease) 9 DX:GERD (gastroesophageal reflux disease) Hiatal hernia 11/02/2018 DX:Hiatal hernia Right knee DJD 11/02/2018 DX:Right knee DJ D Essential tremor 11/02/2018 DX:Essential tr emor Venous insufficiency of leg 11/02/2018 DX:V enous insufficiency of leg Panic disorder 11/02/2018 DX:Panic disorde r Internal hemorrhoids 11/02/2018 DX:Internal hemorrhoids History of TIA (transient is chemic attack) 11/02/2018 DX:History of TIA (transient ischemic attack) Insomnia 11/02/2018 DX:Insomnia History of substance abuse ( CMS/HCC V24, CMS/HCC V28) 11/02/2018 DX:History of substance abus e ([facility]); COMMENT: 04/2018 was on a tapering process prior to neck surgery; Opioid dependence Shortness of breath 10/25/2018 DX:Shortness of breath COPD (chronic obstructive pu lmonary disease) with emphysema (CMS/HCC V24, CMS/HCC V28) DX:COPD (chronic obstructive pulmonary disease) with emphysema (HCC) Family History Medical History Relation Name Comments Other cancer Father Relation Name Status Comments Father Mother 97 yrs old Alive Social History Tobacco Use Types Packs/Day Years Used Date Smoking Tobacco: Every Day Cigarettes 1 52 Started: 06/12/1971; Last attempted to quit: 06/12/2023 Smokeless Tobacco: Never Tobacco Cessation:Ready to Q uit: Not Asked; Counseling Given: Not Answered Comments:Smoking 5 cigs daily Alcohol Use Standard Drinks/Week Comments No 0 (1 standard drink = 0.6 oz pur e alcohol) Comments Unknown Sex and Gender Information Value Date Recorded Sex Assigned at Female 10/21/2024 10:28 AM EDT Legal Sex Female 8:31 AM EST Gender Identity Female 10/21/2024 10:28 AM EDT Sexual Orientation Straight 10/21/2024 10 :28 AM EDT Obstetrics History Last Filed Vital Signs Vital Sign Reading Time Taken Comments Blood Pressure 126/76 11/19/2024 1:28 PM EDT Pulse 80 11/19/2024 1:28 PM EDT Temperature 36.6 C (97.8 F) 11/19/2024 1:28 PM EDT Respiratory Rate 16 11/19/2024 1:28 PM EDT Oxygen Saturation 99% 11/19/2024 1:28 PM EDT Inhaled Oxygen Concentration - - Weight 90.6 kg (199 lb 12.8 oz) 11/19/2024 1:28 PM EDT Height 182.9 cm (6') 11/19/2024 1:28 PM EDT Body Mass Index 27.1 11/19/2024 1:28 PM EDT Plan of Treatment Upcoming Encounters Date Type Department Care Team (Late st Contact Info) Description 05/21/2025 8:45 AM EST Office Visit Pulmonolgy - [place] [address] [facility] [facility] [address] [place] [id number] Farnaz Kay MD [address] [place] [address] Health Maintenance Due Date Last Done Comments DTaP,Tdap,and Td Vaccines (1 - Tdap) 1976 RSV Immunization Adult Patients (1 - Risk 60-74 years 1-dose series) 2017 Zoster Vaccines (2 of 2) 04/27/2018 03/02/2018 Cholesterol Screening (Lipid Panel) 05/19/2022 Colorectal Cancer Screening: Colonoscopy 05/19/2022 Hepatitis C Screening 05/19/2022 Medicare Annual Wellness Visit 05/19/2022 Osteoporosis Screening (Bone Density Screening) 05/19/2022 Social Influencers of Health Screening 05/19/2022 Falls Risk Assessment 2022 Depression Screening 06/12/2024 Hypertension/CHF/CAD Annual BMP Blood Test 09/03/2024 COVID-19 Vaccine ( - season) 2025 03/05/2021, 10/02/2020, 09/09/2020 Influenza Vaccine (#1) 2025 , 04/03/2023, 04/27/2022, Additional history exists Breast Cancer Screening 05/18/2025 05/18/20, 12/28/2021, 11/02/2020, Additional history exists Lung Cancer Screening (Low Dose CT) 11/12/2025 11/12/2024, 10/20/2023, 10/20/2023, Additional history exists Pneumococcal Vaccine: 50+ Years Completed 05/08/2022 HIB Vaccines Aged Out No longer eligi ble based on patient's age to complete this topic HPV Vaccines Aged Out No longer eligi ble based on patient's age to complete this topic Hepatitis A Vaccines Aged Out No long er eligible based on patient's age to complete this topic Hepatitis B Vaccines Aged Out No long er eligible based on patient's age to complete this topic IPV Vaccines Aged Out No longer eligi ble based on patient's age to complete this topic MMR Vaccines Aged Out No longer eligi ble based on patient's age to complete this topic Meningococcal ACWY Vaccine Aged Out N o longer eligible based on patient's age to complete this topic Meningococcal B Vaccine Aged Out No l onger eligible based on patient's age to complete this topic RSV Immunization Patients Under 20 months Aged Out No longer eligible based on patient's age to complete this topic Varicella Vaccines Aged Out No longer eligible based on patient's age to complete this topic Medical Devices Implanted Type Area Acid Tester Device Identifier Shelf Expiration Date Model / Serial / Lot Sponge Surgiflo 8ml Hemostatic Matrix Absorbable Latex Free - [id number] Implanted:Qty: 1 on 05/24/2018 by Michael Elliott MD Implants N/A: Spine Cervical RADHA & RADHA RAH 03/11/2020 [id number] / / [id number] Sponge Surgiflo 8ml Hemostatic Matrix Absorbable Latex Free - [id number] Implanted:Qty: 1 on 10/05/2020 by Darío Guillory DO Implants N/A: Spine Cervical RADHA & RADHA RAH 01/09/2022 [id number] / / [id number] Spacer Cervical Allofuse 6mm Cortical Cancellous Freeze Lord - [id number] Implanted:Qty: 1 on 05/24/2018 by Michael Elliott MD N/A: Spine Cervical [employer] 08/19/2022 [id number] / / [id number] Description:wm Plate Xtend Bone Spnl - [id number] Implanted:Qty: 1 on 05/24/2018 by Michael Elliott MD N/A: Spine Cervical [employer] 161.112 / / Screw Bone 12mm Ti Spnl [facility] - [id number] Implanted:Qty: 4 on 05/24/2018 by Michael Elliott MD N/A: Spine Cervical [employer] 161.312 / / Vikos Cervical 14x14.5x6mm 7d Cortico Cancellous - [id number] - [id number] Implanted:Qty: 1 on 10/05/2020 by Darío Guillory DO N/A: Spine Cervical [employer] 01/06/2025 [id number] / [id number] / [id number] Plate [place] 20mm 1 Level Bone Spine Cervical Nonsterile - [id number] Implanted:Qty: 1 on 10/05/2020 by Darío Guillory DO N/A: Spine Cervical [employer] [id number] / / Screw [place] 14mm 4mm Self Start Variable Angle Bone Spine - [id number] Implanted:Qty: 4 on 10/05/2020 by Darío Guillory DO N/A: Spine Cervical [employer] [id number] DA / / Procedures Procedure Name Priority Date/Time Associated Diagnosis Comments CT LUNG SCREENING Routine 11/12/2024 7:4 8 AM EDT Encounter for screening for malignant neoplasm of respiratory organs Nicotine dependence, cigarettes, uncomplicated AMANDA SCREENING DIGITAL Routine 05/18/2023 8:03 AM EST Encounter for screening mammogram for malignant neoplasm of breast from Last 3 Months or Most Recently Relevant to Health Maintenance Results * CT Lung Screening (11/12/2024 7:48 AM EDT) Anatomical Region Laterality Modality Chest Computed Tomogra phy 11/12/2024 10:0 6 AM EDT Impressions 11/12/2024 10:55 AM EDT Lung RADS 1. No suspicious pulmonary nodule. Guidelines recommend repeat low-dose screening CT in 12 months. -------- FINAL REPORT -------- Dictated By: Mega Salvador Dictated Date: 11/12/2024 10:06 ET Assigned Physician: Mega Salvador Reviewed and Electronically Signed By: Mega Salvador Signed Date: 11/12/2024 10:55 ET Workstation ID: [id number] Transcribed By: Self Edit Transcribed Date: 11/12/2024 10:06 ET Narrative 11/12/2024 10:55 AM EDT PROCEDURE: Low-dose CT of the chest without intravenous contrast. TECHNIQUE: Low-dose CT of the chest without intravenous contrast administration. Coronal and sagittal reformats and MIP reconstructions were created. Dose length product: 179 mGy-cm. HISTORY: Lung cancer screening, >=20 pk yr current smoker (Age 50-80y) COMPARISON: 10/20/2023. FINDINGS: Lungs/pleura: The central airways are clear and normal in caliber. Several calcified granulomas in the right lower lobe. No suspicious nodule or mass. Previously noted linear and groundglass opacities in the right upper lobe has cleared. Small amount of groundglass opacity and architectural distortion in the posterior right lower lobe suggesting mild interstitial scarring. No pleural effusion or pneumothorax. Mediastinum/yumiko: No mediastinal mass or lymphadenopathy. No appreciable hilar lymphadenopathy on limited noncontrast evaluation. Vasculature: Normal caliber pulmonary arteries. Moderate atherosclerotic calcifications of the great vessels. 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 Cardiac: Normal heart size. Moderate coronary artery calcification. Chest wall: No axillary or supraclavicular lymphadenopathy. Limited abdomen: Unremarkable. Bones: Degenerative changes of the spine. Procedure Note Mega Salvador MD - 11/12/2024 PROCEDURE: Low-dose CT of the chest without intravenous contrast. TECHNIQUE: Low-dose CT of the chest without intravenous contrastadministration. Coronal and sagittal reformats and MIP reconstructionswere created. Dose length product: 179 mGy-cm. HISTORY: Lung cancer screening, >=20 pk yr current smoker (Age 50-80y) COMPARISON: 10/20/2023. FINDINGS: Lungs/pleura: The central airways are clear and normal in caliber.Several calcified granulomas in the right lower lobe. No suspiciousnodule or mass. Previously noted linear and groundglass opacities in theright upper lobe has cleared. Small amount of groundglass opacity andarchitectural distortion in the posterior right lower lobe suggesting mildinterstitial scarring. No pleural effusion or pneumothorax. Mediastinum/yumiko: No mediastinal mass or lymphadenopathy. No appreciablehilar lymphadenopathy on limited noncontrast evaluation. Vasculature: Normal caliber pulmonary arteries. Moderate atheroscleroticcalcifications of the great vessels. Anomalous origin of the leftvertebral artery from the aortic arch. Cardiac: Normal heart size. Moderate coronary artery calcification. Chest wall: No axillary or supraclavicular lymphadenopathy. Limited abdomen: Unremarkable. Bones: Degenerative changes of the spine. IMPRESSION: Lung RADS 1. No suspicious pulmonary nodule. Guidelines recommend repeatlow-dose screening CT in 12 months. -------- FINAL REPORT -------- Dictated By: Mega Salvador Dictated Date: 11/12/2024 10:06 ET Assigned Physician: Mega Salvador Reviewed and Electronically Signed By: Mega Salvador Signed Date: 11/12/2024 10:55 ET Workstation ID: [id number] Transcribed By: Self Edit Transcribed Date: 11/12/2024 10:06 ET us Dhiraj Moon MD IMG CT PROCEDURES Final Result * [facility] SCREENING DIGITAL (05/18/2023 8:03 AM EST) Anatomical Region Laterality Modality Mammography 05/18/2023 7:19 AM EST Narrative 05/18/2023 8:03 AM EST [facility] Diagnostic Imaging Department [address] [place] [id number] Patient: BROOKE RIBERA Harshil /Age/Sex: 1955 - 67 - F Unit#: [id number] [facility]Ordering Site: [facility] Ordering Physician: ALBERTO QUEZADA MD [facility] Screening Digital - 05/18/2334 Report Status:Signed EXAM: [facility] Screening Digital EXAM DATE AND TIME: 05/18/2023 7:34 AM HISTORY: Screening. Left breast biopsy in 2005, pathology benign. COMPARISON: 12/28/21, 11/02/20, 11/22/18, 11/20/17 TECHNIQUE: Bilateral digital breast tomosynthesis was performed in the CC and MLO projections. Computer aided detection with JugoD MindSet Rx 3D 3.1 was employed. TISSUE DENSITY: a. The breasts are almost entirely fatty. FINDINGS: No suspicious masses, grouped microcalcifications, or areas of architectural distortion are seen. There are rare benign calcifications. A biopsy marker is again seen in the middle 12:00 position of the left breast. The skin and vascularity are unremarkable. IMPRESSION: Stable mammographic appearance of the breasts. No evidence of malignancy is seen. A negative mammogram in the presence of a clinically suspicious palpable abnormality does not preclude the possibility of malignancy or alter the indications for biopsy. BI-RADS: Category 2: Benign RECOMMENDATION(S): 1: Routine screening mammogram BILATERAL in 1 year. Dictating Physician: TATUM GLYNN MD Electronically Signed by: TATUM GLYNN MD Dic Date/Time: 05/18/23801 Sign date/Time: 05/18/23802 Procedure Note Tatum Glynn MD - 07/18/2023 [facility] Diagnostic Imaging Department [address] [place] [address] Patient: BROOKE RIBERA Harshil /Age/Sex: 1955 - 67 - F Unit#: [id number] [facility] Mnemonic/Ordering Site: [facility] Ordering Physician: ALBERTO QUEZADA MD [facility] Screening Digital - 05/18/23733 Report Status:Signed EXAM: [facility] Screening Digital EXAM DATE AND TIME: 05/18/2023 7:34 AM HISTORY: Screening. Left breast biopsy in 2005, pathology benign. COMPARISON: 12/28/21, 11/02/20, 11/22/18, 11/20/17 TECHNIQUE: Bilateral digital breast tomosynthesis was performed in the CCand MLO projections. Computer aided detection with iCAD ProFound AI 3D 3.1was employed. TISSUE DENSITY: a. The breasts are almost entirely fatty. FINDINGS: No suspicious masses, grouped microcalcifications, or areas ofarchitectural distortion are seen. There are rare benign calcifications. A biopsy markeris again seen in the middle 12:00 position of the left breast. The skin and vascularity are unremarkable. IMPRESSION: Stable mammographic appearance of the breasts. No evidence of malignancyis seen. A negative mammogram in the presence of a clinically suspicious palpable abnormality does not preclude the possibility of malignancy or alter the indications for biopsy. BI-RADS: Category 2: Benign RECOMMENDATION(S): 1: Routine screening mammogram BILATERAL in 1 year. Dictating Physician: TATUM GLYNN MD Electronically Signed by: TATUM GLYNN MD Dic Date/Time: 05/18/23801 Sign date/Time: 05/18/23802 Alberto Quezada MD IMG BI PROCEDURES Final Result from Last 3 Months or Most Recently Relevant to Health Maintenance Insurance MEDICA[place] - [place] MEDICARE Care Teams Scratch Finisher Relationship Specialty Start Date End Date Alberto Quezada MD [address] [place] [address] PCP - General Oncology 12/21/18
--- OUTSIDE RECORDS SUMMARY | 2025-02-25 06:48 | XMS_ITS | Patient Health Record ---
[facility] Address [address] [place] [address] Care Team Providers Care Drug And Alcohol Treatment Specialist Name Role Phone Campos Quezada MD Primary Care Provider Unavailab Imelda Gonzalez Unavailable [phone] Reason For Referral No Information Medications Medication SIG (Take, Route, Fr equency, Duration) Notes Start Date End Date Status Adderall Active Abilify 5 MG 1 tablet Orally Once a day; Duration: 30 day(s) Active Atorvastatin Calcium Active Adderall 30 MG 1 tablet Orally Once a day Active Adderall 10 MG 1 tablet Orally Twice a day Active Ambien Active Levothyroxine Sodium Active Atorvastatin Calcium Active CeleXA Active Abilify 5 MG 1 tablet Orally Once a day; Duration: 30 day(s) Active Ambien 10 MG 1 [...] Problem Acquired hammer toe of right foot (7956475787757 105) Other hammer toe(s) (acquired), right foot (M20.41) Active confirmed Problem Acquired hammer toe of left foot (9142396502111 103) Other hammer toe(s) (acquired), left foot (M20.42) Active confirmed Plan Of Treatment No Information Insurance Providers Payer Name Payer Address Payer Phone Subscriber Number Group Number Insured Name Patient Relationship to Insured Coverage Start Date Coverage End Date [facility] [employer] Claims [address] [place] [phone] [id number] Sally Greenberg Self - patient is the insured Medical (General) History Medical History History ICD Code Anxiety Back,Hip,and Knee pain Depression Lung disease Measles Mumps Chicken pox Bone implants/screws Surgical History Surgery Date(Month/Year) right hip replacement Fusion- neck
--- OUTSIDE RECORDS SUMMARY | 2025-02-25 06:49 | XMS_ITS | Patient Health Record ---
Author Organization Campos Quezada III, MD Address [address] [place] [address] Care Team Providers Care Customer Operations Specialist Name Role Phone Campos Quezada Primary Care Provider [phone] Campos Quezada III, MD [phone] Allergies Allergen (clinical drug ingredient) Drug/Non [...] 1.3 BLD Negative Negative - Menstrating No Leukocytes Stool Qualitative Reviewed date:03/06/2024 06:30:35 AM Interpretation: Performing Lab:[facility], [address] [place] [phone] Notes/Report: Leukocytes Stool Qualitative NEGATIVE NEGATIVE Giardia Ag Stool EIA Reviewed date:03/21/2024 05:52:08 AM Interpretation: Performing Lab:[facility], [address] [place] [phone] Notes/Report: Giardia Ag Stool EIA SEE NOTE GIARDIA AG, EIA, STOOL Micro Number: [id number] Test Status: Final Specimen Source: Stool Specimen Quality: Adequate Giardia Result 1: Not Detected Reference Range: Not Detected NOTE: Due to intermittent shedding, one negative sample does not necessarily rule out the presence of a parasitic infection. THIS TEST WAS PERFORMED AT: [facility] [address] [place] [phone] MATTHEW RUSSELL MD Ova and Parasite Reviewed date:03/21/2024 05:52:08 AM Interpretation: Performing Lab:[address] [address] Notes/Report: Ova and Parasite SEE NOTE OVA AND PARASITES, CONC AND PERM SMEAR Micro Number: [id number] Test Status: Final Specimen Source: Stool Specimen Quality: Adequate CONCENTRATION 1: No ova or parasites seen TRICHROME 1: No ova or parasites seen Routine Ova and Parasite exam may not detect some parasites that occasionally cause diarrheal illness. Cryptosporidium Antigen and/or Cyclospora Isospora Exam may be ordered to detect these parasites. For additional information, please refer to [email or web address].[employer] Yachting/faq/F [email or web address] (This link is being provided for informational/ educational purposes only.) THIS TEST WAS PERFORMED AT: [facility] [address] [place] [phone] MATTHEW RUSSELL MD CDiff Gene PCR Reviewed date:03/21/2024 05:52:08 AM Interpretation: Performing Lab:[address] [address] Notes/Report: CDiff Gene PCR NEGATIVE Negative If C. difficile strongly suspected despite one negative test, a second test may be sent vs. empiric treatment for C. difficile infection. GI Panel Reviewed date:03/21/2024 05:52:08 AM Interpretation: Performing Lab:[address] [address] Notes/Report: Campylobacter Not Detected Not Detect. Plesiomonas [...] is performed by Multiplexed PCR, utilizing the InfoBionic Array. Immunoglobulin A Reviewed date:04/15/2024 05:39:45 AM Interpretation: Performing Lab:[address] [address] Notes/Report: Immunoglobulin A 148 70-320 mg/dL THIS TEST WAS PERFORMED AT: [facility] [address] [place] [phone] MATTHEW RUSSELL MD Transglutaminase Ab IgG Reviewed date:04/15/2024 05:39:45 AM Interpretation: Performing Lab:[address] [address] Notes/Report: Transglutaminase Ab IgG <1.0 Value Interpretation ----- <15.0 Antibody not detected > or = 15.0 Antibody detected THIS TEST WAS PERFORMED AT: [facility] [address] [place] [phone] MATTHEW RUSSELL MD Transglutaminase IgA Reviewed date:04/15/2024 05:39:45 AM Interpretation: Performing Lab:[facility], [address] [place] [phone] Notes/Report: Transglutaminase IgA <1.0 Value Interpretation ----- <15.0 Antibody not detected > or = 15.0 Antibody detected THIS TEST WAS PERFORMED AT: [facility] [address] [place] [phone] MATTHEW RUSSELL MD Gliadin Ab Panel Reviewed date:04/15/2024 05:39:45 AM Interpretation: Performing Lab:[facility], [address] [place] [phone] Notes/Report: Gliadin Deamidated IgA Ab 15.4 Value Interpretation ----- <15.0 Antibody not detected > or = 15.0 Antibody detected Gliadin Deamidated IgG Ab <1.0 Value Interpretation ----- <15.0 Antibody not detected > or = 15.0 Antibody detected THIS TEST WAS PERFORMED AT: [facility] [address] [place] [phone] MATTHEW RUSSELL MD Endomysial IgA rflx Titer Reviewed date:04/15/2024 05:39:45 AM Interpretation: Performing Lab:[facility], [address] [place] [phone] Notes/Report: Endomysial IgA Antibody Negative Negative THIS TEST WAS PERFORMED AT: [employer]/[address] [address] JIMMIE YEAGER MD,PHD Endomysial Titer TNP Pathology Reviewed date:05/06/2024 07:50:01 AM Interpretation: Performing Lab:[facility], [address] [place] [phone] Notes/Report: --- Name: Sally Greenberg Age/Sex: 68/F : 1955 [id number]#: [id number] Attend Dr: Campos Hand MD Re04/29/24 Status : [facility] Location: [facility] Disch: --- SPEC : [id number] RECD : 04/29/24-1447 STATUS: TAE FONSECA NUM: [id number] WINNIE: 04/29/24-[address] [facility] [address]: Campos Hand MD ENTERED: 04/29/24-14 53 SP TYPE: Surgical OTHR DR: Campos Quezada MD ORDERED: HE Stain/21 , Gross Micro L4/7, Special st. 2, AB/PAS Diagnosis A. Duodenum, descending, biopsy: Duodenal mucosa within normal limits; negative for celiac disease. B. Colon, 30 cm, polypectomy: Tubular adenoma; negative for high-grade dysplasia or carcinoma. C. Cecum, polypectom y: Tubular adenoma; negative for high-grade dysplasia or carcinoma. D. Terminal ileum, biopsy: Terminal ileal mucosa within normal limits. E. Colon, ascending, biopsy: Colonic mucosa within normal limits; negative for microscopic colitis. F. Colon, ascending, polypectomies: Fragments of sessile serrated lesion/polyp with thermal artifact. G. Colon, descending , biopsy: Colonic mucosa within normal limits; negative for microscopic colitis. Clinical History Pre-Op Dx: Diarrhea Post-Op Dx: Gastric retention, diverticulosis, hemorrhoids, colon polyps Microscopic Description A-G. Microscopic sections examined. No metaplastic changes are seen, supported by AB/PAS stains (A) Material Received A. Descending duoden um, r/o celiac disease B. Polyp at 30 cm C. Cecal polyp D. Terminal ileum bx's E. Ascending colon bx's, r/o microscopic colitis F. Ascending colon polyps G. Descending colon bx's, r/o microscopic colitis CONTINUED ON NEXT PAGE --- Name: Sally Greenberg Age/Sex: 68/F : 1955 Unit#: [id number] Attend Dr: Campos Hand MD Re04/29/24 Status : [facility] Location: [facility] Disch: --- SPEC : [id number] RECD : 04/29/24-1448 STATUS: TAE FONSECA NUM: [id number] WINNIE: 04/29/24-[address] [facility] [address]: Campos Hand MD ENTERED: 04/29/24-14 53 SP TYPE: Surgical OTHR DR: Campos Quezada MD ORDERED: HE Stain/ , Gross Micro L4/7, Special st. 2, AB/PAS [...] tissue, bisected and entirely submitted in a casse tte labeled B. Part C: Received in formalin labeled ?cecal polyp? are 2 hung and hung-pink irregular and papular tissue fragments measuring 0.15 and 0.4 cm, submitted in toto in a cassette labeled C. Part D: Received in formalin labeled ?terminal ileum biopsies? are 2 hung-pink irregular tissue fragments eac h measuring 0.25 cm, submitted in toto in [...] a cassette labeled G. CEDS Special studies orde red and performed: AB/PAS stains on A Copies To: Campos Quezada MD [address], [address] [place] [address] Campos Hand MD [facility] [address] [place] [address] [address] [place] [address] CONTINUED ON NEXT PAGE --- Name: Sally Greenberg Zahraa Age/Sex: 68/F : 1955 Unit#: [id number] Attend Dr: Campos Hand MD Re04/29/24 Status : [facility] Location: [facility] Disch: --- SPEC : [id number] RECD : 04/29/242767 STATUS: TAE FONSECA NUM: [id number] WINNIE: 04/29/24-[address] [facility] [address]: Campos Hand MD ENTERED: 04/29/24-14 53 SP TYPE: Surgical OTHR DR: Campos Quezada MD ORDERED: LANDON , Gross Micro L4/7, Special st. 2, AB/EDVIN --- Signed (signature on file) Kendall Grajeda MD 05/01/24 1644 --- END OF REPORT NM gastric emptying study Reviewed date:06/22/2024 09:07:55 PM Interpretation: Performing Lab: Notes/Report: [address] [address] Nuclear Medicine Report Signed Patient: Sally Greenberg MR#: [id number] 990 : 1955 Acct:[id number] Age/Sex: 68 / F ADM Date: 06/19/24 Loc: [facility] Attending Dr: Campos Hand MD Ordering Physician: Campos Hand MD Date of Service: 06/19/24 Procedure(s): SD gastric emptying study Accession Number(s): [id number] cc: Campos Quezada MD; Campos Hand MD EXAMINATION: SD RADIONUCLIDE SOLID FOOD GASTRIC EMPTYING 4-HOUR STUDY [...] hours 72% 4 hours 42% (normal 0%-10%) SD/SD gastric emptying study IMPRESSION: Abnormal 4-hour solid [...] by: Cristiano Desir MD 06/20/2024 07:18 AM EST Dictated By: Cristiano Desir MD Signed By: <Electronically signed by Cristiano Desir MD in OV> 06/20/24 0718 DD/ 0800 TD/TT: 06/19/24 1215 [employer] Machine Mechanic: [address] [address] Nuclear Medicine Report Signed Patient: Vicenta Greenberg MR#: [id number] 990 : 1955 Acct:[id number] Age/Sex: 68 / F ADM Date: 06/19/24 Loc: [facility] Attending Dr: Campos Hand MD Ordering Physician: Campos Hand MD Date of Service: 06/19/24 Procedure(s): NM gastric emptying study Accession Number(s): [id number] cc: Campos Quezada MD; Campos Hand MD EXAMINATION: NM RADIONUCLIDE SATNAM D FOOD GASTRIC EMPTYING 4-HOUR STUDY CLINICAL INFORMATION: Bloated stomach to 6 months getting worse. Thoracic stomach hernia. COMPARISON: None TECHNIQUE: A standard meal consisting of 4 oz of Egg Beaters brand tagged with 0.918 microcuries Tc-99m Sulfur Colloid, 8 oz water and 2 slices of toast with jelly was administered orally to the patient. Images were obtained using a rhianna l head gamma camera in the anterior and [...] the stomach immediately post ingestion. As the st udy progresses, there is good clearance of activity from the stomach and visualization of progressively increasing small bowel activity. By t he end of the study, there is almost no retention noted in the stomach . Retention in the stomach at each time interval was: 1 hour 93% (normal 37%-90%) 2 hours 80% (normal 30%-60%) 3 hours 72% 4 hours 42% (normal 0%-10%) NM/NM gastric emptying study IMPRESSION: Abnormal 4-hour satnam d food gastric emptying study with approximately 40% of food retained by 220 minutes. For solid meal, rapi d gastric emptying is less than 30% at 60 minutes. Delayed gastric emptying criteria is more than 60% remaining at 120 minutes or more than 10% at 240 minutes. The 4-hour value is the best discriminator of a normal or abnormal result). Gastric emptying marilyn dy grading per JNMT Consensus Recommendations in 2008 (https://tech.snAccruita ls.org/content/3644) Grade 1 (mild retention): 11-20% at 4h Grade 2 (moderate retention): 21-35% at 4h Grade 3 (severe retention): 36-50% at 4h Grade 4 (very severe retention): >50% retention at 4h Electronically kirsten d by: Cristiano Desir MD 06/20/2024 07:18 AM EST Dictated By: Cristiano Desir MD Signed By: <Electronically signed by Cristiano Desir MD in OV> 06/20/24 0718 DD/ 0800 TD/TT: 06/19/24 1215 [employer] Machine Mechanic: [facility] Reason For Referral Reason Consult and Treat Second Opinion Diagnosis 1 Gastroparesis (K31.8 4) Diagnosis 2 Chronic diarrhea of unknown origin (K52.9) Diagnosis 3 GERD without esophag itis (K21.9) Referral Organization Campos Quezada III, MD Referring Provider First Name Campos Referring Provider Last Name Pilar Referring Provider Speciality Internal M edicine Referred Provider [facility], Gastro enterology Referred Provider Specialty Gastroentero logy General Notes D, Almaz 10/10/2024 03:58:02 PM > referral was faxed on 09/13/24 Referral Priority Routine Referral Appointment Date 01/08/2025 Medications Medication SIG (Take, Route, Frequency, Duration) Notes Start Date End Date Status Citalopram Hydrobromide 40 MG 1 tablet Orally Once a day Active Benztropine Mesylate 0.5 MG Oral Active Zolpidem Tartrate 10 MG 1 tablet at bedt gustavo Orally Once a day Active Atorvastatin Calcium 40 MG TAKE 1 TABLET BY MOUTH EVERY DAY Active Amantadine HCl 100 MG 1 capsule Orally 3 times a day 03/05/2024 Active diazePAM 5 MG 1 tablet Orally twic e a day 07/26/2024 Active Azithromycin 250 MG like directed Orally 2 Tablets on the first day, one tablet the rest of the days 08/29/2024 Active hydrOXYzine Pamoate 25 MG Oral Active Vitamin D (Ergocalciferol) 1.25 MG (19808 UT) TAKE 1 CAPSULE BY MOUTH 1 TIME A MONTH Active Trelegy Ellipta 100-62.5-25 MCG/ACT Inhalation Active Adderall XR 30 MG 1 capsule in the mor akilah Orally Once a day Active Abilify 5 MG 1 tablet Orally Once a day Active Levothyroxine Sodium 75 MCG 1 tablet in the morning on an empty stomach Orally Once a day 04/18/2024 Active Diphenoxylate-Atropine 2.5-0.025 MG 1 tablet as needed Orally Four times a day if needed for diarrhea 03/26/2024 Active Immunizations Vaccine Route Administration Date Status [...] Problem Status W/U Status Risk Notes Problem 1610492 Former smoker (Z87.891) Active confirmed We discussed a plan to prevent relapse in times of stress or illness. Problem 305598402 Overweight (E66.3) Active confirmed Her body mass index is 25.9. She is slightly overweight. We discussed ways of avoiding weight gain during the winter holidays. Problem 128971891426550 Obesity (BMI 30.0-34.9) (E66.9) Active confirmed She has gained 6 pounds in her body mass index is 26.. We made a plan to lose weight at a rate of 1/2 pound per week through a diet restricted in fat calories and ssodium combined with regular physical activity. Problem 027020518 Mixed hyperlipidemia (E78.2) Active confirmed The lipids are currently stable. No change in her medications was made. I recommended aggressive weight loss and healthy low animal fat diet. Problem 6473628 Primary insomnia (F51.01) Active confirmed We discussed sleep hygiene today. She will continue her current therapy and no additional medication was given. Problem 721622165 Essential tremor (G25.0) Active confirmed She will call the office with the name of the new medication given to her for her tremor by her psychiatrist. Problem 125061310 Gastroparesis (K31.84) Active confirmed Her gastric emptying study was abnormal. She has an appointment in the near future to review this with her gastroenterologi st. I have discussed with her in general terms the disorder and various types of treatment utilized. Problem 85502534291449298 Unspecified rotator cuff tear or rupture of left shoulder, not specified as traumatic (M75.102) Active confirmed She continues t o have pain with range of motion and sees Dr. Hamilton for this problem. He received physical therapy and a sling. Problem 250611370 GERD without esophagitis (K21.9) Active confirmed Her esophageall reflux symptoms are well controlled medication. No change in her regimentoday. Problem 634068523 Acquired hypothyroidism (E03.9) Active confirmed Her thyroid function tests are stable. She was continued on the current dose. Problem 40414638 Degenerative disc disease, cervical (M50.30) Active confirmed She is going to have another injection and see the neurosurgeon in the near future. Problem 47618030 Tobacco dependence (F17.200) Active confirmed She smokes only 2 cigarettes a day. We discussed smoking cessationn in detail today. Problem 22744926 Hiatal hernia (K44.9) Active confirmed She has occasional symptoms of esophageal reflux and epigastric discomfort, some of which may be due to this. She will continue on her current regimen. Problem Transient ischemic attack (600712825) TIA (transient ischemic attack) (G45.9) Active confirmed She has had no neurological symptoms lately. Problem 072791621 Adenomatous polyp of colon, unspecified part of colon (D12.6) Active confirmed She will be due for her next colonoscopy in 2019. She sees Dr. Campos Hand at [facility], gastroenterology , for this problem. Problem 059459655 Attention deficit disorder (ADD) in adult (F98.8) Active confirmed She is doing very well with the Adderall and is conducting all of the activities of daily life without impairment. No change in her regimen seems indicated. Problem 64366540 Degenerative disc disease, lumbar (M51.36) Active confirmed Her pain tod ay is mild and controlled with dfzj-hvc-[id number] medication. She was advised to lose weight and avoid heavy lifting. 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 She will be observed carefully for this problem and call me once if it recurs. Problem 877725500350654 Primary osteoarthritis of left knee (M17.12) Active confirmed She has a history of meniscus surgery in this day and it has improved. She has a history of hip replacement as well. Problem 646898504 Adopted person (Z02.82) Active confirmed She gives a history of being adopted as a child and her family history is unknown. She does not believe she has a twin. Problem 77940374 Chronic diarrhea of unknown origin (K52.9) Active confirmed Her gliaden T body level was 15. A reflex test was negative. She continues under the care of a gastroenterologi [facility] done a colonoscopy in the near future.Because of the diarrhea is still unclear. An infectious and today he has not been found. She admits to 3 loose stools a day. This is controlled with Imodium. Vital Signs Heart Rate 88 /min 02/24/2025 Temperature 96.8 degrees Fahrenheit 02/24/2025 Blood pressure diastolic 78 mm Hg 02/24/2025 Height 72 in 02/24/2025 Blood pressure systolic 156 mm Hg 02/24/2025 Weight 195 lbs 02/24/2025 BMI 26.44 kg/m2 02/24/2025 Encounters Encounter Location Date Provider Diagnosis Campos Quezada III, MD [address] [place] [address] [address] [facility] 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 tophus M1A.0710 ; Mixed hyperlipidemia E78.2 ; Acquired hypothyroidism E03.9 ; Obesity (BMI 30.0-34.9) E66.9 ; Fatigue R53.83 and UTI symptoms R39.9 Campos Quezada III, MD [address] [place] [address] [place] [address] 03/05/2024 Campos Quezada Chronic diarrhea of unknown [...] and Overweight E66.3 Campos Quezada III, MD [address] [place] [address] [place] [address] 04/15/2024 Campos Quezada Encounter for immunization Z23 [...] and Overweight E66.3 Campos Quezada III, MD [address] [place] [address] [place] [address] 05/13/2024 Campos Quezada Chronic diarrhea of unknown [...] and Overweight E66.3 Campos Quezada III, MD [address] [place] [address] [place] [address] 07/15/2024 Campos Quezada Chronic diarrhea of unknown origin K52.9 ; Gastroparesis K31.84 ; Mixed hyperlipidemia E78.2 ; Acquired hypothyroidism E03.9 ; Primary insomnia F51.01 ; Former smoker Z87.891 ; Idiopathic chronic gout 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 tophus M1A.0710 ; Obesity (BMI 30.0-34.9) E66.9 and Tobacco dependence F17.200 Campos Quezada III, MD [address] [place] [address] [place] [address] 08/29/2024 Campos Quezada Idiopathic chronic g out [...] Primary insomnia F51.01 and Acquired hypothyroidism E03.9 Campos Quezada III, MD [address] [place] [address] [place] [address] 03/06/2024 Campos Quezada Severe diarrhea K52. 9 Campos Quezada III, MD [address] [place] [address] [place] [address] 03/11/2024 Campos Quezada III, MD [address] [place] [address] [place] [address] 03/15/2024 Campos Quezada III, MD [address] [place] [address] [place] [address] 03/26/2024 Campos Quezada III, MD [address] [place] [address] [place] [address] 03/26/2024 Campos Quezada III, MD [address] [place] [address] [place] [address] 04/03/2024 Campos Quezada III, MD [address] [place] [address] [place] [address] 04/18/2024 Campos Quezada III, MD [address] [place] [address] [address] [place] [address] 04/18/2024 Campos Quezada III, MD [address] [place] [address] [address] [place] [address] 07/26/2024 Campos Quezada III, MD [address] [place] [address] [address] [place] [address] 07/26/2024 Campos Quezada III, MD [address] [place] [address] [address] [place] [address] 09/13/2024 Campos Quezada Assessments Encounter Date Diagnosis (ICD Code) Assessment Notes Treatment Notes Treatment Clinical Notes 02/24/2025 Chronic diarrhea of unknown origin (ICD-10 - K52.9) Her gliaden T body level was 15. A reflex test was negative. She continues under the care of a component lab tech whohas done a colonoscopy in the near future.Because of the diarrhea is still unclear. An infectious and today he has not been found. She admits to 3 loose stools a day. This is controlled with Imodium. 03/05/2024 Idiopathic chronic gout of right foot [...] She continues under the care of a component lab tech whohas done a colonoscopy in the near future.Because of the diarrhea is still unclear. An infectious and today he has not been found. She admits to 3 loose stools a day. This is controlled with Imodium. 07/15/2024 Gastroparesis (ICD-10 - K31.84) Her gastric emptying study was abnormal. She has an appointment in the near future to review this with her component lab tech. I have discussed with her in general terms the disorder and various types of treatment utilized. 07/15/2024 Chronic diarrhea of unknown origin (ICD-10 - K52.9) Her gliaden T body level was 15. A reflex test was negative. She continues under the care of a component lab tech whohas done a colonoscopy in the near future.Because of the diarrhea is still unclear. An infectious and today he has not been found. She admits to 3 loose stools a day. This is controlled with Imodium. 08/29/2024 Attention deficit disorder (ADD) in adult (ICD-10 - F98.8) She is doing very well with the Adderall and is conducting all of the activities of daily life without impairment. No change in her regimen seems indicated. 08/29/2024 Idiopathic chronic gout 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 tophus (ICD-10 - M1A.0710) There is no pain today from gout in any location. She will be observed carefully for this problem and call me once if it recurs. 03/06/2024 Severe diarrhea (ICD-10 - K52.9) 02/24/2025 Exposure to STD (ICD-10 - Z20.2) 03/05/2024 Unspecified rotator cuff tear or rupture [...] She continues under the care of a component lab tech who is going to do a colonoscopy in the near future. 05/13/2024 Acquired hypothyroidism (ICD-10 - E03.9) Her thyroid function tests are stable. She was continued on the current dose. 07/15/2024 Mixed hyperlipidemia (ICD-10 - E78.2) The lipids are currently stable. No change in her medications was made. I recommended aggressive weight loss and healthy low animal fat diet. 08/29/2024 Unspecified rotator cuff tear or rupture of left shoulder, not specified as traumatic (ICD-10 - M75.102) She continues to have pain with range of motion and sees Dr. Hamilton for this problem. He received physical therapy and a sling. 02/24/2025 Idiopathic chronic gout 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 tophus (ICD-10 - M1A.0710) 03/05/2024 Mixed hyperlipidemia (ICD-10 - E78.2) The [...] in times of stress or illness. 07/15/2024 Acquired hypothyroidism (ICD-10 - E03.9) Her thyroid function tests are stable. She was continued on the current dose. 08/29/2024 Mixed hyperlipidemia (ICD-10 - E78.2) The lipids are currently stable. No change in her medications was made. I recommended aggressive weight loss and healthy low animal fat diet. 02/24/2025 Mixed hyperlipidemia (ICD-10 - E78.2) 03/05/2024 GERD without esophagitis (ICD-10 - K21.9) Her esophageall reflux symptoms are well controlled medication. No change in her regimentoday. 05/13/2024 Primary insomnia (ICD-10 - F51.01) We discussed sleep hygiene today. She will continue her current therapy and no additional medication was given. 07/15/2024 Primary insomnia (ICD-10 - F51.01) We discussed sleep hygiene today. She will continue her current therapy and no additional medication was given. 08/29/2024 Essential tremor (ICD-10 - G25.0) She will call the office with the name of the new medication given to her for her tremor by her psychiatrist. 02/24/2025 Acquired hypothyroidism (ICD-10 - E03.9) 03/05/2024 Primary osteoarthritis of left knee (ICD-10 [...] call me once if it recurs. 07/15/2024 Former smoker (ICD-10 - Z87.891) We discussed a plan to prevent relapse in times of stress or illness. 08/29/2024 Primary osteoarthritis of left knee (ICD-10 - M17.12) She has a history of meniscus surgery in this day and it has improved. She has a history of hip replacement as well. 02/24/2025 Obesity (BMI 30.0-34.9) (ICD-10 - E66.9) 03/05/2024 Essential tremor (ICD-10 - G25.0) She [...] He received physical therapy and a sling. 07/15/2024 Idiopathic chronic gout 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 tophus (ICD-10 - M1A.0710)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
[2025-02-25 07:01] LABS: MANUAL DIFF FLAG NO
[2025-02-25 08:08] LABS: Hematocrit 37.7 % (37.0-47.0); Hemoglobin 12.5 g/dl (12.0-16.0); Imm Gran Abs Auto 0.03 X10*3/uL (0.00-0.03); Imm Gran Pct Auto 0.4 % (0.0-0.4); Lymphocytes Absolute Auto 1.8 X10*3/uL (1.2-4.9); Mean Corpuscular HGB Conc 33.2 g/dl (31.0-35.0); Mean Corpuscular Hemoglobin 29.8 pg (27.0-33.0); Mean Corpuscular Volume 89.8 fL (80.0-98.0); NRBC Abs Auto 0.000 X10*3/uL (0.0-0.012); NRBC Pct Auto 0.0 /100WBC (0.0-0.2); Platelet Count 312 X10*3/uL (160-400); Red Blood Count 4.20 X10*6/uL (4.20-5.50); White Blood Count 6.8 X10*3/uL (4.8-10.8)
[2025-02-25 08:25] LABS: Appearance Urine Clear; Glucose Urine UA Negative (Negative); PH 6.0 (5.0-9.0); Specific Gravity - Urine 1.010 (1.005-1.025)
[2025-02-25 08:41] LABS: Alanine Aminotransferase 13 U/L (0-31); Albumin Level 4.2 g/dL (3.5-5.0); Alkaline Phosphatase 159 U/L (39-117); Anion Gap 12 (12-20); Aspartate Amino Transferase 19 U/L (5-31); Blood Urea Nitrogen 13 mg/dL (9-16); Calcium 9.5 mg/dL (8.4-10.2); Carbon Dioxide 27 mmol/L (22-29); Chloride 106 mmol/L (96-108); Cholesterol 184 mg/dL (<200); Estimated Glomerular Filt Rate 48; HDL Cholesterol 52 mg/dL (>40); Potassium 4.2 mmol/L (3.3-5.1); Sodium 141 mmol/L (135-145); Total Protein 7.0 g/dL (6.5-8.0); Triglycerides 117 mg/dL (<150); Uric Acid 5.2 mg/dL (2.4-5.7)
[2025-02-25 08:59] LABS: Free T4 (Free Thyroxine) 0.98 ng/dL (0.71-1.85); Thyroid Stimulating Hormone 0.92 uIU/mL (0.32-4.0)
[2025-02-25 09:06] LABS: HIV Num 1 0.04 S/CO (0.00-0.99); Syphilis Screen Nonreactive (Nonreactive)
== END 2025-02-25 06:45 | disposition home or self-care (01) ==
LOC: HO.LAB 06:44
PROVIDERS: PCP Internal Medicine Medical Oncology; Visit Provider Internal Medicine Medical Oncology
DX: Z11.3 Encounter for screening for infections with a predominantly sexual mode of transmission (principal); Z11.4 Encounter for screening for human immunodeficiency virus [HIV]; M1A.0710 Idiopathic chronic gout, right ankle and foot, without tophus (tophi); E78.2 Mixed hyperlipidemia; E03.9 Hypothyroidism, unspecified; E66.9 Obesity, unspecified; R53.83 Other fatigue; R39.9 Unspecified symptoms and signs involving the genitourinary system; Z20.2 Contact with and (suspected) exposure to infections with a predominantly sexual mode of transmission
CPT/HCPCS: 36415; 80053; 80061; 81003; 82306; 84439; 84443; 84550; 85025; 86780; 87086; 87389

== ENCOUNTER 2025-05-12 08:37 | Outpatient (REF) | payer MEDICARE, MEDICAID, SELFPAY ==
--- OUTSIDE RECORDS SUMMARY | 2024-07-26 09:27 | XMS_ITS ---
Author Organization Campos Quezada III, MD Address [address] [place] [address] Care Team Providers Care Food Safety Auditor Name Role Phone Dr. Campos Quezada III Primary Care Provider Pilar LUCERO MD, Campos Quezada [phone] REASON FOR VISIT Message Social History Sex Assigned At : Social History Observation Description Sex Assigned At Female Encounters Encounter Location Date Provider Diagnosis Campos Quezada III, MD [address] [place] [address] [place] [address] 07/26/2024 Campos Quezada Plan Of Treatment Next Appt Details Provider Name:Campos Quezada , 05/14/2025 11:00:00 AM, [address] [place] [address] [place], [address], Progress Notes * [place] RIBERAOB:1955 (69 yo F)Acc No.[id number]:07/26/2024 Patient: Sondra DENISSally MONTES DE OCA :1955 A ge:69 Y S ex:Female Address: [place], [address] * true * Date: Generated for Falgunii gail/Loveg/eTransmitting on: 07/13/2024 09:08 AM EST
--- OUTSIDE RECORDS SUMMARY | 2024-08-29 04:45 | XMS_ITS ---
Author Organization Campos Quezada III, MD Address [address] [place] [address] Care Team Providers Care Legal Executive Name Role Phone Dr. Campos Quezada III Primary Care Provider Campos Quezada III, MD [phone] Allergies Allergen (clinical drug ingredient) Drug/Non Drug Allergy documented on EMR Reaction Allergy Type Onset Date Status Voltaren stomach upset Drug Allergy Act angela REASON FOR VISIT URI with cough and congestion, fever sweats and cough, Purulence. Medications Medication SIG (Take, Route, Frequency, Duration) Notes Start Date End Date Status Amantadine HCl 100 MG 1 capsule Orally 3 times a day 03/05/2024 Active Trelegy Ellipta 100-62.5-25 MCG/ACT Inhalation Active hydrOXYzine Pamoate 25 MG Oral Active Benztropine Mesylate 0.5 MG Oral Active Vitamin D (Ergocalciferol) 1.25 MG (61185 UT) TAKE 1 CAPSULE BY MOUTH ONCE A MONTH Orally once a month Active Abilify 5 MG 1 tablet Orally Once a day Active Adderall XR 30 MG 1 capsule in the mor akilah Orally Once a day Active Diphenoxylate-Atropine 2.5-0.025 MG 1 tablet as needed Orally Four times a day if needed for diarrhea 03/26/2024 Active Citalopram Hydrobromide 40 MG 1 tablet Orally Once a day Active Zolpidem Tartrate 10 MG 1 tablet at bedt gustavo Orally Once a day Active Azithromycin 250 MG like directed Orally 2 Tablets on the first day, one tablet the rest of the days for 5 days 08/29/2024 Active Levothyroxine Sodium 75 MCG 1 tablet in the morning on an empty stomach Orally Once a day 04/18/2024 Active diazePAM 5 MG 1 tablet Orally twic e a day 07/26/2024 Active Atorvastatin Calcium 40 MG TAKE 1 TABLET BY MOUTH EVERY DAY Active Social History Tobacco Use: Social History Observation Description Date Details (start date - stop date) Current Smoker NA - NA Sex Assigned At : Social History Observation Description Sex Assigned At Female Tobacco Control (Standard) Question Answer Notes Tobacco use: Current every day smoker Additional Findings: Tobacco user Light cigarett e smoker (1-9 cigs/day) Vital Signs Height 72 in 08/29/2024 Weight 197 lbs 08/29/2024 BMI 26.72 kg/m2 08/29/2024 Encounters Encounter Location Date Provider Diagnosis Campos Quezada III, MD [address] [place] [address] [place] [address] 08/29/2024 Campos Quezada 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 ; Attention deficit disorder (ADD) in adult F98.8 ; Unspecified rotator cuff tear or rupture of left shoulder, not specified as traumatic M75.102 ; Mixed hyperlipidemia E78.2 ; Essential tremor G25.0 ; Primary osteoarthritis of left knee M17.12 ; Degenerative disc disease, cervical M50.30 ; GERD without esophagitis K21.9 ; Former smoker Z87.891 ; Tobacco dependence F17.200 ; Overweight E66.3 ; Chronic diarrhea of unknown origin K52.9 ; Primary insomnia F51.01 and Acquired hypothyroidism E03.9 Assessments Encounter Date Diagnosis (ICD Code) Assessment Notes Treatment Notes Treatment Clinical Notes 08/29/2024 Idiopathic chronic gout 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 tophus (ICD-10 - M1A.0710) There is no pain today from gout in any location. She will be observed carefully for this problem and call me once if it recurs. 08/29/2024 Attention deficit disorder (ADD) in adult (ICD-10 - F98.8) She is doing very well with the Adderall and is conducting all of the activities of daily life without impairment. No change in her regimen seems indicated. 08/29/2024 Unspecified rotator cuff tear or rupture of left shoulder, not specified as traumatic (ICD-10 - M75.102) She continues to have pain with range of motion and sees Dr. Hamilton for this problem. He received physical therapy and a sling. 08/29/2024 Mixed hyperlipidemia (ICD-10 - E78.2) The lipids are currently stable. No change in her medications was made. I recommended aggressive weight loss and healthy low animal fat diet. 08/29/2024 Essential tremor (ICD-10 - G25.0) She will call the office with the name of the new medication given to her for her tremor by her psychiatrist. 08/29/2024 Primary osteoarthritis of left knee (ICD-10 - M17.12) She has a history of meniscus surgery in this day and it has improved. She has a history of hip replacement as well. 08/29/2024 Degenerative disc disease, cervical (ICD-10 - M50.30) She is going to have another injection and see the neurosurgeon in the near future. 08/29/2024 GERD without esophagitis (ICD-10 - K21.9) Her esophageall reflux symptoms are well controlled medication. No change in her regimentoday. 08/29/2024 Former smoker (ICD-10 - Z87.891) We discussed a plan to prevent relapse in times of stress or illness. 08/29/2024 Tobacco dependence (ICD-10 - F17.200) She smokes only 2 cigarettes a day. We discussed smoking cessationn in detail today. 08/29/2024 Overweight (ICD-10 - E66.3) Her body mass index is 25.9. She is slightly overweight. We discussed ways of avoiding weight gain during the winter holidays. 08/29/2024 Chronic diarrhea of unknown origin (ICD-10 - K52.9) Her gliaden T body level was 15. A reflex test was negative. She continues under the care of a hobbing machine operator whohas done a colonoscopy in the near future.Because of the diarrhea is still unclear. An infectious and today he has not been found. She admits to 3 loose stools a day. This is controlled with Imodium. 08/29/2024 Primary insomnia (ICD-10 - F51.01) We discussed sleep hygiene today. She will continue her current therapy and no additional medication was given. 08/29/2024 Acquired hypothyroidism (ICD-10 - E03.9) Her thyroid function tests are stable. She was continued on the current dose. Plan Of Treatment Medication Medication Name Sig Start Date Stop Date Notes Amantadine HCl 100 MG 1 capsule Orally 3 times a day 03/05/2024 Trelegy Ellipta 100-62.5-25 MCG/ACT Inhalation hydrOXYzine Pamoate 25 MG Oral Benztropine Mesylate 0.5 MG Oral Vitamin D (Ergocalciferol) 1 .25 MG (91356 UT) TAKE 1 CAPSULE BY MOUTH ONCE A MONTH Orally once a month Abilify 5 MG 1 tablet Orally Once a day Adderall XR 30 MG 1 capsule in the mor akilah Orally Once a day Diphenoxylate-Atropine 2.5-0.025 MG 1 tablet as needed Orally Four times a day if needed for diarrhea 03/26/2024 Citalopram Hydrobromide 40 MG 1 tablet Orally Once a day Zolpidem Tartrate 10 MG 1 tablet at bedt gustavo Orally Once a day Azithromycin 250 MG like directed Orally 2 Tablets on the first day, one tablet the rest of the days for 5 days 08/29/2024 Levothyroxine Sodium 75 MCG 1 tablet in the morning on an empty stomach Orally Once a day 04/18/2024 diazePAM 5 MG 1 tablet Orally twice a day 07/26/2024 Atorvastatin Calcium 40 MG TAKE 1 TABLET BY MOUTH EVERY DAY Next Appt Details Follow Up: 1 Week, Reason: o v Provider Name:Campos Quezada , 05/14/2025 11:00:00 AM, [address] [place] [address], [address], Progress Notes * [place] RIBERAOB:1955 (69 yo F)Acc No.[id number]:08/29/2024 Patient: Sally VASQUEZ Provider: Zahraa Quezada MD :1955 A ge:69 Y S ex:Female Date:08/29/2024 Address:[address] [place], [place] [id number] Subjective: * Chief Complaints: * U RI with cough and congestionFever sweats and coughPurulence. * HPI: * : She scheduled a same day visit because for 3 days she has had a cough productive of green phlegm, fever to 100, chills at night with sweats nasal congestion and rhinorrhea and weakness. He was instructed to test for elizondo virus. Given an antibiotic her request because of the purulence of the Sputum and her history of daily smoking. Telehealth L ocation of provider rendering services: { ...} [address] [facility] [address] L ocation of patient: chano marley listed in demographics for today's visit P atient identification confirmed using: N daja, T elehealth method: T elephone only. Patient not visible to care provider. C onsent: P atient verbally consented to treatment, Patient verbally consented to billing insurance company, Patient informed of any privacy concerns related to method of visit T otal time spent with patient (mins) 1 5 * ROS: G eneral/Constitutional: pain o nly normal aches and pains. C hills a ssociated with fever. F atigue a dmits. F ever u p to 99 degrees. E NT: Decreased hearing d enies. R espiratory: Cough w orse at night. C ardiovascular: Chest pain with exertion d enies. D yspnea on exertion?denies. S hortness of breath d enies. G astrointestinal: Constipation o ccasional. D ecreased appetite d enies. D iarrhea d enies. H eartburn c ontrolled with medications. N ausea d enies. R ectal bleeding d enies. V omiting d enies. H ematology: bruising d enies. p etechiae d enies. S wollen glands n one have been noted. G enitourinary: Frequent urination a t night. M usculoskeletal: Muscle aches d enies. P ainful joints d enies. S ciatica d enies. W eakness t hat is generalized. S kin: Itching d enies. R brandyn d enies. S kin lesion(s)?denies. N eurologic: Difficulty speaking d enies. D izziness d enies.?Headache d enies. L ow back pain d enies. P sychiatric: Depressed mood d enies. * Medical History: * Surgical History: H ysterectomy, Total with bilateral salpingo-oophorectomy, , dysfunctional uterine bleeding [id number] and C6-C7 anterior disectomy and fusion by Dr. Michael Elliott 07/2004right hip arthroplasty 02/2012colonoscopy, [facility], tubular adenoma of sigmoid 2002colonoscopy, [facility], Dr. Hand, tubular adenoma at 30 cm 2006EGD, Dr. Hand, gastritis 2009colonoscopy, Dr. Hand, tubular adenomatous (3) 2014neck fusion 05/2018Ne Fusion [facility] nterior Cervical Discectomy Anterior Arthrodesis C3-4 [id number] knee replacement 2023-02No history * Hospitalization/Major Diagno stic Procedure: n [...] Her mental health's through Dr. Ramachandran at [facility]. Smoking - The patient reported smoking about 3 cigarettes a day. * Medications: T akingLevothyroxine Sodium 75 MCG Tablet 1 tablet in the morning on an empty stomach Orally Once a day Diphenoxylate-Atropine 2.5-0.025 MG Tablet 1 tablet as needed Orally Four times a day if needed for diarrhea Adderall XR 30 MG Capsule Extended Release 24 Hour 1 capsule in the morning Orally Once a day Abilify 5 MG Tablet 1 tablet Orally Once a day Zolpidem Tartrate 10 MG Tablet 1 tablet at bedtime Orally Once a day Citalopram Hydrobromide 40 MG Tablet 1 tablet Orally Once a day Vitamin D (Ergocalciferol) 1.25 MG (27146 UT) Capsule TAKE 1 CAPSULE BY MOUTH ONCE A MONTH Orally once a month Benztropine Mesylate 0.5 MG Tablet Oral hydrOXYzine Pamoate 25 MG Capsule Oral Trelegy Ellipta 100-62.5-25 MCG/ACT Aerosol Powder Breath Activated Inhalation Amantadine HCl 100 MG Capsule 1 capsule Orally 3 times a day diazePAM 5 MG Tablet 1 tablet Orally twice a day Atorvastatin Calcium 40 MG Tablet TAKE 1 TABLET BY MOUTH EVERY DAY Medication List reviewed and reconciled with the patientTaking Levothyroxine Sodium 75 MCG Tablet 1 tablet in the morning on an empty stomach Orally Once a day Taking Diphenoxylate-Atropine 2.5-0.025 MG Tablet 1 tablet as needed Orally Four times a day if needed for diarrhea Taking Adderall XR 30 MG Capsule Extended Release 24 Hour 1 capsule in the morning Orally Once a day Taking Abilify 5 MG Tablet 1 tablet Orally Once a day Taking Zolpidem Tartrate 10 MG Tablet 1 tablet at bedtime Orally Once a day Taking Citalopram Hydrobromide 40 MG Tablet 1 tablet Orally Once a day Taking Vitamin D (Ergocalciferol) 1.25 MG (33189 UT) Capsule TAKE 1 CAPSULE BY MOUTH ONCE A MONTH Orally once a month Taking Benztropine Mesylate 0.5 MG Tablet Oral Taking hydrOXYzine Pamoate 25 MG Capsule Oral Taking Trelegy Ellipta 100-62.5-25 MCG/ACT Aerosol Powder Breath Activated Inhalation Taking Amantadine HCl 100 MG Capsule 1 capsule Orally 3 times a day Taking diazePAM 5 MG Tablet 1 tablet Orally twice a day Taking Atorvastatin Calcium 40 MG Tablet TAKE 1 TABLET BY MOUTH EVERY DAY Medication List reviewed and reconciled with the patient * Allergies: V oltaren: stomach upset - Side Effects Objective: * Vitals: H t: 72, Wt:197, BMI:26.72, Wt-k.36. Assessment: * Assessment: 1. I diopathic chronic gout 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 tophus - M1A.0710 (Primary) N otes :There is no pain today from gout in any location. She will be observed carefully for this problem and call me once if it recurs. 2 . A ttention deficit disorder (ADD) in adult - F98.8 N otes :She is doing very well with the Adderall and is conducting all of the activities of daily life without impairment. No change in her regimen seems indicated. 3 . U nspecified rotator cuff tear or rupture of left shoulder, not specified as traumatic - M75.102 N otes :She continues to have pain with range of motion and sees Dr. Hamilton for this problem. He received physical therapy and a sling. 4 . M ixed hyperlipidemia - E78.2 N otes :The lipids are currently stable. No change in her medications was made. I recommended aggressive weight loss and healthy low animal fat diet. 5 . E ssential tremor - G25.0 N otes :She will call the office with the name of the new medication given to her for her tremor by her psychiatrist. 6 . P rimary osteoarthritis of left knee - M17.12 N otes :She has a history of meniscus surgery in this day and it has improved. She has a history of hip replacement as well. 7 . D egenerative disc disease, cervical - M50.30 N otes :She is going to have another injection and see the neurosurgeon in the near future. 8 . G ERD without esophagitis - K21.9 N otes :Her esophageall reflux symptoms are well controlled medication. No change in her regimentoday. 9 . F ormer smoker - Z87.891 N otes :We discussed a plan to prevent relapse in times of stress or illness. 1 0. T obacco dependence - F17.200 N otes :She smokes only 2 cigarettes a day. We discussed smoking cessationn in detail today. 1 1. O verweight - E66.3 N otes :Her body mass index is 25.9. She is slightly overweight. We discussed ways of avoiding weight gain during the winter holidays. 1 2. C hronic diarrhea of unknown origin - K52.9 N otes :Her gliaden T body level was 15. A reflex test was negative. She continues under the care of a hobbing machine operator whohas done a colonoscopy in the near future.Because of the diarrhea is still unclear. An infectious and today he has not been found. She admits to 3 loose stools a day. This is controlled with Imodium. 1 3. P rimary insomnia - F51.01 N otes :We discussed sleep hygiene today. She will continue her current therapy and no additional medication was given. 1 4. A cquired hypothyroidism - E03.9 N otes :Her thyroid function tests are stable. She was continued on the current dose. Plan: * Treatment: 2. O thers Continue Atorvastatin Calcium Tablet, 40 MG, TAKE 1 TABLET BY MOUTH EVERY DAY; C ontinue diazePAM Tablet, 5 MG, 1 tablet, Orally, twice a day; C ontinue Levothyroxine Sodium Tablet, 75 MCG, 1 tablet in the morning on an empty stomach, Orally, Once a day; C ontinue Diphenoxylate-Atropine Tablet, 2.5-0.025 MG, 1 tablet as needed, Orally, Four times a day if needed for diarrhea; C ontinue Adderall XR Capsule Extended Release [...] ontinue Vitamin D (Ergocalciferol) Capsule, 1.25 MG (24533 UT), TAKE 1 CAPSULE BY MOUTH ONCE [...] tobacco use and urged to quit. 0 08/29/2024 Patient Lifestyle Goals P atient wants to quit Treatment Goals C ut down by 1 cigarette a week, Set a quit date Barriers S ocial smoker, Stress Self-Management Plan M marquis a plan to cut down number of cigarettes over time and set a date to work towards quitting * Follow Up: 1 Week (Reason: ov) * Images: * Sign off status: Completed true * Provider: Zahraa Quezada MD Date: 0 08/29/2024 Generated for Mariposa reynolds/Aron/eTransmitting on: 1 07/13/2024 09:09 AM EST History and Physical Notes * HPI (History of Present Illness) Category Sub-Category Detail Notes Telehealth Location of [facility] rendering services:: {...} [address] [facility] [address] Location of patient:: address listed in demographics for today's visit Patient identification confirmed using:: Name, Telehealth method:: Telephone only. Sherry ent not visible to care provider. Consent:: Patient verbally c onsented to treatment, Patient verbally consented to billing insurance company, Patient informed of any privacy concerns related to method of visit Total time spent with patient (mins): 15
--- OUTSIDE RECORDS SUMMARY | 2025-05-12 09:10 | XMS_ITS | Clinical Summary ---
Author Organization [facility] Address [address] [place] [address] Care Team Providers Care Retail Account Executive Name Role Phone Campos Quezada MD Primary Care Provider [phone] Allergies Active Allergy Reactions Criticality Noted Date Comments Diclofenac Nausea And Vomiting 12/01/2017 Medications Medication Sig Dispensed Refills Start Date End Date Status amphetamine-dextroa mphetamine (ADDERALL XR) 30 MG 24 hr capsuleIndications: pt takes 20 mg every afternoon Take 30 mg by mouth daily. 0 11/29/2017 Active ARIPiprazole (ABILIFY) 5 MG tablet TAKE 1 TABLET BY MOUTH EVERY MORNING DIRECTED 1 TAB EVERY AM 2 11/01/2017 Active atorvastatin (LIPITOR) tablet 40 mg Take 40 mg by mouth daily. 2 11/26/2017 Active citalopram (CELEXA) 40 MG tablet Take 40 mg by mouth daily. 1 11/26/2017 Active ergocalciferol (VITAMIN D2) capsule 10145 units TAKE ONE CAPSULE BY MOUTH BY MOUTH ONCE A MONTH 4 11/28/2017 Active levothyroxine (SYNTHROID, LEVOXYL) tablet 75 mcg Take 75 mcg by mouth daily. 11 11/07/2017 Active LORazepam (ATIVAN) 0.5 MG tablet TAKE 1 TABLET BY MOUTH TWICE A DAY NEEDED FOR ANXIETY/INSOMNIA 1 10/18/2017 Active zolpidem (AMBIEN) 5 MG tablet 0 11/30/2017 Active senna-docusate (PERICOLACE) 8.6-50 MG Take 1 tablet by mouth 2 (two) times a day. 50 tablet 0 05/25/2018 Active Additional Information Patient not taking.Reason: Other, Reported on 08/12/2020 Umeclidinium-Vilant alex (Anoro Ellipta) 62.5-25 MCG/INH AEPB INHALE 1 PUFF BY MOUTH DAILY 0 04/22/2020 Active omeprazole (PriLOSEC) 20 MG capsule Take 20 mg by mouth daily. 0 06/01/2020 Active loperamide (Imodium A-D) 2 MG capsule Take 2 mg by mouth 4 (four) times a day as needed for diarrhea. 0 Active methocarbamol (ROBAXIN) 750 MG tablet Take 1 tablet (750 mg total) by mouth 3 (three) times a day as needed (muscle spasm). 40 tablet 0 10/05/2020 Active Additional Information Patient not taking.Reason: Other, Reported on 11/18/2020 traMADol (ULTRAM) 50 MG tablet TAKE 1 TABLET BY MOUTH TWICE A DAY NEEDED FOR 14 DAYS 0 09/28/2020 Active chlorhexidine (PERIDEX) 0.12 % solution PLEASE SEE ATTACHED FOR DETAILED DIRECTIONS 0 09/12/2021 Active ciprofloxacin (CIPRO) 500 MG tablet TAKE 1 TABLET BY MOUTH EVERY 12 HOURS FOR 7 DAYS 0 09/21/2021 Active Active Problems Problem Noted Date Diagnosed Date Chronic midline low back pain with right-sided s ciatica 11/18/2020 Status post cervical spinal fusion 10/21/2020 DDD (degenerative disc disease), lumbar 11/03/19 19 Overview: Overview: Cervical as well ADHD 11/02/2018 Depression 11/02/2018 Essential tremor 11/02/2018 GERD (gastroesophageal reflux disease) 9 Gout 11/02/2018 Hiatal hernia 11/02/2018 History of right hip replacement 11/02/2018 History of substance abuse 11/02/2018 Overview: Overview: 04/2018 was on a tapering process prior to neck surgery; Opioid dependence History of TIA (transient ischemic attack) 11/02 Hyperlipidemia 11/02/2018 Hypothyroidism (acquired) 11/02/2018 Insomnia 11/02/2018 Internal hemorrhoids 11/02/2018 Panic disorder 11/02/2018 Right knee DJD 11/02/2018 Tubular adenoma of colon 11/02/2018 Overview: Overview: Multiple; last Colonsocopy 2014, Dr. Hand Venous insufficiency of leg 11/02/2018 Shortness of breath 10/25/2018 Neck pain 05/24/2018 Social History Tobacco Use Types Packs/Day Years Used Date Smoking Tobacco: Former Cigarettes 0.5 20 Q uit: 05/15/2013 Smokeless Tobacco: Never Comments:Quit September 2020 Alcohol Use Standard Drinks/Week Comments No 0 (1 standard drink = 0.6 oz pur e alcohol) Sex and Gender Information Value Date Recorded Sex Assigned at Female 05/17/2018 1:15 PM EST Gender Identity Female 12/21/2018 9:17 AM EDT Sexual Orientation Not on file Job Start Date Occupation Industry Not on file Not on file Not on file Last Filed Vital Signs Vital Sign Reading Time Taken Comments Blood Pressure 114/73 11/02/2021 9:17 AM EDT Pulse 84 11/02/2021 9:17 AM EDT Temperature 36.2 C (97.1 F) 11/02/2021 9:17 AM EDT Respiratory Rate 11 10/05/2020 1:30 PM EDT Oxygen Saturation 99% 11/02/2021 9:1 7 AM EDT Inhaled Oxygen Concentration - - Weight 97.5 kg (215 lb) 11/02/2021 9:17 AM EDT Pt verbalized weight Height 182.9 cm (6') 11/02/2021 9:17 AM EDT Pt verbalized height Body Mass Index 29.16 11/02/2021 9:17 AM EDT Plan of Treatment Health Maintenance Due Date Last Done Comments Hepatitis C Screening 1955 COVID-19 Vaccine (#1) 01/05/1958 Depression Screening 1969 Preventative Health Evaluation 1975 Tobacco Cessation Counseling 1975 DTap / Tdap / Td (1 - Tdap) 1976 Colon Cancer Screening (Colonoscopy) 2002 Breast Cancer Screening (Mammogram) 2007 Shingrix-Zoster Vaccine (1 of 2) 2007 Fall Risk Assessment 2022 Osteoporosis Screening (DEXA Scan) 2022 Pneumococcal Vaccine (1 of 1 - PCV) 2022 BMI Counseling 11/02/2022 11/02/2021, 06/0 02/2021, 10/21/2020, Additional history exists Influenza Vaccine (#1) 2025 RSV Adult > 60+ Yrs or (1 - 1-dose 75+ series) 2032 Hepatitis B Vaccines Aged Out No long er eligible based on patient's age to complete this topic RSV Ped < 20 months Aged Out No longe r eligible based on patient's age to complete this topic Medical Devices Implanted Type Area Powerhouse Laborer Device Identifier Shelf Expiration Date Model / Serial / Lot Sponge Surgiflo 8ml Hemostatic Matrix Absorbable Latex Free - [id number] - [id number] Implanted:Qty: 1 on 05/24/[place] [facility] [place] Hemostatic Agent Anterior: Spine Cervical [employer] 03/11/2020 [id number] / / [id number] Sponge Surgiflo 8ml Hemostatic Matrix Absorbable Latex Free - [id number] - [id number] Implanted:Qty: 1 on 10/05/2020 by Darío Guillory DO [place] [facility] [place] [facility] [place] Hemostatic Agent Anterior: Spine Cervical [employer] 01/09/2022 [id number] / / [id number] Spacer Cervical Allofuse 6mm Cortical Cancellous Freeze [facility] - [id number] - [id number] Implanted:Qty: 1 on 05/24/2018 by Michael Elliott MD [place] [facility] [place] [facility] [place] Anterior: Spine Cervical [employer] 08/19/2022 [id number] / / [id number] Description:wm Plate Xtend Bone [facility] [place] - [id number] - [id number] Implanted:Qty: 1 on 05/24/2018 by Michael Elliott MD [place] [facility] [place] [facility] [place] Anterior: Spine Cervical [employer] 161.112 / / Screw Bone 12mm Ti Spnl [facility] - [id number] - [id number] Implanted:Qty: 4 on 05/24/2018 by Michael Elliott [place] [facility] [place] [facility] [place] Anterior: Spine Cervical [employer] 161.312 / / Vikos Cervical 14x14.5x6mm 7d Cortico Cancellous - [id number] - [id number] Implanted:Qty: 1 on 10/05/2020 by Darío Guillory DO [place] [facility] [place] Anterior: Spine Cervical [employer] 01/06/2025 [id number] / [id number] / [id number] Plate [place] 20mm 1 Level Bone Spine Cervical Non[employer] - [id number] - [id number] Implanted:Qty: 1 on 10/05/2020 by Darío uGillory DO [place] [facility] [place] [facility] Anterior: Spine Cervical [employer] [id number] / / Screw [place] 14mm 4mm Self Start Variable Angle Bone Spine - [id number] - [id number] Implanted:Qty: 4 on 10/05/2020 by Darío Guillory DO [place] [facility] [place] [facility] Anterior: Spine Cervical [employer] [id number] / / Explanted Type Area Powerhouse Laborer Device Identifier Shelf Expiration Date Model / Serial / Lot Plate Explanted:Qty: 1 on 10/05/2020 [place] [facility] [place] [facility] Anterior: Spine Cervical Screws Explanted:Qty: 4 on 10/05/2020 [place] [facility] [place] [facility] Anterior: Spine Cervical Advance Directives For more information, please contact: [phone] Documents on File Type Date Recorded Patient Blocker And Cutter Contact Lens Expl anation Advance Directive and Living Will 02/07/2020 9:00 AM Latest Code Status on File Code Status Date Activated Date Inactivated Comments Full Code 05/24/2018 9:39 AM 05/25/2018 6:53 PM Thi s code status was ascertained in the following way: discussion with patient . Care Teams Retail Account Executive Relationship Specialty Start Date End Date Campos Quezada MD [address] [phone] PCP - General Oncology 12/21/18
[2025-05-12 10:28] LABS: Alanine Aminotransferase 12 U/L (0-31); Albumin Level 4.0 g/dL (3.5-5.0); Alkaline Phosphatase 140 U/L (39-117); Anion Gap 12 (12-20); Aspartate Amino Transferase 20 U/L (5-31); Blood Urea Nitrogen 18 mg/dL (9-16); Calcium 9.3 mg/dL (8.4-10.2); Carbon Dioxide 25 mmol/L (22-29); Chloride 109 mmol/L (96-108); Estimated Glomerular Filt Rate 53; Potassium 4.2 mmol/L (3.3-5.1); Sodium 142 mmol/L (135-145); Total Protein 6.6 g/dL (6.5-8.0)
== END 2025-05-12 08:38 | disposition home or self-care (01) ==
LOC: HO.LAB 08:37
PROVIDERS: PCP Internal Medicine Medical Oncology; Visit Provider Internal Medicine Medical Oncology
DX: E78.2 Mixed hyperlipidemia (principal); R73.09 Other abnormal glucose; E55.9 Vitamin D deficiency, unspecified
CPT/HCPCS: 36415; 80053; 82306; 83036

== ENCOUNTER → 2025-06-02 10:41 | Outpatient (BNVA) | payer MEDICARE, MEDICAID, SELFPAY | PROVIDERS: PCP Internal Medicine Medical Oncology; Visit Provider Urology | DX: R35.0 Frequency of micturition (principal); R39.15 Urgency of urination; Z13.9 Encounter for screening, unspecified | CPT/HCPCS: 51798 ==

== ENCOUNTER 2025-06-03 11:20 | Outpatient (REF) | payer MEDICARE, MEDICAID, SELFPAY ==
--- OUTSIDE RECORDS SUMMARY | 2023-12-21 08:30 | XMS_ITS ---
Author Organization [facility] Address [address] [place] [address] Care Team Providers Care Director Of Religious Life Name Role Phone Campos Quezada MD Primary Care Provider Unavailab Campos Navarro Unavailable [phone] Medications Medication SIG (Take, Route, Frequency, Duration) Notes Start Date End Date Status Ambien Active Abilify Active Levothyroxine Sodium 75 MCG Tablet 1 tablet Orally Once a day Active Ergocalciferol 03471 UNIT Capsule 1 capsule Orally Active Omeprazole 20 MG Capsule Delayed Release TAKE 1 CAPSULE BY MOUTH EVERY DAY IN THE MORNING; Duration: 90 Active Adderall XR 20 MG Capsule Extended Release 24 Hour 1 capsule in the morning Orally Once a day Active LORazepam 0.5 MG Tablet 1 tablet as need ed Orally Twice a day Active Simvastatin 40 MG Tablet 1 tablet in the evening Orally Once a day Active Citalopram Hydrobromide 40 MG Tablet 0.5 tablet Orally Once a day Active Problems Problem Type SNOMED Code ICD Code Onset Dates Problem Status W/U Status Risk Notes Problem Gastroesophageal reflux disease (325250797) Esophageal reflux disease (K21.9) Active confirmed Encounters Encounter Location Date Provider Diagnosis [facility] [place] [facility] [address], [place] [id number] 12/21/2023 Campos Hand Hiatal hernia K44. 9 and Esophageal reflux disease K21.9 Assessments Encounter Date Diagnosis (ICD Code) Assessment Notes Treatment Notes Treatment Clinical Notes Section Notes 12/21/2023 Hiatal hernia (ICD-10 - K44.9) 12/21/2023 Esophageal reflux disease (ICD-10 - K21.9) Plan Of Treatment No Information Progress Notes * LESTER RIBERAEDOB:1955 (69 yo F)Acc No.[id number]:12/21/2023 EGD/MAC Patient: BROOKE VASQUEZ Provider: Zahraa Hand MD :1955 A ge:68 Y S ex:Female Date:12/21/2023 Address:[address] [place] [address] [id number] Pcp:Campos Quezada MD Subjective: * Chief Complaints: * Medications: T akingAdderall XR 20 MG Capsule Extended Release 24 Hour 1 capsule in the morning Orally Once a day LORazepam 0.5 MG Tablet 1 tablet as needed Orally Twice a day Simvastatin 40 MG Tablet 1 tablet in the evening Orally Once a day Citalopram Hydrobromide 40 MG Tablet 0.5 tablet Orally Once a day Levothyroxine Sodium 75 MCG Tablet 1 tablet Orally Once a day Ergocalciferol 80253 UNIT Capsule 1 capsule Orally Ambien Abilify Omeprazole 20 MG Capsule Delayed Release TAKE 1 CAPSULE BY MOUTH EVERY DAY IN THE MORNING Taking Adderall XR 20 MG Capsule Extended Release 24 Hour 1 capsule in the morning Orally Once a day Taking LORazepam 0.5 MG Tablet 1 tablet as needed Orally Twice a day Taking Simvastatin 40 MG Tablet 1 tablet in the evening Orally Once a day Taking Citalopram Hydrobromide 40 MG Tablet 0.5 tablet Orally Once a day Taking Levothyroxine Sodium 75 MCG Tablet 1 tablet Orally Once a day Taking Ergocalciferol 21013 UNIT Capsule 1 capsule Orally Taking Ambien Taking Abilify Taking Omeprazole 20 MG Capsule Delayed Release TAKE 1 CAPSULE BY MOUTH EVERY DAY IN THE MORNING Assessment: * Assessment: 1. H iatal hernia - K44.9 (Primary) 2 . E sophageal reflux disease - K21.9? Plan: * Procedure Codes: 4 3235 [facility] GI ENDOSCOPY, DIAGNOSIS Billing Information: * Procedure Codes: 09031 UPPR GI ENDOSCOPY, DIAGNOSIS. * The named appointment provid er may or may not be the originator of this progress note, and it is not deemed complete until electronically signed by the appointment provider. Sign off status: Pending * Provider: Zahraa Hand MD Date: 0 12/21/2023 Generated for Mariposa reynolds/Aron/Sofia on: 1 08/04/2024 12:46 PM EST
--- OUTSIDE RECORDS SUMMARY | 2024-04-18 08:39 | XMS_ITS ---
Author Organization Campos Quezada III, MD Address [address] [address] Care Team Providers Care Manager Food Safety Name Role Phone Dr. Campos Quezada III Primary Care Provider [phone] Campos Quezada III, MD [facility] [phone] Medications Medication SIG (Take, Route, Frequency, Duration) Notes Start Date End Date Status Levothyroxine Sodium 75 MCG 1 tablet in the morning on an empty stomach Orally Once a day for 90 days 04/18/2024 Active Social History Sex Assigned At : Social History Observation Description Sex Assigned At Female Encounters Encounter Location Date Provider Diagnosis Campos Quezada III, MD [address] [place] [address] [place] [address] 04/18/2024 Campos Quezada Plan Of Treatment Medication Medication Name Sig Start Date Stop Date Notes Levothyroxine Sodium 75 MCG 1 tablet in the morning on an empty stomach Orally Once a day for 90 days 04/18/2024 Next Appt Details Provider Name:Campos Quezada , 08/12/2025 11:15:00 AM, [address], [address], Provider Name:Campos Quezada , 05/15/2026 11:00:00 AM, [address], [address], Progress Notes * [place] RIBERAOB:1955 (68 yo F)Acc No.[id number]:04/18/2024 Patient: Sally VASQUEZ :1955 A ge:68 Y S ex:Female Address:[address] [place] [address] [place], [address] * Refills Start Levothyroxine Sodium Tablet, 75 MCG, Orally, 90 Tablet, 1 tablet in the morning on an empty stomach, Once a day, 90 days, Refills=3 * true * Date: Generated for Mariposa reynolds/Aron/Charlinesmitting on: 08/04/2024 12:46 PM EST
--- OUTSIDE RECORDS SUMMARY | 2024-04-29 08:30 | XMS_ITS ---
Author Organization [facility] Address [address] [place] [address] Care Team Providers Care Bakery Products Checker Name Role Phone Campos Quezada MD Primary Care Provider Unavailab Campos Navarro Unavailable [phone] REASON FOR VISIT diarrhea Problems Problem Type SNOMED Code ICD Code Onset Dates Problem Status W/U Status Risk Notes Problem Diverticular disease of colon (654844062) Diverticulosis of large intestine without perforation or abscess without bleeding (K57.30) Active confirmed Problem Gastroesophageal reflux disease (012670160) Gastroesophageal reflux disease (K21.9) Active confirmed Problem Gastroparesis (031487067) Gastroparesis (K31.84) Active confirmed Encounters Encounter Location Date Provider Diagnosis [facility] [facility] [place] [address] [place] [phone] 04/29/2024 Campos Hand Colon polyps K63.5 ; Diarrhea R19.7 ; Diverticulosis of large intestine without perforation or abscess without bleeding K57.30 ; Other hemorrhoids K64.8 ; Gastroesophageal reflux disease K21.9 ; Gastroparesis K31.84 and Other specified abnormal immunological findings in serum R76.8 Assessments Encounter Date Diagnosis (ICD Code) Assessment Notes Treatment Notes Treatment Clinical Notes Section Notes 04/29/2024 Colon polyps (ICD-10 - K63.5) 04/29/2024 Diarrhea (ICD-10 - R19.7) 04/29/2024 Diverticulosis of large intestine without perforation or abscess without bleeding (ICD-10 - K57.30) 04/29/2024 Other hemorrhoids (ICD-10 - K64.8) 04/29/2024 Gastroesophageal reflux disease (ICD-10 - K21.9) 04/29/2024 Gastroparesis (ICD-10 - K31.84) 04/29/2024 Other specified abnormal immunological findings in serum (ICD-10 - R76.8) Plan Of Treatment No Information Progress Notes * LESTER RIBERAEDOB:1955 (69 yo F)Acc No.[id number]:04/29/2024 COLON WITH MAC Patient: BROOKE VASQUEZ Provider: Zahraa Hand MD :1955 A ge:68 Y S ex:Female Date:04/29/2024 [id number] Pcp:Campos Quezada MD Subjective: * Chief Complaints: * D iarrhea Assessment: * Assessment: 1. C olon polyps - K63.5 (Primary) 2 . D iarrhea - R19.7 3 . D iverticulosis of large intestine without perforation or abscess without bleeding - K57.30? 4. O ther hemorrhoids - K64.8 5 . G astroesophageal reflux disease - K21.9 6 . G astroparesis - K31.84 7 . O ther specified abnormal immunological findings in serum - R76.8 Plan: * Procedure Codes: 4 5385 LESION REMOVAL [id number] COLONOSCOPY AND BIOPSY, Modifiers: 59 0529F INTRVL 3+YRS PTS CLNSCP [id number] RCMND FLW-UP 10 YRS DOCD, Modifiers: 1P 96695 UPPER GI ENDOSCOPY, BIOPSY Billing Information: * Procedure Codes: 04445 LESION REMOVAL COLONOSCOPY. 31538 COLONOSCOPY AND BIOPSY. Modifiers: 59 0529F INTRVL 3+YRS PTS CLNSCP DOCD. 0528F RCMND FLW-UP 10 YRS DOCD. Modifiers: 1P 58667 UPPER GI ENDOSCOPY, BIOPSY. * The named appointment provid er may or may not be the originator of this progress note, and it is not deemed complete until electronically signed by the appointment provider. Sign off status: Pending * Provider: Zahraa Hand MD Date: 06/29/2023 Generated for Mariposa reynolds/Aron/eTransmitting on: 1 08/04/2024 12:46 PM EST
--- OUTSIDE RECORDS SUMMARY | 2024-05-13 06:00 | XMS_ITS ---
Author Organization Campos Quezada III, MD Address [address] [place] [address] Care Team Providers Care Photoengraving Printer Name Role Phone Dr. Campos Quezada III Primary Care Provider Campos Quezada III, MD [phone] Allergies Allergen (clinical drug ingredient) Drug/Non Drug Allergy documented on EMR Reaction Allergy Type Onset Date Status corticosteroid and/or corticosteroid derivative (FN) Corticosteroids Unknown Drug Allergy Active Voltaren stomach upset Drug Allergy Act angela Results Component Value Reference Range Notes URINE DIP STICK Reviewed date:05/13/2024 10:33:04 AM Interpretation: Performing Lab: Notes/Report: SG 1.025 1.005 - 1.025 pH 5.0 5.0 - 9.0 JOAQUIN Negative Negative - NIT Negative Negative - PRO 15 Negative - Trace GLU Negative Negative - KET Negative Negative - UBG 0.2 0.1 - 1.8 MIKO Negative 0.2 - 1.3 BLD Negative Negative - Menstrating No REASON FOR VISIT Annual Exam Medications Medication SIG (Take, Route, Frequency, Duration) Notes Start Date End Date Status Levothyroxine Sodium 75 MCG 1 tablet in the morning on an empty stomach Orally Once a day 04/18/2024 Active Diphenoxylate-Atropine 2.5-0.025 MG 1 tablet as needed Orally Four times a day if needed for diarrhea 03/26/2024 Active Amantadine HCl 100 MG 1 capsule Orally 3 times a day 03/05/2024 Active Atorvastatin Calcium 40 MG TAKE 1 TABLET BY MOUTH EVERY DAY FOR 90 DAYS Orally Once a day Active Adderall XR 30 MG 1 capsule in the mor akilah Orally Once a day Active Vitamin D (Ergocalciferol) 1.25 MG (17320 UT) TAKE 1 CAPSULE BY MOUTH ONCE A MONTH Orally once a month Active Benztropine Mesylate 0.5 MG Oral Active hydrOXYzine Pamoate 25 MG Oral Active Trelegy Ellipta 100-62.5-25 MCG/ACT Inhalation Active Citalopram Hydrobromide 40 MG 1 tablet Orally Once a day Active Abilify 5 MG 1 tablet Orally Once a day Active Zolpidem Tartrate 10 MG 1 tablet at bedt gustavo Orally Once a day Active Social History Tobacco Use: Social History Observation Description Date Details (start date - stop date) Current Smoker NA - NA Sex Assigned At : Social History Observation Description Sex Assigned At Female Tobacco Control (Standard) Question Answer Notes Tobacco use: Current every day smoker Additional Findings: Tobacco user Light cigarett e smoker (1-9 cigs/day) AUDIT-C (Standard) Question Answer Notes Did you have a drink containing alcohol in the p ast year? No Points 0 Interpretation Negative Vital Signs Temperature 96.9 degrees Fahrenheit 05/13/20 24 Blood pressure systolic 139 mm Hg 05/13/20 24 Blood pressure diastolic 82 mm Hg 024 Heart Rate 73 /min 05/13/2024 Height 72 in 05/13/2024 Weight 191 lbs 05/13/2024 BMI 25.9 kg/m2 05/13/2024 Encounters Encounter Location Date Provider Diagnosis Campos Quezada III, MD [address] [place] [address] [place] [address] 05/13/2024 Campos Quezada Chronic diarrhea of unknown origin K52.9 ; Mixed hyperlipidemia E78.2 ; Acquired hypothyroidism E03.9 ; Former smoker Z87.891 ; Primary insomnia F51.01 ; 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 A reflex test was negative. She continues under the care of a lease broker whohas done a colonoscopy in the near future.Because of the diarrhea is still unclear. An infectious and today he has not been found. She admits to 3 loose stools a day. This is controlled with Imodium. 05/13/2024 Mixed hyperlipidemia (ICD-10 - E78.2) The lipids are currently stable. No change in her medications was made. I recommended aggressive weight loss and healthy low animal fat diet. 05/13/2024 Acquired hypothyroidism (ICD-10 - E03.9) Her thyroid function tests are stable. She was continued on the current dose. 05/13/2024 Former smoker (ICD-10 - Z87.891) We discussed a plan to prevent relapse in times of stress or illness. 05/13/2024 Primary insomnia (ICD-10 - F51.01) We discussed sleep hygiene today. She will continue her current therapy and no additional medication was given. 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 She will be observed carefully for this problem and call me once if it recurs. 05/13/2024 Unspecified rotator cuff tear or rupture of left shoulder, not specified as traumatic (ICD-10 - M75.102) She continues to have pain with range of motion and sees Dr. Hamilton for this problem. He received physical therapy and a sling. 05/13/2024 Degenerative disc disease, cervical (ICD-10 - M50.30) She is going to have another injection and see the neurosurgeon in the near future. 05/13/2024 Essential tremor (ICD-10 - G25.0) She will call the office with the name of the new medication given to her for her tremor by her psychiatrist. 05/13/2024 GERD without esophagitis (ICD-10 - K21.9) Her esophageall reflux symptoms are well controlled medication. No change in her regimentoday. 05/13/2024 Overweight (ICD-10 - E66.3) Her body mass index is 25.9. She is slightly overweight. We discussed ways of avoiding weight gain during the winter holidays. Plan Of Treatment Medication Medication Name Sig Start Date Stop Date Notes Levothyroxine Sodium 75 MCG 1 tablet in the morning on an empty stomach Orally Once a day 04/18/2024 Diphenoxylate-Atropine 2.5-0.025 MG 1 tablet as needed Orally Four times a day if needed for diarrhea 03/26/2024 Amantadine HCl 100 MG 1 capsule Orally 3 times a day 03/05/2024 Atorvastatin Calcium 40 MG TAKE 1 TABLET BY MOUTH EVERY DAY FOR 90 DAYS Orally Once a day Adderall XR 30 MG 1 capsule in the mor akilah Orally Once a day Vitamin D (Ergocalciferol) 1 .25 MG (19675 UT) TAKE 1 CAPSULE BY MOUTH ONCE A MONTH Orally once a month Benztropine Mesylate 0.5 MG Oral hydrOXYzine Pamoate 25 MG Oral Trelegy Ellipta 100-62.5-25 MCG/ACT Inhalation Citalopram Hydrobromide 40 MG 1 tablet Orally Once a day Abilify 5 MG 1 tablet Orally Once a day Zolpidem Tartrate 10 MG 1 tablet at bedt gustavo Orally Once a day Next Appt Details Follow Up: September 05, Eli n: Follow up on chronic diarrhea Provider Name:Campos Quezada , 08/12/2025 11:15:00 AM, [address] [place] [address] [address], [place], [address], Provider Name:Campos Quezada , 05/15/2026 11:00:00 AM, [address] [place] [address] [address], [place], [address], Progress Notes * [place] RIBERAOB:1955 (69 yo F)Acc No.[id number]:05/13/2024 Progress Notes Patient: Shweta VASQUEZanne Provider: Zahraa Quezada MD :1955 A ge:68 Y S ex:Female Date:05/13/2024 Address:[address] [place] [address] [id number] Subjective: * Chief Complaints: * A nnual Exam * HPI: D epression Screening: PHQ-9 L ittle interest or pleasure in doing things?Not at all F eeling down, depressed, or hopeless N ot at all T rouble falling or staying asleep, or sleeping too much N ot at all F eeling tired or having little energy M ore than half the days P oor appetite or overeating N ot at all F eeling bad about yourself or that you are a failure, or have let yourself or your family down N ot at all T rouble concentrating on things, such as reading the newspaper or watching television N ot at all M oving or speaking so slowly that other people could have noticed; or the opposite, being so fidgety or restless that you have been moving around a lot more than usual N ot at all T houghts that you would be better off or of hurting yourself in some way N ot at all T otal Score 2 I nterpretation M inimal Depression C OVID-19 Screening: Questions H ave you had any new onset fever, chills, cough, congestion, sore throat, shortness of breath, muscle aches? N o H ave you been exposed to the virus within the last 10 days? N o H ave you travelled internationally in the last 10 days? N o H ave you been exposed to COVID-19 in the past? Y es F all Risk Screening: Fall History H ave you had any falls with injury in the past year? N o H ave you had two or more falls in the past year? N o F all Risk Assessment: N o falls in the past year S LENORE Questions: SDOH Questions I n the past year have you been worried about losing your housing? N o I n the past year have you or any family members you live with been unable to get any of the following when it was really needed? Check all that apply: Winter forman to answer * : The patient, a 68-year-old female, has been dealing with chronic diarrhea. She has been taking imodium and eliceo to manage the symptoms. She had a colonoscopy done, which revealed a couple of polyps but no cancer. However, the lease broker found old food in her system, which he did not understand. The patient has been contemplating a nuclear test of swallowing something and following it, but the test has not been ordered yet. She has lost about 20 pounds due to this condition but has been steady at 191 lbs recently. The patient also mentioned that she had surgery, and she wonders if her pancreas might have been 'pushed' a bit during the procedure, leading to her current condition. However, the doctor confirmed that there was no sign of that. The patient also mentioned that she has been taking care of her mother, who is almost 98 years old. A gastric emptying study has been ordered. * ROS: G eneral/Constitutional: pain N maren, left shoulder, lumbar spine. C hills d enies. F atigue a dmits. F ever d enies. E NT: Decreased hearing d enies. R espiratory: Cough n on-productive. C ardiovascular: Chest pain with exertion d enies. D yspnea on exertion?denies. S hortness of breath d enies. G astrointestinal: Constipation d enies. D ecreased appetite d enies.?Diarrhea c hronic several times a day. H eartburn d enies. N ausea d enies.?Rectal bleeding d enies. V omiting d enies. H ematology: bruising d enies. p etechiae d enies. S wollen glands n one have been noted. G enitourinary: Frequent urination a t night. M usculoskeletal: Muscle aches d enies. P ainful joints d enies. S ciatica d enies. W eakness d enies. S kin: Itching d enies. R brandyn d enies. S kin lesion(s)?denies. N eurologic: Difficulty speaking d enies. D izziness d enies.?Headache d enies. L ow back pain d enies. P sychiatric: Depressed mood d enies. * Medical History: * Surgical History: H ysterectomy, Total with bilateral salpingo-oophorectomy, , dysfunctional uterine bleeding 6402G0-G5 and C6-C7 anterior disectomy and fusion by Dr. Michael Elliott 07/2004right hip arthroplasty 02/2012colonoscopy, [facility], tubular adenoma of sigmoid 2002colonoscopy, [facility], Dr. Hand, tubular adenoma at 30 cm 2006EGD, Dr. Hand, gastritis 2009colonoscopy, Dr. Hand, tubular adenomatous (3) 2014neck fusion 05/2018Neck Fusion [facility] nterior Cervical Discectomy Anterior Arthrodesis C3-4 [id number] knee replacement history * Hospitalization/Major Diagno stic Procedure: n maren fusion 05/2018No history * Family History: F ather: , Cancer, diagnosed with Cancer. M other: alive. She is an adopted child. Melanoma. * Social History: T obacco Use: T obacco Control (Standard) T obacco use: C urrent every day smoker A dditional Findings: Tobacco user L ight cigarette smoker (1-9 cigs/day) D rugs/Alcohol: D rugs H ave you used drugs other than those for medical reasons in the past 12 months? N o D rug/Alcohol: A RANDY-C (Standard) D id you have a drink containing alcohol in the past year? N o P oints 0 I nterpretation N egative S he is on SSI disability. Her mental health's through Dr. Ramachandran at [facility]. Smoking - The patient reported smoking about 3 cigarettes a day. * Medications: T akingDiphenoxylate-Atropine 2.5-0.025 MG Tablet 1 tablet as needed Orally Four times a day if needed for diarrhea Atorvastatin Calcium 40 MG Tablet TAKE 1 TABLET BY MOUTH EVERY DAY FOR 90 DAYS Orally Once a day Adderall XR 30 MG Capsule Extended Release 24 Hour 1 capsule in the morning Orally Once a day Abilify 5 MG Tablet 1 tablet Orally Once a day Zolpidem Tartrate 10 MG Tablet 1 tablet at bedtime Orally Once a day Citalopram Hydrobromide 40 MG Tablet 1 tablet Orally Once a day Vitamin D (Ergocalciferol) 1.25 MG (53753 UT) Capsule TAKE 1 CAPSULE BY MOUTH ONCE A MONTH Orally once a month Benztropine Mesylate 0.5 MG Tablet Oral hydrOXYzine Pamoate 25 MG Capsule Oral Trelegy Ellipta 100-62.5-25 MCG/ACT Aerosol Powder Breath Activated Inhalation Amantadine HCl 100 MG Capsule 1 capsule Orally 3 times a day Levothyroxine Sodium 75 MCG Tablet 1 tablet in the morning on an empty stomach Orally Once a day Taking Diphenoxylate-Atropine 2.5-0.025 MG Tablet 1 tablet as needed Orally Four times a day if needed for diarrhea Taking Atorvastatin Calcium 40 MG Tablet TAKE 1 TABLET BY MOUTH EVERY DAY FOR 90 DAYS Orally Once a day Taking Adderall XR 30 MG Capsule Extended Release 24 Hour 1 capsule in the morning Orally Once a day Taking Abilify 5 MG Tablet 1 tablet Orally Once a day Taking Zolpidem Tartrate 10 MG Tablet 1 tablet at bedtime Orally Once a day Taking Citalopram Hydrobromide 40 MG Tablet 1 tablet Orally Once a day Taking Vitamin D (Ergocalciferol) 1.25 MG (93653 UT) Capsule TAKE 1 CAPSULE BY MOUTH ONCE A MONTH Orally once a month Taking Benztropine Mesylate 0.5 MG Tablet Oral Taking hydrOXYzine Pamoate 25 MG Capsule Oral Taking Trelegy Ellipta 100-62.5-25 MCG/ACT Aerosol Powder Breath Activated Inhalation Taking Amantadine HCl 100 MG Capsule 1 capsule Orally 3 times a day Taking Levothyroxine Sodium 75 MCG Tablet 1 tablet in the morning on an empty stomach Orally Once a day DiscontinuedLevothyroxine Sodium 75 MCG Tablet TAKE 1 TABLET BY MOUTH EVERY DAY IN THE MORNING ON EMPTY STOMACH Medication List reviewed and reconciled with the patientDiscontinued Levothyroxine Sodium 75 MCG Tablet TAKE 1 TABLET BY MOUTH EVERY DAY IN THE MORNING ON EMPTY STOMACH Medication List reviewed and reconciled with the patient * Allergies: V oltaren: stomach upset - Side EffectsCorticosteroidsno[Allergies Verified] Objective: * Vitals: H t: 72, Wt:191, BMI:25.9, BP:139/82, HR:73, Temp:96.9, Wt-k.64. * P ast Orders: L ab:Pathology (Order Date - 04/29/2024) (Collection Date & Time - 04/29/2024 01:10 PM) Lab:URINE DIP STICK * Collection Date 05/13/2024 05/10/2023 12/07/2021 Collection Time 10:07 AM Order Date 05/13/2024 05/10/2023 12/07/2021 SG 1.025 (Ref Range: 1.005 - 1.025) 1.025 (Ref Range: 1.005 - 1.025) 1.020 pH 5.0 (Ref Range: 5.0 - 9.0) 5.0 (Ref Range: 5.0 - 9.0) 6.0 JOAQUIN Negative (Ref Range: Negative -) 70 (Ref Range: Negative -) Negative NIT Negative (Ref Range: Negative -) Negative (Ref Range: Negative -) Negative PRO 15 (Ref Range: Negative - Trace) 15 (Ref Range: Negative - Trace) 0.15 GLU Negative (Ref Range: Negative -) Negative (Ref Range: Negative -) Negative KET Negative (Ref Range: Negative -) 5 (Ref Range: Negative -) Negative UBG 0.2 (Ref Range: 0.1 - 1.8) 0.2 (Ref Range: 0.1 - 1.8) 0.2 MIKO Negative (Ref Range: 0.2 - 1.3) 1 (Ref Range: 0.2 - 1.3) Negative BLD Negative (Ref Range: Negative -) Negative (Ref Range: Negative -) Negative Menstrating No No No ???Lab:Gliadin Ab Panel (Order Date - 04/04/2024) (Collection Date & Time - 04/04/2024 08:39 AM)?ValueReference Range?Gliadin Deamidated IgA Ab15.4A- U/mL?Gliadin Deamidated IgG Ab<1.0- U/mL ???Lab:Endomysial IgA rflx Titer (Order Date - 04/04/2024) (Collection Date & Time - 04/04/2024 08:39 AM)?ValueReference Range?Endomysial IgA AntibodyNegativeNegative -?Endomysial TiterTNP- ???Lab:Immunoglobulin A (Order Date - 04/04/2024) (Collection Date & Time - 04/04/2024 08:39 AM)?ValueReference Range?Immunoglobulin U48610- 320 - mg/dL ???Lab:Transglutaminase Ab IgG (Order Date - 04/04/2024) (Collection Date & Time - 04/04/2024 08:39 AM)?ValueReference Range?Transglutaminase Ab IgG<1.0- U/mL ???Lab:Transglutaminase IgA (Order Date - 04/04/2024) (Collection Date & Time - 04/04/2024 08:39 AM)?ValueReference Range?Transglutaminase IgA<1.0 - U/mL ???Lab:CDiff Gene PCR (Order Date - 03/14/2024) (Collection Date & Time - 03/14/2024 04:00 AM)?ValueReference Range?CDiff Gene PCRNEGATIVE Negative - ???Lab:GI Panel (Order Date - 03/14/2024) (Collection Date & Time - 03/14/2024 04:00 AM)?ValueReference Range?CampylobacterNot DetectedNot Detect. -?Plesiomonas shigelloidesNot DetectedNot Detect. - ?SalmonellaNot DetectedNot Detect. -?VibrioNot DetectedNot Detect. -?Vibrio CholeraeNot DetectedNot Detect. -?Yersinia enterocolitica Not DetectedNot Detect. -?E. coli EAECNot DetectedNot Detect. -?E. coli EPECNot DetectedNot Detect. -?E. coli ETECNot DetectedNot Detect. - ?E. coli STECNot DetectedNot Detect. -?E. coli Y833Flf applicable Not Detect. -?Shigella sp./EIECNot DetectedNot Detect. - ?CryptosporidiumNot DetectedNot Detect. -?Cyclospora cayetanensis Not DetectedNot Detect. -?Entamoeba histolyticaNot DetectedNot Detect. - ?Giardia lambliaNot DetectedNot Detect. -?Adenovirus F 40/41Not DetectedNot Detect. -?AstrovirusNot DetectedNot Detect. - ?Norovirus GI/GIINot DetectedNot Detect. -?Rotavirus ANot Detected Not Detect. -?SapovirusNot DetectedNot Detect. - ???Lab:Leukocytes Stool Qualitative (Order Date - 03/04/2024) (Collection Date & Time - 411:00 AM)?ValueReference Range?Leukocytes Stool QualitativeNEGATIVENEGATIVE - ???Lab:Giardia Ag Stool EIA (Order Date - 03/04/2024) (Collection Date & Time - 03/04/2024 11:00 AM)?ValueReference Range?Giardia Ag Stool EIASEE NOTE- ???Lab:Ova and Parasite (Order Date - 03/04/2024) (Collection Date & Time - 03/04/2024 11:00 AM)?ValueReference Range?Ova and ParasiteSEE NOTE - * Examination: G eneral Examination: GENERAL APPEARANCE: p leasant, well nourished, well developed, in no acute distress, calm and relaxed, overweight, woman. HEAD: a traumatic, normocephalic. EYES: e luis, perrla, anicteric, conjugate. EARS: n ormal. NOSE: s eptum intact. ORAL CAVITY: n ormal, unremarkable. NECK/THYROID: n o jugular venous distention, no carotid bruit, thyroid normal. LYMPH NODES: n o enlarged lymph nodes,spleen normal. SKIN: n o suspicious lesions, anicteric. HEART: n o clicks, gallops, murmurs, or rubs, regular rhythm, S1, S2 normal, no s3, or vascular bruits. LUNGS: , diminished breath sounds throughout, no wheezes, rales, rhonchi, good air movement. BREASTS: , no dimpling, no discharge, no drainage, no masses palpable bilaterally, nontender, symmetrical. ABDOMEN: b owel sounds normal, no ascites, no organomegaly, no mass. RECTAL EXAM: n ot examined. MUSCULOSKELETAL: D iminished range of motion left shoulder and neck and lumbar spine,. PERIPHERAL PULSES: n ormal. NEUROLOGIC: a lert and oriented, cranial nerves 2-12 grossly intact, deep tendon reflexes 2+ symmetrical, motor strength normal upper and lower extremities, sensory exam intact. PSYCH: a lert, oriented. Assessment: * Assessment: 1. C hronic diarrhea of unknown origin - K52.9 (Primary) N otes :Her gliaden T body level was 15. A reflex test was negative. She continues under the care of a lease broker whohas done a colonoscopy in the near future.Because of the diarrhea is still unclear. An infectious and today he has not been found. She admits to 3 loose stools a day.? This is controlled with Imodium. 2 . M ixed hyperlipidemia - E78.2 N otes :The lipids are currently stable. No change in her medications was made. I recommended aggressive weight loss and healthy low animal fat diet. 3 . A cquired hypothyroidism - E03.9 N otes :Her thyroid function tests are stable. She was continued on the current dose. 4 . F ormer smoker - Z87.891 N otes :We discussed a plan to prevent relapse in times of stress or illness. 5 . P rimary insomnia - F51.01 N otes :We discussed sleep hygiene today. She will continue her current therapy and no additional medication was given. 6 . I diopathic chronic gout 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 tophus - M1A.0710 ? N otes :There is no pain today from gout in any location. She will be observed carefully for this problem and call me once if it recurs. 7 . U nspecified rotator cuff tear or rupture of left shoulder, not specified as traumatic - M75.102 N otes :She continues to have pain with range of motion and sees Dr. Hamilton for this problem. He received physical therapy and a sling. 8 . D egenerative disc disease, cervical - M50.30 N otes :She is going to have another injection and see the neurosurgeon in the near future. 9 . E ssential tremor - G25.0 N otes :She will call the office with the name of the new medication given to her for her tremor by her psychiatrist. 1 0. G ERD without esophagitis - K21.9 N otes :Her esophageall reflux symptoms are well controlled medication. No change in her regimentoday. 1 1. O verweight - E66.3 N otes :Her body mass index is 25.9. She is slightly overweight. We discussed ways of avoiding weight gain during the winter holidays. Plan: * Treatment: 2. O thers Continue Levothyroxine Sodium Tablet, 75 MCG, 1 tablet in the morning on an empty stomach, Orally, Once a day; C ontinue Diphenoxylate-Atropine Tablet, 2.5-0.025 MG, 1 tablet as needed, Orally, Four times a day if needed for diarrhea; C ontinue Atorvastatin Calcium Tablet, 40 MG, TAKE 1 TABLET BY MOUTH EVERY DAY FOR 90 DAYS, Orally, Once a day; C ontinue Adderall XR Capsule Extended Release 24 Hour, 30 MG, 1 capsule in the morning, Orally, Once a day; C ontinue Abilify Tablet, 5 MG, 1 tablet, Orally, Once a day; C ontinue Zolpidem Tartrate Tablet, 10 MG, 1 tablet at bedtime, Orally, Once a day; C ontinue Citalopram Hydrobromide Tablet, 40 MG, 1 tablet, Orally, Once a day; C ontinue Vitamin D (Ergocalciferol) Capsule, 1.25 MG (90102 UT), TAKE 1 CAPSULE BY MOUTH ONCE A MONTH, Orally, once a month; C ontinue Benztropine Mesylate Tablet, 0.5 MG, Oral; C ontinue hydrOXYzine Pamoate Capsule, 25 MG, Oral; C ontinue Trelegy Ellipta Aerosol Powder Breath Activated, 100-62.5-25 MCG/ACT, Inhalation. * Labs: * L ab: URINE DIP STICK (Collection Date & Time - 05/13/2024) Value Reference Range S G 1.025 1.005 - 1.025 * p H 5.0 5.0 - 9.0 * L EU Negative Negative - * N IT Negative Negative - * P RO 15 Negative - Trace * G ELSY Negative Negative - * K ET Negative Negative - * U BG 0.2 0.1 - 1.8 * B IL Negative 0.2 - 1.3 * B LD Negative Negative - * M enstrating No * Procedure Codes: 8 1002 URINE-NO MICRO * Preventive Medicine: Counseling: C are goal follow-up plan: Counseling for abnormal BMI given Y es Above Normal BMI Follow-up D ietary management education, guidance, and counseling, Dietary needs education S moking/Tobacco Use Patient counseled on the dangers of tobacco use and urged to quit. 1 07/14/2023 Patient Lifestyle Goals P atient wants to quit Treatment Goals C ut down by 1 cigarette a week, Set a quit date Barriers S tress Self-Management Plan M marquis a plan to cut down number of cigarettes over time and set a date to work towards quitting * Follow Up: Wing concepcion (Reason: Follow up on chronic diarrhea) * Images: * Sign off status: Completed true * Provider: Zahraa Quezada MD Date: 07/14/2023 Generated for Mariposa reynolds/Aron/eTransmitting on: 08/04/2024 12:47 PM EST History and Physical Notes * HPI (History of Present Illness) Category Sub-Category Detail Notes Depression Screening PHQ-9 Little inte rest or pleasure in doing things: Not at all Feeling down, depressed, or hopeless: No t at all Trouble falling or staying asleep, or sl eeping too much: Not at all Feeling tired or having little energy: M ore than half the days Poor appetite or overeating: Not at all Feeling bad about yourself o r that you are a failure, or have let yourself or your family down: Not at all Trouble concentrating on thi ngs, such as reading the newspaper or watching television: Not at all Moving or speaking so slowly that other people could have noticed; or the opposite, being so fidgety or restless that you have been moving around a lot more than usual: Not at all Thoughts that you would be b liss off or of hurting yourself in some way: Not at all Total Score: 2 Interpretation: Minimal Depression Fall Risk Screening Fall History Have you had any falls with injury in the past year?: No Have you had two or more falls in the ?: No Fall Risk Assessment:: No falls in the year COVID-19 Screening Questions Have you had any new onset fever, chills, cough, congestion, sore throat, shortness of breath, muscle aches?: No Have you been exposed to the virus withi n the last 10 days?: No Have you travelled internationally in [facility] last 10 days?: No Have you been exposed to COVID-19 in the past?: Yes SDOH Questions SDOH Questions In the past year have you been worried about losing your housing?: No In the past year have you or any family members you live with been unable to get any of the following when it was really needed? Check all that apply:: Decline to answer Examination Category Sub-Category Detail Notes General Examination GENERAL APPEARANCE: pleasant , well nourished, well developed, in no acute distress, calm and relaxed, overweight, woman HEAD: atraumatic, normocep halic EYES: eomi, perrla, anicte aaron, conjugate EARS: normal NOSE: septum intact NECK/THYROID: no jugular venous di stention, no carotid bruit, thyroid normal HEART: no clicks, gallops, murmurs, or rubs, regular rhythm, S1, S2 normal, no s3, or vascular bruits LUNGS: , diminished breath sounds throughout, no wheezes, rales, rhonchi, good air movement ABDOMEN: bowel sounds normal, no ascites, no organomegaly, no mass NEUROLOGIC: alert and oriented, cranial nerves 2-12 grossly intact, deep tendon reflexes 2+ symmetrical, motor strength normal upper and lower extremities, sensory exam intact SKIN: no suspicious lesion s, anicteric PERIPHERAL PULSES: normal BREASTS: , no dimpling, no di scharge, no drainage, no masses palpable bilaterally, nontender, symmetrical MUSCULOSKELETAL: Diminished range of motion left shoulder and neck and lumbar spine, LYMPH NODES: no enlarged lymph no fanta,spleen normal RECTAL EXAM: not examined PSYCH: alert, oriented ORAL CAVITY: normal, unremarkable
--- OUTSIDE RECORDS SUMMARY | 2024-07-15 06:00 | XMS_ITS ---
Author Organization Campos Quezada III, MD Address [address] [place] [address] Care Team Providers Care Estate Planning Counselor Name Role Phone Dr. Campos Quezada III Primary Care Provider [phone] Campos Quezada III, MD Allergies Allergen (clinical drug ingredient) Drug/Non Drug Allergy documented on EMR Reaction Allergy Type Onset Date Status corticosteroid and/or corticosteroid derivative (FN) Corticosteroids Unknown Drug Allergy Active Voltaren stomach upset Drug Allergy Act angela REASON FOR VISIT Abnormal gastric emptying study, Gastric food retention, Chronic diarrhea, Gout, Attention deficit disorder, Hyperlipidemia, Hypothyroidism, Tobacco dependence, GERD Medications Medication SIG (Take, Route, Frequency, Duration) Notes Start Date End Date Status Benztropine Mesylate 0.5 MG Oral Active hydrOXYzine Pamoate 25 MG Oral Active Trelegy Ellipta 100-62.5-25 MCG/ACT Inhalation Active Amantadine HCl 100 MG 1 capsule Orally 3 times a day 03/05/2024 Active Vitamin D (Ergocalciferol) 1.25 MG (14672 UT) TAKE 1 CAPSULE BY MOUTH ONCE A MONTH Orally once a month Active Atorvastatin Calcium 40 MG TAKE 1 TABLET BY MOUTH EVERY DAY FOR 90 DAYS Orally Once a day Active Adderall XR 30 MG 1 capsule in the mor akilah Orally Once a day Active Abilify 5 MG 1 tablet Orally Once a day Active Zolpidem Tartrate 10 MG 1 tablet at bedt gustavo Orally Once a day Active Citalopram Hydrobromide 40 MG 1 tablet Orally Once a day Active Levothyroxine Sodium 75 MCG 1 tablet in the morning on an empty stomach Orally Once a day 04/18/2024 Active Diphenoxylate-Atropine 2.5-0.025 MG 1 tablet as needed Orally Four times a day if needed for diarrhea 03/26/2024 Active Social History Tobacco Use: Social History Observation Description Date Details (start date - stop date) Current Smoker NA - NA Sex Assigned At : Social History Observation Description Sex Assigned At Female Tobacco Control (Standard) Question Answer Notes Tobacco use: Current every day smoker Additional Findings: Tobacco user Light cigarett e smoker (1-9 cigs/day) Problems Problem Type SNOMED Code ICD Code Onset Dates Problem Status W/U Status Risk Notes Problem [id number] Gastroparesis (K31.84) Active confirmed Her gastric emptying study was abnormal. She has an appointment in the near future to review this with her gastroenterol ogist. I have discussed with her in general terms the disorder and various types of treatment utilized. 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 A reflex test was negative. She continues under the care of a first breaker feeder whohas done a colonoscopy in the near future.Because of the diarrhea is still unclear. An infectious and today he has not been found. She admits to 3 loose stools a day. This is controlled with Imodium. 07/15/2024 Gastroparesis (ICD-10 - K31.84) Her gastric emptying study was abnormal. She has an appointment in the near future to review this with her first breaker feeder. I have discussed with her in general terms the disorder and various types of treatment utilized. 07/15/2024 Mixed hyperlipidemia (ICD-10 - E78.2) The lipids are currently stable. No change in her medications was made. I recommended aggressive weight loss and healthy low animal fat diet. 07/15/2024 Acquired hypothyroidism (ICD-10 - E03.9) Her thyroid function tests are stable. She was continued on the current dose. 07/15/2024 Primary insomnia (ICD-10 - F51.01) We discussed sleep hygiene today. She will continue her current therapy and no additional medication was given. 07/15/2024 Former smoker (ICD-10 - Z87.891) We discussed a plan to prevent relapse in times of stress or illness. 07/15/2024 Idiopathic chronic gout 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 tophus (ICD-10 - M1A.0710) There is no pain today from gout in any location. She will be observed carefully for this problem and call me once if it recurs. 07/15/2024 Obesity (BMI 30.0-34.9) (ICD-10 - E66.9) She has gained 6 pounds in her body mass index is 26.. We made a plan to lose weight at a rate of 1/2 pound per week through a diet restricted in fat calories and ssodium combined with regular physical activity. 07/15/2024 Tobacco dependence (ICD-10 - F17.200) She smokes only 2 cigarettes a day. We discussed smoking cessationn in detail today. Plan Of Treatment Medication Medication Name Sig Start Date Stop Date Notes Benztropine Mesylate 0.5 MG Oral hydrOXYzine Pamoate 25 MG Oral Trelegy Ellipta 100-62.5-25 MCG/ACT Inhalation Amantadine HCl 100 MG 1 capsule Orally 3 times a day 03/05/2024 Vitamin D (Ergocalciferol) 1 .25 MG (93749 UT) TAKE 1 CAPSULE BY MOUTH ONCE A MONTH Orally once a month Atorvastatin Calcium 40 MG TAKE 1 TABLET BY MOUTH EVERY DAY FOR 90 DAYS Orally Once a day Adderall XR 30 MG 1 capsule in the mor akilah Orally Once a day Abilify 5 MG 1 tablet Orally Once a day Zolpidem Tartrate 10 MG 1 tablet at bedt gustavo Orally Once a day Citalopram Hydrobromide 40 MG 1 tablet Orally Once a day Levothyroxine Sodium 75 MCG 1 tablet in the morning on an empty stomach Orally Once a day 04/18/2024 Diphenoxylate-Atropine 2.5-0.025 MG 1 tablet as needed Orally Four times a day if needed for diarrhea 03/26/2024 Next Appt Details Follow Up: 6 Weeks, Reason: OV Provider Name:Campos Quezada , 08/12/2025 11:15:00 AM, [address] [place] [address] [address], [place], [address], Provider Name:Campos Quezada , 05/15/2026 11:00:00 AM, [address] [place] [address] [address], [place], [address], Progress Notes * Shweta RIBERASumayaOB:1955 (69 yo F)Acc No.[id number]:07/15/2024 Progress Notes Patient: Sally VASQUEZ Provider: Zahraa Quezada MD :1955 A ge:69 Y S ex:Female Date:07/15/2024 Address:[address] [place] [address] [id number] Subjective: * Chief Complaints: * A bnormal gastric emptying studyGastric food retentionChronic diarrheaGoutAttention deficit disorderHyperlipidemiaHypothyroidismTobacco dependenceGERD * HPI: C OVID-19 Screening: Questions H ave you had any new onset fever, chills, cough, congestion, sore throat, shortness of breath, muscle aches? N o * : The patient, a 69-year-old female, has been experiencing symptoms of gastric retention, including nausea and vomiting. She has also reported feeling contractions in her stomach, which she describes as 'annoying'. The patient underwent a gastric emptying system test, which revealed that her stomach is retaining more food than normal. The doctor noted that 42% of the food was retained at 4 hours, which is higher than the normal rate of 10%. The patient does not have any symptoms of cancer, and the doctor has ruled out mechanical obstruction as a cause of her symptoms. The patient is not diabetic, which is the most common cause of gastric retention. * ROS: G eneral/Constitutional: pain o nly normal aches and pains. C hills d enies.?Fatigue a dmits. F ever d enies. E NT: Decreased hearing d enies. R espiratory: Cough d enies. C ardiovascular: Chest pain with exertion d enies. D yspnea on exertion?denies. S hortness of breath d enies. G astrointestinal: Constipation d enies. D ecreased appetite d enies.?Diarrhea d enies. H eartburn d enies. A dmits N ausea, f requent. R ectal bleeding d enies. A dmits V omiting, d enies. H ematology: bruising d enies. [...] pain d enies. P sychiatric: Depressed mood w hich is mild. * Medical History: * Surgical History: H ysterectomy, Total with bilateral salpingo-oophorectomy, , dysfunctional uterine bleeding 1987P1-E1 and C6-C7 anterior disectomy and fusion by Dr. Michael Elliott 07/2004right hip arthroplasty 02/2012colonoscopy, [facility], tubular adenoma of sigmoid 2002colonoscopy, [facility], Dr. Hand, tubular adenoma at 30 cm 2006EGD, Dr. Hand, gastritis 2009colonoscopy, Dr. Hand, tubular adenomatous (3) 2014neck fusion 05/2018Neck Fusion [facility] nterior Cervical Discectomy Anterior Arthrodesis C3-4 [id number] knee replacement history * Hospitalization/Major Diagno stic Procedure: n maren fusion 05/2018No history * Family History: F ather: , Cancer, diagnosed with Cancer. M other: alive. She is an adopted child. Melanoma. * Social History: T obacco Use: T obacco Control (Standard) T obacco use: C urrent every day smoker A dditional Findings: Tobacco user L ight cigarette smoker (1-9 cigs/day) S he is on SSI disability. Her mental health's through Dr. [facility]achandran at [facility]. Smoking - The patient reported smoking about 3 cigarettes a day. * Medications: T akingLevothyroxine Sodium 75 MCG Tablet 1 tablet in the morning on an empty stomach Orally Once a day Diphenoxylate-Atropine 2.5-0.025 MG Tablet 1 tablet as [...] a day Vitamin D (Ergocalciferol) 1.25 MG (81738 UT) Capsule TAKE 1 CAPSULE BY MOUTH ONCE A MONTH Orally once a month Benztropine Mesylate 0.5 MG Tablet Oral hydrOXYzine Pamoate 25 MG Capsule Oral Trelegy Ellipta 100-62.5-25 MCG/ACT Aerosol Powder Breath Activated Inhalation Amantadine HCl 100 MG Capsule 1 capsule Orally 3 times a day Medication List reviewed and reconciled with the patientTaking Levothyroxine Sodium 75 MCG Tablet 1 tablet [...] day Taking Vitamin D (Ergocalciferol) 1.25 MG (79563 UT) Capsule TAKE 1 CAPSULE BY MOUTH ONCE A MONTH Orally once a month Taking Benztropine Mesylate 0.5 MG Tablet Oral Taking hydrOXYzine Pamoate 25 MG Capsule Oral Taking Trelegy Ellipta 100-62.5-25 MCG/ACT Aerosol Powder Breath Activated Inhalation Taking Amantadine HCl 100 MG Capsule 1 capsule Orally 3 times a day Medication List reviewed and reconciled with the patient * Allergies: V oltaren: stomach upset - Side EffectsCorticosteroidsno[Allergies Verified] Objective: * Vitals: H t: 72, Wt:197, BMI:26.72, BP:132/77, HR:74, Temp:97.0, Wt-k.36. * Examination: G eneral Examination: GENERAL APPEARANCE: [...] normal, no s3, or vascular bruits. LUNGS: c lear to auscultation . BREASTS: N ot examined. ABDOMEN: b owel sounds normal, no ascites, no organomegaly, no mass, centripital obesity, Mild tenderness to palpation of the epigastrium. RECTAL EXAM: n ot examined. MUSCULOSKELETAL: e xtremities unremarkable, no clubbing, cyanosis or edema. PERIPHERAL PULSES: n ormal. NEUROLOGIC: a lert and oriented, cranial nerves 2-12 grossly intact, deep tendon reflexes 2+ symmetrical, motor strength normal upper and lower extremities, sensory exam intact. PSYCH: a lert, oriented, mood depressed. ? Assessment: * Assessment: 1. G astroparesis - K31.84 (Primary) N otes :Her gastric emptying study was abnormal. She has an appointment in the near future to review this with her first breaker feeder. I have discussed with her in general terms the disorder and various types of treatment utilized. 2 . C hronic diarrhea of unknown origin - K52.9 N otes :Her gliaden T body level was 15. A reflex test was negative. She continues under the care of a first breaker feeder whohas done a colonoscopy in the near future.Because of the diarrhea is still unclear. An infectious and today he has not been found. She admits to 3 loose stools a day. This is controlled with Imodium. 3 . M ixed hyperlipidemia - E78.2 N otes :The lipids are currently stable. No change in her medications was made. I recommended aggressive weight loss and healthy low animal fat diet. 4 . A cquired hypothyroidism - E03.9 N otes :Her thyroid function tests are stable. She was continued on the current dose. 5 . P rimary insomnia - F51.01 N otes :We discussed sleep hygiene today. She will continue her current therapy and no additional medication was given. 6 . F ormer smoker - Z87.891 N otes :We discussed a plan to prevent relapse in times of stress or illness. 7 . I diopathic chronic gout 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 tophus - M1A.0710 ? N otes :There is no pain today from gout in any location. She will be observed carefully for this problem and call me once if it recurs. 8 . O besity (BMI 30.0-34.9) - E66.9 N otes :She has gained 6 pounds in her body mass index is 26.. We made a plan to lose weight at a rate of 1/2 pound per week through a diet restricted in fat calories and ssodium combined with regular physical activity. 9 . T obacco dependence - F17.200 N otes :She smokes only 2 cigarettes a day. We discussed smoking cessationn in detail today. Plan: * Treatment: 2. O thers Continue [...] ontinue Vitamin D (Ergocalciferol) Capsule, 1.25 MG (80213 UT), TAKE 1 CAPSULE BY MOUTH ONCE A MONTH, Orally, once a month; C ontinue Benztropine Mesylate Tablet, 0.5 MG, Oral; C ontinue hydrOXYzine Pamoate Capsule, 25 MG, Oral; C ontinue Trelegy Ellipta Aerosol Powder Breath Activated, 100-62.5-25 MCG/ACT, Inhalation. * Procedure Codes: * Preventive Medicine: Counseling: C are goal follow-up plan: Counseling for abnormal BMI given Y es Above Normal BMI Follow-up D ietary management education, guidance, and counseling, Dietary needs education S moking/Tobacco Use Patient counseled on the dangers of tobacco use and urged to quit. 0 07/15/2024 Patient Lifestyle Goals P atient wants to quit Treatment Goals C ut down by 1 cigarette a week, Set a quit date Barriers S ocial smoker, Stress Self-Management Plan M marquis a plan to cut down number of cigarettes over time and set a date to work towards quitting * Follow Up: 6 Weeks (Reason: OV) * Images: * Sign off status: Completed true * Provider: Zahraa Quezada MD Date: 0 07/15/2024 Generated for Mariposa reynolds/Aron/eTransmitting on: 1 08/04/2024 12:47 PM EST History and Physical Notes * HPI (History of Present Illness) Category Sub-Category Detail Notes COVID-19 Screening Questions Have you had any new onset fever, chills, cough, congestion, sore throat, shortness of breath, muscle aches?: No Examination Category Sub-Category Detail Notes General Examination [...] normal, no s3, or vascular bruits LUNGS: clear to auscultatio n ABDOMEN: bowel sounds normal, no ascites, no organomegaly, no mass, centripital obesity, Mild tenderness to palpation of the epigastrium NEUROLOGIC: alert and oriented, cranial nerves 2-12 grossly intact, deep tendon reflexes 2+ symmetrical, motor strength normal upper and lower extremities, sensory exam intact SKIN: no suspicious lesion s, anicteric PERIPHERAL PULSES: normal BREASTS: Not examined MUSCULOSKELETAL: extremities unremark able, no clubbing, cyanosis or edema LYMPH NODES: no enlarged lymph no fanta,spleen normal RECTAL EXAM: not examined PSYCH: alert, oriented, moo d depressed ORAL CAVITY: normal, unremarkable
--- OUTSIDE RECORDS SUMMARY | 2024-07-26 09:27 | XMS_ITS ---
Author Organization Campos Quezada III, MD Address [address] [place] [address] Care Team Providers Care Clockmaker Apprentice Name Role Phone Dr. Campos Quezada III Primary Care Provider [phone] Pilar LUCERO MD, Campos [facility] REASON FOR VISIT Message Social History Sex Assigned At : Social History Observation Description Sex Assigned At Female Encounters Encounter Location Date Provider Diagnosis Campos Quezada III, MD [address] [place] [address] [place] [address] 07/26/2024 Campos Quezada Plan Of Treatment Next Appt Details Provider Name:Campos Quezada , 08/12/2025 11:15:00 AM, [address] [place] [address] [place], [address], Provider Name:Campos Quezada , 05/15/2026 11:00:00 AM, [address] [place] [address] [place], [address], Progress Notes * [place] RIBERAOB:1955 (69 yo F)Acc No.[id number]:07/26/2024 Patient: Sondra LOPEZ Sally :1955 A ge:69 Y S ex:Female Address:[address] [place], [address] * true * Date: Generated for Printi ng/Fajovanyg/eTransmitting on: 1 08/04/2024 12:45 PM EST
--- OUTSIDE RECORDS SUMMARY | 2024-07-26 11:21 | XMS_ITS ---
Author Organization Campos Quezada III, MD Address [address] [place] [address] Care Team Providers Care Net Developer Consultant Name Role Phone Dr. Campos Quezada III Primary Care Provider [phone] Pilar LUCERO MD, Campos [facility] Medications Medication SIG (Take, Route, Frequency, Duration) Notes Start Date End Date Status diazePAM 5 MG 1 tablet Orally twice a day for 7 days 07/26/2024 Active Social History Sex Assigned At : Social History Observation Description Sex Assigned At Female Encounters Encounter Location Date Provider Diagnosis Campos Quezada III, MD [address] [place] [address] [place] [address] 07/26/2024 Campos Quezada Plan Of Treatment Medication Medication Name Sig Start Date Stop Date Notes diazePAM 5 MG 1 tablet Orally twice a day for 7 days 07/26 Next Appt Details Provider Name:Campos Quezada , 08/12/2025 11:15:00 AM, [address] [place] [address] [place], [address], Provider Name:Campos Quezada , 05/15/2026 11:00:00 AM, [address] [place] [address] [place], [address], Progress Notes * [place] RIBERAOB:1955 (69 yo F)Acc No.[id number]:07/26/2024 Patient: Sally VASQUEZ :1955 A ge:69 Y S ex:Female Address:[address] [place] [address] [place], [address] * Refills Start diazePAM Tablet, 5 MG, Orally, 14 Tablet, 1 tablet, twice a day, 7 days, Refills=0 * true * Date: Generated for Mariposa reynolds/Aron/Ismaelitting on: 08/04/2024 12:46 PM EST
--- OUTSIDE RECORDS SUMMARY | 2024-08-29 04:45 | XMS_ITS ---
Author Organization Campos Quezada III, MD Address [address] [place] [address] Care Team Providers Care Manager Garage Name Role Phone Dr. Campos Quezada III Primary Care Provider Campos Quezada III, MD Allergies Allergen (clinical [...] Oral Active Vitamin D (Ergocalciferol) 1.25 MG (84834 UT) TAKE 1 CAPSULE BY MOUTH ONCE [...] Provider Diagnosis Campos Quezada III, MD [address] [place] [address] [place] [address] 08/29/2024 Campos Quezada Idiopathic chronic g out [...] She continues under the care of a folding machine setter whohas done a colonoscopy in the near [...] Oral Vitamin D (Ergocalciferol) 1 .25 MG (53108 UT) TAKE 1 CAPSULE BY MOUTH ONCE [...] Reason: o v Provider Name:Campos Quezada , 08/12/2025 11:15:00 AM, [address] [place] [address] [address], [place], [address], Provider Name:Campos Quezada , 05/15/2026 11:00:00 AM, [address] [place] [address] [address], [place], [address], Progress Notes * [place] RIBER[place]OB:1955 (69 yo F)Acc No.[id number]:08/29/2024 Patient: Sally VASQUEZ Provider: Zahraa Quezada MD :1955 A ge:69 Y S ex:Female Date:08/29/2024 Address: [address], [place], [place] Subjective: * Chief Complaints: * U RI [...] of provider rendering services: { ...} [address] [facility] [address] L ocation of patient: chano marley listed in demographics for today's visit P atient identification confirmed using: LUIS ENRIQUE Pearson ame elehealth method: T elephone only. Patient not [...] with bilateral salpingo-oophorectomy, , dysfunctional uterine bleeding [id number] and C6-C7 anterior disectomy and fusion by Dr. Michael Elliott 07/2004right hip arthroplasty 02/2012colonoscopy, [facility], tubular adenoma of sigmoid 2002colonoscopy, [facility], Dr. Hand, tubular adenoma at 30 cm 2006EGD, Dr. Hand, gastritis 2009colonoscopy, Dr. Hand, tubular adenomatous (3) 2014neck fusion 05/2018Neck Fusion [facility] nterior Cervical Discectomy Anterior Arthrodesis C3-4 [id number] knee replacement 2023-02No history * Hospitalization/Major Diagno [...] a day Vitamin D (Ergocalciferol) 1.25 MG (05040 UT) Capsule TAKE 1 CAPSULE BY MOUTH [...] day Taking Vitamin D (Ergocalciferol) 1.25 MG (05845 UT) Capsule TAKE 1 CAPSULE BY MOUTH [...] She continues under the care of a folding machine setter whohas done a colonoscopy in the near [...] ontinue Vitamin D (Ergocalciferol) Capsule, 1.25 MG (94951 UT), TAKE 1 CAPSULE BY MOUTH ONCE [...] MD Date: 0 08/29/2024 Generated for Mariposa reynolds/Aron/Sofia on: 1 08/04/2024 12:45 PM EST History and Physical Notes * HPI (History of Present Illness) Category Sub-Category Detail Notes Telehealth Location of [facility] rendering services:: {...} [address] [place] [address] Location of patient:: address listed in demographics [...]
--- OUTSIDE RECORDS SUMMARY | 2024-09-05 05:00 | XMS_ITS ---
Author Organization [facility] Address [address] [place] [address] Care Team Providers Care Correspondence Section Supervisor Name Role Phone Pilar MCDERMOTT, Campos Primary Care Provider UnavailCampos [facility] [phone] REASON FOR VISIT Patient presents today for abnormal celiac labs, diarrhea Encounters Encounter Location Date Provider Diagnosis [facility] [address] [place] [address] [address] 09/05/2024 Campos Hand Plan Of Treatment No Information Progress Notes * LESTER RIBERAEDOB:1955 (69 yo F)Acc No.[id number]:09/05/2024 Progress Notes Patient: BROOKE VASQUEZ Provider: Zahraa Hand MD :1955 A ge:69 Y S ex:Female Date:09/05/2024 Address: [id number] Pcp:Campos Quezada MD Subjective: * Chief Complaints: * P atient presents today for abnormal celiac labs, diarrhea Billing Information: * Procedure Codes: * The named appointment provid er may or may not be the originator of this progress note, and it is not deemed complete until electronically signed by the appointment provider. Sign off status: Pending * Provider: Zahraa Hand MD Date: 0 09/05/2024 Generated for Falgunii ng/Loveg/eTransmitting on: 1 08/04/2024 12:47 PM EST
--- OUTSIDE RECORDS SUMMARY | 2024-09-13 04:04 | XMS_ITS ---
Author Organization Campos Quezada III, MD Address [address] [place] [address] Care Team Providers Care Electrician'S Helper Name Role Phone Dr. Campos Quezada III Primary Care Provider Pilar LUCERO MD, Campos Quezada Reason For Referral Reason Consult and Treat Second Opinion Diagnosis 1 Gastroparesis (K31.8 4) Diagnosis 2 Chronic diarrhea of unknown origin (K52.9) Diagnosis 3 GERD without esophag itis (K21.9) Referral Organization Campos Quezada III, MD Referring Provider First Name Campos Referring Provider Last Name Pilar Referring Provider Speciality Internal M edicine Referred Provider [facility], Gastro enterology Referred Provider Specialty Gastroentero logy General Notes D, Almaz 10/10/2024 03:58:02 PM > referral was faxed on 09/13/24 Referral Priority Routine Referral Appointment Date 01/08/2025 REASON FOR VISIT Referral Social History Sex Assigned At : Social History Observation Description Sex Assigned At Female Encounters Encounter Location Date Provider Diagnosis Campos Quezada III, MD [address] [place] [address] [place] [address] 09/13/2024 Campos Quezada Plan Of Treatment Referrals Referral Date Details 09/13/2024 09/13/2024, Consult and Treat Second Opinion, Gastroenterology [facility] Next Appt Details Provider Name:Campos Quezada , 08/12/2025 11:15:00 AM, [address] [place] [address] [place], [address], Provider Name:Campos Quezada , 05/15/2026 11:00:00 AM, [address] [place] [address] [place], [address], Progress Notes * Anum RIBERACasperOB:1955 (69 yo F)Acc No.[id number]:09/13/2024 Patient: Sally VASQUEZ :1955 A ge:69 Y S ex:Female Address: [place], [address] Subjective: * Chief Complaints: * R eferral * Medical History: * Surgical History: * Hospitalization/Major Diagno stic Procedure: * Medications: Objective: * Vitals: * Physical Examination: Assessment: Plan: * Treatment: * Procedure Codes: * true * Date: Generated for Falgunii gail/Aron/eTransmitting on: 08/04/2024 12:46 PM EST Consultation Request Notes Referral Date Referring Provider Referred Provider Not es 09/13/2024 [facility], Gastroenterol [facility]gy Consult and Treat Second Opinion
--- OUTSIDE RECORDS SUMMARY | 2025-02-24 09:00 | XMS_ITS ---
Author Organization Campos Quezada III, MD Address [address] [place] [address] Care Team Providers Care Floorworker Lasting Name Role Phone Dr. Campos Quezada III Primary Care Provider [phone] Pilar LUCERO MD, Campos Quezada Allergies Allergen (clinical drug ingredient) Drug/Non Drug Allergy documented on EMR Reaction Allergy Type Onset Date Status Voltaren stomach upset Drug Allergy Act angela Results Component Value Reference Range Notes Uric Acid Reviewed date:03/07/2025 10:21:33 AM Interpretation: Performing Lab:[address] [id number] Notes/Report: Uric Acid 5.2 2.4-5.7 mg/dL Lipid Panel Reviewed date:03/07/2025 10:21:33 AM Interpretation: Performing Lab:[address] [address] Notes/Report: Triglycerides 117 <150 mg/dL Desirable Triglyceride: less than 150 mg/dL Borderline High Triglyceride 150-199 mg/dL High Triglyceride: 200-499 mg/dL Very High Triglyceride: greater than or equal to 5OO mg/dL Cholesterol 184 <200 mg/dL Desirable Cholesterol: less than 200 mg/dL Borderline High Cholesterol: 200-239 mg/dL High Cholesterol: greater than 239 mg/dL LDL Cholesterol Calculated 109 <100 mg/dL Desirable LDL: less than 100 mg/dL Near Optimal/Above Optimal LDL: 110-129 mg/dL Borderline High LDL: 130-159 mg/dL High LDL: 160-189 mg/dL Very High LDL: greater than or equal to 190 mg/dL HDL Cholesterol 52 >40 mg/dL Desirable HDL: greater than 40 mg/dL Note: This HDL assay may give artificially low results in patients with liver disease. Vitamin D 25-OH Total Reviewed date:03/07/2025 10:21:33 AM Interpretation: Performing Lab:[address] [address] Notes/Report: Vitamin D 25-OH Total 28.1 >30 ng/mL Health Based Reference Values* < 20 ng/mL Deficient 20-30 ng/mL Insufficient > 30 ng/mL Sufficient *Rusty WHITEHEAD. N Engl J Med. 2007;357:266-280 There is no well-established upper level of normal vitamin D levels. Some laboratories use 50 ng/mL as an upper limit of normal. However, toxicity is patient-dependent and may occur at any level. Careful correlation with the patient's presentation is necessary and, if there is concern for vitamin D toxicity, treatment should be considered irrespective of the serum level. Care must be taken in interpreting Vitamin D results from different laboratories and methodologies. Published data demonstrated that results from patients undergoing hemodialysis may show a negative bias when tested with various automated 25-OH vitamin D assays when compared to LC-MS/MS. When testing samples from patients whose predominant form of Vitamin D is Vitamin D2, such as patients receiving Vitamin D2 supplementation, results that are subtherapeutic should be confirmed with another method such as LC-MS/MS. Free T4 (Free Thyroxine) Reviewed date:03/07/2025 10:21:33 AM Interpretation: Performing Lab:[address] [id number] Notes/Report: Free T4 (Free Thyroxine) 0.98 0.71-1.85 ng/dL Urine Culture Reviewed date:03/07/2025 10:21:33 AM Interpretation: Performing Lab:[address] [id number] Notes/Report: Urine Culture Report Result Urine Culture < 10,000 cfu/ml REASON FOR VISIT STD testing, Attention deficit disorder, Left rotator cuff tear, Hyperlipidemia, Hypothyroid, Insomnia, Tremor Medications Medication SIG (Take, Route, Frequency, Duration) Notes Start Date End Date Status diazePAM 5 MG 1 tablet Orally twic e a day 07/26/2024 Active Adderall XR 30 MG 1 capsule in the mor akilah Orally Once a day Active Abilify 5 MG 1 tablet Orally Once a day Active Levothyroxine Sodium 75 MCG 1 tablet in the morning on an empty stomach Orally Once a day 04/18/2024 Active Diphenoxylate-Atropine 2.5-0.025 MG 1 tablet as needed Orally Four times a day if needed for diarrhea 03/26/2024 Active Atorvastatin Calcium 40 MG TAKE 1 TABLET BY MOUTH EVERY DAY Active Amantadine HCl 100 MG 1 capsule Orally 3 times a day 03/05/2024 Active Azithromycin 250 MG like directed Orally 2 Tablets on the first day, one tablet the rest of the days 08/29/2024 Active Vitamin D (Ergocalciferol) 1.25 MG (44770 UT) TAKE 1 CAPSULE BY MOUTH 1 TIME A MONTH Active Trelegy Ellipta 100-62.5-25 MCG/ACT Inhalation Active Citalopram Hydrobromide 40 MG 1 tablet Orally Once a day Active Benztropine Mesylate 0.5 MG Oral Active Zolpidem Tartrate 10 MG 1 tablet at bedt gustavo Orally Once a day Active hydrOXYzine Pamoate 25 MG Oral Active Social History Tobacco Use: Social History [...] Problem Status W/U Status Risk Notes Problem Urinary tract infectious disease (75073427) UTI symptoms (R39.9) Active confirmed We have ordered a urine analysis and urine cullture. She could not produced urine today but will do so tomorrow in the laboratory. Problem Exposure to sexually transmissible disorder (393625650) Exposure to STD (Z20.2) Active confirmed The exposure was possible. Evaluation is negative. The patient is reduce symptoms and will be observed. 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 A reflex test was negative. She continues under the care of a site leasing agent whohas done a colonoscopy in the near future.Because of the diarrhea is still unclear. An infectious and today he has not been found. She admits to 3 loose stools a day. This is controlled with Imodium. 02/24/2025 Exposure to STD (ICD-10 - Z20.2) Blood and urine studies were done today. There was no evidence of a transmitted disease on today's examination. 02/24/2025 Idiopathic chronic gout 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 tophus (ICD-10 - M1A.0710) No attacks of gout have been reported since her last visit. 02/24/2025 Mixed hyperlipidemia (ICD-10 - E78.2) Comprehensive blood work. The fasting lipids have been ordered. No change in her regimen was made. 02/24/2025 Acquired hypothyroidism (ICD-10 - E03.9) He says she is compliant with her medication. Comprehensive blood work with thyroid function tests have been ordered. 02/24/2025 UTI symptoms (ICD-10 - R39.9) We have ordered a urine analysis and urine cullture. She could not produced urine today but will do so tomorrow in the laboratory. 02/24/2025 Tobacco dependence (ICD-10 - F17.200) She smokes only 2 cigarettes a day. We discussed smoking cessationn in detail today. Plan Of Treatment Medication Medication Name Sig Start Date Stop Date Notes diazePAM 5 MG 1 tablet Orally twice a day 07/26/2024 Adderall XR 30 MG 1 capsule in the mor akilah Orally Once a day Abilify 5 MG 1 tablet Orally Once a day Levothyroxine Sodium 75 MCG 1 tablet in the morning on an empty stomach Orally Once a day 04/18/2024 Diphenoxylate-Atropine 2.5-0.025 MG 1 tablet as needed Orally Four times a day if needed for diarrhea 03/26/2024 Atorvastatin Calcium 40 MG TAKE 1 TABLET BY MOUTH EVERY DAY Amantadine HCl 100 MG 1 capsule Orally 3 times a day 03/05/2024 Azithromycin 250 MG like directed Orally 2 Tablets on the first day, one tablet the rest of the days 08/29/2024 Vitamin D (Ergocalciferol) 1 .25 MG (48154 UT) TAKE 1 CAPSULE BY MOUTH 1 TIME A MONTH Trelegy Ellipta 100-62.5-25 MCG/ACT Inhalation Citalopram Hydrobromide 40 MG 1 tablet Orally Once a day Benztropine Mesylate 0.5 MG Oral Zolpidem Tartrate 10 MG 1 tablet at bedt gustavo Orally Once a day hydrOXYzine Pamoate 25 MG Oral Pending Test Test Name Order Date PROFILE, FASTING (COMPREHENSIVE METABOLI C) 02/24/2025 TSH (THYROID STIMULATING HORMONE) 2024 CBC w DIFF 02/24/2025 HIV AG/AB 02/24/2025 RPR CARD TEST 02/24/2025 URINALYSIS (UA) 02/24/2025 Next Appt Details Follow Up: 1 Week, Reason: t [facility] Provider Name:Campos Quezada , 08/12/2025 11:15:00 AM, [address] [place] [address] [address], [place], [address], Provider Name:Campos Quezada , 05/15/2026 11:00:00 AM, [address] [place] [address] [address], [place], [address], Progress Notes * [place] RIBERAOB:1955 (69 yo F)Acc No.[id number]:02/24/2025 Progress Notes Patient: Sondra Sally LOPEZ Provider: Zahraa Quezada MD :1955 A ge:69 Y S ex:Female Date:02/24/2025 Address:[id number] Subjective: * Chief Complaints: * S TD testingAttention deficit disorderLeft rotator cuff tearHyperlipidemiaHypothyroidInsomniaTremor * HPI: C OVID-19 Screening: She returns to the office requesting comprehensive bblood work and STD testing. Appaarently she is going to divorce her for InFeD elevated. She found out about this recently. S he has been having some bladder symptoms. She has noted leaking and dysuria. Her GI symptoms are being evaluated in [place] and a colonoscopy is scheduled for April 03, 2025. She says it takes her 3 times sitting down on the toilet and her bladder fully. She has had a hysteerectomy years ago and has not noticed any bleeding.Blood work including RPR and HIV as well as testing for Chlamydia and gonorrhea were ordered. A urine culture and urine SPECIAL EDUCATION SUPERINTENDENT will be done. Questions H ave you had any new onset fever, chills, cough, congestion, sore throat, shortness of breath, muscle aches? N o * ROS: G eneral/Constitutional: pain D ysuria, otherwise only normal aches and pains. C hills d enies. F atigue a dmits. F ever d enies. E NT: Decreased hearing d enies. R espiratory: Cough d enies. C ardiovascular: Chest pain with exertion d enies. D yspnea on exertion?denies. S hortness of breath d enies. G astrointestinal: Constipation o ccasional. D ecreased appetite d enies. D iarrhea t hat is frequent. H e[place] o ccasional. N ausea d enies.?Rectal bleeding d enies. V omiting d enies. H ematology: bruising d enies. p etechiae d enies. S wollen glands n one have been noted. G enitourinary: Frequent urination d enies. M usculoskeletal: Muscle aches d enies. P [...] with bilateral salpingo-oophorectomy, , dysfunctional uterine bleeding 6817H6-T6 and C6-C7 anterior disectomy and fusion by Dr. Michael Elliott 07/2004right hip arthroplasty 02/2012colonoscopy, [facility], tubular adenoma of sigmoid 2002colonoscopy, [facility], Dr. Hand, tubular adenoma at 30 cm 2006EGD, Dr. Hand, gastritis 2009colonoscopy, Dr. Hand, tubular adenomatous (3) 2014ne fusion 05/2018Ne Fusion [facility] nterior Cervical Discectomy Anterior Arthrodesis C3-4 [id number] knee replacement 2023-02No history * Hospitalization/Major Diagno [...] Her mental health's through Dr. Ramachandran at [facility]. Smoking - The patient reported smoking about 3 cigarettes a day.Will. * Medications: T akingAtorvastatin Calcium 40 MG Tablet TAKE 1 TABLET BY MOUTH EVERY DAY diazePAM 5 MG Tablet 1 tablet Orally twice a day Levothyroxine Sodium 75 MCG Tablet [...] Tablet 1 tablet Orally Once a day Benztropine Mesylate 0.5 MG Tablet Oral hydrOXYzine Pamoate 25 MG Capsule Oral Trelegy Ellipta 100-62.5-25 MCG/ACT Aerosol Powder Breath Activated Inhalation Amantadine HCl 100 MG Capsule 1 capsule Orally 3 times a day Azithromycin 250 MG Tablet like directed Orally 2 Tablets on the first day, one tablet the rest of the days Vitamin D (Ergocalciferol) 1.25 MG (79509 UT) Capsule TAKE 1 CAPSULE BY MOUTH 1 TIME A MONTH Medication List reviewed and reconciled with the patientTaking Atorvastatin Calcium 40 MG Tablet TAKE 1 TABLET BY MOUTH EVERY DAY Taking diazePAM 5 MG Tablet 1 tablet Orally twice a day Taking Levothyroxine Sodium 75 MCG [...] 1 tablet Orally Once a day Taking Benztropine Mesylate 0.5 MG Tablet Oral Taking hydrOXYzine Pamoate 25 MG Capsule Oral Taking Trelegy Ellipta 100-62.5-25 MCG/ACT Aerosol Powder Breath Activated Inhalation Taking Amantadine HCl 100 MG Capsule 1 capsule Orally 3 times a day Taking Azithromycin 250 MG Tablet like directed Orally 2 Tablets on the first day, one tablet the rest of the days Taking Vitamin D (Ergocalciferol) 1.25 MG (98355 UT) Capsule TAKE 1 CAPSULE BY MOUTH 1 TIME A MONTH Medication List reviewed and reconciled with the patient * Allergies: V oltaren: stomach upset - Side Effectsno[Allergies Verified] Objective: * Vitals: H t: 72, Wt:195, BMI:26.44, BP:136/78, HR:88, Temp:96.8, Wt-k.45. * Examination: G eneral Examination: GENERAL APPEARANCE: p leasant, well nourished, well developed, in no acute distress, calm and relaxed: overweight: woman. HEAD: a traumatic, normocephalic. EYES: e [...] sounds normal, no ascites, no organomegaly, no mass: overweight. RECTAL EXAM: n ot examined. MUSCULOSKELETAL: e xtremities unremarkable, no clubbing, cyanosis or edema. PERIPHERAL PULSES: n ormal. NEUROLOGIC: a lert and oriented, cranial nerves 2-12 grossly intact, deep tendon reflexes 2+ symmetrical, motor strength normal upper and lower extremities, sensory exam intact. PSYCH: a lert, oriented. Assessment: * Assessment: 1. E xposure to STD - Z20.2 (Primary) N otes :Blood and urine studies were done today. There was no evidence of a transmitted disease on today's examination. 2 . C hronic diarrhea of unknown origin - K52.9 N otes :Her gliaden T body level was 15. A reflex test was negative. She continues under the care of a site leasing agent whohas done a colonoscopy in the near future.Because of the diarrhea is still unclear. An infectious and today he has not been found. She admits to 3 loose stools a day. This is controlled with Imodium. 3 . I diopathic chronic gout 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 tophus - M1A.0710 ? N otes :No attacks of gout have been reported since her last visit. 4 . M ixed hyperlipidemia - E78.2 N otes :Comprehensive blood work. The fasting lipids have been ordered. No change in her regimen was made. 5 . A cquired hypothyroidism - E03.9 N otes :He says she is compliant with her medication. Comprehensive blood work with thyroid function tests have been ordered. 6 . U TI symptoms - R39.9 N otes :We have ordered a urine analysis and urine cullture. She could not produced urine today but will do so tomorrow in the laboratory. 7 . T obacco dependence - F17.200 N otes :She smokes only 2 cigarettes a day. We discussed smoking cessationn in detail today. Plan: * Treatment: Value Reference Range U aaron Acid 5.2 2.4-5.7 - mg/dL ?LAB: Lipid Panel (Collection Date & Time - 02/25/2025 06:59 AM)* Value Reference Range T riglycerides 117 <150 - mg/dL * C holesterol 184 <200 - mg/dL * L DL Cholesterol Calculated 109 H <100 - mg/dL * H DL Cholesterol 52 >40 - mg/dL ?LAB: Vitamin D 25-OH Total (Collection Date & Time - 02/25/2025 06:59 AM)* Value Reference Range V itamin D 25-OH Total 28.1 L >30 - ng/mL ?LAB: Free T4 (Free Thyroxine) (Collection Date & Time - 02/25/2025 06:59 AM)* Value Reference Range F ree T4 (Free Thyroxine) 0.98 0.71-1.85 - ng/d L ?LAB: Urine Culture2.?Chronic diarrhea of unknown origin? Continue Amantadine HCl Capsule, 100 MG, 1 capsule, Orally, 3 times a day;?Continue Azithromycin Tablet, 250 MG, like directed, Orally, 2 Tablets on the first day, one tablet the rest of the days.??3.?Idiopathic chronic gout 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 tophus?LAB: PROFILE, FASTING (COMPREHENSIVE METABOLIC) ?LAB: TSH (THYROID STIMULATING HORMONE) ?LAB: CBC w DIFF ?LAB: HIV AG/AB ?LAB: RPR CARD TEST ?LAB: URINALYSIS (UA) ?LAB: Uric Acid (Collection Date & Time - 02/25/2025 06:59 AM)* Value Reference Range U aaron Acid 5.2 2.4-5.7 - mg/dL ?LAB: Lipid Panel (Collection Date & Time - 02/25/2025 06:59 AM)* Value Reference Range T riglycerides 117 <150 - mg/dL * C holesterol 184 <200 - mg/dL * L DL Cholesterol Calculated 109 H <100 - mg/dL * H DL Cholesterol 52 >40 - mg/dL ?LAB: Vitamin D 25-OH Total (Collection Date & Time - 02/25/2025 06:59 AM)* Value Reference Range V itamin D 25-OH Total 28.1 L >30 - ng/mL ?LAB: Free T4 (Free Thyroxine) (Collection Date & Time - 02/25/2025 06:59 AM)* Value Reference Range F ree T4 (Free Thyroxine) 0.98 0.71-1.85 - ng/d L ?LAB: Urine Culture4.?Mixed hyperlipidemia?LAB: PROFILE, FASTING (COMPREHENSIVE METABOLIC) ?LAB: TSH (THYROID STIMULATING HORMONE) ?LAB: CBC w DIFF ?LAB: HIV AG/AB ?LAB: RPR CARD TEST ?LAB: URINALYSIS (UA) ?LAB: Uric Acid (Collection Date & Time - 02/25/2025 06:59 AM)* Value Reference Range U aaron Acid 5.2 2.4-5.7 - mg/dL ?LAB: Lipid Panel (Collection Date & Time - 02/25/2025 06:59 AM)* Value Reference Range T riglycerides 117 <150 - mg/dL * C holesterol 184 <200 - mg/dL * L DL Cholesterol Calculated 109 H <100 - mg/dL * H DL Cholesterol 52 >40 - mg/dL ?LAB: Vitamin D 25-OH Total (Collection Date & Time - 02/25/2025 06:59 AM)* Value Reference Range V itamin D 25-OH Total 28.1 L >30 - ng/mL ?LAB: Free T4 (Free Thyroxine) (Collection Date & Time - 02/25/2025 06:59 AM)* Value Reference Range F ree T4 (Free Thyroxine) 0.98 0.71-1.85 - ng/d L ?LAB: Urine Culture5.?Acquired hypothyroidism?LAB: PROFILE, FASTING (COMPREHENSIVE METABOLIC) ?LAB: TSH (THYROID STIMULATING HORMONE) ?LAB: CBC w DIFF ?LAB: HIV AG/AB ?LAB: RPR CARD TEST ?LAB: URINALYSIS (UA) ?LAB: Uric Acid (Collection Date & Time - 02/25/2025 06:59 AM)* Value Reference Range U aaron Acid 5.2 2.4-5.7 - mg/dL ?LAB: Lipid Panel (Collection Date & Time - 02/25/2025 06:59 AM)* Value Reference Range T riglycerides 117 <150 - mg/dL * C holesterol 184 <200 - mg/dL * L DL Cholesterol Calculated 109 H <100 - mg/dL * H DL Cholesterol 52 >40 - mg/dL ?LAB: Vitamin D 25-OH Total (Collection Date & Time - 02/25/2025 06:59 AM)* Value Reference Range V itamin D 25-OH Total 28.1 L >30 - ng/mL ?LAB: Free T4 (Free Thyroxine) (Collection Date & Time - 02/25/2025 06:59 AM)* Value Reference Range F ree T4 (Free Thyroxine) 0.98 0.71-1.85 - ng/d L ?LAB: Urine Culture6.?UTI symptoms?LAB: PROFILE, FASTING (COMPREHENSIVE METABOLIC) ?LAB: TSH (THYROID STIMULATING HORMONE) ?LAB: CBC w DIFF ?LAB: HIV AG/AB ?LAB: RPR CARD TEST ?LAB: URINALYSIS (UA) ?LAB: Uric Acid (Collection Date & Time - 02/25/2025 06:59 AM)* Value Reference Range U aaron Acid 5.2 2.4-5.7 - mg/dL ?LAB: Lipid Panel (Collection Date & Time - 02/25/2025 06:59 AM)* Value Reference Range T riglycerides 117 <150 - mg/dL * C holesterol 184 <200 - mg/dL * L DL Cholesterol Calculated 109 H <100 - mg/dL * H DL Cholesterol 52 >40 - mg/dL ?LAB: Vitamin D 25-OH Total (Collection Date & Time - 02/25/2025 06:59 AM)* Value Reference Range V itamin D 25-OH Total 28.1 L >30 - ng/mL ?LAB: Free T4 (Free Thyroxine) (Collection Date & Time - 02/25/2025 06:59 AM)* Value Reference Range F ree T4 (Free Thyroxine) 0.98 0.71-1.85 - ng/d L ?LAB: Urine Culture7.?Others? Continue Vitamin D (Ergocalciferol) Capsule, 1.25 MG (04287 UT), TAKE 1 CAPSULE BY MOUTH 1 TIME A MONTH;?Continue Atorvastatin Calcium Tablet, 40 MG, TAKE 1 TABLET BY MOUTH EVERY DAY;?Continue diazePAM Tablet, 5 MG, 1 tablet, Orally, twice a day;?Continue Levothyroxine Sodium Tablet,75 MCG, 1 tablet in the morning on an empty stomach, Orally, Once a day;?Continue Diphenoxylate-Atropine Tablet, 2.5-0.025 MG, 1 tablet as needed, Orally, Four times a day if needed for diarrhea;?Continue Adderall XR Capsule Extended Release 24 Hour, 30 MG, 1 capsule in the morning, Orally, Once a day;?Continue Abilify Tablet, 5 MG, 1 tablet, Orally, Once a day;?Continue Zolpidem Tartrate Tablet, 10 MG, 1 tablet at bedtime, Orally, Once a day;?Continue Citalopram Hydrobromide Tablet, 40 MG, 1 tablet, Orally, Once a day;?Continue Benztropine Mesylate Tablet, 0.5 MG, Oral;?Continue hydrOXYzine Pamoate Capsule, 25 MG, Oral;?Continue Trelegy Ellipta Aerosol Powder Breath Activated, 100-62.5-25 MCG/ACT, Inhalation.?? * Procedure Codes: * Preventive Medicine: Counseling: C are goal follow-up plan: Counseling for abnormal BMI given Y es Above Normal BMI Follow-up D ietary management education, guidance, and counseling S moking/Tobacco Use Patient counseled on the dangers of tobacco use and urged to quit. 0 02/24/2025 Patient Lifestyle Goals P atient wants to quit Treatment Goals C ut down by 1 cigarette a week, Set a quit date Barriers S tress, Social smoker Self-Management Plan M marquis a plan to cut down number of cigarettes over time and set a date to work towards quitting * Follow Up: 1 Week (Reason: telehealth) * Images: * Sign off status: Completed true * Provider: Zahraa Quezada MD Date: 0 02/24/2025 Generated for Falgunii gail/Aron/eTransmitting on: 1 08/04/2024 12:47 PM EST History and Physical Notes * HPI (History of Present Illness) Category Sub-Category Detail Notes COVID-19 Screening Questions Have you had any new onset fever, chills, cough, congestion, sore throat, shortness of breath, muscle aches?: No Examination Category Sub-Category Detail Notes General Examination GENERAL APPEARANCE: pleasant , well nourished, well developed, in no acute distress, calm and relaxed: overweight: woman HEAD: atraumatic, normocep halic EYES: eomi, perrla, anicte aaron, conjugate EARS: normal NOSE: septum intact NECK/THYROID: no jugular venous di stention, no carotid bruit, thyroid normal HEART: no clicks, gallops, murmurs, or rubs, regular rhythm, S1, S2 normal, no s3, or vascular bruits LUNGS: clear to auscultatio n ABDOMEN: bowel sounds normal, no ascites, no organomegaly, no mass: overweight NEUROLOGIC: alert and oriented, cranial nerves 2-12 [...]
--- OUTSIDE RECORDS SUMMARY | 2025-03-07 05:15 | XMS_ITS ---
Author Organization Campos Quezada III, MD Address [address] [place] [address] Care Team Providers Care Director Of Media Name Role Phone Dr. Campos Quezada III Primary Care Provider Pilar LUCERO MD, Campos Quezada Allergies Allergen (clinical drug ingredient) Drug/Non Drug Allergy documented on EMR Reaction Allergy Type Onset Date Status Voltaren stomach upset Drug Allergy Act angela Reason For Referral Reason Consult and treat Diagnosis 1 Urine frequency (R35 .0) Referral Organization Campos Quezada III, MD Referring Provider First Name Campos Referring Provider Last Name Pilar Referring Provider Speciality Internal M edicine Referred Provider Pranav Wills Referred Provider Specialty Urology General Notes Opal Encinas ASMA 07/2024 03:15:47 PM >Referral Faxed Referral Priority Routine REASON FOR VISIT gout, Rotator cuff tear left shoulder, hyperlipidemia, Hypothyroid, Insomnia, Obesity, GERD, Left knee pain, Possible STD exposure Medications Medication SIG (Take, Route, Frequency, Duration) Notes Start Date End Date Status Amantadine HCl 100 MG 1 capsule Orally 3 times a day 03/05/2024 Active Azithromycin 250 MG like directed Orally 2 Tablets on the first day, one tablet the rest of the days 08/29/2024 Active Benztropine Mesylate 0.5 MG Oral Active hydrOXYzine Pamoate 25 MG Oral Active Trelegy Ellipta 100-62.5-25 MCG/ACT Inhalation Active Adderall XR 30 MG 1 capsule in the mor akilah Orally Once a day Active Abilify 5 MG 1 tablet Orally Once a day Active Zolpidem Tartrate 10 MG 1 tablet at bedt gustavo Orally Once a day Active Diphenoxylate-Atropine 2.5-0.025 MG 1 tablet as needed Orally Four times a day if needed for diarrhea 03/26/2024 Active Citalopram Hydrobromide 40 MG 1 tablet Orally Once a day Active Atorvastatin Calcium 40 MG TAKE 1 TABLET BY MOUTH EVERY DAY Active diazePAM 5 MG 1 tablet Orally twic e a day 07/26/2024 Active Levothyroxine Sodium 75 MCG 1 tablet in the morning on an empty stomach Orally Once a day 04/18/2024 Active Vitamin D (Ergocalciferol) 1.25 MG (49234 UT) TAKE 1 CAPSULE BY MOUTH 1 TIME A MONTH Active Social History Tobacco Use: Social History Observation Description Date Details (start date - stop date) Current Smoker NA - NA Sex Assigned At : Social History Observation Description Sex Assigned At Female Tobacco Control (Standard) Question Answer Notes Tobacco use: Current every day smoker Additional Findings: Tobacco user Light cigarett e smoker (1-9 cigs/day) Vital Signs Height 72 in 03/07/2025 Weight 195 lbs 03/07/2025 BMI 26.44 kg/m2 03/07/2025 Encounters Encounter Location Date Provider Diagnosis Campos Quezada III, MD [address] [place] [address] [place] [address] 03/07/2025 Campos Quezada Mixed hyperlipidemia E78.2 ; Acquired hypothyroidism E03.9 ; Former smoker Z87.891 ; Overweight E66.3 ; 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 Comprehensive blood work with thyroid function tests have been ordered. 03/07/2025 Former smoker (ICD-1 0 - Z87.891) We discussed a plan to prevent relapse in times of stress or illness. 03/07/2025 Overweight (ICD-10 - E66.3) Her body mass index is 26. She is slightly overweight. We discussed ways of avoiding weight gain during the winter holidays. 03/07/2025 Idiopathic chronic gout 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 tophus (ICD-10 - M1A.0710) No attacks of gout have been reported since her last visit. 03/07/2025 Attention deficit disorder (ADD) in adult (ICD-10 - F98.8) She is doing very well with the Adderall and is conducting all of the activities of daily life without impairment. No change in her regimen seems indicated. 03/07/2025 Unspecified rotator cuff tear or rupture of left shoulder, not specified as traumatic (ICD-10 - M75.102) She continues to have pain with range of motion and sees Dr. Hamilton for this problem. He received physical therapy and a sling. 03/07/2025 Primary insomnia (ICD-10 - F51.01) We discussed sleep hygiene today. She will continue her current therapy and no additional medication was given. 03/07/2025 Exposure to STD (ICD-10 - Z20.2) The exposure was possible. Evaluation is negative. The patient is reduce symptoms and will be observed. 03/07/2025 Hyperglycemia (ICD-1 0 - R73.9) The blood glucose level was 150. This will be repeated with an A1c. She is not known to be diabetic. Plan Of Treatment Medication Medication Name Sig Start Date Stop Date Notes Amantadine HCl 100 MG 1 capsule Orally 3 times a day 03/05/2024 Azithromycin 250 MG like directed Orally 2 Tablets on the first day, one tablet the rest of the days 08/29/2024 Benztropine Mesylate 0.5 MG Oral hydrOXYzine Pamoate 25 MG Oral Trelegy Ellipta 100-62.5-25 MCG/ACT Inhalation Adderall XR 30 MG 1 capsule in the mor akilah Orally Once a day Abilify 5 MG 1 tablet Orally Once a day Zolpidem Tartrate 10 MG 1 tablet at bedt gustavo Orally Once a day Diphenoxylate-Atropine 2.5-0.025 MG 1 tablet as needed Orally Four times a day if needed for diarrhea 03/26/2024 Citalopram Hydrobromide 40 MG 1 tablet Orally Once a day Atorvastatin Calcium 40 MG TAKE 1 TABLET BY MOUTH EVERY DAY diazePAM 5 MG 1 tablet Orally twice a day 07/26/2024 Levothyroxine Sodium 75 MCG 1 tablet in the morning on an empty stomach Orally Once a day 04/18/2024 Vitamin D (Ergocalciferol) 1 .25 MG (13695 UT) TAKE 1 CAPSULE BY MOUTH 1 TIME A MONTH Pending Test Test Name Order Date PROFILE, FASTING (COMPREHENSIVE METABOLI C) 03/07/2025 Vitamin D 25-OH Total 03/07/2025 Hemoglobin A1c 03/07/2025 Referrals Referral Date Details 03/07/2025 03/07/2025, Consult and treat, Pranav Wills Next Appt Details Follow Up: 3 Months, Reason: Office visit Provider Name:Campos Quezada , 08/12/2025 11:15:00 AM, [address] [place] [address] [address], [place], [address], Provider Name:Campos Quezada , 05/15/2026 11:00:00 AM, [address] [place] [address] [address], [place], [address], Progress Notes * Anum RIBERACasperOB:1955 (69 yo F)Acc No.[id number]:03/07/2025 Patient: Sally VASQUEZ Provider: Zahraa Quezada MD :1955 A ge:69 Y S ex:Female Date:03/07/2025 Address: [id number] Subjective: * Chief Complaints: * G outRotator cuff tear left shoulderHyperlipidemiaHypothyroidInsomniaObesityGERDLeft knee painPossible STD exposure * HPI: * : This telehealth visit took place over 15 minutes with the patient at home and me in my office. She gave consent for billing. She returns to review her recent blood work. On her last visit she informed me about her 's infidelity and her plans to divorce. Comprehensive blood work was ordered. It was reviewed with her in detail. The testing for chlamydia and gonorrhea and HIV and syphilis were negative. She has no genitourinary symptoms. She will be observed at this point. Telehealth L ocation of provider rendering services: { ...} [address] [facility] [address] L ocation of patient: chano marley listed in demographics for today's visit P atient identification confirmed using: LUIS ENRIQUE Pearson ame T elehealth method: T elephone only. Patient [...] enies. D iarrhea d enies. H eartburn d enies. N ausea d enies. R ectal bleeding [...] P sychiatric: Depressed mood w hich is moderate. * Medical History: * Surgical History: H ysterectomy, Total with bilateral salpingo-oophorectomy, , dysfunctional uterine bleeding [id number] and C6-C7 anterior disectomy and fusion by Dr. Michael Elliott 07/2004right hip arthroplasty 02/2012colonoscopy, [facility], tubular adenoma of sigmoid 2002colonoscopy, [facility], Dr. Hand, tubular adenoma at 30 cm 2006EGD, Dr. Hand, gastritis 2009colonoscopy, Dr. Hand, tubular adenomatous (3) 2014neck fusion 05/2018Neck Fusion [facility] nterior Cervical Discectomy Anterior Arthrodesis C3-4 [id number] knee replacement 2023-02No history * Hospitalization/Major Diagno [...] Her mental health's through Dr. Ramachandran at [facility]. Smoking - The patient reported smoking about 3 cigarettes a day.Will. * Medications: T akingVitamin D (Ergocalciferol) 1.25 MG (21549 UT) Capsule TAKE 1 CAPSULE BY MOUTH 1 TIME A MONTH Atorvastatin Calcium 40 MG Tablet TAKE 1 TABLET BY MOUTH EVERY DAY diazePAM 5 MG Tablet 1 tablet Orally twice a day Levothyroxine Sodium 75 MCG Tablet 1 tablet in the morning on an empty stomach Orally Once a day Diphenoxylate- Atropine 2.5-0.025 MG Tablet 1 tablet as needed [...] one tablet the rest of the days Medication List reviewed and reconciled with the patientTaking Vitamin D (Ergocalciferol) 1.25 MG (68811 UT) Capsule TAKE 1 CAPSULE BY MOUTH 1 TIME A MONTH Taking Atorvastatin Calcium 40 MG Tablet TAKE [...] one tablet the rest of the days Medication List reviewed and reconciled with the patient * Allergies: V oltaren: stomach upset - Side Effectsno[Allergies Verified] Objective: * Vitals: H t: 72, Wt:195, BMI:26.44, Ht-cm: 182.88, Wt-k.45. * P ast Orders: L ab:Syphilis Screen (Order Date - 02/25/2025) (Collection Date & Time - 02/25/2025 06:59 AM) Value Reference Range Syphilis Screen Nonreactive Nonreactive - Lab:Urine Culture * Collection Date 02/25/2025 10/24/2022 09/21/2021 Collection Time 06:53 AM 11:35 AM 11:50 AM Order Date 02/24/2025 10/24/2022 09/21/2021 Urine Culture < 10,000 cfu/ml urogenital contamination. NR Clinical Info: Urine to be tested f or Chlamydia and Gonorrhoeae. Please do culture and sensitivity,Please fast for 12-14 hours prior to having this labwork done. You may have black coffee or tea with no milk or sugar. May have water,PLEASE FAX COMPLETED RESULTS TO [phone] ???Lab:HIV Ab/Ag (Order Date - 02/25/2025) (Collection Date & Time - 02/25/2025 06:59 AM)?ValueReference Range?HIV AB/AGNonreactiveNonreactive - * Lab:Complete Blood Count Aut o Diff * Collection Date 02/25/2025 08/08/2023 07/19/2022 Collection Time 06:59 AM 10:24 AM 03:49 PM Order Date 02/25/2025 08/08/2023 07/19/2022 White Blood Count 6.8 (Ref Range: 4.8-10.8 X10*3/uL) 7.7 (Ref Range: 4.8-10.8 X10*3/uL) 6.4 (Ref Range: 4.8-10.8 X10*3/uL) Red Blood Count 4.20 (Ref Range: 4.20-5.50 X10*6/uL) 4.24 (Ref Range: 4.20-5.50 X10*6/uL) 3.94 L (Ref Range: 4.20-5.50 X10*6/uL) Hemoglobin 12.5 (Ref Range: 12.0-16.0 g/dl) 12.4 (Ref Range: 12.0-16.0 g/dl) 12.2 (Ref Range: 12.0-16.0 g/dl) Hematocrit 37.7 (Ref Range: 37.0-47.0 %) 38.4 (Ref Range: 37.0-47.0 %) 36.6 L (Ref Range: 37.0-47.0 %) Mean Corpuscular Volume 89.8 (Ref Range: 80.0-98.0 fL) 90.6 (Ref Range: 80.0-98.0 fL) 92.9 (Ref Range: 80.0-98.0 fL) Mean Corpuscular Hemoglobin 29.8 (Ref Range: 27.0-33.0 pg) 29.2 (Ref Range: 27.0-33.0 pg) 31.0 (Ref Range: 27.0-33.0 pg) Mean Corpuscular HGB Conc 33.2 (Ref Range: 31.0-35.0 g/dl) 32.3 (Ref Range: 31.0-35.0 g/dl) 33.3 (Ref Range: 31.0-35.0 g/dl) Red Cell Distribution Width 13.3 (Ref Range: 11.0-16.0 %) 13.5 (Ref Range: 11.0-16.0 %) 12.7 (Ref Range: 11.0-16.0 %) Platelet Count 312 (Ref Range: 160-400 X10*3/uL) 275 (Ref Range: 160-400 X10*3/uL) 299 (Ref Range: 160-400 X10*3/uL) Mean Platelet Volume 9.8 (Ref Range: 9.4-12.3 fL) 9.4 (Ref Range: 9.4-12.3 fL) 9.4 (Ref Range: 9.4-12.3 fL) Neutrophils Percent Auto 64.0 (Ref Range: 45-73 %) 65.2 (Ref Range: 45-73 %) 53.6 (Ref Range: 45-73 %) Imm Gran Pct Auto 0.4 (Ref Range: 0.0-0.4 %) 0.3 (Ref Range: 0.0-0.4 %) 0.3 (Ref Range: 0.0-0.4 %) Lymphocytes Percent Auto 25.8 (Ref Range: 20-40 %) 26.0 (Ref Range: 20-40 %) 35.4 (Ref Range: 20-40 %) Monocytes Percent Auto 5.7 (Ref Range: 2-11 %) 5.8 (Ref Range: 2-11 %) 7.6 (Ref Range: 2-11 %) Eosinophils Percent Auto 3.5 (Ref Range: 0-4 %) 2.3 (Ref Range: 0-4 %) 2.5 (Ref Range: 0-4 %) Basophils Percent Auto 0.6 (Ref Range: 0-2 %) 0.4 (Ref Range: 0-2 %) 0.6 (Ref Range: 0-2 %) NRBC Pct Auto 0.0 (Ref Range: 0.0-0.2 /100WBC) 0.0 (Ref Range: 0.0-0.2 /100WBC) 0.0 (Ref Range: 0.0-0.2 /100WBC) Neutrophils Absolute Auto 4.4 (Ref Range: 2.0-8.3 x10*3/uL) 5.1 (Ref Range: 2.0-8.3 x10*3/uL) 3.4 (Ref Range: 2.0-8.3 x10*3/uL) Imm Gran Abs Auto 0.03 (Ref Range: 0.00-0.03 X10*3/uL) 0.02 (Ref Range: 0.00-0.03 X10*3/uL) 0.02 (Ref Range: 0.00-0.03 X10*3/uL) Lymphocytes Absolute Auto 1.8 (Ref Range: 1.2-4.9 X10*3/uL) 2.0 (Ref Range: 1.2-4.9 X10*3/uL) 2.3 (Ref Range: 1.2-4.9 X10*3/uL) Monocytes Absolute Auto 0.4 (Ref Range: 0.1-1.2 X10*3/uL) 0.5 (Ref Range: 0.1-1.2 X10*3/uL) 0.5 (Ref Range: 0.1-1.2 X10*3/uL) Eosinophils Absolute Auto 0.2 (Ref Range: 0.0-0.4 X10*3/uL) 0.2 (Ref Range: 0.0-0.4 X10*3/uL) 0.2 (Ref Range: 0.0-0.4 X10*3/uL) Basophils Absolute Auto 0.0 (Ref Range: 0.0-0.2 X10*3/uL) 0.0 (Ref Range: 0.0-0.2 X10*3/uL) 0.0 (Ref Range: 0.0-0.2 X10*3/uL) NRBC Abs Auto 0.000 (Ref Range: 0.0-0.012 X10*3/uL) 0.000 (Ref Range: 0.0-0.012 X10*3/uL) 0.000 (Ref Range: 0.0-0.012 X10*3/uL) * Lab:Uric Acid * Collection Date 02/25/2025 07/19/2022 Collection Time 06:59 AM 03:49 PM Order Date 02/24/2025 07/19/2022 Uric Acid 5.2 (Ref Range: 2.4-5.7 mg/dL) 6.0 H (Ref Range: 2.4-5.7 mg/dL) Clinical Info: Urine to be tested f or Chlamydia and Gonorrhoeae. Please do culture and sensitivity,Please fast for 12-14 hours prior to having this labwork done. You may have black coffee or tea with no milk or sugar. May have water,PLEASE FAX COMPLETED RESULTS TO [phone] ???Lab:Urinalysis (Order Date - 02/25/2025) (Collection Date & Time - 02/25/2025 06:53 AM)?ValueReference Range?Color UrineYellow- ?Appearance UrineClear-?PH6.05.0-9.0 -?Glucose Urine UA NegativeNegative - mg/dL?Urine BloodNegativeNegative -?Specific Sharon - Urine1.0101.005-1.025 -?Urine ProteinNegativeNeg-Trace - mg/dL ?Urine KetonesNegativeNegative - mg/dL?Nitrite UrineNegative Negative -?Leukocyte Esterase UrineNegativeNegative - * Lab:Lipid Panel * Collection Date 02/25/2025 08/08/2023 07/19/2022 Collection Time 06:59 AM 10:24 AM 03:49 PM Order Date 02/24/2025 08/08/2023 07/19/2022 Triglycerides 117 (Ref Range: <150 mg/dL) 190 H (Ref Range: <150 mg/dL) 175 (Ref Range: mg/dL) Cholesterol 184 (Ref Range: <200 mg/dL) 188 (Ref Range: <200 mg/dL) 227 (Ref Range: mg/dL) LDL Cholesterol Calculated 109 H (Ref Range: <100 mg/dL) 90 (Ref Range: <100 mg/dL) 142 (Ref Range: mg/dl) HDL Cholesterol 52 (Ref Range: >40 mg/dL) 60 (Ref Range: >40 mg/dL) 50 (Ref Range: mg/dL) Clinical Info: Urine to be tested for Chlamydia and Gonorrhoeae. Please do culture and sensitivity,Please fast for 12-14 hours prior to having this labwork done. You may have black coffee or tea with no milk or sugar. May have water,PLEASE FAX COMPLETED RESULTS TO [phone] * Lab:Alicia trejo Fast * Collection Date 02/25/2025 11/15/2021 11/13/2020 Collection Time 06:59 AM 03:06 PM 10:23 AM Order Date 02/25/2025 11/15/2021 11/13/2020 Sodium 141 (Ref Range: 135-145 mmol/L) 139 (Ref Range: 135-145 mmol/L) 142 (Ref Range: 135-145 mmol/L) Bilirubin Total 0.3 (Ref Range: 0.0-1.0 mg/dL) 0.3 (Ref Range: 0.0-1.0 mg/dL) 0.4 (Ref Range: 0.0-1.0 mg/dL) Aspartate Amino Transferase 19 (Ref Range: 5-31 U/L) 19 (Ref Range: 5-31 U/L) 16 (Ref Range: 5-31 U/L) Alanine Aminotransferase 13 (Ref Range: 0-31 U/L) 13 (Ref Range: 0-31 U/L) 12 (Ref Range: 0-31 U/L) Total Protein 7.0 (Ref Range: 6.5-8.0 g/dL) 6.8 (Ref Range: 6.5-8.0 g/dL) 6.7 (Ref Range: 6.5-8.0 g/dL) Albumin Level 4.2 (Ref Range: 3.5-5.0 g/dL) 4.2 (Ref Range: 3.5-5.0 g/dL) 4.2 (Ref Range: 3.5-5.0 g/dL) Alkaline Phosphatase 159 H (Ref Range: 39-117 U/L) 100 (Ref Range: 39-117 U/L) 121 H (Ref Range: 39-117 U/L) Potassium 4.2 (Ref Range: 3.3-5.1 mmol/L) 4.8 (Ref Range: 3.3-5.1 mmol/L) 4.1 (Ref Range: 3.3-5.1 mmol/L) Chloride 106 (Ref Range: 96-108 mmol/L) 106 (Ref Range: 96-108 mmol/L) 107 (Ref Range: 96-108 mmol/L) Carbon Dioxide 27 (Ref Range: 22-29 mmol/L) 24 (Ref Range: 22-29 mmol/L) 27 (Ref Range: 22-29 mmol/L) Anion Gap 12 (Ref Range: 12-20) 14 (Ref Range: 12-20) 12 (Ref Range: 12-20) Blood Urea Nitrogen 13 (Ref Range: 9-16 mg/dL) 13 (Ref Range: 9-16 mg/dL) 9 (Ref Range: 9-16 mg/dL) Creatinine 1.14 (Ref Range: 0.5-1.4 mg/dL) 0.98 (Ref Range: 0.5-1.4 mg/dL) 0.99 (Ref Range: 0.5-1.4 mg/dL) Estimated Glomerular Filt Rate 48 57 57 Glucose Fasting 150 H (Ref Range: 60-99 mg/dL) 108 H (Ref Range: 60-99 mg/dL) 126 H (Ref Range: 60-99 mg/dL) Calcium 9.5 (Ref Range: 8.4-10.2 mg/dL) 9.4 (Ref Range: 8.4-10.2 mg/dL) 9.6 (Ref Range: 8.4-10.2 mg/dL) ???Lab:Vitamin D 25-OH Total (Order Date - 02/24/2025) (Collection Date & Time - 02/25/2025 06:59 AM)?ValueReference Range?Vitamin D 25-OH Total 28.1L>30 - ng/mL?Clinical Info: Urine to be tested for Chlamydia and Gonorrhoeae. Please do culture and sensitivity,Please fast for 12-14 hours prior to having this labwork done. You may have black coffee or tea with no milk or sugar. May have water,PLEASE FAX COMPLETED RESULTS TO [phone] * Lab:Thyroid Stimulating Horm one * Collection Date 02/25/2025 08/08/2023 07/19/2022 Collection Time 06:59 AM 10:24 AM 03:49 PM Order Date 02/25/2025 08/08/2023 07/19/2022 Thyroid Stimulating Hormone 0.92 (Ref Range: 0.32-4.0 uIU/mL) 0.51 (Ref Range: 0.32-4.0 uIU/mL) 0.42 (Ref Range: 0.32-4.0 uIU/mL) * Lab:Free T4 (Free Thyroxine) * Collection Date 02/25/2025 08/08/2023 11/15/2021 Collection Time 06:59 AM 10:24 AM 03:06 PM Order Date 02/24/2025 08/08/2023 11/15/2021 Free T4 (Free Thyroxine) 0.98 (Ref Range: 0.71-1.85 ng/dL) 1.01 (Ref Range: 0.71-1.85 ng/dL) 1.11 (Ref Range: 0.71-1.85 ng/dL) Clinical Info: Urine to be tested for Chlamydia and Gonorrhoeae. Please do culture and sensitivity,Please fast for 12-14 hours prior to having this labwork done. You may have black coffee or tea with no milk or sugar. May have water,PLEASE FAX COMPLETED RESULTS TO [phone] Assessment: * Assessment: 1. M ixed hyperlipidemia - E78.2 (Primary) 2 . A cquired hypothyroidism - E03.9 N otes :He says she is compliant with her medication. Comprehensive blood work with thyroid function tests have been ordered. 3 . F ormer smoker - Z87.891 N otes :We discussed a plan to prevent relapse in times of stress or illness. 4 . O verweight - E66.3 N otes :Her body mass index is 26. She is slightly overweight. We discussed ways of avoiding weight gain during the winter holidays. 5 . I diopathic chronic gout 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 tophus - M1A.0710 ? N otes :No attacks of gout have been reported since her last visit. 6 . A ttention deficit disorder (ADD) in adult - F98.8 N otes :She is doing very well with the Adderall and is conducting all of the activities of daily life without impairment. No change in her regimen seems indicated. 7 . U nspecified rotator cuff tear or rupture of left shoulder, not specified as traumatic - M75.102 N otes :She continues to have pain with range of motion and sees Dr. Hamilton for this problem. He received physical therapy and a sling. 8 . P rimary insomnia - F51.01 N otes :We discussed sleep hygiene today. She will continue her current therapy and no additional medication was given. 9 . E xposure to STD - Z20.2 N otes :The exposure was possible. Evaluation is negative. The patient is reduce symptoms and will be observed. 1 0. H yperglycemia - R73.9 N otes :The blood glucose level was 150. T his will be repeated with an A1c. She is not known to be diabetic. Plan: * Treatment: * Labs: * L ab: PROFILE, FASTING (COMPREHENSIVE METABOLIC) L ab: Vitamin D 25-OH Total L ab: Hemoglobin A1c * Procedure Codes: 9 8012 SYNCH AUDIO-ONLY EST SF 10 * Preventive Medicine: Counseling: C are goal follow-up plan: Counseling for abnormal BMI given Y es Above Normal BMI Follow-up D ietary management education, guidance, and counseling, Dietary needs education S moking/Tobacco Use Patient counseled on the dangers of tobacco use and urged to quit. 0 03/07/2025 * Follow Up: 3 Months (Reason: Office visit) * Images: * Sign off status: Completed true * Provider: Zahraa Quezada MD Date: 0 03/07/2025 Generated for Mariposa reynolds/Aron/Sofia on: 1 08/04/2024 12:47 PM EST History and Physical Notes * HPI (History of Present Illness) Category Sub-Category Detail Notes Telehealth Location of [facility] rendering services:: {...} [address] [place] [id number] Location of patient:: address listed in demographics for today's visit Patient identification confirmed using:: Name, Telehealth method:: Telephone only. Sherry ent not visible to care provider. Consent:: Patient verbally c onsented to treatment, Patient verbally consented to billing insurance company, Patient informed of any privacy concerns related to method of visit Total time spent with patient (mins): 15 Consultation Request Notes Referral Date Referring Provider Referred Provider Not kendall 03/07/2025 Campos Quezada Corlis Consul t and treat
--- OUTSIDE RECORDS SUMMARY | 2025-05-14 06:00 | XMS_ITS ---
Author Organization Campos Quezada III, MD Address [address] [place] [address] Care Team Providers Care Manager Digital Ad Operations Name Role Phone Dr. Campos Quezada III Primary Care Provider [phone] Campos Quezada III, MD Unavailable Allergies Allergen (clinical drug ingredient) Drug/Non Drug Allergy documented on EMR Reaction Allergy Type Onset Date Status No Known Food Allergy Unknown Drug Allergy Active Voltaren stomach upset Drug Allergy Act angela Reason For Referral Reason Consult and Treat Eye Flashes Diagnosis 1 Other subjective vis ual disturbances (H53.19) Referral Organization Campos Quezada III, MD Referring Provider First Name Campos Referring Provider Last Name Pilar Referring Provider Speciality Internal M edicine Referred Provider LAUREEN CANELA Referred Provider Specialty Ophthalmolog y General Notes Jennifer De CMA 05/14 02:35:14 PM > referral/demo/progress note faxed to Dr Canela they will be calling pt with appt . pt called and made aware of this Referral Priority Routine REASON FOR VISIT Annual Exam Medications Medication [...] Active Trelegy Ellipta 100-62.5-25 MCG/ACT Inhalation Active Zolpidem Tartrate 10 MG 1 tablet at bedt gustavo Orally Once a day Active Adderall XR 30 MG 1 capsule in the mor akilah Orally Once a day Active Abilify 5 MG 1 tablet Orally Once a day Active Diphenoxylate-Atropine 2.5-0.025 MG 1 tablet as needed Orally Four times a day if needed for diarrhea 03/26/2024 Active Citalopram Hydrobromide 40 MG 1 tablet Orally Once a day Active Vitamin D (Ergocalciferol) 1.25 MG (23887 UT) TAKE 1 CAPSULE BY MOUTH 1 TIME A MONTH Active Atorvastatin Calcium 40 MG TAKE 1 TABLET BY MOUTH EVERY DAY Active diazePAM 5 MG 1 tablet Orally tw a day 07/26/2024 Active Levothyroxine Sodium 75 MCG 1 tablet melodie morning on an empty stomach Orally Once a day Active Social History [...] Problem Status W/U Status Risk Notes Problem 361872156 Overweight (BMI 25.0-29.9) (E66.3) Active confirmed Her body mass index is 28. She has lost a pound since her last visit. We discussed diet and nutrition. We reviewed her weight loss strategy. She will try to lose weight at a rate of one half of a pound per week. Problem [id number] Retinopathy (H35.00) Active confirmed She gives a history of black dots in her visual field which are likely floaters and could be from a vitreous detachment. However she also complains about flashing lights which she describes as lightning bolts in the left eye which is worrisome for retinal pathology. She was referred back to her fancy stitcher for evaluation. Vital Signs Temperature 97.2 degrees Fahrenheit 05/14/20 25 Blood pressure systolic 135 mm Hg 05/14/20 25 Blood pressure diastolic 62 mm Hg 025 Heart Rate 80 /min 05/14/2025 Height 72 in 05/14/2025 Weight 205 lbs 05/14/2025 BMI 27.8 kg/m2 05/14/2025 Encounters Encounter Location Date Provider Diagnosis Campos Quezada III, MD [address] [place] [address] DR [place], [place] [id number] 05/14/2025 Campos Quezada Mixed hyperlipidemia E78.2 ; Retinopathy H35.00 ; Acquired hypothyroidism E03.9 ; Screening breast examination Z12.39 ; Former smoker Z87.891 ; Overweight (BMI 25.0-29.9) E66.3 ; Primary insomnia F51.01 ; Attention deficit disorder (ADD) in adult F98.8 ; 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 We discussed a weight loss program today. 05/14/2025 Retinopathy (ICD-10 - H35.00) She gives a history of black dots in her visual field which are likely floaters and could be from a vitreous detachment. However she also complains about flashing lights which she describes as lightning bolts in the left eye which is worrisome for retinal pathology. She was referred back to her fancy stitcher for evaluation. 05/14/2025 Acquired hypothyroidism (ICD-10 - E03.9) Her thyroid function test remained in range. She was continued on the current dose of replacement levothyroxine. 05/14/2025 Screening breast examination (ICD-10 - Z12.39) She has been scheduled for her annual screening mammogram. 05/14/2025 Former smoker (ICD-10 - Z87.891) We discussed a plan to prevent relapse in times of stress or illness. 05/14/2025 Overweight (BMI 25.0-29.9) (ICD-10 - E66.3) Her body mass index is 28. She has lost a pound since her last visit. We discussed diet and nutrition. We reviewed her weight loss strategy. She will try to lose weight at a rate of one half of a pound per week. 05/14/2025 Primary insomnia (ICD-10 - F51.01) We discussed sleep hygiene today. She will continue her current therapy and no additional medication was given. 05/14/2025 Attention deficit disorder (ADD) in adult (ICD-10 - F98.8) She is doing very well with the Adderall and is conducting all of the activities of daily life without impairment. No change in her regimen seems indicated. 05/14/2025 Idiopathic chronic gout 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 tophus (ICD-10 - M1A.0710) No attacks of gout have been reported since her last visit. 05/14/2025 Unspecified rotator cuff tear or rupture of left shoulder, not specified as traumatic (ICD-10 - M75.102) She continues to have pain with range of motion and sees Dr. Hamilton for this problem. He received physical therapy and a sling. 05/14/2025 Vitamin D deficiency (ICD-10 - E55.9) 05/14/2025 Degenerative disc disease, cervical (ICD-10 - M50.30) She is going to have another injection and see the neurosurgeon in the near future. 05/14/2025 Degenerative disc disease, lumbar (ICD-10 - M51.36) Her pain today is mild and controlled with iuly-fqb-oxxtahd medication. She was advised to lose weight and avoid heavy lifting. 05/14/2025 Hiatal hernia (ICD-10 - K44.9) She has occasional symptoms of esophageal reflux and epigastric discomfort, some of which may be due to this. She will continue on her current regimen. 05/14/2025 GERD without esophagitis (ICD-10 - K21.9) Her esophageall reflux symptoms are well controlled medication. No change in her regimentoday. 05/14/2025 Primary osteoarthritis of left knee (ICD-10 - M17.12) She has a history of meniscus surgery in this day and it has improved. She has a history of hip replacement as well. 05/14/2025 Tobacco dependence (ICD-10 - F17.200) She smokes [...] MG Oral Trelegy Ellipta 100-62.5-25 MCG/ACT Inhalation Zolpidem Tartrate 10 MG 1 tablet at bedt gustavo Orally Once a day Adderall XR 30 MG 1 capsule in the mor akilah Orally Once a day Abilify 5 MG 1 tablet Orally Once a day Diphenoxylate-Atropine 2.5-0.025 MG 1 tablet as needed Orally Four times a day if needed for diarrhea 03/26/2024 Citalopram Hydrobromide 40 MG 1 tablet Orally Once a day Vitamin D (Ergocalciferol) 1 .25 MG (12299 UT) TAKE 1 CAPSULE BY MOUTH 1 TIME A MONTH Atorvastatin Calcium 40 MG TAKE 1 TABLET BY MOUTH EVERY DAY diazePAM 5 MG 1 tablet Orally twice a day 07/26/2024 Levothyroxine Sodium 75 MCG 1 tablet melodie ry morning on an empty stomach Orally Once a day Pending Test Test Name Order Date PROFILE, FASTING (COMPREHENSIVE METABOLI C) 05/14/2025 CBC w DIFF 05/14/2025 Lipid Panel 05/14/2025 MM tomosynthesis screening BI 05/14/2025 Hemoglobin A1c 05/14/2025 Referrals Referral Date Details 05/14/2025 05/14/2025, Consult and Treat Eye Flashes, LAUREEN CANELA Next Appt Details Follow Up: 3 Months, Reason: OV Provider Name:Campos Quezada , 08/12/2025 11:15:00 AM, [address] [place] [address] [address], [place], [address], Provider Name:Campos Quezada , 05/15/2026 11:00:00 AM, [address] [place] [address] [address], [place], [phone], Progress Notes * Sue RIBERA:1955 (69 yo F)Acc No.[id number]:05/14/2025 Progress Notes Patient: Sally VASQUEZ Provider: Zahraa Quezada MD :1955 A ge:69 Y S ex:Female Date:05/14/2025 Address: [id number] Subjective: * Chief Complaints: * A nnual Exam * HPI: D epression Screening: She returns at the age of 69 for her annual visit. She is due for a colonoscopy which has been scheduled in [place] by a swimming teacher that she sees. She is due for mammogram which we have scheduled. She gives a history over the last 2 weeks of lightning bolts primarily in the left eye. Upon questioning in her left visual field she has have been having flashing lights. She also has swirling black dots but says that the acuity of her vision is intact. On examination today vision was conjugate and present. No obvious abnormality of the retina was seen but the pupil was not dilated. The iris and cornea of each eye seems to be intact. The concern was with the retina and she is being referred back to her fancy stitcher. Her has a blood pressure cuff which she uses every day. She has been getting high blood pressures using it. Her blood pressure here today, however, was as usual, in the normal range. Her cuff at home is an electric model with a small cuff which is likely not accurate. She is still smoking cigarettes and we discussed various strategies for smoking cessation. PHQ-9 L ittle interest or pleasure in doing things?Several days F eeling down, depressed, or hopeless S everal days T rouble falling or staying asleep, or sleeping too much S everal days F eeling tired or having little energy S everal days P oor appetite or overeating S everal days F eeling bad about yourself or that you are a failure, or have let yourself or your family down S everal days T rouble concentrating on things, such as reading the newspaper or watching television S ever M oving or speaking so slowly that other people could have noticed; or the opposite, being so fidgety or restless that you have been moving around a lot more than usual S everal days T houghts that you would be better off or of hurting yourself in some way S everal (Consider Suicide Assessment Risk) T otal Score 9 I nterpretation M ild Depression Interpretation and Intervention D epression Screening Findings P ositive S uicide Risk Assessment Performed 1 07/15/2024 C OVID-19 Screening: Questions H ave you had any new onset fever, chills, cough, congestion, sore throat, shortness of breath, muscle aches? N o S LENORE Questions: SDOH Questions I n the past year have you or any family members you live with been unable to get any of the following when it was really needed? Check all that apply: Winter forman to answer F all Risk Screening: Fall History H ave you had any falls with injury in the past year? N o H ave you had two or more falls in the past year? N o F all Risk Assessment: N o falls in the past year * ROS: G eneral/Constitutional: pain o nly [...] with bilateral salpingo-oophorectomy, , dysfunctional uterine bleeding [id number] and C6-C7 anterior disectomy and fusion by Dr. Michael Elliott 07/2004right hip arthroplasty 02/2012colonoscopy, [facility], tubular adenoma of sigmoid 2002colonoscopy, [facility], Dr. Hand, tubular adenoma at 30 cm 2006EGD, Dr. Hand, gastritis 2009colonoscopy, Dr. Hand, tubular adenomatous (3) 2014neck fusion 05/2018Ne Fusion [facility] nterior Cervical Discectomy Anterior Arthrodesis C3-4 [id number] knee replacement 2022-Right shoulder rotator cuff 03/2025 * Hospitalization/Major Diagno stic Procedure: n maren [...] Her mental health's through Dr. [facility]achandran at [facility]. Smoking - The patient reported smoking about 3 cigarettes a day.Will. * Medications: T akingVitamin D (Ergocalciferol) 1.25 MG (26178 UT) Capsule TAKE 1 CAPSULE BY MOUTH 1 TIME A MONTH Atorvastatin Calcium 40 MG Tablet TAKE 1 TABLET BY MOUTH EVERY DAY diazePAM 5 MG Tablet 1 tablet Orally twice a day Diphenoxylate-Atropine 2.5- 0.025 MG Tablet 1 tablet as needed Orally [...] one tablet the rest of the days Levothyroxine Sodium 75 MCG Tablet 1 tablet every morning on an empty stomach Orally Once a day Medication List reviewed and reconciled with the patientTaking Vitamin D (Ergocalciferol) 1.25 MG (04840 UT) Capsule TAKE 1 CAPSULE BY MOUTH 1 TIME A MONTH Taking Atorvastatin Calcium 40 MG Tablet TAKE 1 TABLET BY MOUTH EVERY DAY Taking diazePAM 5 MG Tablet 1 tablet Orally twice a day Taking Diphenoxylate-Atropine 2.5-0.025 MG Tablet [...] tablet the rest of the days Taking Levothyroxine Sodium 75 MCG Tablet 1 tablet every morning on an empty stomach Orally Once a day Medication List reviewed and reconciled with the patient * Allergies: V oltaren: stomach upset - Side EffectsNo Known Food Allergyno[Allergies Verified] Objective: * Vitals: H t: 72, Wt:205, BMI:27.8, BP:135/62, HR:80, Temp:97.2, Ht-cm: 182.88, Wt-k.99. * P ast Orders: Lab:Free T4 (Free Thyroxine) * Collection Date [...] May have water,PLEASE FAX COMPLETED RESULTS TO [phone] * Lab:Thyroid Stimulating Horm one * Collection Date 02/25/2025 08/08/2023 07/19/2022 Collection Time 06:59 AM 10:24 AM 03:49 PM Order Date 02/25/2025 08/08/2023 07/19/2022 Thyroid Stimulating Hormone 0.92 (Ref Range: 0.32-4.0 uIU/mL) 0.51 (Ref Range: 0.32-4.0 uIU/mL) 0.42 (Ref Range: 0.32-4.0 uIU/mL) ???Lab:Vitamin D 25-OH Total (Order Date - [...] May have water,PLEASE FAX COMPLETED RESULTS TO [phone] * Lab:Comprehensive Pall Mall. [facility]boe l Fast * Collection Date 02/25/2025 11/15/2021 11/13/2020 [...] 8.4-10.2 mg/dL) 9.6 (Ref Range: 8.4-10.2 mg/dL) * Lab:Lipid Panel * Collection Date 02/25/2025 [...] May have water,PLEASE FAX COMPLETED RESULTS TO [phone] ???Lab:Urinalysis (Order Date - 02/25/2025) (Collection Date & Time - 02/25/2025 06:53 AM)?ValueReference Range?Color UrineYellow- ?Appearance UrineClear-?PH6.05.0-9.0 -?Glucose Urine UA NegativeNegative - mg/dL?Urine BloodNegativeNegative -?Specific Emma - Urine1.0101.005-1.025 -?Urine ProteinNegativeNeg-Trace - mg/dL ?Urine KetonesNegativeNegative - mg/dL?Nitrite UrineNegative Negative -?Leukocyte Esterase UrineNegativeNegative - * Lab:Uric Acid * Collection Date 02/25/2025 [...] May have water,PLEASE FAX COMPLETED RESULTS TO [phone] * Lab:Complete Blood Count Aut o Diff [...] 0.0-0.012 X10*3/uL) 0.000 (Ref Range: 0.0-0.012 X10*3/uL) ???Lab:HIV Ab/Ag (Order Date - 02/25/2025) (Collection Date & Time - 02/25/2025 06:59 AM)?ValueReference Range?HIV AB/AGNonreactiveNonreactive - * Lab:Urine Culture * Collection Date 02/25/2025 10/24/2022 [...] May have water,PLEASE FAX COMPLETED RESULTS TO [phone] ???Lab:Syphilis Screen (Order Date - 02/25/2025) (Collection Date & Time - 02/25/2025 06:59 AM)?ValueReference Range?Syphilis Screen NonreactiveNonreactive - * Examination: G eneral Examination: GENERAL APPEARANCE: p leasant, well nourished, well developed, in no acute distress, calm and relaxed: overweight: woman. HEAD: a traumatic, normocephalic. EYES: e luis, perrla, anicteric, conjugate, the appearance of the left cornea and iris and pupils conjunctival and sclera are normal. The retina was visualized with an ophthalmoscope but the pupil was not dilated. The blood vessels appeared normal.. EARS: n ormal. NOSE: s eptum intact. ORAL CAVITY: n ormal, unremarkable. NECK/THYROID: n o jugular venous distention, no carotid bruit, thyroid normal. LYMPH NODES: n o enlarged lymph nodes,spleen normal. SKIN: n o suspicious lesions, anicteric. HEART: n o clicks, gallops, murmurs, or rubs, regular rhythm, S1, S2 normal, no s3, or vascular bruits. LUNGS: d iminished breath sounds throughout: : no wheezes, rales, rhonchi: good air movement. BREASTS: N ot examined. ABDOMEN: b owel sounds normal, no ascites, no organomegaly, no mass: overweight. RECTAL EXAM: n ot examined. MUSCULOSKELETAL: e xtremities unremarkable, no clubbing, cyanosis or edema. PERIPHERAL PULSES: n ormal. NEUROLOGIC: a lert and oriented, cranial nerves 2-12 grossly intact, deep tendon reflexes 2+ symmetrical, motor strength normal upper and lower extremities, sensory exam intact. PSYCH: a lert, oriented: thought process logical, goal directed: speech clear: mood/affect full range: good eye contact: cooperative with exam: cognitive function intact. Assessment: * Assessment: 1. R etinopathy - H35.00 (Primary) N otes :She gives a history of black dots in her visual field which are likely floaters and could be from a vitreous detachment. However she also complains about flashing lights which she describes as lightning bolts in the left eye which is worrisome for retinal pathology. She was referred back to her fancy stitcher for evaluation. 2 . M ixed hyperlipidemia - E78.2 N otes :Her lipids are currently stable and no change in her regimen was needed. We discussed a weight loss program today. 3 . A cquired hypothyroidism - E03.9 N otes :Her thyroid function test remained in range. She was continued on the current dose of replacement levothyroxine. 4 . S creening breast examination - Z12.39 N otes :She has been scheduled for her annual screening mammogram. 5 . F ormer smoker - Z87.891 N otes :We discussed a plan to prevent relapse in times of stress or illness. 6 . O verweight (BMI 25.0-29.9) - E66.3 N otes :Her body mass index is 28. She has lost a pound since her last visit. We discussed diet and nutrition. We reviewed her weight loss strategy. She will try to lose weight at a rate of one half of a pound per week. 7 . P rimary insomnia - F51.01 N otes :We discussed sleep hygiene today. She will continue her current therapy and no additional medication was given. 8 . A ttention deficit disorder (ADD) in adult - F98.8 N otes :She is doing very well with the Adderall and is conducting all of the activities of daily life without impairment. No change in her regimen seems indicated. 9 . I diopathic chronic gout 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 tophus - M1A.0710 ? N otes :No attacks of gout have been reported since her last visit. 1 0. U nspecified rotator cuff tear or rupture of left shoulder, not specified as traumatic - M75.102 N otes :She continues to have pain with range of motion and sees Dr. Hamilton for this problem. He received physical therapy and a sling. 1 1. V itamin D deficiency - E55.9 1 2. D egenerative disc disease, cervical - M50.30 N otes :She is going to have another injection and see the neurosurgeon in the near future. 1 3. D egenerative disc disease, lumbar - M51.36 N otes :Her pain today is mild and controlled with hmhb-yhn-etakenq medication. She was advised to lose weight and avoid heavy lifting. 1 4. H iatal hernia - K44.9 N otes :She has occasional symptoms of esophageal reflux and epigastric discomfort, some of which may be due to this. She will continue on her current regimen. 1 5. G ERD without esophagitis - K21.9 N otes :Her esophageall reflux symptoms are well controlled medication. No change in her regimentoday. 1 6. P rimary osteoarthritis of left knee - M17.12 N otes :She has a history of meniscus surgery in this day and it has improved. She has a history of hip replacement as well. 1 7. T obacco dependence - F17.200 N otes :She smokes only 2 cigarettes a day. We discussed smoking cessationn in detail today. Plan: * Treatment: 2. A cquired hypothyroidism L AB: PROFILE, FASTING (COMPREHENSIVE METABOLIC) L AB: CBC w DIFF L AB: Lipid Panel L AB: Hemoglobin A1c 3. S creening breast examination I maging: MM tomosynthesis screening BI 4. O thers Continue Levothyroxine Sodium Tablet, 75 MCG, 1 tablet every morning on an empty stomach, Orally, Once a day; C ontinue Vitamin D (Ergocalciferol) Capsule, 1.25 MG (01704 UT), TAKE 1 CAPSULE BY MOUTH 1 TIME A MONTH; C ontinue Atorvastatin Calcium Tablet, 40 MG, TAKE 1 TABLET BY MOUTH EVERY DAY; C ontinue diazePAM Tablet, 5 MG, 1 tablet, Orally, twice a day; C ontinue Diphenoxylate-Atropine Tablet, 2.5-0.025 [...] Ellipta Aerosol Powder Breath Activated, 100-62.5-25 MCG/ACT, Inhalation; C ontinue Amantadine HCl Capsule, 100 MG, 1 capsule, Orally, 3 times a day; C ontinue Azithromycin Tablet, 250 MG, like directed, Orally, 2 Tablets on the first day, one tablet the rest of the days. ? Referral To:LAUREEN CANELA Ophthalmology Reason:Consult and Treat Eye Flashes * Procedure Codes: * Preventive Medicine: Counseling: C are goal follow-up plan: Counseling for abnormal BMI given Y es Above Normal BMI Follow-up D ietary management education, guidance, and counseling S moking/Tobacco Use Patient counseled on the dangers of tobacco use and urged to quit. 1 07/15/2024 Patient Lifestyle Goals P atient wants to quit Treatment Goals S et a quit date, Cut down by 1 cigarette a week Barriers S tress, Social smoker Self-Management Plan M marquis a plan to cut down number of cigarettes over time and set a date to work towards quitting * Follow Up: 3 Months (Reason: OV) * Images: * Sign off status: Completed true * Provider: Zahraa Quezada MD Date: 1 07/15/2024 Generated for Mariposa reynolds/Aron/eTransmitting on: 08/04/2024 12:46 PM EST History and Physical Notes * HPI (History of Present Illness) Category Sub-Category Detail Notes Depression Screening PHQ-9 Little inte rest or pleasure in doing things: Several days Feeling down, depressed, or hopeless: Se veral days Trouble falling or staying asleep, or sl eeping too much: Several days Feeling tired or having little energy: S everal days Poor appetite or overeating: Several day s Feeling bad about yourself o r that you are a failure, or have let yourself or your family down: Several days Trouble concentrating on thi ngs, such as reading the newspaper or watching television: Several days Moving or speaking so slowly that other people could have noticed; or the opposite, being so fidgety or restless that you have been moving around a lot more than usual: Several days Thoughts that you would be b liss off or of hurting yourself in some way: Several days (Consider Suicide Assessment Risk) Total Score: 9 Interpretation: Mild Depression Interpretation and Intervention Depression Zia isbell Findings: Positive Suicide Risk Assessment Performed: 05/14 Fall Risk Screening Fall History Have you had any falls with injury in the past year?: No Have you had two or more falls in the pa st year?: No Fall Risk Assessment:: No falls in the p ast year COVID-19 Screening Questions Have you had any new onset fever, chills, cough, congestion, sore throat, shortness of breath, muscle aches?: No SDOH Questions SDOH Questions In the past year have you or [...] normocep halic EYES: eomi, perrla, anicte aaron, conjugate, the appearance of the left cornea and iris and pupils conjunctival and sclera are normal. The retina was visualized with an ophthalmoscope but the pupil was not dilated. The blood vessels appeared normal. EARS: normal NOSE: septum intact NECK/THYROID: no jugular venous di stention, no carotid bruit, thyroid normal HEART: no clicks, gallops, murmurs, or rubs, regular rhythm, S1, S2 normal, no s3, or vascular bruits LUNGS: diminished breath so unds throughout: : no wheezes, rales, rhonchi: good air movement ABDOMEN: bowel sounds normal, [...] normal RECTAL EXAM: not examined PSYCH: alert, oriented: tho ught process logical, goal directed: speech clear: mood/affect full range: good eye contact: cooperative with exam: cognitive function intact ORAL CAVITY: normal, unremarkable Consultation Request Notes Referral Date Referring Provider Referred Provider Not kendall 05/14/2025 Campos Quezada JOSEPH Consult and Treat Eye Flashes
--- OUTSIDE RECORDS SUMMARY | 2025-06-03 12:46 | XMS_ITS | Encounter Summary ---
Author Organization [facility] Address [address] [place] [address] Care Team Providers Care Reinstatement Clerk Name Role Phone Campos Quezada III Primary Care Provider Encounter Details Date Type Department Care Team (Late st Contact Info) Description 03/18/2025 Preprocedure Call [facility] [address] [place] [address] Natalie Kasper RN [address] [place] [address] Social History Tobacco Use Types Packs/Day Years Used Date Smoking Tobacco: Never Assessed Comments Unknown Sex and Gender Information Value Date Recorded Sex Assigned at Female 03/25/2025 8:12 AM EDT Legal Sex Female 9:10 AM EDT Gender Identity Female 03/25/2025 8:12 AM EDT Sexual Orientation Not on file documented as of this encounter Plan of Treatment Upcoming Encounters Date Type Department Care Team (Latest Contact Info) Description 07/17/2025 9:00 AM EST Appointment [facility] [address] [place] [address] Darío Landis MD [address] [place] [address] with Physician 09/02/2025 3:00 PM EDT Office Visit [facility] Gastroenter[facility] [address] [place] [address] Stepan Walker MD [address] [place] [address] In Person with Physician documented as of this encounter Visit Diagnoses Not on filedocumented in this encounter Care Teams Reinstatement Clerk Relationship Specialty Start Date End Date Campos Quezada III [address] [place] [address] PCP - General 09/16/24 documented as of this encounter
--- OUTSIDE RECORDS SUMMARY | 2025-06-03 12:46 | XMS_ITS | Patient Health Record ---
Author Organization [facility] Address [address] [place] [address] Care Team Providers Care Survey Research Manager Name Role Phone Campos Quezada MD Primary Care Provider Unavailab Campos Navarro Unavailable [phone] Allergies Allergen (clinical drug ingredient) Drug/Non Drug Allergy documented on EMR Reaction Allergy Type Onset Date Status Anti-Inflammatory Enzyme Unknown Drug Allergy Active Results Component Value Reference Range Notes NM gastric emptying study (N ot yet reviewed by provider) Interpretation: Performing Lab: Notes/Report: [address] [address] Nuclear Medicine Report Signed Patient: Brooke Ribera MR#: [id number] : 1955 Acct:[id number] Age/Sex: 68 / F ADM Date: 06/19/24 Loc: [facility] Attending Dr: Campos Hand MD Ordering Physician: Campos Hand MD Date of Service: 06/19/24 Procedure(s): NM gastric emptying study Accession Number(s): [id number] cc: Campos Quezada MD; Campos Hand MD [...] grading per JNMT Consensus Recommendations in 2008 (https://tech.snmjournals.org/content/36/1/44) Grade 1 (mild retention): 11-20% at 4h Grade 2 (moderate retention): 21-35% at 4h Grade 3 (severe retention): 36-50% at 4h Grade 4 (very severe retention): >50% retention at 4h Electronically signed by: Cristiano Desir MD 06/20/2024 07:18 AM [facility] Dictated By: Cristiano Desir MD Signed By: <Electronically signed by Cristiano Desir MD in OV> 06/20/24 0718 DD/ 0800 TD/TT: 06/19/24 1215 Industrial Fabric Cutter: CYNDIE Reason For Referral No Information Medications Medication SIG (Take, Route, Frequency, Duration) Notes Start Date End Date Status Zolpidem Tartrate 10 MG Tablet Oral; Duration: 30 Active Amphetamine-Dextroamphet amine 10 MG Tablet Oral; Duration: 30 Act angela LORazepam 0.5 MG Tablet 1 tablet as need ed Orally Twice a day Active clonazePAM 0.5 MG Tablet TAKE 1 TABLET B Y MOUTH ONCE A DAY NEEDED Oral; Duration: 30 F411,Unavailab le Active Omeprazole 20 MG Capsule Delayed Release TAKE 1 CAPSULE BY MOUTH EVERY MORNING; Duration: 90 Active Adderall XR 20 MG Capsule Extended Release 24 Hour 1 capsule in the morning Orally Once a day Active hydrOXYzine Pamoate 25 MG Capsule Oral; Duration: 30 Active Citalopram Hydrobromide 40 MG Tablet 0.5 tablet Orally Once a day Active Simvastatin 40 MG Tablet 1 tablet in the evening Orally Once a day Active Atorvastatin Calcium 40 MG Tablet TAKE 1 TABLET BY MOUTH EVERY DAY Oral; Duration: 90 Active Levothyroxine Sodium 75 MCG Tablet 1 tablet Orally Once a day Active Amantadine HCl 100 MG Capsule TAKE 1 CAPSULE BY MOUTH THREE TIMES DAILY Oral; Duration: 90 Active Trelegy Ellipta 100-62.5-25 MCG/ACT Aerosol Powder Breath Activated INHALE 1 PUFF INTO THE LUNGS DAILY Inhalation; Duration: 90 Active Ambien Active Ergocalciferol 60265 UNIT Capsule 1 capsule Orally Active Abilify Active Immunizations Vaccine Route Administration Date Status Comme nts Influenza Unknown 07/13/2019 Administered Influenza Unknown 04/03/2024 Refused Social History Tobacco Use: Social History Observation Description Date Details (start date - stop date) Current Smoker NA - NA Social History Tobacco Use: Social Info Question Answer Notes Tobacco Control (Standard) Tobacco use: Current smoker How often do you smoke cigarettes? Every day How many cigarettes a day do you smoke? 5 or less Additional Details Category Social Info Options Details Miscellaneous: Marital status: Occupation: Disabled due to her Cspine disc disease Section Notes: Nonsmoker since 2011; no sig alcohol Nonsmoker since 2011; no sig alcohol Nonsmoker-since 12/2019; no s ig alcohol Nonsmoker-since 12/2019; no s ig alcohol Nonsmoker-since 12/2019; no s ig alcohol Problems Problem Type SNOMED Code ICD Code Onset Dates Problem Status W/U Status Risk Notes Problem Screening for malignant neoplasm of colon (780635510) Encounter for screening for malignant neoplasm of colon (Z12.11) Active confirmed Problem History of adenomatous polyp of colon (050596440) History of adenomatous polyp of colon (Z86.010) Active confirmed Problem Gastroparesis (310603024) Gastroparesis (K31.84) Active confirmed Problem Diverticular disease of colon (620244435) Diverticulosis of large intestine without perforation or abscess without bleeding (K57.30) Active confirmed Problem Gastroesophageal reflux disease (834966284) Gastroesophageal reflux disease (K21.9) Active confirmed Problem Hiatal hernia (77839171) Hiatal hernia (K44.9) Active confirmed Problem Paraesophageal hernia (9144591) 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) Active confirmed Problem Gastroesophageal reflux disease (475058553) GERD (gastroesophageal reflux disease) (K21.9) Active confirmed Problem Irritable bowel (06899557) Irritable bowel (K58.9) Active confirmed Problem Chronic diarrhea (772832598) Chronic diarrhea (K52.9) Active confirmed Problem Gastroesophageal reflux disease (212404021) Esophageal reflux disease (K21.9) Active confirmed Problem Esophageal dysphagia (88697569) Esophageal dysphagia (R13.10) Active confirmed Problem Benign esophageal stricture (651734086) Benign esophageal stricture (K22.2) Active confirmed Problem Retained food in stomach (K31.89) Active confirmed Problem Gastroesophageal reflux disease (disorder) (899606320) Chronic GERD (K21.9) Active confirmed Vital Signs Blood pressure diastolic 11 mm Hg 09/10/2024 Height 73 in 09/10/2024 Blood pressure systolic 111 mm Hg 09/10/2024 Weight 194 lbs 09/10/2024 BMI 25.59 kg/m2 09/10/2024 Encounters Encounter Location Date Provider Diagnosis [facility] [address] [place] [phone] 09/10/2024 Campos Hand History of adenomato us polyp of colon Z86.010 ; Gastroparesis K31.84 ; Irritable bowel K58.9 and GERD (gastroesophageal reflux disease) K21.9 [facility] [address] [place] [phone] 06/06/2024 Campos Hand [facility] [address] [place] [phone] 07/02/2024 Campos Hand [facility] [address] [place] [phone] 09/17/2024 Campos Hand Assessments Encounter Date Diagnosis (ICD Code) Assessment Notes Treatment Notes Treatment Clinical Notes Section Notes 09/10/2024 History of adenomatous polyp of colon [...] advised of her progress as needed. 09/10/2024 Irritable bowel (ICD-10 - K58.9) Use [...] advised of her progress as needed. 09/10/2024 GERD (gastroesophagea l reflux disease) (ICD-10 - K21.9) Keep using [...] you advised of her progress as needed. Plan Of Treatment Pending Test Test Name [...] Date MEDICARE OF [place] [address] [place] [address] [id number] PATRICIA RIBERAANNE Self - patient is the insured MEDICAID OF [facility] [address] [place] [address] [phone] [id number] PATRICIA RIBERAANNE Self - patient is the insured Medical [...] Hypothyroidism Anxiety Panic attacks Hyperlipidemia ADHD Denies [place],DM,CVA,Lung disease,renal dise ase Colonoscopy in 10/2014 with [...] emptying as well Surgical History Surgery Date(Month/Year) Cervical spine disc surgery x 2 Right hip replacement in 2013 Paraesophageal hiatal hernia repair by Dr. Moon at [facility] 12/13/2023
--- OUTSIDE RECORDS SUMMARY | 2025-06-03 12:46 | XMS_ITS | Patient Health Record ---
Author Organization [facility] Address [address] [place] [address] Care Team Providers Care Architectural Wood Model Maker Name Role Phone Campos Quezada MD Primary Care Provider Unavailab Imelda Gonzalez Unavailable [phone] Reason For Referral No Information Medications Medication [...] Problem Acquired hammer toe of right foot (9636289501714 105) Other hammer toe(s) (acquired), right foot (M20.41) Active confirmed Problem Acquired hammer toe of left foot (4208828126108 103) Other hammer toe(s) (acquired), left foot (M20.42) Active confirmed Plan Of Treatment No Information Insurance Providers Payer Name Payer Address Payer Phone Subscriber Number Group Number Insured Name Patient Relationship to Insured Coverage Start Date Coverage End Date [facility] [employer] Claims [address] [place] [phone] [id number] Sally Greenberg Self - patient is the insured Medical (General) History Medical History History ICD Code Anxiety Back,Hip,and Knee pain Depression Lung disease Measles Mumps Chicken pox Bone implants/screws Surgical History Surgery Date(Month/Year) right hip replacement Fusion- neck
--- OUTSIDE RECORDS SUMMARY | 2025-06-03 12:46 | XMS_ITS | Clinical Summary ---
Author Organization [facility] Prior to 11/09/[address] [place] [address] Care Team Providers Care Vice President Integrated Name Role Phone Campos Quezada MD Primary Care Provider [phone] Allergies Active Allergy Reactions Criticality Noted Date [...] 1 11/26/2017 Active ergocalciferol (VITAMIN D2) capsule 21972 units TAKE ONE CAPSULE BY MOUTH BY [...] this topic Medical Devices Implanted Type Area Wind Plant Manager Device Identifier Shelf Expiration Date Model / Serial / Lot Sponge Surgiflo 8ml Hemostatic Matrix Absorbable Latex Free - 327228 - [id number] Implanted:Qty: 1 on 05/24/2018 by Michael Elliott MD at [facility] Hemostatic Agent Anterior: Spine Cervical [employer] 03/11/2020 2991 / / [id number] Sponge Surgiflo 8ml Hemostatic Matrix Absorbable Latex Free - 568617 - [id number] Implanted:Qty: 1 on 10/05/2020 by Darío Guillory DO at [facility] Hemostatic Agent Anterior: Spine Cervical [employer] 01/09/2022 2991 / / [id number] Spacer Cervical Allofuse 6mm Cortical Cancellous Freeze [facility] - 710869 - [id number] Implanted:Qty: 1 on 05/24/2018 by Michael Elliott MD at [facility] Anterior: Spine Cervical [employer] 08/19/2022 [id number] / / [id number] Description:wm Plate Xtend Bone [facility] - 257099 - [id number] Implanted:Qty: 1 on 05/24/2018 by Michael Elliott MD at [facility] Anterior: Spine Cervical [employer] 161.112 / / Screw Bone 12mm Ti Spnl [facility] - 520870 - [id number] Implanted:Qty: 4 on 05/24/2018 by Michael Elliott MD at [facility] Anterior: Spine Cervical [employer] 161.312 / / Vikos Cervical 14x14.5x6mm 7d Cortico Cancellous - 577007 - [id number] Implanted:Qty: 1 on 10/05/2020 by Darío Guillory DO at [facility] Anterior: Spine Cervical [employer] 01/06/2025 [id number] 6L7 / [id number] / [id number] Plate [place] 20mm 1 Level Bone Spine Cervical [employer] - 882976 - [id number] Implanted:Qty: 1 on 10/05/2020 by Darío Guillory DO at [facility] and [facility] Anterior: Spine Cervical [employer] [id number] / / Screw [place] 14mm 4mm Self Start Variable Angle Bone Spine - 464473 - [id number] Implanted:Qty: 4 on 10/05/2020 by Darío Guillory DO at [facility] and [facility] Anterior: Spine Cervical [employer] [id number] DA / / Explanted Type Area Wind Plant Manager Device Identifier Shelf Expiration Date Model / Serial / Lot Plate Explanted:Qty: 1 on 10/05/2020 at [facility] and [facility] Anterior: Spine Cervical Screws Explanted:Qty: 4 on 10/05/2020 at [facility] and [facility] Anterior: Spine Cervical Advance Directives For more information, please contact: [phone] Documents on File Type Date Recorded Patient Child Care Nurse Expl anation Advance Directive and Living Will 02/07/2020 9:00 AM Latest Code Status on File Code Status Date Activated Date Inactivated Comments Full Code 05/24/2018 9:39 AM 05/25/2018 6:53 PM Thi s code status was ascertained in the following way: discussion with patient . Care Teams Vice President Integrated Relationship Specialty Start Date End Date Campos Quezada MD [facility] [address] [place] [address] PCP - General Oncology 12/21/18
--- OUTSIDE RECORDS SUMMARY | 2025-06-03 12:46 | XMS_ITS | Patient Health Record ---
Author Organization Campos Quezada III, MD Address [address] [place] [address] Care Team Providers Care Cooker Helper Name Role Phone Dr. Camops Quezada III Primary Care Provider Campos Quezada III, MD Allergies Allergen (clinical drug ingredient) Drug/Non Drug Allergy documented on EMR Reaction Allergy Type Onset Date Status No Known Food Allergy Unknown Drug Allergy Active Voltaren stomach upset Drug Allergy Act angela Results Component Value Reference Range Notes Uric Acid Reviewed date:03/07/2025 10:21:33 AM Interpretation: Performing Lab:[address] [address] Notes/Report: Uric Acid 5.2 2.4-5.7 mg/dL Lipid Panel Reviewed date:03/07/2025 10:21:33 AM Interpretation: Performing Lab:[address] [address] Notes/Report: Triglycerides 117 <150 mg/dL Desirable Triglyceride: [...] Total Reviewed date:03/07/2025 10:21:33 AM Interpretation: Performing Lab:[address] [address] Notes/Report: Vitamin D 25-OH Total 28.1 >30 [...] Thyroxine) Reviewed date:03/07/2025 10:21:33 AM Interpretation: Performing Lab:[facility], [address] [place] [address] Notes/Report: Free T4 (Free Thyroxine) 0.98 0.71-1.85 ng/dL Urine Culture Reviewed date:03/07/2025 10:21:33 AM Interpretation: Performing Lab:[address] [address] Notes/Report: Urine Culture Report Result Urine Culture < 10,000 cfu/ml NM gastric emptying study Reviewed date:06/22/2024 09:07:55 PM Interpretation: Performing Lab: Notes/Report: [address] [place] [address] Nuclear Medicine Report Signed Patient: Sally Greenberg MR#: [id number] 990 : 1955 Acct:[id number] Age/Sex: 68 / F ADM Date: 06/19/24 Loc: [facility] Attending Dr: Campos Hand MD Ordering Physician: Campos Hand MD Date of Service: 06/19/24 Procedure(s): [place] gastric emptying study Accession Number(s): [id number] cc: Campos Quezada MD; Campos Hand MD [...] hours 72% 4 hours 42% (normal 0%-10%) [place] gastric emptying study IMPRESSION: Abnormal 4-hour solid [...] 06/20/24 0718 DD/ 0800 TD/TT: 06/19/24 1215 Revenue Settlements Administrator: [place] [address] Nuclear Medicine Report Signed Patient: Vicenta Greenberg MR#: [id number] 990 : 1955 Acct:[id number] Age/Sex: 68 / F ADM Date: 06/19/24 Loc: [facility] Attending Dr: Campos Hand MD Ordering Physician: Campos Hand MD Date of Service: 06/19/24 Procedure(s): NM gastric emptying study Accession Number(s): [id number] cc: Campos Quezada MD; Campos Hand MD [...] grading per JNMT Consensus Recommendations in 2008 (https://tech.snmjourn als.org/content/36/4 4) Grade 1 (mild retention): 11-20% at 4h Grade 2 (moderate retention): 21-35% at 4h Grade 3 (severe retention): 36-50% at 4h Grade 4 (very severe retention): >50% retention at 4h Electronically kirsten d by: Cristiano Desir MD 06/20/2024 07:18 AM [facility] Dictated By: Cristiano Desir MD Signed By: <Electronically signed by Cristiano Desir MD in OV> 06/20/24 0718 DD/ 0800 TD/TT: 06/19/24 1215 Revenue Settlements Administrator: CYNDIE Complete Blood Count Auto Di ff Reviewed date:03/07/2025 10:21:33 AM Interpretation: Performing Lab:[facility], [address] [place] [phone] Notes/Report: White Blood Count 6.8 4.8-10.8 X10*3/uL Red Blood Count 4.20 4.20-5.50 X10*6/uL Hemoglobin 12.5 12.0-16.0 g/dl Hematocrit 37.7 37.0-47.0 % Mean Corpuscular Volume 89.8 80.0-98.0 fL Mean Corpuscular Hemoglobin 29.8 27.0-33.0 pg Mean Corpuscular HGB Conc 33.2 31.0-35.0 g/dl Red Cell Distribution Width 13.3 11.0-16.0 % Platelet Count 312 160-400 X10*3/uL Mean Platelet Volume 9.8 9.4-12.3 fL Neutrophils Percent Auto 64.0 45-73 % Imm Gran Pct Auto 0.4 0.0-0.4 % Lymphocytes Percent Auto 25.8 20-40 % Monocytes Percent Auto 5.7 2-11 % Eosinophils Percent Auto 3.5 0-4 % Basophils Percent Auto 0.6 0-2 % NRBC Pct Auto 0.0 0.0-0.2 /100WBC Neutrophils Absolute Auto 4.4 2.0-8.3 x10*3/uL Imm Gran Abs Auto 0.03 0.00-0.03 X10*3/uL Lymphocytes Absolute Auto 1.8 1.2-4.9 X10*3/uL Monocytes Absolute Auto 0.4 0.1-1.2 X10*3/uL Eosinophils Absolute Auto 0.2 0.0-0.4 X10*3/uL Basophils Absolute Auto 0.0 0.0-0.2 X10*3/uL NRBC Abs Auto 0.000 0.0-0.012 X10*3/uL Urinalysis Reviewed date:03/07/2025 10:21:33 AM Interpretation: Performing Lab:[facility], [address] [place] [address] Notes/Report: Color Urine Yellow Appearance Urine Clear PH 6.0 5.0-9.0 Glucose Urine UA Negative Negative mg/dL Urine Blood Negative Negative Specific Rossiter - Urine 1.010 1.005-1.025 Urine Protein Negative Neg-Trace mg/dL Urine Ketones Negative Negative mg/dL Nitrite Urine Negative Negative Leukocyte Esterase Urine Negative Negative Comprehensive [place]. Panel Fa st Reviewed date:03/07/2025 10:21:33 AM Interpretation: Performing Lab:[facility], [address] [place] [phone] Notes/Report: Sodium 141 135-145 mmol/L Potassium 4.2 3.3-5.1 mmol/L Chloride 106 96-108 mmol/L Carbon Dioxide 27 22-29 mmol/L Anion Gap 12 12-20 Blood Urea Nitrogen 13 9-16 mg/dL Creatinine 1.14 0.5-1.4 mg/dL Estimated Glomerular Filt Rate 48 Chronic Kidney Disease: Estimated GFR < 60 mL/min/1.73m2 Severe Kidney Disease: Estimated GFR < 15 mL/min/1.73m2 Glucose Fasting 150 60-99 mg/dL A fasting glucose of 126 mg/dl or greater on more than one occasion is considered diagnostic of diabetes. Calcium 9.5 8.4-10.2 mg/dL Bilirubin Total 0.3 0.0-1.0 mg/dL Aspartate Amino Transferase 19 5-31 U/L Alanine Aminotransferase 13 0-31 U/L Total Protein 7.0 6.5-8.0 g/dL Albumin Level 4.2 3.5-5.0 g/dL Alkaline Phosphatase 159 39-117 U/L Thyroid Stimulating Hormone Reviewed date:03/07/2025 10:21:33 AM Interpretation: Performing Lab:[address] [address] Notes/Report: Thyroid Stimulating Hormone 0.92 0.32-4.0 uIU/mL TSH 3rd Generation ([facility]) Syphilis Screen Reviewed date:03/07/2025 10:21:33 AM Interpretation: Performing Lab:[facility], [address] [place] [phone] Notes/Report: Syphilis Screen Nonreactive Nonreactive HIV Ab/Ag Reviewed date:03/07/2025 10:21:33 AM Interpretation: Performing Lab:[facility], [address] [place] [phone] Notes/Report: HIV AB/AG Nonreactive Nonreactive HIV-1 p24 Ag and/or HIV-1/HIV-2 Ab not detected. A test result that is nonreactive does not exclude the possibility of exposure to or infection with HIV-1 and/or HIV-2. Nonreactive results in this assay for individuals with prior exposure to HIV-1 and/or HIV-2 may be due to antigen and antibody levels that are below the limit of detection of this assay. The [employer] Alinity HIV Ag/Ab Combo assay result and supplemental assay results should be interpreted in conjunction with the patient's clinical presentation, history and other laboratory results. If the results are inconsistent with clinical evidence, additional testing is suggested to confirm the result. Comprehensive [place]. Panel Fa st (Not yet reviewed by provider) Interpretation: Performing Lab:[facility], [address] [place] [phone] Notes/Report: Sodium 142 135-145 mmol/L Potassium 4.2 3.3-5.1 mmol/L Chloride 109 96-108 mmol/L Carbon Dioxide 25 22-29 mmol/L Anion Gap 12 12-20 Blood Urea Nitrogen 18 9-16 mg/dL Creatinine 1.03 0.5-1.4 mg/dL Estimated Glomerular Filt Rate 53 Chronic Kidney Disease: Estimated GFR < 60 mL/min/1.73m2 Severe Kidney Disease: Estimated GFR < 15 mL/min/1.73m2 Glucose Fasting 113 60-99 mg/dL A fasting glucose from 100-125 mg/dl is considered impaired (pre-diabetes). Calcium 9.3 8.4-10.2 mg/dL Bilirubin Total 0.3 0.0-1.0 mg/dL Aspartate Amino Transferase 20 5-31 U/L Alanine Aminotransferase 12 0-31 U/L Total Protein 6.6 6.5-8.0 g/dL Albumin Level 4.0 3.5-5.0 g/dL Alkaline Phosphatase 140 39-117 U/L Vitamin D 25-OH Total (Not y et reviewed by provider) Interpretation: Performing Lab:[facility], [address] [place] [phone] Notes/Report: Vitamin D 25-OH Total 21.7 >30 ng/mL Health Based Reference Values* < [...] confirmed with another method such as LC-MS/MS. Hemoglobin A1c (Not yet revi ewed by provider) Interpretation: Performing Lab:[facility], [address] [place] [address] Notes/Report: Hemoglobin A1c % 6.3 <6.0 % Hemoglobin A1C Reference Range Adults: 4.8 - 6.0 % Non diabetic: < 6.0 % Goal: < 7.0 % Additional Action Suggested: > 8.0 % Note: Hemoglobin A1c results are invalid for patients with abnormal amounts of HbF. Blood transfusions may impact the HbA1c concentration in the patient sample. Estimated Average Glucose 134 eAG = Estimated average glucose which is %A1C expressed as average glucose, using the formula of the [id number] Average Glucose study (ADAG), Diabetes Care, Vol.31,#8, 2007 Reason For Referral Reason Consult and Treat Second Opinion Diagnosis 1 Gastroparesis (K31.8 4) Diagnosis 2 Chronic diarrhea of unknown origin (K52.9) Diagnosis 3 GERD without esophag itis (K21.9) Referral Organization Campos Quezada III, MD Referring Provider First Name Campos Referring Provider Last Name Pilar Referring Provider Speciality Internal edicine Referred Provider [facility], Gastro enterology Referred Provider Specialty Gastroentero logy General Notes Almaz Max 10/10/2024 03:58:02 PM > referral was faxed on 09/13/24 Referral Priority Routine Referral Appointment Date 01/08/2025 Reason Consult and treat Diagnosis 1 Urine frequency (R35 .0) Referral Organization Campos Quezada III, MD Referring Provider First Name Campos Referring Provider Last Name Pilar Referring Provider Speciality Internal edicine Referred Provider Pranav Wills Referred Provider Specialty Urology General Notes Opal Encinas ASMA 07/2024 03:15:47 PM >Referral Faxed Referral Priority Routine Reason Consult and Treat Eye Flashes Diagnosis 1 Other subjective vis ual disturbances (H53.19) Referral Organization Campos Quezada III, MD Referring Provider First Name Campos Referring Provider Last Name Pilar Referring Provider Speciality Internal edicine Referred Provider LAUREEN CANELA Referred Provider Specialty Ophthalmolog y General Notes Jennifer De CMA 05/14 02:35:14 PM > referral/demo/progress note faxed to Dr Canela they will be calling pt with appt . pt called and made aware of this Referral Priority Routine Medications Medication SIG (Take, Route, Frequency, Duration) Notes Start Date End Date Status Zolpidem Tartrate 10 MG 1 tablet at bedt gustavo Orally Once a day Active Vitamin D (Ergocalciferol) 1.25 MG (54105 UT) TAKE 1 CAPSULE BY MOUTH 1 TIME A MONTH Active Amantadine HCl 100 MG 1 capsule Orally 3 times a day 03/05/2024 Active Atorvastatin Calcium 40 MG TAKE 1 TABLET BY MOUTH EVERY DAY Active Azithromycin 250 MG like directed Orally 2 Tablets on the first day, one tablet the rest of the days 08/29/2024 Active diazePAM 5 MG 1 tablet Orally twic e a day 07/26/2024 Active Diphenoxylate-Atropine 2.5-0.025 MG 1 tablet as needed Orally Four times a day if needed for diarrhea 03/26/2024 Active Citalopram Hydrobromide 40 MG 1 tablet Orally Once a day Active Benztropine Mesylate 0.5 MG Oral Active hydrOXYzine Pamoate 25 MG Oral Active Levothyroxine Sodium 75 MCG 1 tablet melodie ry morning on an empty stomach Orally Once a day Active Trelegy Ellipta 100-62.5-25 MCG/ACT Inhalation Active Adderall XR 30 MG 1 capsule in the mor akilah Orally Once a day Active Abilify 5 MG 1 tablet Orally Once a day Active Immunizations Vaccine [...] Problem Status W/U Status Risk Notes Problem 1955352 Former smoker (Z87.891) Active confirmed We discussed a plan to prevent relapse in times of stress or illness. Problem 710435512 Overweight (BMI 25.0-29.9) (E66.3) Active confirmed Her body mass index is 28. She has lost a pound since her last visit. We discussed diet and nutrition. We reviewed her weight loss strategy. She will try to lose weight at a rate of one half of a pound per week. Problem 364099208691329 Obesity (BMI 30.0-34.9) (E66.9) Active confirmed She has gained 6 pounds in her body mass index is 26.. We made a plan to lose weight at a rate of 1/2 pound per week through a diet restricted in fat calories and ssodium combined with regular physical activity. Problem Exposure to sexually transmissible disorder (849460485) Exposure to STD (Z20.2) Active confirmed The exposure wa s possible. Evaluation is negative. The patient is reduce symptoms and will be observed. Problem 426772462 Mixed hyperlipidemia (E78.2) Active confirmed Her lipids are currently stable and no change in her regimen was needed. We discussed a weight loss program today. Problem 6024469 Primary insomnia (F51.01) Active confirmed We discussed sleep hygiene today. She will continue her current therapy and no additional medication was given. Problem 265538967 Essential tremor (G25.0) Active confirmed She will call the office with the name of the new medication given to her for her tremor by her psychiatrist. Problem 920926735 Gastroparesis (K31.84) Active confirmed Her gastric emptying study was abnormal. She has an appointment in the near future to review this with her gastroenterologi st. I have discussed with her in general terms the disorder and various types of treatment utilized. Problem [id number] Unspecified rotator cuff tear or rupture of left shoulder, not specified as traumatic (M75.102) Active confirmed She continues t o have pain with range of motion and sees Dr. Hamilton for this problem. He received physical therapy and a sling. Problem 995143689 GERD without esophagitis (K21.9) Active confirmed Her esophageall reflux symptoms are well controlled medication. No change in her regimentoday. Problem 316014023 Acquired hypothyroidism (E03.9) Active confirmed Her thyroid function test remained in range. She was continued on the current dose of replacement levothyroxine. Problem 29208626 Degenerative disc disease, cervical (M50.30) Active confirmed She is going to have another injection and see the neurosurgeon in the near future. Problem 73648998 Tobacco dependence (F17.200) Active confirmed She smokes only 2 cigarettes a day. We discussed smoking cessationn in detail today. Problem 62279714 Hiatal hernia (K44.9) Active confirmed She has occasional symptoms of esophageal reflux and epigastric discomfort, some of which may be due to this. She will continue on her current regimen. Problem Transient ischemic attack (843497782) TIA (transient ischemic attack) (G45.9) Active confirmed She has had no neurological symptoms lately. Problem 95193486 Vitamin D deficiency (E55.9) Active confirmed Problem 168912145 Adenomatous polyp of colon, unspecified part of colon (D12.6) Active confirmed She will be due for her next colonoscopy in 2019. She sees Dr. Campos Hand at [facility], gastroenterology , for this problem. Problem 005967677 Attention deficit disorder (ADD) in adult (F98.8) Active confirmed She is doing very well with the Adderall and is conducting all of the activities of daily life without impairment. No change in her regimen seems indicated. Problem 91824793 Degenerative disc disease, lumbar (M51.36) Active confirmed Her pain tod ay is mild and controlled with [id number] medication. She was advised to lose weight and avoid heavy lifting. 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 Problem 507589301150021 Primary osteoarthritis of left knee (M17.12) Active confirmed She has a history of meniscus surgery in this day and it has improved. She has a history of hip replacement as well. Problem 476566766 Adopted person (Z02.82) Active confirmed She gives a history of being adopted as a child and her family history is unknown. She does not believe she has a twin. Problem 96192889 Retinopathy (H35.00) Active confirmed She gives a history of black dots in her visual field which are likely floaters and could be from a vitreous detachment. However she also complains about flashing lights which she describes as lightning bolts in the left eye which is worrisome for retinal pathology. She was referred back to her manager life insurance for evaluation. Problem Urinary tract infectious disease (18716818) UTI symptoms (R39.9) Active confirmed We have ordered a urine analysis and urine cullture. She could not produced urine today but will do so tomorrow in the laboratory. Problem 54108552 Chronic diarrhea of unknown origin (K52.9) Active [...] controlled with Imodium. Vital Signs Heart Rate 80 /min 05/14/2025 Temperature 97.2 degrees Fahrenheit 05/14/2025 Blood pressure diastolic 62 mm Hg 05/14/2025 Height 72 in 05/14/2025 Blood pressure systolic 135 mm Hg 05/14/2025 Weight 205 lbs 05/14/2025 BMI 27.8 kg/m2 05/14/2025 Encounters Encounter Location Date Provider Diagnosis Campos Quezada III, MD [address] [place] [address] [place] [address] 07/15/2024 Campos Quezada Chronic diarrhea of unknown origin K52.9 ; Gastroparesis K31.84 ; Mixed hyperlipidemia E78.2 ; Acquired hypothyroidism E03.9 ; Primary insomnia F51.01 ; Former smoker Z87.891 ; Idiopathic chronic gout 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 tophus M1A.0710 ; Obesity (BMI 30.0-34.9) E66.9 and Tobacco dependence F17.200 Campos Quezada III, MD [address] [place] [address] [place] [address] 08/29/2024 Campos Quezada Idiopathic chronic g out [...] Acquired hypothyroidism E03.9 Campos Quezada III, MD [address] [place] [address] [place] [address] 02/24/2025 Campos Quezada Chronic diarrhea of unknown origin K52.9 ; Exposure to STD Z20.2 ; Idiopathic chronic gout 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 tophus M1A.0710 ; Mixed hyperlipidemia E78.2 ; Acquired hypothyroidism E03.9 ; UTI symptoms R39.9 and Tobacco dependence F17.200 Campos Quezada III, MD [address] [place] [address] [place] [address] 03/07/2025 Campos Quezada Mixed hyperlipidemia E78.2 ; Acquired hypothyroidism E03.9 ; Former smoker Z87.891 ; Overweight E66.3 ; Idiopathic chronic gout 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 tophus M1A.0710 ; Attention deficit disorder (ADD) in adult F98.8 ; Unspecified rotator cuff tear or rupture of left shoulder, not specified as traumatic M75.102 ; Primary insomnia F51.01 ; Exposure to STD Z20.2 and Hyperglycemia R73.9 Campos Quezada III, MD [address] [place] [address] [place] [address] 05/14/2025 Campos Quezada Mixed hyperlipidemia E78.2 ; [...] Tobacco dependence F17.200 Campos Quezada III, MD [address] [place] [address] [address] [place] [address] 07/26/2024 Campos Quezada III, MD [address] [place] [address] [address] [place] [address] 07/26/2024 Campos Quezada III, MD [address] [place] [address] [address] [place] [address] 09/13/2024 Campos Quezada Assessments Encounter Date Diagnosis (ICD Code) Assessment Notes Treatment Notes Treatment Clinical Notes 07/15/2024 Gastroparesis (ICD-10 - K31.84) Her gastric emptying study was abnormal. She has an appointment in the near future to review this with her blow molding machine tender. I have discussed with her in general terms the disorder and various types of treatment utilized. 07/15/2024 Chronic diarrhea of unknown origin (ICD-10 - K52.9) Her gliaden T body level was 15. A reflex test was negative. She continues under the care of a blow molding machine tender whohas done a colonoscopy in the near [...] and call me once if it recurs. 02/24/2025 Exposure to STD (ICD-10 - Z20.2) Blood and urine studies were done today. There was no evidence of a transmitted disease on today's examination. 02/24/2025 Chronic diarrhea of unknown origin (ICD-10 - K52.9) Her gliaden T body level was 15. A reflex test was negative. She continues under the care of a blow molding machine tender whohas done a colonoscopy in the near future.Because of the diarrhea is still unclear. An infectious and today he has not been found. She admits to 3 loose stools a day. This is controlled with Imodium. 03/07/2025 Mixed hyperlipidemia (ICD-10 - E78.2) 03/07/2025 Acquired hypothyroidism (ICD-10 - E03.9) He says she is compliant with her medication. Comprehensive blood work with thyroid function tests have been ordered. 05/14/2025 Mixed hyperlipidemia (ICD-10 - E78.2) Her [...] pathology. She was referred back to her manager life insurance for evaluation. 07/15/2024 Mixed hyperlipidemia (ICD-10 - E78.2) The [...] been reported since her last visit. 03/07/2025 Former smoker (ICD-10 - Z87.891) We discussed a plan to prevent relapse in times of stress or illness. 05/14/2025 Acquired hypothyroidism (ICD-10 - E03.9) Her thyroid function test remained in range. She was continued on the current dose of replacement levothyroxine. 07/15/2024 Acquired hypothyroidism (ICD-10 - E03.9) Her thyroid function tests are stable. She was continued on the current dose. 08/29/2024 Mixed hyperlipidemia (ICD-10 - E78.2) The lipids are currently stable. No change in her medications was made. I recommended aggressive weight loss and healthy low animal fat diet. 02/24/2025 Mixed hyperlipidemia (ICD-10 - E78.2) Comprehensive blood work. The fasting lipids have been ordered. No change in her regimen was made. 03/07/2025 Overweight (ICD-10 - E66.3) Her body mass index is 26. She is slightly overweight. We discussed ways of avoiding weight gain during the winter holidays. 05/14/2025 Screening breast examination (ICD-10 - Z12.39) She has been scheduled for her annual screening mammogram. 07/15/2024 Primary insomnia (ICD-10 - F51.01) We discussed sleep hygiene today. She will continue her current therapy and no additional medication was given. 08/29/2024 Essential tremor (ICD-10 - G25.0) She will call the office with the name of the new medication given to her for her tremor by her psychiatrist. 02/24/2025 Acquired hypothyroidism (ICD-10 - E03.9) He says she is compliant with her medication. Comprehensive blood work with thyroid function tests have been ordered. 03/07/2025 Idiopathic chronic gout 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 tophus (ICD-10 - M1A.0710) No attacks of gout have been reported since her last visit. 05/14/2025 Former smoker (ICD-10 - Z87.891) We discussed a plan to prevent relapse in times of stress or illness. 07/15/2024 Former smoker (ICD-10 - Z87.891) We discussed a plan to prevent relapse in times of stress or illness. 08/29/2024 Primary osteoarthritis of left knee (ICD-10 - M17.12) She has a history of meniscus surgery in this day and it has improved. She has a history of hip replacement as well. 02/24/2025 UTI symptoms (ICD-10 - R39.9) We have ordered a urine analysis and urine cullture. She could not produced urine today but will do so tomorrow in the laboratory. 03/07/2025 Attention deficit disorder (ADD) in adult (ICD-10 - F98.8) She is doing very well with the Adderall and is conducting all of the activities of daily life without impairment. No change in her regimen seems indicated. 05/14/2025 Overweight (BMI 25.0-29.9) (ICD-10 - E66.3) Her body mass index is 28. She has lost a pound since her last visit. We discussed diet and nutrition. We reviewed her weight loss strategy. She will try to lose weight at a rate of one half of a pound per week. 07/15/2024 Idiopathic chronic gout 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 tophus (ICD-10 - M1A.0710) There is no pain today from gout in any location. She will be observed carefully for this problem and call me once if it recurs. 08/29/2024 Degenerative disc disease, cervical (ICD-10 - M50.30) She is going to have another injection and see the neurosurgeon in the near future. 02/24/2025 Tobacco dependence (ICD-10 - F17.200) She smokes only 2 cigarettes a day. We discussed smoking cessationn in detail today. 03/07/2025 Unspecified rotator cuff tear or rupture of left shoulder, not specified as traumatic (ICD-10 - M75.102) She continues to have pain with range of motion and sees Dr. Hamilton for this problem. He received physical therapy and a sling. 05/14/2025 Primary insomnia (ICD-10 - F51.01) We discussed sleep hygiene today. She will continue her current therapy and no additional medication was given. 07/15/2024 Obesity (BMI 30.0-34.9) (ICD-10 - E66.9) [...] controlled medication. No change in her regimentoday. 03/07/2025 Primary insomnia (ICD-10 - F51.01) We discussed sleep hygiene today. She will continue her current therapy and no additional medication was given. 05/14/2025 Attention deficit disorder (ADD) in adult (ICD-10 - F98.8) She is doing very well with the Adderall and is conducting all of the activities of daily life without impairment. No change in her regimen seems indicated. 07/15/2024 Tobacco dependence (ICD-10 - F17.200) She smokes only 2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
--- OUTSIDE RECORDS SUMMARY | 2025-06-03 12:46 | XMS_ITS | Clinical Summary ---
Author Organization [facility] Address [address] [place] [id number] Care Team Providers Care Energy Trading Analyst Name Role Phone Campos Quezada III Primary Care Provider [phone] Allergies Active Allergy Reactions Criticality Noted Date Comments Diclofenac Sodium GI Bleeding 04/01/2025 Medications acetaminophen (TYLENOL) 325 MG tablet Take 2 tablets (650 mg total) by mouth. 02/18/2023 Active amantadine (SYMMETREL) 100 mg capsule Take 1 capsule (100 mg total) by mouth in the morning. 11/08/2023 Active ARIPiprazole (ABILIFY) 5 MG tablet Take 7.5 mg by mouth at bedtime. Active citalopram (CeleXA) 40 MG tablet Take 1 tablet (40 mg total) by mouth in the morning. Active clonazePAM (KlonoPIN) 0.5 MG tablet Take 1 tablet (0.5 mg total) by mouth daily as needed. 11/15/2023 Active dextroamphetami ne-amphetamine (ADDERALL) 10 mg tablet Take 1 tablet (10 mg total) by mouth in the morning and 1 tablet (10 mg total) before bedtime. 09/01/2023 Active dextroamphetami ne-amphetamine ER (ADDERALL XR) 20 MG 24 hr capsule 1 capsule (20 mg total). Active diphenhydrAMINE (BENADRYL) 25 mg capsule 1 capsule (25 mg total). Active ergocalciferol (DRISDOL) 1,250 mcg (50,000 unit) capsule 1 capsule (50,000 Units total). Active fluticasone-ume clidinium-vilan terol (TRELEGY) 100-62.5-25 mcg diskus inhaler Inhale 1 puff in the morning. 05/13/2024 Active hydrOXYzine pamoate (VISTARIL) 25 MG capsule 1 capsule (25 mg total). 02/01/2023 Active levothyroxine (SYNTHROID, LEVOXYL) 75 MCG tablet 1 tablet (75 mcg total). Active omeprazole (PriLOSEC) [address] capsule Take 1 capsule (20 mg total) by mouth daily as needed (heartburn). Active simvastatin (ZOCOR) 40 MG tablet 1 tablet (40 mg total). Active zolpidem (AMBIEN) 10 mg tablet Take 1 tablet (10 mg total) by mouth at bedtime as needed for insomnia. 09/01/2023 Active Active Problems No known active problems Encounters Date Type Department Care Team Description 04/10/2025 Results Follow-Up [facility] [address] [address] Stepan Walker MD Surgical Pathology Tissue Exam 04/01/2025 9:18 AM EDT Anesthesia Event [facility] [address] [address] Torres Ibarra MD 04/01/2025 8:29 AM EDT - 04/01/2025 11:59 PM EDT Hospital Encounter [facility] [address] [address] Stepan Walker MD Lyons, Michelle, RN Diarrhea, unspecified type (Primary Dx); Weight loss Discharge Disposition: Home or Self Care 03/18/2025 Preprocedure Call [facility] [address] [address] Natalie Kasper RN from Last 3 Months Social History Tobacco Use Types Packs/Day Years Used Date Smoking Tobacco: Every Day Cigarettes Tobacco Cessation:Ready to Q uit: Not Asked; Counseling Given: Not Answered Alcohol Use Standard Drinks/Week Comments Not Currently 0 (1 standard drink = 0.6 oz pur e alcohol) Comments No Sex and Gender Information Value Date Recorded Sex Assigned at Female 03/25/2025 8:12 AM EDT Legal Sex Female 9:10 AM EDT Gender Identity Female 03/25/2025 8:12 AM EDT Sexual Orientation Not on file Last Filed Vital Signs Vital Sign Reading Time Taken Comments Blood Pressure 155/64 04/01/2025 10:20 AM EDT Pulse 67 04/01/2025 10:20 AM EDT Temperature 36.9 C (98.5 F) 04/01/2025 9:54 AM EDT Respiratory Rate 14 04/01/2025 10:20 AM EDT Oxygen Saturation 100% 04/01/2025 10:20 AM EDT Inhaled Oxygen Concentration - - Weight 88.5 kg (195 lb) 04/01/2025 8:48 AM EDT Height 182.9 cm (6') 04/01/2025 8:48 AM EDT Body Mass Index 26.45 04/01/2025 8:48 AM EDT Plan of Treatment Upcoming Encounters Date Type Department Care Team (Latest Contact Info) Description 07/17/2025 9:00 AM EST Appointment [facility] [address] [place] [address] Darío Landis MD [address] [place] [id number] with Physician 09/02/2025 3:00 PM EDT Office Visit [facility] [address] [address] Stepan Walker MD [address] [place] [id number] In Person with Physician Health Maintenance Due Date Last Done Comments Hemoglobin A1c 1957 Lipid Panel 1957 Depression Screening 1969 Hepatitis C Screening 1975 DTaP,Tdap,and Td Vaccines (1 - Tdap) 1976 Breast Cancer Screening 1997 [address] Colonography 2002 FIT 2002 FOBT 2002 Multitarget Stool DNA (Cologuard) 2002 Sigmoidoscopy 2002 Medicare Initial AWV [id number] 07/13/2007 Zoster Vaccine (2 of 2) 04/27/2018 03/02/2018 Osteoporosis Screening 2022 COVID-19 Vaccine ( season) 2025 03/05/2021, 10/02/2020, 09/09/2020 Influenza Vaccine (#1) 2025 , 04/03/2023, 04/27/2022, Additional history exists Blood Pressure 04/01/2026 04/01/2025 Colonoscopy 04/01/2035 04/01/2025 Colorectal Cancer Screening 04/01/2035 Pneumococcal Vaccine: 50+ Years Completed 05/08/2022 Meningococcal B Vaccines Aged Out No longer eligible based on patient's age to complete this topic Meningococcal Vaccines Aged Out No lo nger eligible based on patient's age to complete this topic Procedures Procedure Name Priority Date/Time Associated Diagnosis Comments COLONOSCOPY Routine 04/01/2025 9:51 AM EDT Diarrhea, unspecified type Weight loss EGD Routine 04/01/2025 9:51 AM EDT Diarrhea, unspecified type Weight loss SURGICAL PATHOLOGY TISSUE EXAM Routine 04/01/2025 9:33 AM EDT Diarrhea, unspecified type Weight loss from Last 3 Months Results * Colonoscopy (04/01/2025 9:51 AM EDT) Anatomical Region Laterality Modality Endoscopy Narrative 04/01/2025 10:05 AM EDT Table formatting from the original result was not included. Impression Copious amount of stool seen in the colon interfering with visualization. Procedure aborted Single superficial ulcer in the rectum; performed cold forceps biopsy Recommendation Await pathology results Repeat colonoscopy , patient advised to follow prep instructions Indication Diarrhea, unspecified type Weight loss Staff Staff Role Torres Ibarra MD Anesthesiologist Stepan Walker MD Proceduralist Medications See Anesthesia Record. Preprocedure A history and physical has been performed, and patient medication allergies have been reviewed. The patient's tolerance of previous anesthesia has been reviewed. The risks and benefits of the procedure and the sedation options and risks were discussed with the patient. All questions were answered and informed consent obtained. Details of the Procedure The patient underwent monitored anesthesia care, which was administered by an anesthesia professional. The patient's blood pressure, ECG, ETCO2, heart rate, oxygen, respirations and level of consciousness were monitored throughout the procedure. A digital rectal exam was performed. The scope was introduced through the anus and advanced to the descending colon. Retroflexion was performed in the rectum. The patient experienced no blood loss. The procedure was not difficult. The patient tolerated the procedure well. There were no apparent adverse events. Events Procedure Events Event Event Time ENDO SCOPE IN TIME 04/01/2025 9:31 AM ENDO SCOPE OUT TIME 04/01/2025 9:35 AM ENDO SCOPE IN TIME 04/01/2025 9:42 AM ENDO SCOPE OUT TIME 04/01/2025 9:48 AM Findings Copious amount of stool seen in the colon interfering with visualization. Procedure aborted Single superficial ulcer in the rectum; performed cold forceps biopsy Specimens ID Type Source Tests Collected by Time A : bx r/o celiac Tissue Small Bowel SURGICAL PATHOLOGY TISSUE EXAM Stepan Walker MD 04/01/2025 9:33 AM B : bx rectal ulcer Tissue Large Intestine, Rectum SURGICAL PATHOLOGY TISSUE EXAM Stepan Walker MD 04/01/2025 9:46 AM Scopes [id number] Stepan Walker MD GI PROCEDURE ORDERABLES F inal Result * EGD (04/01/2025 9:51 AM EDT) Anatomical Region Laterality Modality Endoscopy Narrative 04/01/2025 10:04 AM EDT Table formatting from the original result was not included. Impression The duodenal bulb, 1st part of the duodenum and 2nd part of the duodenum appeared normal. Performed random biopsy using biopsy forceps. Food bolus in the stomach which was large, complete exam of stomach could not be achieved. Grade B reflux esophagitis with mucosal breaks measuring 5 mm or more not continuous between folds, covering less than 75% of the circumference in the GE junction The upper third of the esophagus and middle third of the esophagus appeared normal. All specimens reviewed by doctor and pc maintenance technician using patient's name, medical record number and date of . Recommendation Await pathology results Take Omeprazole 20 mg PO daily Follow anti-reflux measures Repeat EGD in 12 weeks to complete exam of stomach and to also evaluate healing of esophagitis. Stay on clear liquid diet for one day prior to procedure Indication Diarrhea, unspecified type Weight loss Staff Staff Role Torres Ibarra MD Anesthesiologist Stepan Walker MD Proceduralist Medications See Anesthesia Record. Preprocedure A history and physical has been performed, and patient medication allergies have been reviewed. The patient's tolerance of previous anesthesia has been reviewed. The risks and benefits of the procedure and the sedation options and risks were discussed with the patient. All questions were answered and informed consent obtained. Details of the Procedure The patient underwent monitored anesthesia care, which was administered by an anesthesia professional. The patient's blood pressure, heart rate, level of consciousness, oxygen saturation, respirations, ECG and ETCO2 were monitored throughout the procedure. The scope was introduced through the mouth and advanced to the second part of the duodenum. Retroflexion was performed in the fundus. The patient experienced no blood loss. The procedure was not difficult. The patient tolerated the procedure well. There were no apparent adverse events. Events Procedure Events Event Event Time ENDO SCOPE IN TIME 04/01/2025 9:31 AM ENDO SCOPE OUT TIME 04/01/2025 9:35 AM Findings The duodenal bulb, 1st part of the duodenum and 2nd part of the duodenum appeared normal. Performed random biopsy using biopsy forceps. Food bolus in the stomach which was large, complete exam of stomach could not be achieved. Grade B reflux esophagitis with mucosal breaks measuring 5 mm or more not continuous between folds, covering less than 75% of the circumference in the GE junction The upper third of the esophagus and middle third of the esophagus appeared normal. Specimens ID Type Source Tests Collected by Time A : bx r/o celiac Tissue Small Bowel SURGICAL PATHOLOGY TISSUE EXAM Stepan Walker MD 04/01/2025 9:33 AM Scopes [id number] Stepan Walker MD GI PROCEDURE ORDERABLES F inal Result * Surgical Pathology Tissue Exam (04/01/2025 9:33 AM EDT) Case Report Surgical Pathology Report Case: [id number] Authorizing Provider: Stepan Walker MD Collected: 04/01/2025 09:33 AM Ordering Location: [facility] Received: 04/01/2025 10:32 AM Pathologist: Anjana Thomas MD Specimens: A) - Small Bowel, bx r/o celiac B) - Large Intestine, Rectum, bx rectal ulcer 04/03/2025 11:37 AM EDT [facility] Final Diagnosis A. Small Bowel, bx r/o celiac: Small bowel mucosa, with no specific pathologic changes. B. Large Intestine, Rectum, bx rectal ulcer: Colon mucosa with surface ulceration and active inflammation. 04/03/2025 11:37 AM EDT [facility] at 1137 EDT Clinical Information Diagnosis: R19.7-Diarrhea , unspecified type R63.4-Weight loss 04/03/2025 11:37 AM EDT [facility] Gross Description A. Small Bowel, bx r/o celiac Received in formalin labeled with the patient's name, MRN, and small bowel BX rule out celiac are 3 hung-pink irregular, friable mucosal soft tissue fragments measuring 0.3-0.4 cm greatest dimension. The specimen is wrapped and entirely submitted in A1. B. Large Intestine, Rectum, bx rectal ulcer Received in formalin labeled with the patient's name, MRN, and BX rectal ulcer are 3 hung irregular, friable mucosal soft tissue fragments measuring 0.2-0.3 cm in greatest dimension. The specimen is wrapped and entirely submitted in B1./DT 04/03/2025 11:37 AM EDT [facility] Tissue SPECIMEN FROM SMALL INTESTINE / Unknown 04/01/2025 9:33 AM EDT 04/01/2025 10:32 AM EDT Tissue specimen (specimen) RECTAL / Unknown 04/01/2025 9:46 AM EDT 04/01/2025 10:32 AM EDT us Stepan Walker MD PATHOLOGY/CYTOLOGY ORDERA BLES Final Result [address] [address], from Last 3 Months Insurance MEDICARE [id number] [place] [address] MEDICARE [facility] Care Teams Energy Trading Analyst Relationship Specialty Start Date End Date Campos Quezada III [facility] [address] [place] [address] PCP - General 09/16/24
--- OUTSIDE RECORDS SUMMARY | 2025-06-03 12:47 | XMS_ITS | Clinical Summary ---
Author Organization [facility] [address] [facility] Address [address] [place] [address] Phone Care Team Providers Care Fireworks Display Specialist Name Role Phone Alberto Quezada MD Primary Care Provider [phone] Allergies Active Allergy Reactions Criticality Noted Date Comments Diclofenac Sodium 10/24/2018 Stomach upset, rectal bleeding Medications amantadine (SYMMETREL) 100 mg capsule TAKE 1 CAPSULE BY MOUTH THREE TIMES DAILY. 4 Active ARIPiprazole (ABILIFY) 5 mg tablet Take 5 mg by mouth daily. Active atorvastatin (LIPITOR) 40 mg tablet Take 40 mg by mouth daily. Active clonazePAM (KlonoPIN) 0.5 mg tablet TAKE 1 TABLET BY MOUTH EVERY DAY NEEDED. 4 Active amphetamine-de xtroamphetamin e (ADDERALL) 30 mg tablet Take 30 mg by mouth daily. Active diphenhydrAMIN E (BENADRYL) 25 mg capsule Take 1 Capsule by mouth every 6 hours as needed. Active hydrOXYzine pamoate (VISTARIL) 25 mg capsule TAKE 1 CAPSULE BY MOUTH TWICE DAILY NEEDED. 4 Active levothyroxine sodium (TIROSINT) 75 mcg capsule Take by mouth. Active omeprazole (PriLOSEC) [address] capsule Take 20 mg by mouth daily. 2 Active zolpidem (AMBIEN) 5 mg tablet Take by mouth at bedtime as needed. Pt taking 10mg daily Active loperamide (IMODIUM) 1 mg/7.5 mL solution Take by mouth. Take by mouth. - Oral Active citalopram (CeleXA) 40 mg tablet Take 40 mg by mouth daily. - Oral Active fluticasone-um eclidinium-boby anterol (Trelegy Ellipta) 100-62.5-25 mcg inhaler INHALE 1 PUFF INTO THE LUNGS DAILY 1 each 11 5 04/24/20 26 Active umeclidinium-v ilanteroL (Anoro Ellipta) 62.5-25 mcg/actuation inhaler INHALE 1 PUFF BY MOUTH EVERY DAY. 3 05/21/20 25 Discontinued Active Problems Problem Noted Date Diagnosed Date Incarcerated paraesophageal hernia 11/28/2023 Overview (07/10/2024): Last Assessment & Plan: Ms. Ribera is a 68 yr. female presenting for their 4 week follow-up status post da [place] laparoscopic paraesophageal hernia repair with hybrid mesh and gastropexy. This operation was performed at [facility] on 01/02/[address] Dhiraj [...] any questions or concerns. Interstitial lung disease 11/28/2023 Chronic midline low back pain without sciatica 0 11/18/2020 ADHD 11/02/2018 DDD (degenerative disc disease), lumbar 11/03/19 19 Overview (07/10/2024): Cervical as well Depression 11/02/2018 Essential tremor 11/02/2018 GERD (gastroesophageal reflux disease) 9 Hiatal hernia 11/02/2018 Gout 11/02/2018 History of substance abuse 11/02/2018 Overview (07/10/2024): 04/2018 was on a [...] surgery. Patient had C-spine MRI 12/23/21 At [facility], that showed ACDF with plate and [...] after reviewing her x-rays. ADDENDUM: Report from [place] found for cervical flexion-extension x-rays 11/02/2021 that showed no instability. I will review this with Dr. Perez, patient likely will not require surgical intervention. Encounters Date Type Department Care Team Description 05/21/2025 8:45 AM EST Office Visit Pulmonology - [address] [place] [address] Farnaz Kay MD Chronic obstructive pulmonary disease, unspecified COPD type ([facility] V24, [facility] V28) (Primary Dx); Smoking 1/2 pack a day or less from Last 3 Months Immunizations Immunization Administration Dates Next Due Influenza Quadravalent, MDCK , 0.5ml, preservative free (Flucelvax) 6mo and older 03/02/2018 Influenza trivalent, 0.5mL, preservative free (Fluarix; FluLaval; Fluzone) ages 6mo and older (Afluria) 3 years and older 03/05/2021,02/28/2017,03/11/2016 Zoster recombinant (Shingrix ) 19yo and older 03/02/2018 Surgical History Surgery Date Site/Laterality Comments HYSTERECTOMY 2004 PROCEDURE: HISTORICAL TOTAL HYSTERECTOMY WITH BSO OTHER SURGICAL HISTORY 05/24/2018 PROCEDURE: DC ARTHRD ANT INTERBODY MIN DSC CRV BELOW C2; COMMENT: C4-5 ACDF and removal C6-7 plate, Dr. Elliott HIP ARTHROPLASTY 02/2012 Right PROCEDURE: HISTORICAL HIP REPLACEMENT COLONOSCOPY 2014 PROCEDURE: HISTORICAL COLONOSCOPY; COMMENT: tubular adenoma (3); no report COLONOSCOPY 2002 PROCEDURE: HISTORICAL COLONOSCOPY; COMMENT: tubular adenoma; no report COLONOSCOPY 2006 PROCEDURE: HISTORICAL COLONOSCOPY; COMMENT: tubular adenoma;no report ESOPHAGOGASTRODUODENOSCOPY 2009 PROCEDURE: DC ESOPHAGOGASTRODUODENOSCOPY TRANSORAL DIAGNOSTIC; COMMENT: gastritis; no report OTHER SURGICAL HISTORY 10/05/2020 PROCEDURE: DC ARTHRD ANT INTERBODY MIN DSC CRV BELOW C2; COMMENT: C3-4 ACDF and removal C4-5 plate, Dr. Guillory [place] OTHER SURGICAL HISTORY 07/2004 PROCEDURE: DC ARTHRD ANT INTERBODY MIN DSC CRV BELOW C2; COMMENT: C5-6, C6-7 ACDF, Dr. Elliott CATARACT EXTRACTION PROCEDURE: HISTORICAL CATARACT REMOVAL OTHER SURGICAL HISTORY 01/02/2024 N/A PROCEDURE: DC LAPS RPR PARAESPHGL HRNA INCL FUNDPLSTY W/MESH [...] 11/02/2018 DX:Insomnia History of substance abuse ( [facility] V24, [facility] V28) 11/02/2018 DX:History of substance abus e ([facility]); COMMENT: 04/2018 was on a tapering process prior to neck surgery; Opioid dependence Shortness of breath 10/25/2018 DX:Shortness of breath COPD (chronic obstructive pu lmonary disease) with emphysema ([facility] V24, [facility] V28) DX:COPD (chronic obstructive pulmonary disease) with emphysema ([facility]) Family History Medical History Relation Name Comments [...] Orientation Straight 10/21/2024 10 :28 AM EDT Last Filed Vital Signs Vital Sign Reading Time Taken Comments Blood Pressure 129/75 05/21/2025 8:55 AM EST Pulse 72 05/21/2025 8:55 AM EST Temperature 35.6 C (96 F) 05/21/2025 8:55 AM EST Respiratory Rate 16 05/21/2025 8:55 AM EST Oxygen Saturation 99% 05/21/2025 8:55 AM EST Inhaled Oxygen Concentration - - Weight 90.6 kg (199 lb 12.8 oz) 05/21/2025 8:55 AM EST Height 182.9 cm (6') 05/21/2025 8:55 AM EST Body Mass Index 27.1 05/21/2025 8:55 AM EST Plan of Treatment Upcoming Encounters Date Type Department Care Team (Late st Contact Info) Description 11/19/2025 10:30 AM EDT Office Visit Pulmonology - [place] [address] [place] [address] Farnaz Kay MD [address] [place] [phone] Health Maintenance Due Date Last Done Comments Drug Screen 1955 Non-Opioid Controlled Substance Agreement 1955 DTaP,Tdap,and Td Vaccines (1 - Tdap) 1976 RSV Immunization Adult Patients (1 - Risk 50-74 years 1-dose series) 2007 Cholesterol Screening (Lipid Panel) 05/19/2022 Hepatitis C Screening 05/19/2022 Medicare Annual Wellness Visit 05/19/2022 Osteoporosis Screening (Bone Density Screening) 05/19/2022 Social Influencers of Health Screening 05/19/2022 Falls Risk Assessment 2022 Depression Screening 06/12/2024 Hypertension/CHF/CAD Annual BMP Blood Test 09/03/2024 COVID-19 Vaccine ( season) 2025 03/05/2021, 10/02/2020, 09/09/2020 Breast Cancer Screening 05/18/2025 05/18/20 23, 12/28/2021, 11/02/2020, Additional history exists Lung Cancer Screening (Low Dose CT) 11/12/2025 11/12/2024, 10/20/2023, 10/20/2023, Additional history exists Colorectal Cancer Screening: Sigmoidoscopy 04/01/2030 04/01/2025 Pneumococcal Vaccine: 50+ Years Completed 05/08/2022 Influenza Vaccine Completed 03/15/2025, , 04/03/2023, Additional history exists Zoster Vaccines Completed 03/15/2025, 03/02/2018 HIB Vaccines Aged Out No longer eligi [...] this topic Medical Devices Implanted Type Area Concrete Tile Machine Operator Device Identifier Shelf Expiration Date Model / Serial / Lot Sponge Surgiflo 8ml Hemostatic Matrix Absorbable Latex Free - [id number] Implanted:Qty: 1 on 05/24/2018 by Michael Elliott MD Implants N/A: Spine Cervical RADHA & RADHA RAH 03/11/2020 [id number] / / [id number] Sponge Surgiflo 8ml Hemostatic Matrix Absorbable Latex Free - [id number] Implanted:Qty: 1 on 10/05/2020 by Darío Guillory DO Implants N/A: Spine Cervical RADHA & RADHA RAH 01/09/2022 2991 / / [id number] Spacer Cervical Allofuse 6mm Cortical Cancellous Freeze Lord - [id number] Implanted:Qty: 1 on 05/24/2018 by Michael Elliott MD N/A: Spine Cervical [employer] 08/19/2022 [id number] / / [id number] Description:wm Plate Xtend Bone [facility] - [id number] Implanted:Qty: 1 on 05/24/2018 by Michael Elliott MD N/A: Spine Cervical [employer] 161.112 / / Screw Bone [facility] [id number] Implanted:Qty: 4 on 05/24/2018 by Michael Elliott MD N/A: Spine Cervical [employer] 161.312 / / Vikos Cervical 14x14.5x6mm 7d Cortico Cancellous - [id number] - [id number] Implanted:Qty: 1 on 10/05/2020 by Darío Guillory DO N/A: Spine Cervical [employer] 01/06/2025 [id number] / [id number] Plate Schroeder 20mm 1 Level Bone Spine Cervical Nonsterile - [id number] Implanted:Qty: 1 on 10/05/2020 by Darío Guillory, N/A: Spine Cervical [employer] [id number] / / Screw Schroeder 14mm 4mm Self Start Variable Angle Bone Spine - [id number] Implanted:Qty: 4 on 10/05/2020 by Darío Guillory, N/A: Spine Cervical [employer] [id number] DA / / Procedures Procedure Name Priority Date/Time Associated Diagnosis Comments CT LUNG SCREENING Routine 11/12/2024 7:4 8 AM EDT Encounter for screening for malignant neoplasm of respiratory organs Nicotine dependence, cigarettes, uncomplicated BAN SCREENING DIGITAL Routine 05/18/2023 8:03 AM EST [...] Signed Date: 11/12/2024 10:55 ET Workstation ID: [id number] Transcribed By: Self Edit Transcribed Date: 11/12/2024 [...] Signed Date: 11/12/2024 10:55 ET Workstation ID: [id number] Transcribed By: Self Edit Transcribed Date: 11/12/2024 10:06 ET us Dhiraj Moon MD IMG CT PROCEDURES Final Result * [facility] SCREENING DIGITAL (05/18/2023 8:03 AM EST) Anatomical Region Laterality Modality Mammography 05/18/2023 7:19 AM EST Narrative 05/18/2023 8:03 AM EST [facility] Diagnostic Imaging Department [address] [place] [id number] Patient: BACILIOBROOKE /Age/Sex: 1955 - 67 - F Unit#: [id number] Location/Status: [facility] CLI Mnemonic/Ordering Site: [facility] Ordering Physician: ALBERTO QUEZADA MD [facility] Screening Digital - 05/18/[id number] Report Status:Signed EXAM: [facility] Screening Digital EXAM DATE AND TIME: 05/18/2023 7:34 AM HISTORY: Screening. Left breast biopsy in 2005, pathology benign. COMPARISON: 12/28/21, 11/02/20, 11/22/18, 11/20/17 TECHNIQUE: Bilateral digital breast tomosynthesis was performed in the CC and MLO projections. Computer aided detection with Beabloo 3D 3.1 was employed. TISSUE DENSITY: a. [...] Procedure Note Tatum Glynn MD - 07/18/2023 [facility] Diagnostic Imaging Department [address] [place] [address] Patient: BELKISKenishaBROOKE /Age/Sex: 1955 - 67 - F Unit#: [id number] Location/Status: [facility]/REG CLI Mnemonic/Ordering Site: [facility] Ordering Physician: ALBERTO QUEZADA MD [facility] Screening Digital - 05/18/23 - [id number] Report Status:Signed EXAM: [facility] Screening Digital EXAM DATE AND TIME: 05/18/2023 7:34 AM HISTORY: Screening. Left breast biopsy in 2005, pathology benign. COMPARISON: 12/28/21, 11/02/20, 11/22/18, 11/20/17 TECHNIQUE: Bilateral digital breast tomosynthesis was performed in the CCand MLO projections. Computer aided detection with Beabloo 3D 3.1was employed. TISSUE DENSITY: a. The [...] Most Recently Relevant to Health Maintenance Insurance MEDICARE [place]ICAID [place] Care Teams Fireworks Display Specialist Relationship Specialty Start Date End Date Alberto Quezada MD [address] [address] PCP - General Oncology 12/21/18
== END 2025-06-03 11:21 | disposition home or self-care (01) ==
LOC: HO.LAB 11:20
PROVIDERS: PCP Internal Medicine Medical Oncology; Visit Provider Urology
DX: R35.0 Frequency of micturition (principal); R39.15 Urgency of urination
CPT/HCPCS: 87086; 87088; 87186